=== PATIENT | male | born 1940 | race Caucasian/White ===

== ENCOUNTER → 2018-10-10 | Outpatient (CLI) | payer MEDICARE | END | disposition home or self-care (01) | LOC: RADCTMAIN 16:17 | PROVIDERS: ATTEND Psychiatry & Neurology Neurology | DX: I72.9 Aneurysm of unspecified site (principal) | CPT/HCPCS: 82565; 84520 ==

== ENCOUNTER → 2018-10-24 | Outpatient (CLI) | payer MEDICARE ==
--- NOTE | 2018-10-24 15:33 | XR ---
EXAMINATION TYPE: XR chest 2V DATE OF EXAM: 10/24/2018 COMPARISON: None HISTORY: Cardiac murmur, weakness TECHNIQUE: Frontal and lateral views of the chest are obtained on 3 images. FINDINGS: There is no focal air space opacity, pleural effusion, or pneumothorax seen. The cardiac silhouette size is within normal limits. The osseous structures are intact. IMPRESSION: No acute cardiopulmonary process.
--- NOTE | 2018-10-25 11:13 | ECHOF ---
Referral Reason:R01.1 Cardiac Murmur MEASUREMENTS -------- HEIGHT: 182.9 cm WEIGHT: 81.6 kg BP: 117/74 RVIDd: 3.8 cm (< 3.3) IVSd: 1.2 cm (0.6 - 1.1) LVIDd: 5.5 cm (3.9 - 5.3) LVPWd: 1.3 cm (0.6 - 1.1) IVSs: 1.8 cm LVIDs: 3.7 cm LVPWs: 1.9 cm LA Diam: 3.7 cm (2.7 - 3.8) LAESV Index (A-L): 37.87 ml/m Ao Diam: 3.8 cm (2.0 - 3.7) AV Cusp: 2.5 cm (1.5 - 2.6) MV EXCURSION: 15.965 mm (> 18.000) MV EF SLOPE: 104 mm/s (70 - 150) EPSS: 1.0 cm MV E Tejas: 0.76 m/s MV DecT: 175 ms MV A Tejas: 1.24 m/s MV E/A Ratio: 0.61 AV maxP.20 mmHg AV meanP.84 mmHg AR PHT: 461 ms RAP: 5.00 mmHg RVSP: 36.55 mmHg FINDINGS -------- Sinus rhythm. This was a technically good study. The left ventricular size is normal. There is mild concentric left ventricular hypertrophy. Overa ll left ventricular systolic function is normal with, an EF between 60 - 65 %. The right ventricle is mild to moderately enlarged. LA is moderately dilated 34-39 ml/m2 The right atrium is normal in size. There is mild aortic valve sclerosis. There is mild aortic regurgitation. There is mild aortic st enosis present. Peak/mean gradient across the Aortic Valve is 14.20mmHg / 4.84mmHg. The mitral valve leaflets are mildly thickened. Mild mitral annular calcification present. Modera te mitral regurgitation is present , predominately an anteriorly directed jet. Mild prolapse of the posterior mitral valve leaflet. Mild tricuspid regurgitation present. There is mild pulmonary hypertension. The right ventricular systolic pressure, as measured by Doppler, is 36.55mmHg. Trace/mild (physiologic) pulmonic regurgitation. The aortic root is dilated measuring 3.8cm. Normal inferior vena cava with normal inspiratory collapse consistent with estimated right atrial pre ssure of 5 mmHg. There is no pericardial effusion. CONCLUSIONS -------- 1. Sinus rhythm. 2. This was a technically good study. 3. The left ventricular size is normal. 4. There is mild concentric left ventricular hypertrophy. 5. Overall left ventricular systolic function is normal with, an EF between 60 - 65 %. 6. The right ventricle is mild to moderately enlarged. 7. LA is moderately dilated 34-39 ml/m2 8. The right atrium is normal in size. 9. There is mild aortic valve sclerosis. 10. There is mild aortic regurgitation. 11. There is mild aortic stenosis present. 12. Peak/mean gradient across the Aortic Valve is 14.20mmHg / 4.84mmHg. 13. The mitral valve leaflets are mildly thickened. 14. Mild mitral annular calcification present. 15. Moderate mitral regurgitation is present. 16. , predominately an anteriorly directed jet. 17. Mild prolapse of the posterior mitral valve leaflet. 18. Mild tricuspid regurgitation present. 19. There is mild pulmonary hypertension. 20. The right ventricular systolic pressure, as measured by Doppler, is 36.55mmHg. 21. Trace/mild (physiologic) pulmonic regurgitation. 22. The aortic root is dilated measuring 3.8cm. 23. Normal inferior vena cava with normal inspiratory collapse consistent with estimated right atrial pressure of 5 mmHg. 24. There is no pericardial effusion. [employer] SALES REPRESENTATIVE: Tete Chávez RDCS
== END | disposition home or self-care (01) ==
LOC: RADECHMAIN 14:47
PROVIDERS: ATTEND Family Medicine
DX: I08.3 Combined rheumatic disorders of mitral, aortic and tricuspid valves (principal); I27.20 Pulmonary hypertension, unspecified
CPT/HCPCS: 71046; 93306

== ENCOUNTER 2018-11-07 11:24 | Inpatient (IN) | payer MEDICARE ==
[2018-11-07] MEDS ORDERED: SODIUM CHLORIDE 0.9% 1,000 ML IV STA ×2 (11:32→14:55)
--- NOTE | 2018-11-07 11:38 | ED ---
Syncope HPI - General Stated Complaint: Syncope Time Seen by Provider: 11/07/18 11:24 Source: patient, EMS, RN notes reviewed, old records reviewed Mode of arrival: EMS - History of Present Illness Initial Comments: This is a 78-year-old male was brought in by EMS after he found unresponsive slumped over in a wheelchair. He had Nausea Vomiting Sometime during This Occurrence. Paramedics Stated He Responded after They Talked to Him and Babatunde Him Somewhat. He Denies Any Chest Pain Fevers Chills Palpitations. He Apparently Has had a Similar Episode Recently and Was Seen at [facility] apparently CAT scan shows some evidence of possible intercerebral bleed the patient was to be transferred to a tertiary care facility for refused. He did apparently also had an outpatient MRI of the brain done which showed no bleeding. At this time he feels fine. He does state he had a slight headache this morning. No other symptomatology no other modifying factors at this time. MD Complaint: loss of consciousness - Related Data Home Medications Medication Instructions Recorded Confirmed Acetaminophen Tab [Tylenol Tab] 325 mg PO Q6H PRN 11/07/18 11/07/18 Vitamin B Complex 1 cap PO DAILY 11/07/18 11/07/18 Allergies Allergy/AdvReac Type Severity Reaction Status Date / Time No Known Allergies Allergy Verified 11/07/18 12:59 Review of Systems ROS Statement: Those systems with pertinent positive or pertinent negative responses have been documented in the HPI. ROS Other: All systems not noted in ROS Statement are negative. General Exam - General Exam Comments Initial Comments: This a well-developed asthenic appearing male who is awake alert oriented 3 General appearance: alert, in no apparent distress Head exam: Present: atraumatic, normocephalic, normal inspection Eye exam: Present: normal appearance, PERRL, EOMI. Absent: scleral icterus, conjunctival injection, periorbital swelling ENT exam: Present: mucous membranes dry Neck exam: Present: normal inspection. Absent: tenderness, meningismus, lymphadenopathy Respiratory exam: Present: normal lung sounds bilaterally. Absent: respiratory distress, wheezes, rales, rhonchi, stridor Cardiovascular Exam: Present: regular rate, normal rhythm, normal heart sounds. Absent: systolic murmur, diastolic murmur, rubs, gallop, clicks GI/Abdominal exam: Present: soft, normal bowel sounds. Absent: distended, tenderness, guarding, rebound, rigid Rectal exam: Present: heme (+) stool, bloody stool Extremities exam: Present: normal inspection, full ROM, normal capillary refill. Absent: tenderness, pedal edema, joint swelling, calf tenderness Back exam: Present: normal inspection Neurological exam: Present: alert, oriented X3, CN II-XII intact Psychiatric exam: Present: normal affect, normal mood Skin exam: Present: warm, dry, intact, normal color. Absent: rash Course Vital Signs 11/07/18 11/07/18 11/07/18 11:34 12:21 15:50 Temperature 98.2 F 97.6 F Pulse Rate 89 91 112 H Respiratory 18 16 18 Rate Blood Pressure 136/104 144/99 146/90 O2 Sat by Pulse 98 97 98 Oximetry 11/07/18 15:53 Temperature Pulse Rate Respiratory Rate Blood Pressure O2 Sat by Pulse 99 Oximetry Medical Decision Making - Medical Decision Making Patient was reevaluated on multiple occasions he demonstrated no further symptoms and was noted however on his lab work is hemoglobin was 8.4 information obtained from [facility] at his last admission on September 20 demonstrated he had a 10.4 hemoglobin at that time he does say he has had some bleeding from his gums I did perform a rectal exam there was heme positive dark red streak stool. I did discuss the findings with Dr. Velez patient will be admitted with cardiology consultation as well as GI consultation. The syncopal episodes or likely secondary to symptomatic anemia/orthostatic etiology. - Lab Data Result diagrams: 11/07/18 12:44 11/07/18 14:15 Lab Results 11/07/18 11/07/18 11/07/18 Range/Units 11:41 11:41 12:44 WBC 11.3 H (3.8-10.6) k/uL RBC 2.67 L (4.30-5.90) m/uL Hgb 8.4 L (13.0-17.5) gm/dL Hct 26.0 L (39.0-53.0) % MCV 97.3 (80.0-100.0) fL MCH 31.4 (25.0-35.0) pg MCHC 32.3 (31.0-37.0) g/dL RDW 13.0 (11.5-15.5) % Plt Count 236 (150-450) k/uL Neutrophils % 85 % Lymphocytes % 7 % Monocytes % 6 % Eosinophils % 1 % Basophils % 0 % Neutrophils # 9.6 H (1.3-7.7) k/uL Lymphocytes # 0.8 L (1.0-4.8) k/uL Monocytes # 0.7 (0-1.0) k/uL Eosinophils # 0.1 (0-0.7) k/uL Basophils # 0.0 (0-0.2) k/uL PT 11.0 (9.0-12.0) sec INR 1.0 (<1.2) APTT 20.3 L (22.0-30.0) sec D-Dimer 0.83 H (<0.60) mg/L FEU Sodium (137-145) mmol/L Potassium (3.5-5.1) mmol/L Chloride (98-107) mmol/L Carbon Dioxide (22-30) mmol/L Anion Gap mmol/L BUN (9-20) mg/dL Creatinine (0.66-1.25) mg/dL Est GFR (CKD-EPI)AfAm (>60 ml/min/1.73 sqM) Est GFR (CKD-EPI)NonAf (>60 ml/min/1.73 sqM) Glucose (74-99) mg/dL Calcium (8.4-10.2) mg/dL Magnesium (1.6-2.3) mg/dL Total Bilirubin (0.2-1.3) mg/dL AST (17-59) U/L ALT (21-72) U/L Alkaline Phosphatase (38-126) U/L Creatine Kinase (55-170) U/L Troponin I 0.013 (0.000-0.034) ng/mL Total Protein (6.3-8.2) g/dL Albumin (3.5-5.0) g/dL Urine Color Urine Appearance (Clear) Urine pH (5.0-8.0) Ur Specific [place] (1.001-1.035) Urine Protein (Negative) Urine Glucose (UA) (Negative) Urine Ketones (Negative) Urine Blood (Negative) Urine Nitrite (Negative) Urine Bilirubin (Negative) Urine Urobilinogen (<2.0) mg/dL Ur Leukocyte Esterase (Negative) Stool Occult Blood (Negative) 11/07/18 11/07/18 11/07/18 Range/Units 14:15 16:50 16:50 WBC (3.8-10.6) k/uL RBC (4.30-5.90) m/uL Hgb (13.0-17.5) gm/dL Hct (39.0-53.0) % MCV (80.0-100.0) fL MCH (25.0-35.0) pg MCHC (31.0-37.0) g/dL RDW (11.5-15.5) % Plt Count (150-450) k/uL Neutrophils % % Lymphocytes % % Monocytes % % Eosinophils % % Basophils % % Neutrophils # (1.3-7.7) k/uL Lymphocytes # (1.0-4.8) k/uL Monocytes # (0-1.0) k/uL Eosinophils # (0-0.7) k/uL Basophils # (0-0.2) k/uL PT (9.0-12.0) sec INR (<1.2) APTT (22.0-30.0) sec D-Dimer (<0.60) mg/L FEU Sodium 143 (137-145) mmol/L Potassium 4.0 (3.5-5.1) mmol/L Chloride 108 H (98-107) mmol/L Carbon Dioxide 25 (22-30) mmol/L Anion Gap 10 mmol/L BUN 14 (9-20) mg/dL Creatinine 1.39 H (0.66-1.25) mg/dL Est GFR (CKD-EPI)AfAm 57 (>60 ml/min/1.73 sqM) Est GFR (CKD-EPI)NonAf 49 (>60 ml/min/1.73 sqM) Glucose 142 H (74-99) mg/dL Calcium 10.1 (8.4-10.2) mg/dL Magnesium 2.1 (1.6-2.3) mg/dL Total Bilirubin 0.8 (0.2-1.3) mg/dL AST 26 (17-59) U/L ALT 22 (21-72) U/L Alkaline Phosphatase 87 (38-126) U/L Creatine Kinase <20 L (55-170) U/L Troponin I (0.000-0.034) ng/mL Total Protein 8.6 H (6.3-8.2) g/dL Albumin 3.8 (3.5-5.0) g/dL Urine Color Yellow Urine Appearance Clear (Clear) Urine pH 5.5 (5.0-8.0) Ur Specific [place] 1.012 (1.001-1.035) Urine Protein Trace H (Negative) Urine Glucose (UA) Negative (Negative) Urine Ketones Negative (Negative) Urine Blood Negative (Negative) Urine Nitrite Negative (Negative) Urine Bilirubin Negative (Negative) Urine Urobilinogen <2.0 (<2.0) mg/dL Ur Leukocyte Esterase Negative (Negative) Stool Occult Blood Positive (Negative) - EKG Data -: EKG Interpreted by Me (Sinus rhythm with first-degree AV block occasional PVCs rate was 90 AR inte) - Radiology Data Radiology results: report reviewed (I did review the imaging and reports no definite acute findings or is some evidence a CAT scan of sinusitis.), image reviewed Critical Care Time Critical Care Time: Yes Critical Care Time: 31 minutes of critical care time which includes initial presentation with history physical labs x-rays multiple reevaluation the patient to response to IV fluids and continued monitoring. Multiple discussion with the patient has daughter regarding findings review of old charting from [facility]. Discussed with Dr. Velez admission orders and documentation of the above. Disposition Clinical Impression: Syncope due to orthostatic hypotension, Symptomatic anemia, GI bleed Disposition: ADMITTED IP TO THIS [facility] Condition: Fair Referrals: Jn Alonso DO [Primary Care Provider] - 1-2 days
[2018-11-07 12:38] LABS: Partial Thromboplastin Time 20.3 sec (22.0-30.0)
--- NOTE | 2018-11-07 12:42 | CT ---
EXAMINATION TYPE: CT brain wo con DATE OF EXAM: 11/07/2018 COMPARISON: None HISTORY: Syncopal episode today. CT DLP: 1180.4 mGycm Automated exposure control for dose reduction was used. TECHNIQUE: CT scan of the head is performed without contrast. FINDINGS: There is no acute intracranial hemorrhage or midline shift identified. There is diffuse v entricular and sulcal prominence consistent with diffuse age-related cerebral atrophy. Punctate basa l ganglia calcifications are seen on the right. There is low-attenuation in the periventricular white matter consistent with chronic small vessel ischemic change. The globes are intact. There is severe mucosal thickening with high-density rounded material is multifocal within the right maxillary sinus . These measure up to 9 mm. Scant mucosal thickening is also seen within the left maxillary sinus and e thmoid sinuses. Remaining paranasal sinuses and mastoid air cells are well aerated. IMPRESSION: 1. No acute intracranial hemorrhage or midline shift. There is diffuse age-related cerebral atrophy and chronic small vessel ischemic change noted. 2. Severe right maxillary mucosal thickening with high density rounded intrasinus lesions. These coul d represent small fungal balls or polyps.
--- NOTE | 2018-11-07 12:43 | XR ---
EXAMINATION TYPE: XR chest 2V DATE OF EXAM: 11/07/2018 COMPARISON: 10/24/2018 HISTORY: Syncopal episode TECHNIQUE: Frontal and lateral views of the chest are obtained. FINDINGS: There is no focal air space opacity, pleural effusion, or pneumothorax seen. The cardiac silhouette size is within normal limits. The osseous structures are intact. IMPRESSION: No acute cardiopulmonary process.
[2018-11-07 13:03] LABS: D-Dimer 0.83 mg/L FEU (<0.60)
[2018-11-07 14:33] LABS: Basophils % (A) 0 %; Eosinophils # (A) 0.1 k/uL (0-0.7); Eosinophils % (A) 1 %; HGB 8.4 gm/dL (13.0-17.5); Lymphocytes # (A) 0.8 k/uL (1.0-4.8); Lymphocytes % (A) 7 %; MCH 31.4 pg (25.0-35.0); MCV 97.3 fL (80.0-100.0); Monocytes # (A) 0.7 k/uL (0-1.0); Monocytes % (A) 6 %; Neutrophils # (A) 9.6 k/uL (1.3-7.7); Neutrophils % (A) 85 %; Platelet Count 236 k/uL (150-450); RBC 2.67 m/uL (4.30-5.90); WBC 11.3 k/uL (3.8-10.6)
[2018-11-07 14:47] LABS: MCHC 32.3 g/dL (31.0-37.0)
[2018-11-07 14:47] LABS: ALT 22 U/L (21-72); AST 26 U/L (17-59); Albumin 3.8 g/dL (3.5-5.0); Alkaline Phosphatase 87 U/L (38-126); Anion Gap 10 mmol/L; Blood Urea Nitrogen 14 mg/dL (9-20); Calcium 10.1 mg/dL (8.4-10.2); Carbon Dioxide 25 mmol/L (22-30); Chloride 108 mmol/L (98-107); Creatine Kinase <20 U/L (55-170); Glucose 142 mg/dL (74-99); Magnesium 2.1 mg/dL (1.6-2.3); Sodium 143 mmol/L (137-145); Total Bilirubin 0.8 mg/dL (0.2-1.3); Total Protein 8.6 g/dL (6.3-8.2)
--- NOTE | 2018-11-07 16:14 | CT ---
EXAMINATION TYPE: CT angio chest DATE OF EXAM: 11/07/2018 COMPARISON: NONE HISTORY: Syncopal episode today. Elevated d-dimer. CT DLP: 282.8 mGycm. Automated Exposure Control for Dose Reduction was Utilized. CONTRAST: CTA scan of the thorax is performed with IV Contrast, patient injected with 80 mL of Isovue 370, pulm onary embolism protocol. MIP Images are created on CT scanner and reviewed. FINDINGS: LUNGS: Multifocal subsegmental atelectasis predominates inferiorly. The lungs are grossly clear, ther e is no concerning parenchymal mass or nodule identified. There is no pleural effusion or pneumotho rax seen. The tracheobronchial tree is patent. MEDIASTINUM: The main pulmonary artery is enlarged measuring 4.0 cm. There is satisfactory enhancemen t of the pulmonary artery and its branches, there is no CT evidence for pulmonary embolism. There ar e no greater than 1 cm hilar or mediastinal lymph nodes. Heart is enlarged. Prevascular lymph node me asures 8 mm in short axis. Prominent supraclavicular lymph node on the right measures 5 mm in short a xis. Right paratracheal lymph node in the superior mediastinum measures 9 mm in short axis. OTHER: Low-density likely adrenal gland adenoma is seen on the left measuring 1.8 cm. 3.4 cm exophyti c renal cyst is also seen on the left in addition to a smaller probable cyst. Spleen is elongated parminder suring 13.7 cm in longitudinal dimension approaching criteria for splenomegaly. IMPRESSION: 1. No evidence of pulmonary embolus. 2. Main pulmonary artery enlargement that may clinically correlate with pulmonary arterial hypertensi on. 3. Scattered subsegmental abdominal 80 dependent atelectasis. 4. Cardiomegaly.
[2018-11-07 17:06] LABS: Appearance,Urine Clear (Clear); Bilirubin,Urine Negative (Negative); Blood,Urine Negative (Negative); Color,Urine Yellow; Glucose,Urine (UA) Negative (Negative); Ketones,Urine Negative (Negative); Leukocyte Esterase,Urine Negative (Negative); Nitrite,Urine Negative (Negative); PH, Urine 5.5 (5.0-8.0); Protein,Urine Trace (Negative); Specific Gravity,Urine 1.012 (1.001-1.035); Urobilinogen,Urine <2.0 mg/dL (<2.0)
[2018-11-07] MEDS ORDERED: NALOXONE 0.4 MG/ML 1 ML VIAL IV PRN (17:17)
[2018-11-07] MEDS: SODIUM CHLORIDE 0.9% 1,000 ML IV SCH (20:15)
[2018-11-07] MEDS: PANTOPRAZOLE 40 MG/10 ML VIAL IV SCH (20:20)
[2018-11-07 21:44] LABS: HCT 24.3 % (39.0-53.0); HGB 7.3 gm/dL (13.0-17.5); Hypochromasia Slight; MCH 29.5 pg (25.0-35.0); MCHC 29.9 g/dL (31.0-37.0); MCV 98.4 fL (80.0-100.0); Mean Platelet Volume 7.1; Platelet Count 155 k/uL (150-450); RBC 2.47 m/uL (4.30-5.90); RDW 12.9 % (11.5-15.5); WBC 5.7 k/uL (3.8-10.6)
[2018-11-07 21:58] LABS: Band Neutrophils % 1 %; Lymphocytes # (M) 1.31 k/uL (1.0-4.8); Monocytes # (M) 0.23 k/uL (0-1.0); Neutrophils % (M) 72 %; Nucleated Red Blood Cells 0 /100 WBC (0-0); Total Cells Counted 100
--- NOTE | 2018-11-07 23:39 | HP ---
HISTORY AND PHYSICAL DATE OF ADMISSION: 11/07/2018 PRESENTING COMPLAINT: Passed out. HISTORY OF PRESENTING COMPLAINT: This is 78-year-old patient of Dr. Alonso who really does not take any medications. The patient was going down to see his friend, was sitting on a wheeled chair, and the next thing he knew he had passed out. The next thing he remembers was that the ambulance was taking him. He does state that for some time he has been getting dizzy, especially when he stands up and moves about. In the ER patient was found to have blood in his stools. Patient has been bleeding intermittently from his gums. Hemoglobin was found to be 8.4; repeat was 7.3. Admitted with a GI consultation. Patient denied any palpitations or seizure-like activity or tongue biting, incontinence. There is no chest pain or palpitations. REVIEW OF SYSTEMS: CONSTITUTIONAL: Tired. HEENT: Bleeding gums. RESPIRATORY: Occasional wheezing. CARDIOVASCULAR: None. GASTROINTESTINAL: No abdominal pain. GENITOURINARY: None. MUSCULOSKELETAL: Some arthritic pain in joints. DERMATOLOGICAL: None. HEMATOLOGICAL: As above. LYMPHATICS: None. PSYCHIATRY: None. NEUROLOGICAL: As above. No focal symptoms. PAST MEDICAL HISTORY: 1. Tinnitus. 2. Fractured right ankle in September. 3. 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 Has not seen a doctor for 40 years. SURGICAL HISTORY: None. SOCIAL HISTORY: Drinks about 6 beers a week. Stopped smoking 20 years ago. Lives alone. FAMILY HISTORY: AICD, pacemaker. HOME MEDICATIONS: 1. Vitamin B complex. 2. Tylenol. ALLERGIES: NONE. PHYSICAL EXAMINATION: Temperature 97.6, pulse 112, respiration 18, blood pressure 146/90, pulse ox 98% on room air. GENERAL APPEARANCE: Average build. Lying in bed, tired-appearing. EYES: Pupils equal. Conjunctivae pale. HEENT: External appearance of nose and ears normal. Oral cavity with bleeding gums. NECK: JVD not raised. Mass not palpable. RESPIRATORY: Effort normal. LUNGS: Decreased breath sounds. CARDIOVASCULAR: First and second sounds normal. No edema. ABDOMEN: Soft, non-tender. Liver and spleen not palpable. LYMPHATIC: No lymph node palpable in neck or axillae. PSYCHIATRY: Alert and oriented x3. Mood and affect normal. NEUROLOGICAL: Pupils equal. Cranial nerves grossly intact. Power and sensation grossly intact. MUSCULOSKELETAL: Evidence of osteoarthritis, especially in the hands and knees. INVESTIGATIONS: White count 11.3, hemoglobin 8.4, repeat 7.3, potassium 4.0, BUN 14, creatinine 1.39. Patient's EKG, personally reviewed by me, shows some prolonged QT and PVC. Chest CTA shows some cardiomegaly. CT scan of the brain nil acute; shows some intrasinus lesions. Chest x-ray shows some cardiomegaly; lung harding may show some chronic changes. ASSESSMENT: 1. Syncope, probably from blood loss anemia. 2. Acute blood loss anemia from gastrointestinal tract, and patient has also been bleeding from his gums. 3. Elevated creatinine at 1.39; unknown whether this is acute of chronic. PLAN: Repeat CBC will be done in the morning. If patient becomes more symptomatic or drops hemoglobin, he will be transfused blood. GI is consulted with a view to endoscopy. Will do some pressure on the gums. MMODL / IJN: [id number] /
[2018-11-08] MEDS: SODIUM CHLORIDE 0.9% 1,000 ML IV SCH ×2 (06:52→21:11)
[2018-11-08] MEDS: PANTOPRAZOLE 40 MG/10 ML VIAL IV SCH ×2 (08:27→21:11)
[2018-11-08 08:46] LABS: Basophils % (A) 0 %; Eosinophils # (A) 0.1 k/uL (0-0.7); Eosinophils % (A) 2 %; Hypochromasia Slight; Lymphocytes # (A) 0.9 k/uL (1.0-4.8); Lymphocytes % (A) 19 %; MCH 29.5 pg (25.0-35.0); MCHC 29.7 g/dL (31.0-37.0); Mean Platelet Volume 6.9; Monocytes # (A) 0.3 k/uL (0-1.0); Monocytes % (A) 6 %; Neutrophils # (A) 3.4 k/uL (1.3-7.7); Neutrophils % (A) 71 %; Platelet Count 141 k/uL (150-450); RBC 2.21 m/uL (4.30-5.90); RDW 12.8 % (11.5-15.5); WBC 4.9 k/uL (3.8-10.6)
[2018-11-08 08:50] LABS: HGB 6.5 gm/dL (13.0-17.5)
[2018-11-08 09:12] LABS: MCV 99.4 fL (80.0-100.0)
--- NOTE | 2018-11-08 09:21 | CONS ---
MALI Samano is a 78-year-old gentleman with history of mitral regurgitation who presented to hospital having had an episode of syncope. This is a second episode of syncope that he had his initial episode happened few months ago at which time he suddenly passed out sitting and waiting in one place. Did not have bladder or bowel incontinence. Did not have focal neurological deficits. At that time suffered ankle injury and had surgery subsequently. Yesterday he was sitting and waiting for his friend and apparently suddenly passed out and vomited. Did not have bladder or bowel incontinence. Did not have focal neurological deficits. He recently had an echocardiogram that showed moderate mitral regurgitation with preserved LV function and mild aortic stenosis. Since being admitted here, he is doing well. Has not had any syncopal events. Did not have documented tachy or bradyarrhythmias. Troponin is negative. He had mild elevation in D-dimer, went on to have a CT scan of the chest that was negative for pulmonary embolism. An EKG showed sinus rhythm with left ventricular hypertrophy and frequent PVC. His lab showed that he had a hemoglobin of 7.3. There is a drop from the 8.4 he came in with. He has elevated creatinine also. The current episode of syncope could be related to GI bleed. Once the GI bleed issues have been addressed, we have to investigate his mitral regurgitation further with a transesophageal echo and if necessary cardiac catheterization. I do not believe his syncope is related to the mitral regurgitation. PAST MEDICAL HISTORY: Negative for hypertension, diabetes, dyslipidemia. MEDICATIONS: None. ALLERGIES: None. FAMILY HISTORY: Negative for premature coronary artery disease. SOCIAL HISTORY: Negative for current smoking, EtOH abuse, or drug abuse. REVIEW OF SYSTEMS: HEENT is unremarkable. CARDIAC: As described above. RESPIRATORY: Negative. GI: Significant for GI bleed. GENITOURINARY: Negative. ALLERGY: Negative. MUSCULOSKELETAL: Significant for arthritis. PSYCHOSOCIAL: Negative. ENDOCRINE: Negative. HEMATOLOGICAL: Negative. DERM: Negative. CONSTITUTIONAL: Negative. ONCOLOGICAL: Negative. The rest of the system review is not relevant. PHYSICAL EXAM: Patient is comfortable at rest. Afebrile. Heart rate is 60 beats per minute. Blood pressure is 140/70, respiratory rate is 18. Chest exam reveals good air entry bilaterally. Heart exam reveals first and second heart sounds. No gallop. No murmur. No rub. Abdomen is soft, nontender. Exam of extremities did not reveal any edema. Peripheral pulses are palpable. LABS: Show that the hemoglobin is 7.3, platelet count is 155. Potassium is 4, creatinine is 1.3. ASSESSMENT: 1. Syncope, probably secondary to gastrointestinal bleed. 2. Moderate mitral regurgitation. PLAN: Will await a GI workup for the anemia//this workup is complete. The patient will need evaluation for the mitral regurgitation either while he is in the hospital or upon discharge. Patient's memory is not the best. I need to talk to his daughter who apparently is the decision maker. SUKH / ALECIAN: [id number] /
--- NOTE | 2018-11-08 12:06 | P.CONS ---
History of Present Illness - Reason for Consult Consult date: 11/08/18 anemia Requesting physician: Madhu Velez - Chief Complaint Unresponsiveness - History of Present Illness 78-year-old male brought in by ambulance second unresponsiveness syncope. Consult requested for anemia. Patient states he hasn't seen a doctor in "40 years". Admission hemoglobin 8.4. MCV 97. Hemoglobin this morning 6.5. Receiving blood transfusion. Platelet 141-to 36. White count 4.9-11.3. INR 1.0. FOBT positive. BUN 14. Creatinine 1.3. No history GI bleed or peptic ulcer disease. No history of EGD colonoscopy. Denies abdominal pain or weight loss. Patient has developed a nosebleed this morning. He also has bleeding from right upper gum line. He has dentures upper palate is unable to be removed at this time he was able to remove the lower denture without difficulty. Afebrile. Denies odynophagia dysphagia. CT brain no acute intracranial hemorrhage. Severe right maxillary mucosal thickening with high density rounded intrasinus lesions. Could represent small fungal balls or polyps. CT chest no PE. Review of Systems Constitutional: Denies fever, chills, sweats, weight gain, or loss. HEENT: Negative for migraines, blurred vision or loss, earaches, drainage, tinnitus, bleeding from right upper gumline, dysphagia, or odynophagia. Cardiac: Negative for chest pain, arrhythmias, or palpitation. Respiratory: Negative for shortness of breath, hemoptysis, cough, or sputum production. Gastrointestinal: See HPI for pertinent findings. Genitourinary: Negative for hematuria, urgency, frequency, polyuria, dysuria, or penile discharge. Musculoskeletal: Negative for muscle aches, swelling, arthritis, and arthralgias. Neurologic: Negative for stroke or TIA. Endocrine: Negative for thyroid problems. Skin: Negative for rash or itching. Psychiatric: Negative history for depression and anxiety Past Medical History Past Medical History: Syncope Additional Past Medical History / Comment(s): tinnitus, pt. 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 states he has not been to a doctor in 40 years History of Any Multi-Drug Resistant Organisms: None Reported Past Surgical History: No Surgical Hx Reported Past Anesthesia/Blood Transfusion Reactions: No Reported Reaction Additional Past Anesthesia/Blood Transfusion Reaction / Comm: pt. has never had surgery Past Psychological History: No Psychological Hx Reported Smoking Status: Former smoker Past Alcohol Use History: Occasional Additional Past Alcohol Use History / Comment(s): pt. quit smoking 23 years ago, pt. reports drinking 6-8 beers weekly Past Drug Use History: None Reported - Past Family History Brother(s) Family Medical History: AICD/Pacemaker Medications and Allergies Home Medications Medication Instructions Recorded Confirmed Type Acetaminophen Tab [Tylenol Tab] 325 mg PO Q6H PRN 11/07/18 11/07/18 History Vitamin B Complex 1 cap PO DAILY 11/07/18 11/07/18 History Allergies Allergy/AdvReac Type Severity Reaction Status Date / Time No Known Allergies Allergy Verified 11/07/18 12:59 Physical Exam Vitals: Vital Signs Temp Pulse Pulse Resp BP BP Pulse Ox 11/08/18 11:57 98.4 F 69 20 140/69 97 11/08/18 11:47 97.6 F 64 18 145/78 97 11/08/18 07:46 97.6 F 60 18 141/72 95 11/08/18 04:20 97.9 F 65 18 140/77 97 11/08/18 00:10 98.3 F 62 18 145/77 96 11/07/18 20:10 70 18 11/07/18 19:56 98.1 F 70 18 144/77 98 11/07/18 19:05 98.3 F 78 18 160/95 98 11/07/18 18:24 78 18 158/92 97 11/07/18 15:53 99 11/07/18 15:50 112 H 18 146/90 98 11/07/18 12:21 97.6 F 91 16 144/99 97 Intake and Output 11/07/18 11/08/18 11/08/18 22:59 06:59 14:59 Intake Total 0 Output Total 250 450 100 Balance -250 -450 -100 Intake: Blood Product 0 Rc Pheresis As-3 Unit 0 [id number] Output: Urine 250 450 100 Other: Voiding Method Urinal Urinal # Voids 2 1 Weight 74.3 kg General appearance: The patient is alert, oriented, in no acute distress. Visible nosebleed. HET: Head is normocephalic and atraumatic. Pupils are equal and reactive. Oropharynx is with poor oral dentition follow odor and mouth. Upper gumline dusky in nature denture in place unable to be removed. Lower denture removed no obvious lesions. Neck: Supple without lymphadenopathy. Trachea midline. Heart: S1 S2. Regular rate and rhythm. Lungs: No crackles or wheezes are heard. Abdomen: Soft, nontender, nondistended with bowel sounds. No peritoneal signs. No palpable organomegaly or masses. Extremities: Normal skin color and turgor. No cyanosis, rash, ulceration, clubbing, or edema. Radial and pedal pulses are 2/4 bilaterally. Neurological: No focal deficits. Strength and sensation are grossly intact. Results CBC & Chem 7: 11/09/18 06:45 11/09/18 06:45 Labs: Abnormal Lab Results - Last 24 Hours (Table) 11/07/18 11/07/18 11/07/18 Range/Units 11:41 12:44 14:15 WBC 11.3 H (3.8-10.6) k/uL RBC 2.67 L (4.30-5.90) m/uL Hgb 8.4 L (13.0-17.5) gm/dL Hct 26.0 L (39.0-53.0) % MCHC (31.0-37.0) g/dL Plt Count (150-450) k/uL Neutrophils # 9.6 H (1.3-7.7) k/uL Lymphocytes # 0.8 L (1.0-4.8) k/uL APTT 20.3 L (22.0-30.0) sec D-Dimer 0.83 H (<0.60) mg/L FEU Chloride 108 H (98-107) mmol/L Creatinine 1.39 H (0.66-1.25) mg/dL Glucose 142 H (74-99) mg/dL Creatine Kinase <20 L (55-170) U/L Total Protein 8.6 H (6.3-8.2) g/dL Urine Protein (Negative) Crossmatch 11/07/18 11/07/18 11/07/18 Range/Units 16:50 17:35 21:14 WBC (3.8-10.6) k/uL RBC 2.47 L (4.30-5.90) m/uL Hgb 7.3 L (13.0-17.5) gm/dL Hct 24.3 L (39.0-53.0) % MCHC 29.9 L (31.0-37.0) g/dL Plt Count (150-450) k/uL Neutrophils # (1.3-7.7) k/uL Lymphocytes # (1.0-4.8) k/uL APTT (22.0-30.0) sec D-Dimer (<0.60) mg/L FEU Chloride (98-107) mmol/L Creatinine (0.66-1.25) mg/dL Glucose (74-99) mg/dL Creatine Kinase (55-170) U/L Total Protein (6.3-8.2) g/dL Urine Protein Trace H (Negative) Crossmatch See Detail 11/08/18 Range/Units 06:13 WBC (3.8-10.6) k/uL RBC 2.21 L (4.30-5.90) m/uL Hgb 6.5 L* (13.0-17.5) gm/dL Hct 22.0 L (39.0-53.0) % MCHC 29.7 L (31.0-37.0) g/dL Plt Count 141 L (150-450) k/uL Neutrophils # (1.3-7.7) k/uL Lymphocytes # 0.9 L (1.0-4.8) k/uL APTT (22.0-30.0) sec D-Dimer (<0.60) mg/L FEU Chloride (98-107) mmol/L Creatinine (0.66-1.25) mg/dL Glucose (74-99) mg/dL Creatine Kinase (55-170) U/L Total Protein (6.3-8.2) g/dL Urine Protein (Negative) Crossmatch CT scan - chest: report reviewed (Dr. Bellamy) Assessment and Plan (1) Symptomatic anemia Narrative/Plan: 78-year-old gentleman admitted with loss of consciousness syncope with evidence of normocytic hypochromic anemia most likely component of acute blood loss underlying GI source cannot be entirely excluded. Presently with epistaxis as well as bleeding from his right upper gumline unable to remove denture. Current Visit: Yes Status: Acute Code(s): D64.9 - ANEMIA, UNSPECIFIED SNOMED Code(s): 621486969 Plan: 1. EGD colonoscopy was advised however patient declined. Continue blood transfusion H&H monitoring. Diet as tolerated. We'll be available for additional questions or concerns. Outpatient endoscopy was offered to patient at this time but he has not committed and would like to discuss with his daughter. Upper denture will need to be removed prior to endoscopic exam. Thank you for this kind referral and the opportunity to participate in the care of your patient. This consultation was discussed with Dr. Bellamy. The impression and plan of care have been directed as dictated.
[2018-11-08 17:51] LABS: HCT 24.6 % (39.0-53.0); Hypochromasia Slight; MCH 33.3 pg (25.0-35.0); MCHC 33.4 g/dL (31.0-37.0); MCV 99.6 fL (80.0-100.0); Mean Platelet Volume 7.5; Platelet Count 157 k/uL (150-450); RBC 2.47 m/uL (4.30-5.90); RDW 12.7 % (11.5-15.5); WBC 5.8 k/uL (3.8-10.6)
[2018-11-08 17:54] LABS: HGB 8.2 gm/dL (13.0-17.5)
--- NOTE | 2018-11-08 22:55 | PN ---
PROGRESS NOTE DATE OF SERVICE: November 08, 2018. PRESENTING COMPLAINT: Bleed. INTERVAL HISTORY: This patient does not really follow up with doctors, presented with passing out and there was blood per rectum. The patient further dropped his hemoglobin to 6.4 this morning. I did order a unit of blood. The patient also had further bleeding of the gums and also was having epistaxis when I came to see the patient. Earlier I was called from [facility] by GI service that the patient declined any kind of endoscopy. REVIEW OF SYSTEMS: Done for constitutional, cardiovascular, GI, pulmonary; relevant findings as above. CURRENT MEDICATIONS: Reviewed that include IV Protonix and IV fluids. PHYSICAL EXAMINATION: VITAL SIGNS: Temperature 97.6 pulse 65, respiratory 18, blood pressure 130/71, pulse ox 96 percent. GENERAL APPEARANCE: Sitting up, awake. EYES: Pupils equal. Conjunctivae pale. HEENT: External appearance of nose and ears normal. Oral cavity showing bleeding gums and also active epistaxis. NECK: JVD not raised. Mass not palpable. RESPIRATORY: Effort normal. LUNGS: Decreased breath sounds. CARDIOVASCULAR: 1st and 2nd heart sounds normal. ABDOMEN: Soft, nontender. Liver and spleen not palpable. PSYCHIATRY: Alert and oriented x3. Mood and affect normal. INVESTIGATIONS: White count 4.9, hemoglobin 6.5, repeat after transfusion 8.2, platelets 141. ASSESSMENT: 1. Syncope from blood loss anemia. 2. Acute gastrointestinal bleed, cause unclear. 3. Acute severe blood loss anemia, symptomatic. Patient did get a unit of blood. 4. Constantly bleeding gums. 5. Acute epistaxis. 6. Creatinine 1.39. PLAN: We will check patient's BMP in the morning. I had a lengthy talk with the patient. He is going to talk to the daughter and see if he is going to get endoscopy done. I was concerned if he keeps bleeding it may be rather severely and detrimental to him. Also, nasal packing will be carried out. Repeat a CBC, BMP in the morning and hopefully patient will consent for endoscopy by tomorrow. RADHAL / ALECIAN: [id number] /
[2018-11-09 07:04] LABS: Basophils % (A) 0 %; Eosinophils # (A) 0.1 k/uL (0-0.7); Eosinophils % (A) 2 %; HCT 25.1 % (39.0-53.0); HGB 7.8 gm/dL (13.0-17.5); Hypochromasia Slight; Lymphocytes # (A) 1.1 k/uL (1.0-4.8); Lymphocytes % (A) 24 %; MCH 30.2 pg (25.0-35.0); MCHC 30.9 g/dL (31.0-37.0); MCV 97.7 fL (80.0-100.0); Mean Platelet Volume 7.2; Monocytes # (A) 0.3 k/uL (0-1.0); Monocytes % (A) 6 %; Neutrophils % (A) 65 %; Platelet Count 148 k/uL (150-450); RBC 2.57 m/uL (4.30-5.90); RDW 12.7 % (11.5-15.5); WBC 4.6 k/uL (3.8-10.6)
[2018-11-09 07:31] LABS: Potassium 3.8 mmol/L (3.5-5.1)
[2018-11-09] MEDS: PANTOPRAZOLE 40 MG/10 ML VIAL IV SCH ×2 (07:56→20:38)
[2018-11-09] MEDS: SODIUM CHLORIDE 0.9% 1,000 ML IV SCH ×2 (07:56→20:26)
--- NOTE | 2018-11-09 13:20 | P.PN ---
Subjective Progress Note Date: 11/09/18 Principal diagnosis: Anemia No nosebleeds today. Feels well. Unable to remove upper denture. Patient is reconsidered EGD colonoscopy for evaluation of anemia. Hemoglobin 7.8. Objective - Vital Signs Vital signs: Vital Signs Temp 96.4 F L 11/09/18 11:04 Pulse 58 L 11/09/18 11:04 Resp 16 11/09/18 11:04 BP 150/84 11/09/18 11:04 Pulse Ox 94 L 11/09/18 11:04 Intake & Output 11/08/18 11/09/18 11/09/18 18:59 06:59 18:59 Intake Total 430 640 Output Total 275 1325 Balance 155 -685 Weight 74.3 kg Intake: Intake, IV Titration 640 Amount Sodium Chloride 0.9% 1, 640 000 ml @ 80 mls/hr IV . [id number] [facility] Rx#:[id number] Oral 120 Blood Product 310 Rc Pheresis As-3 Unit 310 [id number] Output: Urine 275 1325 Other: Voiding Method Urinal Urinal Urinal # Voids 1 - Exam General appearance: The patient is alert, oriented, in no acute distress. Neck: Supple without lymphadenopathy. Trachea midline. Heart: S1 S2. Regular rate and rhythm. Lungs: No crackles or wheezes are heard. Abdomen: Soft, nontender, nondistended with bowel sounds. No peritoneal signs. No palpable organomegaly or masses. Extremities: Normal skin color and turgor. No cyanosis, rash, ulceration, clubbing, or edema. Radial and pedal pulses are 2/4 bilaterally. Neurological: No focal deficits. Strength and sensation are grossly intact. - Labs CBC & Chem 7: 11/09/18 06:45 11/09/18 06:45 Labs: Abnormal Lab Results - Last 24 Hours (Table) 11/07/18 11/08/18 11/09/18 Range/Units 17:35 17:32 06:45 RBC 2.47 L 2.57 L (4.30-5.90) m/uL Hgb 8.2 L D 7.8 L (13.0-17.5) gm/dL Hct 24.6 L 25.1 L (39.0-53.0) % MCHC 30.9 L (31.0-37.0) g/dL Plt Count 148 L (150-450) k/uL Chloride (98-107) mmol/L Carbon Dioxide (22-30) mmol/L Creatinine (0.66-1.25) mg/dL Glucose (74-99) mg/dL Calcium (8.4-10.2) mg/dL Crossmatch See Detail 11/09/18 Range/Units 06:45 RBC (4.30-5.90) m/uL Hgb (13.0-17.5) gm/dL Hct (39.0-53.0) % MCHC (31.0-37.0) g/dL Plt Count (150-450) k/uL Chloride 113 H (98-107) mmol/L Carbon Dioxide 36 H (22-30) mmol/L Creatinine 1.78 H (0.66-1.25) mg/dL Glucose 109 H (74-99) mg/dL Calcium 12.0 H (8.4-10.2) mg/dL Crossmatch Assessment and Plan (1) Symptomatic anemia Narrative/Plan: 78-year-old gentleman admitted with loss of consciousness syncope with evidence of normocytic hypochromic anemia most likely component of acute blood loss underlying GI source cannot be entirely excluded. Current Visit: Yes Status: Acute Code(s): D64.9 - ANEMIA, UNSPECIFIED SNOMED Code(s): 045124694 Plan: 1. Patient has reconsidered EGD colonoscopy evaluation for anemia however anesthesia has not cleared patient for upper endoscopy exam secondary to retained upper denture. 2. Case was discussed with attending Dr. Velez he advised ENT/oral surgery consult. CBC monitoring. GI prophylaxis. We'll continue to follow. Assessment and plan a care discussed with Dr. Bellamy
--- NOTE | 2018-11-09 13:58 | P.GSCN ---
History of Present Illness Consult date: 11/09/18 Reason for Consult: Please remove patient's upper denture for scope Requesting physician: Madhu Velez History of present illness: 78-year-old male presents with continuous denture wear for the past 30 years. The patient needs a scope done and the concern is that the dentures nonremovable. The patient was unable to remove denture yesterday. I was consulted an effort to get the denture out. Past Medical History Past Medical History: Syncope Additional Past Medical History / Comment(s): tinnitus, pt. 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 states he has not been to a doctor in 40 years History of Any Multi-Drug Resistant Organisms: None Reported Past Surgical History: No Surgical Hx Reported Past Anesthesia/Blood Transfusion Reactions: No Reported Reaction Additional Past Anesthesia/Blood Transfusion Reaction / Comm: pt. has never had surgery Past Psychological History: No Psychological Hx Reported Smoking Status: Former smoker Past Alcohol Use History: Occasional Additional Past Alcohol Use History / Comment(s): pt. quit smoking 23 years ago, pt. reports drinking 6-8 beers weekly Past Drug Use History: None Reported - Past Family History Brother(s) Family Medical History: AICD/Pacemaker Medications and Allergies Home Medications Medication Instructions Recorded Confirmed Type Acetaminophen Tab [Tylenol Tab] 325 mg PO Q6H PRN 11/07/18 11/07/18 History Vitamin B Complex 1 cap PO DAILY 11/07/18 11/07/18 History Allergies Allergy/AdvReac Type Severity Reaction Status Date / Time No Known Allergies Allergy Verified 11/07/18 12:59 Surgical - Exam Vital Signs Temp Pulse Resp BP Pulse Ox 98.2 F 89 18 136/104 98 11/07/18 11:34 11/07/18 11:34 11/07/18 11:34 11/07/18 11:34 11/07/18 11:34 - ENT Patient is sitting up in his chair comfortable no apparent distress conveyed history to me states that he was able to loosen the denture. Been unable to remove it. Intraorally there is normal opening maxillary denture with significant hyperplastic tissue over the denture phalange around the upper right side. Significant artery plaque on the posterior portion of the denture. The denture did come out rather easily and the tissue under the denture was hyperemic as expected. There did not appear to be a loss of mucosal integrity although the S Becker out of was deep into the denture phalange that the #6 area. Hyperplastic tissue had redness but no bleeding. Results - Labs 11/09/18 06:45 11/09/18 06:45 Abnormal Lab Results - Last 24 Hours (Table) 11/07/18 11/08/18 11/09/18 Range/Units 17:35 17:32 06:45 RBC 2.47 L 2.57 L (4.30-5.90) m/uL Hgb 8.2 L D 7.8 L (13.0-17.5) gm/dL Hct 24.6 L 25.1 L (39.0-53.0) % MCHC 30.9 L (31.0-37.0) g/dL Plt Count 148 L (150-450) k/uL Chloride (98-107) mmol/L Carbon Dioxide (22-30) mmol/L Creatinine (0.66-1.25) mg/dL Glucose (74-99) mg/dL Calcium (8.4-10.2) mg/dL Crossmatch See Detail 11/09/18 Range/Units 06:45 RBC (4.30-5.90) m/uL Hgb (13.0-17.5) gm/dL Hct (39.0-53.0) % MCHC (31.0-37.0) g/dL Plt Count (150-450) k/uL Chloride 113 H (98-107) mmol/L Carbon Dioxide 36 H (22-30) mmol/L Creatinine 1.78 H (0.66-1.25) mg/dL Glucose 109 H (74-99) mg/dL Calcium 12.0 H (8.4-10.2) mg/dL Crossmatch Diabetes panel 11/09/18 Range/Units 06:45 Sodium 140 (137-145) mmol/L Potassium 3.8 (3.5-5.1) mmol/L Chloride 113 H (98-107) mmol/L Carbon Dioxide 36 H (22-30) mmol/L BUN 16 (9-20) mg/dL Creatinine 1.78 H (0.66-1.25) mg/dL Glucose 109 H (74-99) mg/dL Calcium 12.0 H (8.4-10.2) mg/dL Calcium panel 11/09/18 Range/Units 06:45 Calcium 12.0 H (8.4-10.2) mg/dL Pituitary panel 11/09/18 Range/Units 06:45 Sodium 140 (137-145) mmol/L Potassium 3.8 (3.5-5.1) mmol/L Chloride 113 H (98-107) mmol/L Carbon Dioxide 36 H (22-30) mmol/L BUN 16 (9-20) mg/dL Creatinine 1.78 H (0.66-1.25) mg/dL Glucose 109 H (74-99) mg/dL Calcium 12.0 H (8.4-10.2) mg/dL Adrenal panel 11/09/18 Range/Units 06:45 Sodium 140 (137-145) mmol/L Potassium 3.8 (3.5-5.1) mmol/L Chloride 113 H (98-107) mmol/L Carbon Dioxide 36 H (22-30) mmol/L BUN 16 (9-20) mg/dL Creatinine 1.78 H (0.66-1.25) mg/dL Glucose 109 H (74-99) mg/dL Calcium 12.0 H (8.4-10.2) mg/dL Assessment and Plan Assessment: Hyperplastic tissue versus malignancy. Plan: Due to the size and location as well as the supportive history this appears to be hyperplastic tissue consistent with chronic denture where. Do recommend the patient keep his denture out for the next 2 weeks and clean it. He is allowed to wear it in social settings but taken out whenever possible. This lesion does not resolve in the next 2 weeks recommend a biopsy. Please have the patient call my office for an appointment Time with Patient: Less than 30
[2018-11-09 14:52] VITALS: BMI 22.1
--- NOTE | 2018-11-09 15:05 | P.PN ---
Subjective Progress Note Date: 11/09/18 This is a 78-year-old gentleman with history of mitral regurgitation and presented to the hospital following an episode of syncope. He was seen in consultation yesterday by Dr. Ruff. Patient did recently have an echocardiogram with Doppler study performed which revealed moderate mitral regurgitation with preserved left ventricular systolic function and mild aortic stenosis. He has had no further syncopal episodes. We have no documented tachycardia or bradycardia arrhythmias. Patient was found however to be anemic and initially refused to have any GI workup. His daughter did come in to speak with them and he is now considering having a GI evaluation performed. Oral surgery also came in to see the patient today because he has an upper denture in place that has been there for approximately 10 years duration. This was removed, but within seconds the patient upper denture back in his mouth. Blood pressure today 150/80 with a heart rate in the 50s, 94% on room air. White blood cell count 4.6, hemoglobin 7.8, platelet count 148. Sodium 140, potassium 3.8, BUN 16 and creatinine 1.7. Objective - Vital Signs Vital signs: Vital Signs Temp 96.4 F L 11/09/18 11:04 Pulse 58 L 11/09/18 11:04 Resp 16 11/09/18 11:04 BP 150/84 11/09/18 11:04 Pulse Ox 94 L 11/09/18 11:04 Intake & Output 11/08/18 11/09/18 11/09/18 18:59 06:59 18:59 Intake Total 430 640 Output Total 275 1325 Balance 155 -685 Weight 74.3 kg 74.3 kg Intake: Intake, IV Titration 640 Amount Sodium Chloride 0.9% 1, 640 000 ml @ 80 mls/hr IV . [id number] [facility] Rx#:[id number] Oral 120 Blood Product 310 Rc Pheresis As-3 Unit 310 [id number] Output: Urine 275 1325 Other: Voiding Method Urinal Urinal Urinal # Voids 1 - Exam PHYSICAL EXAMINATION: GENERAL: 78 year old gentleman in no acute distress at the time of my examination HEENT: Head is atraumatic, normocephalic. Pupils equal, round. Sclera anicteric. Conjunctiva are clear. Mucous membranes of the mouth are moist. Neck is supple. There is no elevated jugular venous pressure. No carotid bruit is heard. HEART EXAMINATION: Heart S1, S2 normal. No murmur or gallop heard. CHEST EXAMINATION: Lungs are clear to auscultation and precussion. No chest wall tenderness is noted on palpation or with deep breathing. ABDOMEN: Soft, nontender. Bowel sounds are heard. No organomegaly noted. EXTREMITIES: 2+ peripheral pulses with no evidence of peripheral edema and no calf tenderness noted. NEUROLOGIC patient is awake, alert and oriented 3 . . - Labs CBC & Chem 7: 11/09/18 06:45 11/09/18 06:45 Labs: Abnormal Lab Results - Last 24 Hours (Table) 11/08/18 11/09/18 11/09/18 Range/Units 17:32 06:45 06:45 RBC 2.47 L 2.57 L (4.30-5.90) m/uL Hgb 8.2 L D 7.8 L (13.0-17.5) gm/dL Hct 24.6 L 25.1 L (39.0-53.0) % MCHC 30.9 L (31.0-37.0) g/dL Plt Count 148 L (150-450) k/uL Chloride 113 H (98-107) mmol/L Carbon Dioxide 36 H (22-30) mmol/L Creatinine 1.78 H (0.66-1.25) mg/dL Glucose 109 H (74-99) mg/dL Calcium 12.0 H (8.4-10.2) mg/dL Assessment and Plan Plan: Assessment and plan #1 syncope, likely secondary to GI bleed #2 moderate mitral regurgitation Plan Cardiology's perspective, we will await GI workup for anemia. Patient will require at some point an evaluation for his mitral regurgitation. DNP note has been reviewed, I agree with a documented findings and plan of care. Patient was seen and examined.
[2018-11-09 15:45] LABS: HCT 27.8 % (39.0-53.0); HGB 8.5 gm/dL (13.0-17.5); Hypochromasia Slight; MCH 30.7 pg (25.0-35.0); MCHC 30.8 g/dL (31.0-37.0); MCV 99.8 fL (80.0-100.0); Mean Platelet Volume 11.6; RBC 2.78 m/uL (4.30-5.90); RDW 12.7 % (11.5-15.5); WBC 5.6 k/uL (3.8-10.6)
[2018-11-09] MEDS ORDERED: BISACODYL 5 MG TABLET.DR PO STA (16:57)
[2018-11-09] MEDS ORDERED: PEG 3350-NA SULF,BICARB,CL/KCL 4,000 ML BOTTLE PO ONE (16:57)
--- NOTE | 2018-11-09 22:26 | PN ---
PROGRESS NOTE DATE OF SERVICE: 11/09/2018 PRESENTING COMPLAINT: GI bleed. INTERVAL HISTORY: This patient presented with severely bleeding gums, epistaxis, GI bleed. Hemoglobin did drop down to 6.4 and he got a unit of blood. Overall feeling better. Epistaxis stopped after local packing. Celine called me this morning that [facility] wanted an ENT/oromaxillary consultation. Dr. Schneider did come and see the patient earlier today. REVIEW OF SYSTEMS: Done for constitutional, cardiovascular, GI, pulmonary; relevant findings as above. CURRENT MEDICATIONS: Reviewed. They include IV fluids and Protonix. PHYSICAL EXAMINATION: Temperature 98.4, pulse 57, respiration 20, blood pressure 150/89, pulse ox 94% on room air. GENERAL APPEARANCE: Lying in bed, awake. EYES: Pupils equal. Conjunctivae pale. HEENT: External appearance of nose and ears normal. Oral cavity a bit dry. NECK: JVD not raised. Mass not palpable. RESPIRATORY: Effort normal. LUNGS: Decreased breath sounds. CARDIOVASCULAR: First and second sounds normal. No edema. ABDOMEN: Soft, non-tender. Liver and spleen not palpable. PSYCHIATRY: Alert and oriented x3. Mood and affect normal. INVESTIGATION: White count 4.6, hemoglobin 7.8. Repeat this afternoon was 8.5. Potassium 3.8, BUN 16, creatinine 1.78. ASSESSMENT: 1. Syncope from blood loss anemia. 2. Acute gastrointestinal bleed, cause unclear, causing acute severe blood loss anemia, symptomatic. Patient did get a unit of blood. 3. Bleeding gums, probably from dentures. 4. Acute epistaxis, relieved. 5. Creatinine 1.78. PLAN: I had a lengthy talk with the patient and the patient's daughter at the bedside. The patient is putting his dentures back because I think his daughter is visiting. Otherwise he has been told by Dr. Schneider to keep his dentures out for at least 2 weeks. Then I spoke at length with Dr. Andrea Bellamy. He is okay to proceed with endoscopy if Anesthesia gives clearance. I did have the nurse contact Anesthesia to see if they will reconsider shortly before my dictation that Anesthesia has cleared him to proceed with endoscopy. Total time spent today was about 45 minutes, with over 30 minutes of discussion. MMODL / IJN: [id number] /
[2018-11-10 07:58] LABS: Calcium 11.1 mg/dL (8.4-10.2); Potassium 3.3 mmol/L (3.5-5.1)
[2018-11-10] MEDS: SODIUM CHLORIDE 0.9% 1,000 ML IV SCH ×2 (10:03→10:12)
[2018-11-10] MEDS: PANTOPRAZOLE 40 MG/10 ML VIAL IV SCH (10:09)
--- NOTE | 2018-11-10 12:19 | P.PN ---
Subjective Progress Note Date: 11/10/18 This is a 78-year-old gentleman with history of mitral regurgitation and presented to the hospital following an episode of syncope. He was seen in consultation yesterday by Dr. Ruff. Patient did recently have an echocardiogram with Doppler study performed which revealed moderate mitral regurgitation with preserved left ventricular systolic function and mild aortic stenosis. He has had no further syncopal episodes. We have no documented tachycardia or bradycardia arrhythmias. Patient was found however to be anemic and initially refused to have any GI workup. His daughter did come in to speak with them and he is now considering having a GI evaluation performed. Oral surgery also came in to see the patient today because he has an upper denture in place that has been there for approximately 10 years duration. This was removed, but within seconds the patient upper denture back in his mouth. Blood pressure today 150/80 with a heart rate in the 50s, 94% on room air. White blood cell count 4.6, hemoglobin 7.8, platelet count 148. Sodium 140, potassium 3.8, BUN 16 and creatinine 1.7. 11/10/2018 Patient seen and examined this morning, blood pressure 156/80 with a heart rate in the 60s, 95% on room air. Sodium 140, potassium 3.3, BUN 13 and creatinine 1.6. Objective - Vital Signs Vital signs: Vital Signs Temp 97.8 F 11/09/18 23:44 Pulse 61 11/10/18 04:00 Resp 18 11/10/18 04:00 BP 170/85 11/10/18 04:00 Pulse Ox 100 11/10/18 04:00 Intake & Output 11/09/18 11/10/18 11/10/18 18:59 06:59 18:59 Intake Total 600 640 Output Total 275 200 475 Balance 325 440 -475 Weight 74.3 kg 76.9 kg Intake: Intake, IV Titration 640 Amount Sodium Chloride 0.9% 1, 640 000 ml @ 80 mls/hr IV . [id number] [facility] Rx#:[id number] Oral 600 Output: Urine 275 200 475 Other: Voiding Method Urinal # Voids 2 2 # Bowel Movements 3 - Exam PHYSICAL EXAMINATION: GENERAL: 78 year old gentleman in no acute distress at the time of my examination HEENT: Head is atraumatic, normocephalic. Pupils equal, round. Sclera anicteric. Conjunctiva are clear. Mucous membranes of the mouth are moist. Neck is supple. There is no elevated jugular venous pressure. No carotid bruit is heard. HEART EXAMINATION: Heart S1, S2 normal. No murmur or gallop heard. CHEST EXAMINATION: Lungs are clear to auscultation and precussion. No chest wall tenderness is noted on palpation or with deep breathing. ABDOMEN: Soft, nontender. Bowel sounds are heard. No organomegaly noted. EXTREMITIES: 2+ peripheral pulses with no evidence of peripheral edema and no calf tenderness noted. NEUROLOGIC patient is awake, alert and oriented 3 . . - Labs CBC & Chem 7: 11/09/18 13:50 11/10/18 07:23 Labs: Abnormal Lab Results - Last 24 Hours (Table) 11/09/18 11/10/18 Range/Units 13:50 07:23 RBC 2.78 L (4.30-5.90) m/uL Hgb 8.5 L (13.0-17.5) gm/dL Hct 27.8 L (39.0-53.0) % MCHC 30.8 L (31.0-37.0) g/dL Potassium 3.3 L (3.5-5.1) mmol/L Chloride 112 H (98-107) mmol/L Creatinine 1.64 H (0.66-1.25) mg/dL Glucose 114 H (74-99) mg/dL Calcium 11.1 H (8.4-10.2) mg/dL Assessment and Plan Plan: Assessment and plan #1 syncope, likely secondary to GI bleed #2 moderate mitral regurgitation Plan Cardiology's perspective, we will await GI workup for anemia. Patient will require at some point an evaluation for his mitral regurgitation. DNP note has been reviewed, I agree with a documented findings and plan of care. Patient was seen and examined.
[2018-11-10] MEDS ORDERED: fentaNYL (PF) 50 MCG/ML 2 ML AMP ONE (13:45)
[2018-11-10] MEDS ORDERED: LIDOCAINE 1% INJ 10MG/ML (20 ML MDV) ONE (13:45)
[2018-11-10] MEDS ORDERED: PROPOFOL 10 MG/ML 20 ML VIAL IV ONE (13:45)
[2018-11-10] MEDS ORDERED: IV FLUID CONTINUATION 1,000 ML IV ONE ×2 (13:51)
--- NOTE | 2018-11-10 14:54 | P.PCN ---
Date of Procedure: 11/10/18 Description of Procedure: Brief history: 78-year-old male brought in by ambulance second unresponsiveness syncope. Consult requested for anemia. Admission hemoglobin 8.4. MCV 97. Hemoglobin this morning 6.5. Receiving blood transfusion. Platelet 141-to 36. White count 4.9-11.3. INR 1.0. FOBT positive. No history GI bleed or peptic ulcer disease. No history of EGD colonoscopy. Denies abdominal pain or weight loss. Patient has developed a nosebleed this morning. He also has bleeding from right upper gum line. He has dentures upper palate is unable to be removed at this time he was able to remove the lower denture without difficulty. Afebrile. Denies odynophagia dysphagia. CT brain no acute intracranial hemorrhage. Severe right maxillary mucosal thickening with high density rounded intrasinus lesions. Could represent small fungal balls or polyps. CT chest no PE. Procedure performed: Esophagogastroduodenoscopy with biopsy Colonoscopy with polypectomy Estimated blood loss: Minimal. Preoperative diagnosis: Iron deficiency anemia, no prior colonoscopy, stool positive for occult blood Anesthesia: MAC Procedure: After informed consent was obtained from the patient was brought into the endoscopy unit and IV sedation was administered by anesthesia under continuous monitoring. Initially upper endoscopy was done. The Olympus GF 190 video endoscope was inserted inserted into the mouth and esophagus intubated without any difficulty and was gradually advanced into the stomach and duodenum and carefully examined. The bulb and second part of the duodenum appeared normal, with biopsies taken in the setting of anemia. The scope was then withdrawn into the stomach adequately insufflated with air and upon careful examination the antrum and body, cardia and fundus appeared grossly normal with some mild scattered erythema in the antrum and body suggestive of mild gastritis biopsies taken. The scope was then withdrawn into the esophagus. The GE junction was located at 42 cm to the incisors. It appeared regular with no erythema erosions or ulcerations. Rest of the esophagus appeared normal. Patient tolerated the procedure well. At this time the patient continued to remain sedation. Initial digital rectal examination was normal. Olympus CF 190 video colonoscope was then inserted into the rectum and gradually advanced to the cecum without any difficulty. Careful examination was performed as the scope was gradually being withdrawn. The prep was excellent. The cecum, ascending colon, transverse colon, descending colon, sigmoid colon and rectum appeared normal. Cold forcep polypectomy of 2 sessile colonic polyps in the ascending colon measuring 2 and 3 mm. Cold forcep polypectomy of 2 sessile colonic polyps in the transverse colon measuring 3 and 4 mm. Hot snare polypectomy of a 1.2 cm pedunculated polyp in the sigmoid colon and cold forcep polypectomy of a sessile 2 mm polyp in the sigmoid colon. Mild colonic diverticulosis. Moderate internal hemorrhoids. Retroflexion was performed in the rectum and no lesions were noted. Patient tolerated the procedure well. Impression: 1. Mild gastritis antrum and body, biopsied. Duodenal biopsies. 2. Cold forcep polypectomy of 2 sessile polyps in the ascending colon, 2 sessile polyps in the transverse colon and one sessile polyp in the sigmoid. Hot snare polypectomy of one pedunculated large polyp in sigmoid colon. Diverticulosis. Moderate internal hemorrhoids. Recommendations: Findings of this examination were discussed with the patient as well as the nursing staff. Okay to resume diet as tolerated. Protonix 40 mg daily. Monitor for signs and symptoms of GI bleeding. If further fall in hemoglobin or concern for GI bleed would recommend video capsule endoscopy. Await pathology from polypectomies and biopsies.
[2018-11-10 15:26] VITALS: RESP 18
[2018-11-10 15:32] VITALS: BP 158/81; PULSE 64; TEMP 97.7
[2018-11-10 16:09] LABS: HCT 28.9 % (39.0-53.0); HGB 8.6 gm/dL (13.0-17.5); Hypochromasia Moderate; MCHC 29.9 g/dL (31.0-37.0); MCV 100.7 fL (80.0-100.0); Mean Platelet Volume 10.6; Platelet Count 115 k/uL (150-450); RBC 2.87 m/uL (4.30-5.90); RDW 12.9 % (11.5-15.5); WBC 3.7 k/uL (3.8-10.6)
[2018-11-10] MEDS ORDERED: amLODIPine 10 MG TAB PO STA (17:35)
--- NOTE | 2018-11-10 20:53 | DS ---
DISCHARGE SUMMARY DATE OF ADMISSION: 11/07/2018 DATE OF DISCHARGE: 11/10/2018 FINAL DIAGNOSES: 1. Syncope from blood loss anemia. 2. Acute gastrointestinal bleed, exact site unclear. 3. Gastritis. 4. Moderate internal hemorrhoids. 5. Colonic diverticulosis. 6. Bleeding gums, probably traumatic from dentures. 7. Acute epistaxis. 8. Moderate mitral regurgitation, non-rheumatic. 9. Possibly chronic kidney disease, stage III, cause unclear. 10.Essential hypertension. HOSPITAL COURSE: This patient presented with syncope. He was having bleeding per rectum. Hemoglobin was down to 6.5. The patient did get a unit of blood. Hemoglobin came up to 8.6. The patient had no further bleeding. The patient's creatinine is running around 1.64. Will need an outpatient therapeutic specialist for further workup. The patient recently had a 2- D echocardiogram that showed moderate mitral regurgitation and needs further workup with Dr. Downey as an outpatient. The patient also had bleeding from the roof of his mouth and gums, felt to be more traumatic from the dentures. He was seen by Dr. Schneider from Oral/Maxillofacial. He said not to use the dentures for 2 weeks except for any social event. This was explained in detail to the patient and his daughter. CONSULTATIONS: 1. Dr. Bellamy from GI, who did upper and lower GI endoscopy. Also polyps were removed from the colon. 2. Dr. Schneider from Oral/Maxillofacial. 3. Dr. Seven Downey from Cardiology. PHYSICAL EXAMINATION: Temperature 97.7, pulse 64, respiration 16, blood pressure 158/81, pulse ox 95% on room air. LABS: BUN 13, creatinine 1.64, hemoglobin 8.6. DISCHARGE MEDICATIONS: 1. Tylenol 325 q.6 p.r.n. 2. Vitamin B complex 1 capsule p.o. daily. 3. Protonix 40 mg before breakfast. 4. Amlodipine 10 mg a day. Follow up with Dr. Seven Downey in two weeks. Follow up with Dr. Andrea Bellamy in two weeks. Follow up with Dr. Jn Alonso in one week. Follow up with Dr. Gael Schneider in one week. Follow up with Dr. Oconnor in two weeks. Patient to have a CBC, BMP in a week after discharge. Discussion and discharge planning more than 35 minutes. MMODL / IJN: [id number] /
[2018-11-11] MEDS ORDERED: PANTOPRAZOLE 40 MG TABLET PO SCH (07:30)
== END 2018-11-10 18:26 | disposition home or self-care (01) | DRG 378 ==
LOC: EC 11:24 → 3SCARD 17:18
PROVIDERS: ADMIT Hospitalist; ATTEND Hospitalist
PROC: 0DBN8ZZ Excision of Sigmoid Colon, Via Natural or Artificial Opening Endoscopic (ICD-10-PCS; principal; 2018-11-10 08:10)
PROC: 0DBL8ZZ Excision of Transverse Colon, Via Natural or Artificial Opening Endoscopic (ICD-10-PCS; principal; 2018-11-10 08:10)
PROC: 0DBK8ZZ Excision of Ascending Colon, Via Natural or Artificial Opening Endoscopic (ICD-10-PCS; principal; 2018-11-10 08:10)
PROC: 0DB98ZX Excision of Duodenum, Via Natural or Artificial Opening Endoscopic, Diagnostic (ICD-10-PCS; principal; 2018-11-10 08:10)
PROC: 0DB78ZX Excision of Stomach, Pylorus, Via Natural or Artificial Opening Endoscopic, Diagnostic (ICD-10-PCS; principal; 2018-11-10 08:10)
DX: K92.2 Gastrointestinal hemorrhage, unspecified (principal); D62 Acute posthemorrhagic anemia; D12.2 Benign neoplasm of ascending colon; D12.3 Benign neoplasm of transverse colon; D12.5 Benign neoplasm of sigmoid colon; I34.0 Nonrheumatic mitral (valve) insufficiency; I49.3 Ventricular premature depolarization; I95.1 Orthostatic hypotension; K57.30 Diverticulosis of large intestine without perforation or abscess without bleeding; K64.8 Other hemorrhoids; R04.0 Epistaxis; I12.9 Hypertensive chronic kidney disease with stage 1 through stage 4 chronic kidney disease, or unspecified chronic kidney disease; N18.3 Chronic kidney disease, stage 3 (moderate); K29.70 Gastritis, unspecified, without bleeding; K13.79 Other lesions of oral mucosa; Z82.49 Family history of ischemic heart disease and other diseases of the circulatory system; Z87.891 Personal history of nicotine dependence; Z79.899 Other long term (current) drug therapy
CPT/HCPCS: 36415; 43239; 45380; 45385; 70450; 71046; 71275; 80048; 80053; 81003; 82272; 82550; 83735; 84484; 85025; 85027; 85379; 85610; 85730; 86850; 86900; 86901; 86920; 88305; 93005; 96360; 96361; 99291

== ENCOUNTER → 2018-11-30 | Outpatient (CLI) | payer MEDICARE, OTHER ==
--- NOTE | 2018-11-30 17:25 | FL ---
Small Bowel Follow Through. DATE OF EXAM: 11/30/2018 CLINICAL HISTORY: 78-year-old male iron deficiency anemia, blood in stool 2 weeks ago. TECHNIQUE: A single contrast small bowel follow through is performed utilizing barium. Total fluoroscopy time: 62 seconds. Total images: 11. COMPARISON: None FINDINGS: Drafting Instructor image of the abdomen shows a mildly patulous loop of small bowel in the left upper quadrant parminder suring 3.8 cm. There is an overall nonobstructive bowel gas pattern. The small bowel study shows delayed transit to the colon requiring approximately 5 hours. There is a small diverticulum of the third portion of the duodenum projecting superiorly. A couple additional patulous loops of small bowel are encountered in the left side of the abdomen parminder suring up to 4.4 cm. There is a normal mucosal fold pattern throughout the small bowel. There is no evidence of any stric ture or filling defect noted. The terminal ileum is spotted and adequate visualization is difficult due to overlapping opacified sm all bowel loops. IMPRESSION: 1. Delayed small bowel transit time requiring approximately 5 hours. There are also a few patulous sm all bowel loops in the left side of the abdomen measuring up to 4.4 cm. Findings may represent a loretta onal ileus. 2. Limited assessment of the terminal ileum due to superimposed opacified small bowel loops. 3. Overall small bowel fold pattern appears normal. No suspicious filling defect is encountered. Furt her workup for GI bleeding as clinically indicated.
== END | disposition home or self-care (01) ==
LOC: RADFLMAIN 07:40
PROVIDERS: ATTEND Family Medicine
DX: K63.89 Other specified diseases of intestine (principal); D50.9 Iron deficiency anemia, unspecified
CPT/HCPCS: 74250

== ENCOUNTER 2018-12-14 17:09 | Inpatient (IN) | payer MEDICARE ==
--- NOTE | 2018-12-14 17:39 | ED ---
General Adult HPI - General Chief complaint: Syncope Stated complaint: Syncope Time Seen by Provider: 12/14/18 17:12 Source: patient, EMS, RN notes reviewed Mode of arrival: EMS Limitations: no limitations - History of Present Illness Initial comments: 78-year-old male with a past medical history of syncope presents to the emergency department for a chief complaint of syncope. Patient states that he was getting ready to come to the emergency department anyway because his doctor told him he wants to do a heart cath and he needs to have some testing done tomorrow morning. States he has an abnormal valve and that is why he needs the heart cath done. However on his way to getting ready to come he was getting dressed and he had a syncopal event. This was witnessed by his daughter. States patient did not hit his head. Patient denies any chest pain or shortness of breath at that time. States he is feeling his normal self. Patient states that he has had a GI bleed in the past who states he had a colonoscopy 3 weeks ago and had polyps removed and has not had any bleeding since that time. Patient has no other complaints at this time including shortness of breath, chest pain, abdominal pain, nausea or vomiting, headache, or visual changes. - Related Data Home Medications Medication Instructions Recorded Confirmed Acetaminophen Tab [Tylenol] 325 mg PO Q6H PRN 11/07/18 11/24/18 Vitamin B Complex 1 cap PO DAILY 11/07/18 11/24/18 Previous Rx's Medication Instructions Recorded Pantoprazole [Protonix] 40 mg PO AC-[id number] #30 tablet. 11/10/18 amLODIPine [Norvasc] 10 mg PO DAILY #30 tablet 11/10/18 Allergies Allergy/AdvReac Type Severity Reaction Status Date / Time No Known Allergies Allergy Verified 12/14/18 17:14 Review of Systems ROS Statement: Those systems with pertinent positive or pertinent negative responses have been documented in the HPI. ROS Other: All systems not noted in ROS Statement are negative. Past Medical History Past Medical History: Syncope Additional Past Medical History / Comment(s): tinnitus, pt. 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 states he has not been to a doctor in 40 years History of Any Multi-Drug Resistant Organisms: None Reported Past Surgical History: No Surgical Hx Reported Past Anesthesia/Blood Transfusion Reactions: No Reported Reaction Additional Past Anesthesia/Blood Transfusion Reaction / Comment(s): pt. has never had surgery Past Psychological History: No Psychological Hx Reported Smoking Status: Never smoker Past Alcohol Use History: Rare Past Drug Use History: None Reported - Past Family History Brother(s) Family Medical History: AICD/Pacemaker General Exam Limitations: no limitations General appearance: alert, in no apparent distress Head exam: Present: atraumatic, normocephalic, normal inspection Eye exam: Present: normal appearance, PERRL, EOMI. Absent: scleral icterus, conjunctival injection, periorbital swelling ENT exam: Present: normal exam, mucous membranes moist Neck exam: Present: normal inspection, full ROM. Absent: tenderness, meningismus, lymphadenopathy Respiratory exam: Present: normal lung sounds bilaterally. Absent: respiratory distress, wheezes, rales, rhonchi, stridor Cardiovascular Exam: Present: regular rate, normal rhythm, normal heart sounds. Absent: systolic murmur, diastolic murmur, rubs, gallop, clicks Neurological exam: Present: alert, oriented X3, CN II-XII intact, other (GCS 15) Psychiatric exam: Present: normal affect, normal mood Course Vital Signs 12/14/18 12/14/18 17:11 19:08 Temperature 97.7 F Pulse Rate 83 76 Respiratory 16 16 Rate Blood Pressure 128/86 130/80 O2 Sat by Pulse 97 98 Oximetry EKG Findings - EKG Comments: EKG Findings:: Normal sinus rhythm, ventricular rate 77, VA interval 206 QTc 441, Medical Decision Making - Medical Decision Making 78-year-old male with a past medical history syncope, GI bleed presents to the emergency department for a chief complaint of syncope. Stated he started to feel weak and had a syncopal event. Once daughter was in room she did state he had a near syncopal event and does not believe he actually was consciousness completely. However he has had a history of a GI bleed with a colonoscopy 3 weeks ago. Had polyps removed. They were hoping that would stop the bleeding and patient is denying any black tarry stools. He is supposed to have a heart cath done by Dr. Downey for a mitral valve prolapse and when he followed up with him today his blood pressure was abnormal so they did recommend he come here to the emergency department. Vitals have been stable here in the emergency department. Exam is unremarkable. She has a hemoglobin of 7.9 which is actually patient's baseline over the past month however I am not sure what patient was at previously. This is likely the cause of patient's weakness and syncopal episode. CMP does show a creatinine of 1.33, patient given fluids. Troponin negative. EKG unremarkable. At this time patient will be admitted for anemia with history of a GI bleed with GI on consult. Feel he recommends cardiology be placed on consult to as they are very concerned about the mitral valve prolapse and need for heart cath. - Lab Data Result diagrams: 12/14/18 17:55 12/14/18 17:55 Lab Results 12/14/18 12/14/18 12/14/18 Range/Units 17:55 17:55 17:55 WBC 5.6 (3.8-10.6) k/uL RBC 2.54 L (4.30-5.90) m/uL Hgb 7.9 L (13.0-17.5) gm/dL Hct 24.0 L (39.0-53.0) % MCV 94.3 (80.0-100.0) fL MCH 31.2 (25.0-35.0) pg MCHC 33.1 (31.0-37.0) g/dL RDW 13.8 (11.5-15.5) % Plt Count 209 (150-450) k/uL Neutrophils % 74 % Lymphocytes % 16 % Monocytes % 7 % Eosinophils % 2 % Basophils % 1 % Neutrophils # 4.1 (1.3-7.7) k/uL Lymphocytes # 0.9 L (1.0-4.8) k/uL Monocytes # 0.4 (0-1.0) k/uL Eosinophils # 0.1 (0-0.7) k/uL Basophils # 0.0 (0-0.2) k/uL PT 10.7 (9.0-12.0) sec INR 1.0 (<1.2) APTT 24.3 (22.0-30.0) sec Sodium 142 (137-145) mmol/L Potassium 4.0 (3.5-5.1) mmol/L Chloride 108 H (98-107) mmol/L Carbon Dioxide 24 (22-30) mmol/L Anion Gap 10 mmol/L BUN 13 (9-20) mg/dL Creatinine 1.33 H (0.66-1.25) mg/dL Est GFR (CKD-EPI)AfAm 60 (>60 ml/min/1.73 sqM) Est GFR (CKD-EPI)NonAf 52 (>60 ml/min/1.73 sqM) Glucose 122 H (74-99) mg/dL Calcium 9.4 (8.4-10.2) mg/dL Magnesium 1.7 (1.6-2.3) mg/dL Total Bilirubin 0.5 (0.2-1.3) mg/dL AST 20 (17-59) U/L ALT 12 L (21-72) U/L Alkaline Phosphatase 91 (38-126) U/L Troponin I (0.000-0.034) ng/mL Total Protein 7.0 (6.3-8.2) g/dL Albumin 3.4 L (3.5-5.0) g/dL 12/14/18 Range/Units 17:55 WBC (3.8-10.6) k/uL RBC (4.30-5.90) m/uL Hgb (13.0-17.5) gm/dL Hct (39.0-53.0) % MCV (80.0-100.0) fL MCH (25.0-35.0) pg MCHC (31.0-37.0) g/dL RDW (11.5-15.5) % Plt Count (150-450) k/uL Neutrophils % % Lymphocytes % % Monocytes % % Eosinophils % % Basophils % % Neutrophils # (1.3-7.7) k/uL Lymphocytes # (1.0-4.8) k/uL Monocytes # (0-1.0) k/uL Eosinophils # (0-0.7) k/uL Basophils # (0-0.2) k/uL PT (9.0-12.0) sec INR (<1.2) APTT (22.0-30.0) sec Sodium (137-145) mmol/L Potassium (3.5-5.1) mmol/L Chloride (98-107) mmol/L Carbon Dioxide (22-30) mmol/L Anion Gap mmol/L BUN (9-20) mg/dL Creatinine (0.66-1.25) mg/dL Est GFR (CKD-EPI)AfAm (>60 ml/min/1.73 sqM) Est GFR (CKD-EPI)NonAf (>60 ml/min/1.73 sqM) Glucose (74-99) mg/dL Calcium (8.4-10.2) mg/dL Magnesium (1.6-2.3) mg/dL Total Bilirubin (0.2-1.3) mg/dL AST (17-59) U/L ALT (21-72) U/L Alkaline Phosphatase (38-126) U/L Troponin I <0.012 (0.000-0.034) ng/mL Total Protein (6.3-8.2) g/dL Albumin (3.5-5.0) g/dL Disposition Clinical Impression: Anemia, History of GI bleed, Syncope, Symptomatic anemia Disposition: ADMITTED IP TO THIS [facility] Condition: Fair Is patient prescribed a controlled substance at d/c from ED?: No Referrals: Jn Alonso DO [Primary Care Provider] - 1-2 days Time of Disposition: 19:42
[2018-12-14] MEDS ORDERED: SODIUM CHLORIDE 0.9% 500 ML 500 ML IV STA (18:01)
[2018-12-14 18:30] LABS: Partial Thromboplastin Time 24.3 sec (22.0-30.0); Prothrombin Time 10.7 sec (9.0-12.0)
[2018-12-14 18:31] LABS: Albumin 3.4 g/dL (3.5-5.0); Calcium 9.4 mg/dL (8.4-10.2); Magnesium 1.7 mg/dL (1.6-2.3); Total Bilirubin 0.5 mg/dL (0.2-1.3)
[2018-12-14 18:35] LABS: Basophils % (A) 1 %; Eosinophils # (A) 0.1 k/uL (0-0.7); Eosinophils % (A) 2 %; HGB 7.9 gm/dL (13.0-17.5); Lymphocytes # (A) 0.9 k/uL (1.0-4.8); Lymphocytes % (A) 16 %; MCH 31.2 pg (25.0-35.0); MCHC 33.1 g/dL (31.0-37.0); MCV 94.3 fL (80.0-100.0); Monocytes # (A) 0.4 k/uL (0-1.0); Monocytes % (A) 7 %; Neutrophils # (A) 4.1 k/uL (1.3-7.7); Neutrophils % (A) 74 %; Platelet Count 209 k/uL (150-450); RBC 2.54 m/uL (4.30-5.90); RDW 13.8 % (11.5-15.5); WBC 5.6 k/uL (3.8-10.6)
--- NOTE | 2018-12-14 19:04 | XR ---
EXAMINATION: XR chest 2V DATE AND TIME: 12/14/2018 6:24 PM CLINICAL INDICATION: PHH; syncope TECHNIQUE: Departmental protocol COMPARISON: 11/07/2018 FINDINGS: The lungs are clear. The pleural spaces are negative. The cardiac silhouette is not enlarged. The remainder of the mediastinal silhouette is unremarkable. The skeletal structures and soft tissues are negative for acute findings. IMPRESSION: NO ACUTE PROCESS.
[2018-12-14] MEDS ORDERED: NALOXONE 0.4 MG/ML 1 ML VIAL IV PRN (19:42)
[2018-12-14 21:08] VITALS: BMI 22.5
[2018-12-14] MEDS: SODIUM CHLORIDE 0.9% 1,000 ML IV SCH (22:01)
[2018-12-14] MEDS: ENOXAPARIN 40 MG/0.4 ML SYRINGE SQ SCH (22:49)
[2018-12-15] MEDS: SODIUM CHLORIDE 0.9% 1,000 ML IV SCH ×2 (06:10→12:05)
[2018-12-15] MEDS: ENOXAPARIN 40 MG/0.4 ML SYRINGE SQ SCH (08:45)
[2018-12-15] MEDS: PANTOPRAZOLE 40 MG TABLET PO SCH (08:45)
[2018-12-15] MEDS: amLODIPine 10 MG TAB PO SCH (08:45)
--- NOTE | 2018-12-15 10:42 | CONS ---
CONSULTATION CHIEF COMPLAINT: Syncope. Selwyn is a 78-year-old gentleman with history of valvular heart disease, who presented to the hospital having had an episode of syncope at home. Apparently he was short of breath and his blood pressures were low. He is somewhat of a poor historian, but apparently based on the ER documentation, his daughter was there with this thing happened and was brought to the ER. The patient apparently had a colonoscopy 3 weeks ago and had a polyp removed and he is anemic at the moment. PAST MEDICAL HISTORY: Significant for moderate mitral regurgitation with normal LV function, history of GI bleed and hypertension. CURRENT MEDICATIONS: Include Norvasc 5 q. daily and Protonix. No known drug allergies. FAMILY HISTORY: Unremarkable. SOCIAL HISTORY: Denies smoking. REVIEW OF SYSTEMS: HEENT: Unremarkable. CARDIAC: As described above. RESPIRATORY: As described above. GI: Negative. GENITOURINARY: Negative. ALLERGY/IMMUNOLOGY: Negative. SKIN: Negative. MUSCULOSKELETAL: Significant for arthritis. PSYCHOSOCIAL: Negative. ENDOCRINE: Negative. DERMATOLOGY: Negative. CONSTITUTIONAL: Negative. ONCOLOGICAL: Negative. Rest of the system review is not relevant. PHYSICAL EXAMINATION: On exam, patient is afebrile. Heart rate is 77 beats per minute. Blood pressure is 147/76, respiratory rate is 18. Chest exam reveals good air entry bilaterally. Heart exam reveals first and second heart sounds. No gallop. Has a pansystolic murmur at the apex. Abdomen is soft. Exam of extremities did not reveal any edema. Peripheral pulses are felt. LABS: Show a hemoglobin of 7.9, potassium is 4, creatinine is 1.3. Troponin is normal. ASSESSMENT: 1. Moderate mitral regurgitation. 2. Anemia. PLAN: No obvious etiology for his questionable syncope from home. Patient needs evaluation for the valvular heart disease when he is medically more stable. We can set this up in the outpatient setting. MMODL / IJN: [id number] /
--- NOTE | 2018-12-15 12:30 | P.CONS ---
History of Present Illness - Reason for Consult Consult date: 12/15/18 Anemia Requesting physician: Madhu Velez - Chief Complaint Syncope - History of Present Illness 78-year-old male recently hospitalized last month and evaluated for normocytic mild hyperchromic anemia without overt GI bleeding hemoglobin range 6.5-8.4. History of mitral regurgitation. He underwent EGD colonoscopy 11/10/2018 with findings of mild gastritis. Polypectomy descending colon, transverse colon and sigmoid. Moderate internal hemorrhoids and diverticulosis. Polyp biopsies consistent with tubular adenoma and tubular villous adenoma. Admitted with syncope hemoglobin 7.9. Denies overt bleeding such as hematemesis hematochezia or melena. Denies abdominal pain. BUN 13. Creatinine 1.3. MCV 94. White count 5.6. Patient states he scheduled for some outpatient cardiology testing including heart catheterization. Review of Systems Constitutional: Denies fever, chills, sweats, weight gain, or loss. HEENT: Negative for migraines, blurred vision or loss, earaches, drainage, tinnitus, oral mucosal lesions, dysphagia, or odynophagia. Cardiac: Negative for chest pain, arrhythmias, or palpitation. Respiratory: Negative for shortness of breath, hemoptysis, cough, or sputum production. Gastrointestinal: See HPI for pertinent findings. Genitourinary: Negative for hematuria, urgency, frequency, polyuria, dysuria, or penile discharge. Musculoskeletal: Negative for muscle aches, swelling, arthritis, and arthralgias. Neurologic: Negative for stroke or TIA. Endocrine: Negative for thyroid problems. Skin: Negative for rash or itching. Psychiatric: Negative history for depression and anxiety Past Medical History Past Medical History: Syncope Additional Past Medical History / Comment(s): tinnitus, pt. 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 states he has not been to a doctor in 40 years History of Any Multi-Drug Resistant Organisms: None Reported Past Surgical History: No Surgical Hx Reported Past Anesthesia/Blood Transfusion Reactions: No Reported Reaction Additional Past Anesthesia/Blood Transfusion Reaction / Comm: pt. has never had surgery Past Psychological History: No Psychological Hx Reported Smoking Status: Former smoker Past Alcohol Use History: Rare Additional Past Alcohol Use History / Comment(s): pt. quit smoking 23 years ago, pt. reports drinking 6-8 beers weekly Past Drug Use History: None Reported - Past Family History Brother(s) Family Medical History: AICD/Pacemaker Medications and Allergies Home Medications Medication Instructions Recorded Confirmed Type Pantoprazole [Protonix] 40 mg PO AC-BRKFST #30 tablet. 11/10/18 12/14/18 Rx amLODIPine [Norvasc] 5 mg PO DAILY 12/14/18 12/14/18 History Allergies Allergy/AdvReac Type Severity Reaction Status Date / Time No Known Allergies Allergy Verified 12/14/18 17:14 Physical Exam Vitals: Vital Signs Temp Pulse Pulse Resp BP BP BP 12/15/18 07:00 97.9 F 77 16 147/76 12/15/18 04:20 16 12/15/18 00:06 97.4 F L 79 14 133/79 12/14/18 23:00 18 12/14/18 20:55 98.4 F 72 18 139/81 12/14/18 19:08 76 16 130/80 12/14/18 17:11 97.7 F 83 16 128/86 Pulse Ox 12/15/18 07:00 94 L 12/15/18 04:20 12/15/18 00:06 98 12/14/18 23:00 12/14/18 20:55 98 12/14/18 19:08 98 12/14/18 17:11 97 Intake and Output 12/14/18 12/15/18 12/15/18 22:59 06:59 14:59 Intake Total 240 960 Output Total 600 Balance 240 360 Intake: Intake, IV Titration 240 960 Amount Sodium Chloride 0.9% 1, 240 960 000 ml @ 120 mls/hr IV . Q8H20M [facility] Rx#:[id number] Output: Urine 600 Other: Voiding Method Urinal Urinal # Voids 4 Weight 77.428 kg General appearance: The patient is alert, oriented, in no acute distress. HET: Head is normocephalic and atraumatic. Pupils are equal and reactive. Oropharynx is clear without lesions. Neck: Supple without lymphadenopathy. Trachea midline. Heart: S1 S2. Regular rate and rhythm. Lungs: No crackles or wheezes are heard. Abdomen: Soft, nontender, nondistended with bowel sounds. No peritoneal signs. No palpable organomegaly or masses. Extremities: Normal skin color and turgor. No cyanosis, rash, ulceration, clubbing, or edema. Radial and pedal pulses are 2/4 bilaterally. Neurological: No focal deficits. Strength and sensation are grossly intact. Results CBC & Chem 7: 12/14/18 17:55 12/14/18 17:55 Labs: Abnormal Lab Results - Last 24 Hours (Table) 12/14/18 12/14/18 Range/Units 17:55 17:55 RBC 2.54 L (4.30-5.90) m/uL Hgb 7.9 L (13.0-17.5) gm/dL Hct 24.0 L (39.0-53.0) % Lymphocytes # 0.9 L (1.0-4.8) k/uL Chloride 108 H (98-107) mmol/L Creatinine 1.33 H (0.66-1.25) mg/dL Glucose 122 H (74-99) mg/dL ALT 12 L (21-72) U/L Albumin 3.4 L (3.5-5.0) g/dL Assessment and Plan (1) Anemia Narrative/Plan: 78-year-old male admitted with a syncopal episode with a history of mitral regur gitation and underlying normocytic hypochromic anemia recently evaluated status post EGD colonoscopy 1 month ago with no evidence of peptic ulcer disease or active bleeding sources. Presently without overt GI bleeding or abdominal pain. Current Visit: Yes Status: Acute Code(s): D64.9 - ANEMIA, UNSPECIFIED SNOMED Code(s): 724046025 (2) Syncope Current Visit: Yes Status: Acute Code(s): R55 - SYNCOPE AND COLLAPSE SNOMED Code(s): 867141753 Plan: 1. Continue supportive measures cardiology has been consulted. CBC monitoring. Will obtain iron indices. Re-surveillance inpatient endoscopic exams are not planned at this time. Consideration for small bowel capsule endoscopy if patient display clinical symptoms of overt GI bleeding. Thank you for this kind referral and the opportunity to participate in the care of your patient. This consultation was discussed with Dr. Bellamy. The impression and plan of care have been directed as dictated.
[2018-12-15 16:55] LABS: Potassium 3.9 mmol/L (3.5-5.1)
[2018-12-15 16:57] LABS: Calcium 9.4 mg/dL (8.4-10.2)
--- NOTE | 2018-12-15 20:24 | HP ---
HISTORY AND PHYSICAL DATE OF ADMISSION: 12/14/2018 DATE OF SERVICE: 12/15/2018 PRESENTING COMPLAINT: Near-syncope. HISTORY OF PRESENTING COMPLAINT: This is a pleasant 78-year-old patient whose chronic stable medical conditions include gastritis, internal hemorrhoids, colonic diverticulosis, moderate mitral regurgitation, chronic kidney disease, essential hypertension. The patient was here over 2 weeks ago and then had presented with syncope. The patient was bleeding then from rectum; hemoglobin was down to 6.5. Patient had received blood. When discharged, his hemoglobin was up to 8.6. The patient did have both upper and lower GI endoscopy that was unremarkable. The patient also was seen by Dr. Downey. The patient was sent in by the daughter, whom I did speak to this evening. The patient has had 2 or 3 episodes where when he gets up he is dizzy and he has to be sat down. There is no chest pain, no palpitation. Hence patient was brought in for the same. They had called Dr. Downey's office, the vp organizational development, and he had asked them to come down to the ER. There is no other focal weakness. There is no chest pain or palpitations. REVIEW OF SYSTEMS: CONSTITUTIONAL: A bit tired. HEENT: None. RESPIRATORY: Occasional wheezing. CARDIOVASCULAR: None. GASTROINTESTINAL: None. GENITOURINARY: None. MUSCULOSKELETAL: Pain in the joints. DERMATOLOGICAL: None. HEMATOLOGICAL: None. LYMPHATICS: None. PSYCHIATRY: None. NEUROLOGICAL: None. PAST MEDICAL HISTORY: 1. Tinnitus. 2. Fracture of the right ankle in September of this year. 3. 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 4. GI bleed, cause of which was unclear. 5. Gastritis. 6. Internal hemorrhoids. 7. Colonic diverticulosis. 8. Moderate mitral regurgitation. 9. Essential hypertension. 10.Chronic kidney disease, stage III. PAST SURGICAL HISTORY: None. SOCIAL HISTORY: The patient was drinking about 6 beers a week. Stopped smoking 20 years ago. Living by himself. FAMILY HISTORY: AICD, pacemaker. HOME MEDICATIONS: 1. Norvasc 5 mg a day. 2. Protonix 40 mg with breakfast. ALLERGIES: NONE. PHYSICAL EXAMINATION: VITAL SIGNS: Temperature 97.7, pulse 83, respiration 16, blood pressure 128/86, pulse ox 97% on room air. GENERAL APPEARANCE: Average build. BMI 28.5. Lying in bed, comfortable. EYES: Pupils equal. Conjunctivae normal. HEENT: External appearance of nose and ears normal. Oral cavity normal. NECK: JVD not raised. Mass not palpable. RESPIRATORY: Effort normal. LUNGS: Fair air entry. CARDIOVASCULAR: First and second sounds normal. No edema. ABDOMEN: Soft, non-tender. Liver and spleen not palpable. LYMPHATIC: No lymph node palpable in neck or axillae. PSYCHIATRY: Alert and oriented x3. Mood and affect normal. NEUROLOGICAL: Pupils equal. Cranial nerves grossly intact. Power and sensation grossly intact. INVESTIGATIONS: White count 5.6, hemoglobin 7.9, potassium 4, BUN 13, creatinine 1.33, repeat 1.22. EKG tracing, personally reviewed by me, shows normal sinus rhythm. Chest x-ray film, personally reviewed by me: Nil acute. ASSESSMENT: 1. Recurrent presyncope. Will check patient's orthostatic. 2. Normocytic anemia from recent gastrointestinal bleed. Patient's EGD and colonoscopy were unremarkable. The patient may need an outpatient capsule endoscopy study. 3. Chronic gastritis. 4. Moderate internal hemorrhoids. 5. Colonic diverticulosis. 6. Moderate mitral regurgitation, non-rheumatic. 7. Essential hypertension. 8. 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 PLAN: Will check patient's orthostatic blood pressure manually after 1 and 3 minutes of standing. Cardiology was consulted. The patient is not having any acute bleed. Hemoglobin is rather stable compared to the last admission. Will give the patient Kwaku stockings. Care was discussed with the patient's daughter at length. The patient was seen by Dr. Downey earlier. She does wish to speak to the vp organizational development. I told her to check tomorrow. Orthostatics will be checked on each shift. MMODL / IJN: [id number] /
[2018-12-16] MEDS ORDERED: LORazepam 2 MG/ML INJ IV PRN ×3 (08:06)
[2018-12-16] MEDS: PANTOPRAZOLE 40 MG TABLET PO SCH (10:13)
[2018-12-16] MEDS: ENOXAPARIN 40 MG/0.4 ML SYRINGE SQ SCH (10:13)
[2018-12-16] MEDS: amLODIPine 10 MG TAB PO SCH (10:13)
[2018-12-16 12:19] LABS: Iron Saturation 9.73 (15.00-50.00)
--- NOTE | 2018-12-16 12:53 | P.PN ---
Subjective 78-year-old male was admitted the for near syncopal episodes patient is quite weak declined to go to subacute rehabilitation patient became tachycardic upon ablation as of which are pending EKG EKG was often at rest showed sinus rhythm with heart rate of 82 and not in A. fib doesn't have any other regular rhythm abnormality there is some C in significant ST-T wave changes were also present within the previous EKGs. Patient doesn't have any chest pain. Patient has positive orthostatic vitals will be started on IV fluids and obtain TSH and d-d kristen. D-dimer is positive we'll obtain a CT to rule out pulmonary embolism. Patient the will be started on beta al if all these lab tests are within normal limits. Constitutional: Denied any fatigue denied any fever. Cardio vascular: denied any chest pain, palpitations Gastrointestinal denied any nausea vomiting Pulmonary: Denied any shortness of breath cough Neurologic denied any new focal deficits All inpatient medications were reviewed and appropriate changes in these medications as dictated in the interval history and assessment and plan. Objective - Vital Signs Vital signs: Vital Signs Temp 97.5 F L 12/16/18 07:00 Pulse 119 H 12/16/18 08:21 Resp 16 12/16/18 07:00 BP 136/69 12/16/18 08:21 Pulse Ox 96 12/16/18 07:00 Intake & Output 12/15/18 12/16/18 12/16/18 18:59 06:59 18:59 Output Total 100 250 400 Balance -100 -250 -400 Output: Urine 100 250 400 Other: Voiding Method Urinal Urinal # Voids 5 200 - Exam PHYSICAL EXAMINATION: GENERAL: The patient is alert and oriented x3, not in any acute distress. Well developed, well nourished. HEENT: Pupils are round and equally reacting to light. EOMI. No scleral icterus. No conjunctival pallor. Normocephalic, atraumatic. No pharyngeal erythema. No thyromegaly. CARDIOVASCULAR: S1 and S2 present. No murmurs, rubs, or gallops. PULMONARY: Chest is clear to auscultation, no wheezing or crackles. ABDOMEN: Soft, nontender, nondistended, normoactive bowel sounds. No palpable organomegaly. MUSCULOSKELETAL: No joint swelling or deformity. EXTREMITIES: No cyanosis, clubbing, or pedal edema. NEUROLOGICAL: Gross neurological examination did not reveal any focal deficits. does have mild atrophy both legs generalized deconditioning no focal weakness SKIN: No rashes. - Labs CBC & Chem 7: 12/14/18 17:55 12/15/18 16:11 Labs: Abnormal Lab Results - Last 24 Hours (Table) 12/15/18 12/15/18 Range/Units 16:11 16:11 Chloride 112 H (98-107) mmol/L Glucose 100 H (74-99) mg/dL Iron 25 L (65-175) ug/dL Iron Saturation 9.73 L (15.00-50.00) Assessment and Plan Plan: -near syncopal episode: Positive orthostatic vitals patient will be started on IV fluids further workup with tachycardia as mentioned above patient is tach ycardic as he is hypovolemic amlodipine will be discontinued. -Normocytic anemia anemia probably secondary to chronic alcoholism patient quit drinking alcohol 3 months ago will not require withdrawal protocol at this time. -Gastroesophageal reflux as disease -Essential hypertension because of positive orthostatic vitals amlodipine is being discontinued -Sinus tachycardia upon ambulation due to intravascular volume depletion IV fluids will be given and further workup with TSH and d-dimer as mentioned above -Possible chronic kidney disease stage III from hypertensive nephrosclerosis Patient is only DVT prophylaxis with Lovenox
--- NOTE | 2018-12-16 13:51 | P.PN ---
Subjective Progress Note Date: 12/16/18 Principal diagnosis: Iron deficiency anemia Patient seen lying in bed reporting that he is tolerating his diet. No abdominal pain. No nausea or vomiting. No bowel movements, blood per rectum or melena. Objective - Vital Signs Vital signs: Vital Signs Temp 97.5 F L 12/16/18 07:00 Pulse 119 H 12/16/18 08:21 Resp 16 12/16/18 07:00 BP 136/69 12/16/18 08:21 Pulse Ox 96 12/16/18 07:00 Intake & Output 12/15/18 12/16/18 12/16/18 18:59 06:59 18:59 Output Total 100 250 400 Balance -100 -250 -400 Output: Urine 100 250 400 Other: Voiding Method Urinal Urinal # Voids 5 200 - Exam On physical examination, patient appears comfortable in no apparent distress. HEAD: Normocephalic, atraumatic. EYES: No scleral icterus. No conjunctival injection. MOUTH: No lesions, tongue midline. NECK: Trachea midline, no gross abnormalities. CHEST: Clear to auscultation with no wheezing or rhonchi appreciated. HEART: Regular rate and rhythm. ABDOMEN: Soft, obese. Bowel sounds are positive. No organomegaly. No guarding or rigidity. EXTREMITIES: No pedal edema. SKIN: No rashes, no jaundice. NEUROLOGIC: Alert and oriented x3. No focal deficits. - Labs CBC & Chem 7: 12/14/18 17:55 12/15/18 16:11 Labs: Abnormal Lab Results - Last 24 Hours (Table) 12/15/18 12/15/18 Range/Units 16:11 16:11 Chloride 112 H (98-107) mmol/L Glucose 100 H (74-99) mg/dL Iron 25 L (65-175) ug/dL Iron Saturation 9.73 L (15.00-50.00) Assessment and Plan (1) Iron deficiency anemia Narrative/Plan: Patient who previously presented with symptomatic anemia and underwent EGD and colonoscopy approximately 1 month ago with no evidence of peptic ulcer disease or active bleeding. Patient denies any signs or symptoms of overt GI bleeding. He does have a known iron deficiency and is currently on supplementation. Current Visit: Yes Status: Acute Code(s): D50.9 - IRON DEFICIENCY ANEMIA, UNSPECIFIED SNOMED Code(s): 41763866 Plan: Supportive care Okay for diet Continue to monitor CBC and transfuse as needed Iron supplementation No plans for endoscopic evaluation at this time, with consideration for small bowel capsule endoscopy if the patient has any signs or symptoms of GI bleeding or further fall in hemoglobin Thank you for allowing us to participate in the care of the patient we will continue to follow
[2018-12-16 16:03] LABS: T4, Free (Free Thyroxine) 1.23 ng/dL (0.78-2.19)
[2018-12-16] MEDS: METOPROLOL TARTRATE 25 MG TAB PO SCH ×2 (16:12→22:20)
[2018-12-16] MEDS ORDERED: THIAMINE 100 MG TAB PO SCH (17:00)
[2018-12-16] MEDS: SODIUM CHLORIDE 0.9% 1,000 ML IV SCH ×2 (19:22→22:20)
[2018-12-17] MEDS: SODIUM CHLORIDE 0.9% 1,000 ML IV SCH ×2 (08:00→22:33)
[2018-12-17 09:21] LABS: Basophils % (A) 1 %; Eosinophils # (A) 0.1 k/uL (0-0.7); Eosinophils % (A) 3 %; HCT 21.7 % (39.0-53.0); HGB 7.2 gm/dL (13.0-17.5); Lymphocytes # (A) 0.9 k/uL (1.0-4.8); Lymphocytes % (A) 24 %; MCH 30.8 pg (25.0-35.0); MCV 93.2 fL (80.0-100.0); Mean Platelet Volume 7.4; Monocytes # (A) 0.2 k/uL (0-1.0); Monocytes % (A) 6 %; Neutrophils # (A) 2.4 k/uL (1.3-7.7); Neutrophils % (A) 63 %; Platelet Count 196 k/uL (150-450); RBC 2.32 m/uL (4.30-5.90); RDW 14.1 % (11.5-15.5); WBC 3.9 k/uL (3.8-10.6)
[2018-12-17] MEDS: ENOXAPARIN 40 MG/0.4 ML SYRINGE SQ SCH (09:23)
[2018-12-17] MEDS: METOPROLOL TARTRATE 25 MG TAB PO SCH ×2 (09:23→22:33)
[2018-12-17] MEDS: PANTOPRAZOLE 40 MG TABLET PO SCH (09:24)
[2018-12-17] MEDS ORDERED: BISACODYL 5 MG TABLET.DR PO STA (11:12)
--- NOTE | 2018-12-17 11:15 | P.PN ---
Subjective Progress Note Date: 12/17/18 Principal diagnosis: Iron deficiency anemia Patient seen lying in bed reporting that he is tolerating his diet. No abdominal pain. No nausea or vomiting. Patient is reporting no bowel movements for the past few days and feeling somewhat constipated. He denies any blood per rectum. Objective - Vital Signs Vital signs: Vital Signs Temp 98.6 F 12/17/18 07:00 Pulse 68 12/17/18 07:00 Resp 16 12/17/18 07:00 BP 143/76 12/17/18 07:00 Pulse Ox 98 12/17/18 07:00 Intake & Output 12/16/18 12/17/18 12/17/18 18:59 06:59 18:59 Output Total 1000 700 200 Balance -1000 -700 -200 Output: Urine 1000 700 200 Other: Voiding Method Urinal - Exam On physical examination, patient appears comfortable in no apparent distress. HEAD: Normocephalic, atraumatic. EYES: No scleral icterus. No conjunctival injection. MOUTH: No lesions, tongue midline. NECK: Trachea midline, no gross abnormalities. CHEST: Decreased air entry bilaterally. HEART: S1-S2 appreciated. ABDOMEN: Soft, obese. Bowel sounds are positive. No organomegaly. No guarding or rigidity. EXTREMITIES: No pedal edema. SKIN: No rashes, no jaundice. NEUROLOGIC: Alert and oriented x3. No focal deficits. - Labs CBC & Chem 7: 12/17/18 08:49 12/15/18 16:11 Labs: Abnormal Lab Results - Last 24 Hours (Table) 12/15/18 12/16/18 12/17/18 Range/Units 16:11 12:51 08:49 RBC 2.32 L (4.30-5.90) m/uL Hgb 7.2 L (13.0-17.5) gm/dL Hct 21.7 L (39.0-53.0) % Lymphocytes # 0.9 L (1.0-4.8) k/uL Iron 25 L (65-175) ug/dL Iron Saturation 9.73 L (15.00-50.00) TSH 11.900 H (0.465-4.680) mIU/L Assessment and Plan (1) Iron deficiency anemia Narrative/Plan: Patient who previously presented with symptomatic anemia and underwent EGD and colonoscopy approximately 1 month ago with no evidence of peptic ulcer disease or active bleeding. Patient denies any signs or symptoms of overt GI bleeding. He does have a known iron deficiency and is currently on supplementation. Current Visit: Yes Status: Acute Code(s): D50.9 - IRON DEFICIENCY ANEMIA, UNSPECIFIED SNOMED Code(s): 50627324 Plan: Supportive care Okay for diet Continue to monitor CBC and transfuse as needed Iron supplementation No plans for endoscopic evaluation at this time, with consideration for small bowel capsule endoscopy if the patient has any signs or symptoms of GI bleeding or further fall in hemoglobin Thank you for allowing us to participate in the care of the patient we will continue to follow
--- NOTE | 2018-12-17 16:49 | P.PN ---
Subjective 78-year-old male was admitted the for near syncopal episodes patient is quite weak declined to go to subacute rehabilitation patient became tachycardic upon ablation as of which are pending EKG EKG was often at rest showed sinus rhythm with heart rate of 82 and not in A. fib doesn't have any other regular rhythm abnormality there is some C in significant ST-T wave changes were also present within the previous EKGs. Patient doesn't have any chest pain. Patient has positive orthostatic vitals will be started on IV fluids and obtain TSH and d-d kristen. D-dimer is positive we'll obtain a CT to rule out pulmonary embolism. Patient the will be started on beta al if all these lab tests are within normal limits. 12/17/2018 Patient's TSH is elevated but T4 is within normal limits d-dimer is within normal limits patient was started on beta al with improvement in 9 heart rate and patient received IV fluids as well serum creatinine yesterday was 1.22 will repeat one tomorrow morning patient is finally agreeable to go to subacute rehabilitation. The patient's serum iron levels around the AP not significantly low and his eye anemia is most probably due to bone marrow suppression from alcoholism. Constitutional: Denied any fatigue denied any fever. Cardio vascular: denied any chest pain, palpitations Gastrointestinal denied any nausea vomiting Pulmonary: Denied any shortness of breath cough Neurologic denied any new focal deficits All inpatient medications were reviewed and appropriate changes in these medications as dictated in the interval history and assessment and plan. Objective - Vital Signs Vital signs: Vital Signs Temp 98.5 F 12/17/18 14:23 Pulse 70 12/17/18 14:23 Resp 16 12/17/18 14:23 BP 142/76 12/17/18 14:23 Pulse Ox 98 12/17/18 14:23 Intake & Output 12/16/18 12/17/18 12/17/18 18:59 06:59 18:59 Intake Total 800 Output Total 1000 700 200 Balance -1000 -700 600 Intake: IV 800 Sodium Chloride 0.9% 1, 800 000 ml @ 100 mls/hr IV . Q10H [facility] Rx#:[id number] Output: Urine 1000 700 200 Other: Voiding Method Urinal - Exam PHYSICAL EXAMINATION: GENERAL: The patient is alert and oriented x3, not in any acute distress. Well developed, well nourished. HEENT: Pupils are round and equally reacting to light. EOMI. No scleral icterus. No conjunctival pallor. Normocephalic, atraumatic. No pharyngeal erythema. No thyromegaly. CARDIOVASCULAR: S1 and S2 present. No murmurs, rubs, or gallops. PULMONARY: Chest is clear to auscultation, no wheezing or crackles. ABDOMEN: Soft, nontender, nondistended, normoactive bowel sounds. No palpable organomegaly. MUSCULOSKELETAL: No joint swelling or deformity. EXTREMITIES: No cyanosis, clubbing, or pedal edema. NEUROLOGICAL: Gross neurological examination did not reveal any focal deficits. does have mild atrophy both legs generalized deconditioning no focal weakness SKIN: No rashes. - Labs CBC & Chem 7: 12/17/18 08:49 12/15/18 16:11 Labs: Abnormal Lab Results - Last 24 Hours (Table) 12/17/18 Range/Units 08:49 RBC 2.32 L (4.30-5.90) m/uL Hgb 7.2 L (13.0-17.5) gm/dL Hct 21.7 L (39.0-53.0) % Lymphocytes # 0.9 L (1.0-4.8) k/uL Assessment and Plan Plan: -near syncopal episode: Related to intravascular depletion improved with IV fluids and tachycardia improved with IV fluids and beta al. -Normocytic anemia anemia probably secondary to chronic alcoholism patient quit drinking alcohol 3 months ago will not require withdrawal protocol at this time. My line deficiency most of his anemia secondary to chronic alcoholism -Gastroesophageal reflux as disease -Essential hypertension because of positive orthostatic vitals amlodipine was discontinued -Sinus tachycardia upon ambulation due to intravascular volume depletion IV fluids will be given and further workup with TSH related but T4 is within normal limits probably secure the right syndrome d-dimer is essentially within normal limits -Possible chronic kidney disease stage III from hypertensive nephrosclerosis Patient is only DVT prophylaxis with Lovenox
[2018-12-17] MEDS: FERROUS SULFATE 325 MG TAB PO SCH (17:14)
[2018-12-17] MEDS: POLYETHYLENE GLYCOL 3350 17 GM POWD.PACK PO SCH (22:34)
[2018-12-18] MEDS: SODIUM CHLORIDE 0.9% 1,000 ML IV SCH ×3 (04:28→20:09)
[2018-12-18] MEDS: ENOXAPARIN 40 MG/0.4 ML SYRINGE SQ SCH (09:05)
[2018-12-18] MEDS: METOPROLOL TARTRATE 25 MG TAB PO SCH (09:05)
[2018-12-18] MEDS: FERROUS SULFATE 325 MG TAB PO SCH ×2 (09:05→17:28)
[2018-12-18] MEDS: PANTOPRAZOLE 40 MG TABLET PO SCH (09:05)
--- NOTE | 2018-12-18 13:34 | P.PN ---
Subjective 78-year-old male was admitted the for near syncopal episodes patient is quite weak declined to go to subacute rehabilitation patient became tachycardic upon ablation as of which are pending EKG EKG was often at rest showed sinus rhythm with heart rate of 82 and not in A. fib doesn't have any other regular rhythm abnormality there is some C in significant ST-T wave changes were also present within the previous EKGs. Patient doesn't have any chest pain. Patient has positive orthostatic vitals will be started on IV fluids and obtain TSH and d-d kristen. D-dimer is positive we'll obtain a CT to rule out pulmonary embolism. Patient the will be started on beta al if all these lab tests are within normal limits. 12/17/2018 Patient's TSH is elevated but T4 is within normal limits d-dimer is within normal limits patient was started on beta al with improvement in 9 heart rate and patient received IV fluids as well serum creatinine yesterday was 1.22 will repeat one tomorrow morning patient is finally agreeable to go to subacute rehabilitation. The patient's serum iron levels around the AP not significantly low and his eye anemia is most probably due to bone marrow suppression from alcoholism. 12/18/2018 Patient is complaining of cough all the lungs are clear to auscultation. Constitutional: Denied any fatigue denied any fever. Cardio vascular: denied any chest pain, palpitations Gastrointestinal denied any nausea vomiting Pulmonary: Denied any shortness of breath cough Neurologic denied any new focal deficits All inpatient medications were reviewed and appropriate changes in these medications as dictated in the interval history and assessment and plan. Objective - Vital Signs Vital signs: Vital Signs Temp 98.5 F 12/18/18 07:14 Pulse 83 12/18/18 07:16 Resp 16 12/18/18 07:14 BP 121/69 12/18/18 07:16 Pulse Ox 95 12/18/18 07:14 Intake & Output 12/17/18 12/18/18 12/18/18 18:59 06:59 18:59 Intake Total 800 180 Output Total 200 1100 Balance 600 -1100 180 Intake: IV 800 Sodium Chloride 0.9% 1, 800 000 ml @ 100 mls/hr IV . Q10H ROSALES Rx#:[id number] Oral 180 Output: Urine 200 1100 Other: Voiding Method Urinal - Exam PHYSICAL EXAMINATION: GENERAL: The patient is alert and oriented x3, not in any acute distress. Well developed, well nourished. HEENT: Pupils are round and equally reacting to light. EOMI. No scleral icterus. No conjunctival pallor. Normocephalic, atraumatic. No pharyngeal erythema. No thyromegaly. CARDIOVASCULAR: S1 and S2 present. as a diastolic murmur in the mitral area PULMONARY: Chest is clear to auscultation, no wheezing or crackles. ABDOMEN: Soft, nontender, nondistended, normoactive bowel sounds. No palpable organomegaly. MUSCULOSKELETAL: No joint swelling or deformity. EXTREMITIES: No cyanosis, clubbing, or pedal edema. NEUROLOGICAL: Gross neurological examination did not reveal any focal deficits. does have mild atrophy both legs generalized deconditioning no focal weakness SKIN: No rashes. - Labs CBC & Chem 7: 12/17/18 08:49 12/15/18 16:11 Assessment and Plan Plan: -near syncopal episode: Related to intravascular volumedepletion improved with IV fluids and tachycardia improved with IV fluids and beta al. -Normocytic anemia anemia probably secondary to chronic alcoholism patient quit drinking alcohol 3 months ago will not require withdrawal protocol at this time. My line deficiency most of his anemia secondary to chronic alcoholism -Gastroesophageal reflux as disease -severe mitral valvular disease will need valve replacement down the line -Essential hypertension because of positive orthostatic vitals amlodipine was discontinued -Sinus tachycardia upon ambulation due to intravascular volume depletion IV fluids will be given and further workup with TSH related but T4 is within normal limits probably secure the right syndrome d-dimer is essentially within normal limits -Possible chronic kidney disease stage III from hypertensive nephrosclerosis Patient is only DVT prophylaxis with Lovenox
[2018-12-18] MEDS ORDERED: ALBUTEROL NEBULIZED 1.25 MG/3 ML INHALATION SCH (16:00)
[2018-12-18] MEDS: ALBUTEROL NEBULIZED 2.5 MG/3 ML INHALATION SCH ×2 (16:17→19:41)
[2018-12-18] MEDS ORDERED: guaiFENesin SYRUP 100MG/5ML 200 MG/10 ML CUP PO PRN (16:51)
[2018-12-18] MEDS: METOPROLOL TARTRATE 12.5 MG TAB PO SCH (20:08)
[2018-12-18] MEDS: POLYETHYLENE GLYCOL 3350 17 GM POWD.PACK PO SCH (20:08)
[2018-12-19] MEDS: ALBUTEROL NEBULIZED 2.5 MG/3 ML INHALATION SCH ×4 (08:52→19:36)
[2018-12-19] MEDS: METOPROLOL TARTRATE 12.5 MG TAB PO SCH (09:05)
[2018-12-19] MEDS: PANTOPRAZOLE 40 MG TABLET PO SCH (09:05)
[2018-12-19] MEDS: FERROUS SULFATE 325 MG TAB PO SCH ×2 (09:06→17:20)
[2018-12-19] MEDS: ENOXAPARIN 40 MG/0.4 ML SYRINGE SQ SCH (09:06)
--- NOTE | 2018-12-19 15:52 | P.PN ---
Subjective 78-year-old male was admitted the for near syncopal episodes patient is quite weak declined to go to subacute rehabilitation patient became tachycardic upon ablation as of which are pending EKG EKG was often at rest showed sinus rhythm with heart rate of 82 and not in A. fib doesn't have any other regular rhythm abnormality there is some C in significant ST-T wave changes were also present within the previous EKGs. Patient doesn't have any chest pain. Patient has positive orthostatic vitals will be started on IV fluids and obtain TSH and d-d kristen. D-dimer is positive we'll obtain a CT to rule out pulmonary embolism. Patient the will be started on beta al if all these lab tests are within normal limits. 12/17/2018 Patient's TSH is elevated but T4 is within normal limits d-dimer is within normal limits patient was started on beta al with improvement in 9 heart rate and patient received IV fluids as well serum creatinine yesterday was 1.22 will repeat one tomorrow morning patient is finally agreeable to go to subacute rehabilitation. The patient's serum iron levels around the AP not significantly low and his eye anemia is most probably due to bone marrow suppression from alcoholism. 12/18/2018 Patient is complaining of cough all the lungs are clear to auscultation. 12/11/2018 Patient is having resting tremor probably related to inhalational treatments with albuterol along with withdrawal from metoprolol patient's metoprolol dose was decreased yesterday because of her first-degree AV block. Patient is tachycardic again today patient was switched to 25 twice a day of metoprolol. Unfortunately patient related to 3 night hospitalization to be discharged to subacute rehab Constitutional: Denied any fatigue denied any fever. Cardio vascular: denied any chest pain, palpitations Gastrointestinal denied any nausea vomiting Pulmonary: Denied any shortness of breath cough Neurologic denied any new focal deficits All inpatient medications were reviewed and appropriate changes in these medications as dictated in the interval history and assessment and plan. Objective - Vital Signs Vital signs: Vital Signs Temp 98.7 F 12/19/18 14:32 Pulse 74 12/19/18 14:32 Resp 16 12/19/18 14:32 BP 137/66 12/19/18 14:32 Pulse Ox 98 12/19/18 14:32 Intake & Output 12/18/18 12/19/18 12/19/18 18:59 06:59 18:59 Intake Total 1255 1220 400 Output Total 880 650 Balance 1255 340 -250 Intake: IV 800 Sodium Chloride 0.9% 1, 800 000 ml @ 100 mls/hr IV . Q10H [facility] Rx#:[id number] Intake, IV Titration 200 Amount Sodium Chloride 0.9% 1, 200 000 ml @ 100 mls/hr IV . Q10H ROSALES Rx#:[id number] Oral 455 1020 400 Output: Urine 880 650 Other: Voiding Method Urinal Urinal # Voids 1 1 - Exam PHYSICAL EXAMINATION: GENERAL: The patient is alert and oriented x3, not in any acute distress. Well developed, well nourished. HEENT: Pupils are round and equally reacting to light. EOMI. No scleral icterus. No conjunctival pallor. Normocephalic, atraumatic. No pharyngeal erythema. No thyromegaly. CARDIOVASCULAR: S1 and S2 present. as a diastolic murmur in the mitral area PULMONARY: Chest is clear to auscultation, no wheezing or crackles. ABDOMEN: Soft, nontender, nondistended, normoactive bowel sounds. No palpable organomegaly. MUSCULOSKELETAL: No joint swelling or deformity. EXTREMITIES: No cyanosis, clubbing, or pedal edema. NEUROLOGICAL: Gross neurological examination did not reveal any focal deficits. does have mild atrophy both legs generalized deconditioning no focal weakness SKIN: No rashes. - Labs CBC & Chem 7: 12/17/18 08:49 12/15/18 16:11 Assessment and Plan Plan: -near syncopal episode: Related to intravascular volumedepletion improved with IV fluids, patient's tachycardia is secondary to withdrawal from metoprolol -Nonessential tremor: Secondary to above-mentioned reasons -Normocytic anemia anemia probably secondary to chronic alcoholism patient quit drinking alcohol 3 months ago will not require withdrawal protocol at this time. My line deficiency most of his anemia secondary to chronic alcoholism -Gastroesophageal reflux as disease -severe mitral valvular disease will need valve replacement down the line -Essential hypertension because of positive orthostatic vitals amlodipine was discontinued -Sinus tachycardia upon ambulation due to intravascular volume depletion IV fluids will be given and further workup with TSH related but T4 is within normal limits PE was ruled out with d-dimer is essentially within normal limits -Possible chronic kidney disease stage III from hypertensive nephrosclerosis Patient is only DVT prophylaxis with Lovenox
[2018-12-19] MEDS: SODIUM CHLORIDE 0.9% 1,000 ML IV SCH ×2 (16:58→17:21)
[2018-12-19] MEDS: POLYETHYLENE GLYCOL 3350 17 GM POWD.PACK PO SCH (20:39)
[2018-12-19] MEDS: METOPROLOL TARTRATE 25 MG TAB PO SCH (20:39)
[2018-12-20] MEDS: SODIUM CHLORIDE 0.9% 1,000 ML IV SCH ×2 (04:41→17:17)
[2018-12-20] MEDS: ENOXAPARIN 40 MG/0.4 ML SYRINGE SQ SCH (08:20)
[2018-12-20] MEDS: FERROUS SULFATE 325 MG TAB PO SCH ×2 (08:20→17:14)
[2018-12-20] MEDS: METOPROLOL TARTRATE 25 MG TAB PO SCH ×2 (08:20→19:57)
[2018-12-20] MEDS: PANTOPRAZOLE 40 MG TABLET PO SCH (08:20)
[2018-12-20] MEDS: ALBUTEROL NEBULIZED 2.5 MG/3 ML INHALATION SCH ×4 (08:38→19:09)
[2018-12-20] MEDS: ACETAMINOPHEN TAB 325 MG TAB PO PRN ×2 (12:56→19:57)
--- NOTE | 2018-12-20 12:58 | P.PN ---
Subjective 78-year-old male was admitted the for near syncopal episodes patient is quite weak declined to go to subacute rehabilitation patient became tachycardic upon ablation as of which are pending EKG EKG was often at rest showed sinus rhythm with heart rate of 82 and not in A. fib doesn't have any other regular rhythm abnormality there is some C in significant ST-T wave changes were also present within the previous EKGs. Patient doesn't have any chest pain. Patient has positive orthostatic vitals will be started on IV fluids and obtain TSH and d-d kristen. D-dimer is positive we'll obtain a CT to rule out pulmonary embolism. Patient the will be started on beta al if all these lab tests are within normal limits. 12/17/2018 Patient's TSH is elevated but T4 is within normal limits d-dimer is within normal limits patient was started on beta al with improvement in 9 heart rate and patient received IV fluids as well serum creatinine yesterday was 1.22 will repeat one tomorrow morning patient is finally agreeable to go to subacute rehabilitation. The patient's serum iron levels around the AP not significantly low and his eye anemia is most probably due to bone marrow suppression from alcoholism. 12/18/2018 Patient is complaining of cough all the lungs are clear to auscultation. 12/19/2018 Patient is having resting tremor probably related to inhalational treatments with albuterol along with withdrawal from metoprolol patient's metoprolol dose was decreased yesterday because of her first-degree AV block. Patient is tachycardic again today patient was switched to 25 twice a day of metoprolol. Unfortunately patient related to 3 night hospitalization to be discharged to subacute rehab 12/20/2018 No overnight events patient's tremor resolved IV fluids will be discontinued tachycardia improved patient will be discharged to subacute rehab after he completes his days of hospitalization as necessitated by Medicare Constitutional: Denied any fatigue denied any fever. Cardio vascular: denied any chest pain, palpitations Gastrointestinal denied any nausea vomiting Pulmonary: Denied any shortness of breath cough Neurologic denied any new focal deficits All inpatient medications were reviewed and appropriate changes in these medications as dictated in the interval history and assessment and plan. Objective - Vital Signs Vital signs: Vital Signs Temp 97.7 F 12/20/18 07:00 Pulse 62 12/20/18 07:00 Resp 16 12/20/18 07:00 BP 151/78 12/20/18 07:00 Pulse Ox 94 L 12/20/18 07:00 Intake & Output 12/19/18 12/20/18 12/20/18 18:59 06:59 18:59 Intake Total 640 1250 Output Total 650 675 Balance -10 575 Intake: IV 1250 Sodium Chloride 0.9% 1, 1250 000 ml @ 100 mls/hr IV . Q10H [facility]AL[facility] Rx#:[id number] Oral 640 Output: Urine 650 675 Other: Voiding Method Urinal Urinal # Voids 1 3 - Exam PHYSICAL EXAMINATION: GENERAL: The patient is alert and oriented x3, not in any acute distress. Well developed, well nourished. HEENT: Pupils are round and equally reacting to light. EOMI. No scleral icterus. No conjunctival pallor. Normocephalic, atraumatic. No pharyngeal erythema. No thyromegaly. CARDIOVASCULAR: S1 and S2 present. as a diastolic murmur in the mitral area PULMONARY: Chest is clear to auscultation, no wheezing or crackles. ABDOMEN: Soft, nontender, nondistended, normoactive bowel sounds. No palpable organomegaly. MUSCULOSKELETAL: No joint swelling or deformity. EXTREMITIES: No cyanosis, clubbing, or pedal edema. NEUROLOGICAL: Gross neurological examination did not reveal any focal deficits. does have mild atrophy both legs generalized deconditioning no focal weakness SKIN: No rashes. - Labs CBC & Chem 7: 12/17/18 08:49 12/15/18 16:11 Assessment and Plan Plan: -near syncopal episode: Related to intravascular volumedepletion improved with IV fluids, patient's tachycardia is secondary to withdrawal from metoprolol, improved now -Nonessential tremor: Secondary to above-mentioned reasons, resolved now -Normocytic anemia anemia probably secondary to chronic alcoholism patient quit drinking alcohol 3 months ago will not require withdrawal protocol at this time. My line deficiency most of his anemia secondary to chronic alcoholism -Gastroesophageal reflux as disease -severe mitral valvular disease will need valve replacement down the line -Essential hypertension because of positive orthostatic vitals amlodipine was discontinued -Sinus tachycardia upon ambulation due to intravascular volume depletion IV fluids will be given and further workup with TSH related but T4 is within normal limits PE was ruled out with d-dimer is essentially within normal limits -Possible chronic kidney disease stage III from hypertensive nephrosclerosis Patient is only DVT prophylaxis with Lovenox
[2018-12-20] MEDS: POLYETHYLENE GLYCOL 3350 17 GM POWD.PACK PO SCH (19:58)
[2018-12-21] MEDS: SODIUM CHLORIDE 0.9% 1,000 ML IV SCH ×2 (04:12→15:08)
[2018-12-21] MEDS: ALBUTEROL NEBULIZED 2.5 MG/3 ML INHALATION SCH ×4 (08:13→19:37)
[2018-12-21] MEDS: FERROUS SULFATE 325 MG TAB PO SCH ×2 (09:19→16:33)
[2018-12-21] MEDS: METOPROLOL TARTRATE 25 MG TAB PO SCH (09:19)
[2018-12-21] MEDS: PANTOPRAZOLE 40 MG TABLET PO SCH (09:19)
[2018-12-21] MEDS: ACETAMINOPHEN TAB 325 MG TAB PO PRN ×2 (09:20→16:33)
[2018-12-21] MEDS: ENOXAPARIN 40 MG/0.4 ML SYRINGE SQ SCH (09:20)
[2018-12-21] MEDS: POLYETHYLENE GLYCOL 3350 17 GM POWD.PACK PO SCH (21:46)
[2018-12-21] MEDS: METOPROLOL TARTRATE 12.5 MG TAB PO SCH (21:46)
[2018-12-22] MEDS: SODIUM CHLORIDE 0.9% 1,000 ML IV SCH (00:22)
--- NOTE | 2018-12-22 06:02 | PN ---
PROGRESS NOTE DATE OF SERVICE: 12/21/2018 PRESENTING COMPLAINT: Tired. INTERVAL HISTORY: This patient presented with near syncope. The patient also had a recent GI bleed, was seen by Dr. Bellamy, not for any further intervention. Currently patient is going to go to inpatient rehab. Otherwise, patient is stable. Been worked up by Physical therapy. No evidence of bleeding. REVIEW OF SYSTEMS: Done for constitutional, cardiovascular, GI, pulmonary; relevant findings as above. CURRENT MEDICATIONS: Current medications are reviewed. PHYSICAL EXAMINATION: On examination, temperature 98.7, pulse 84, respirations 16, blood pressure 143/69, pulse ox 94% on room air. GENERAL APPEARANCE: Lying in bed, awake. EYES: Pupils equal. Conjunctivae pale. NECK: JVD not raised. Mass not palpable. RESPIRATORY: Effort normal. LUNGS: Fair entry. CARDIOVASCULAR: First and second sounds normal. No edema. ABDOMEN: Soft, nontender. Liver and spleen not palpable. PSYCHIATRY: Awake, answering questions. INVESTIGATIONS: White count 3.9, hemoglobin 7.2. The creatinine was 1.22 recently. Free T4 is normal. ASSESSMENT: 1. Recurrent presyncope with some element of orthostatic. 2. Normocytic anemia from recent gastrointestinal bleed. EGD and colonoscopy were unremarkable. 3. Chronic gastritis. 4. Moderate internal hemorrhoids. 5. Colonic diverticulosis. 6. Moderate mitral regurgitation, nonrheumatic. 7. Essential hypertension. 8. 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 PLAN: Looking at patient to go to rehab. The patient was seen by Dr. Bellamy and Cardiology. Repeat labs in the morning. Will follow. MMODL / IJN: [id number] /
[2018-12-22] MEDS: FERROUS SULFATE 325 MG TAB PO SCH ×2 (07:42→17:27)
[2018-12-22] MEDS: ENOXAPARIN 40 MG/0.4 ML SYRINGE SQ SCH (07:42)
[2018-12-22] MEDS: METOPROLOL TARTRATE 12.5 MG TAB PO SCH ×2 (07:42→21:03)
[2018-12-22] MEDS: PANTOPRAZOLE 40 MG TABLET PO SCH (07:42)
[2018-12-22 08:06] LABS: Basophils # (A) 0.1 k/uL (0-0.2); Basophils % (A) 1 %; Eosinophils # (A) 0.1 k/uL (0-0.7); Eosinophils % (A) 1 %; HCT 20.9 % (39.0-53.0); Hypochromasia Moderate; Lymphocytes # (A) 2.1 k/uL (1.0-4.8); Lymphocytes % (A) 34 %; MCH 29.7 pg (25.0-35.0); MCV 93.6 fL (80.0-100.0); Mean Platelet Volume 7.7; Monocytes # (A) 0.5 k/uL (0-1.0); Monocytes % (A) 7 %; Neutrophils # (A) 3.4 k/uL (1.3-7.7); Neutrophils % (A) 54 %; Platelet Count 214 k/uL (150-450); RBC 2.23 m/uL (4.30-5.90); RDW 14.6 % (11.5-15.5); WBC 6.3 k/uL (3.8-10.6)
[2018-12-22 08:19] LABS: HGB 6.6 gm/dL (13.0-17.5)
[2018-12-22 08:31] LABS: Calcium 8.9 mg/dL (8.4-10.2); Potassium 3.4 mmol/L (3.5-5.1)
[2018-12-22 08:38] LABS: Poikilocytosis (M) Present; Polychromasia Present
[2018-12-22 08:39] LABS: MCHC 31.7 g/dL (31.0-37.0)
[2018-12-22] MEDS: ALBUTEROL NEBULIZED 2.5 MG/3 ML INHALATION SCH ×4 (08:53→19:25)
[2018-12-22 11:38] LABS: Reticulocyte % 4.2 % (0.5-2.0)
[2018-12-22] MEDS ORDERED: POTASSIUM CHLORIDE ER 10 MEQ TAB.ER.PRT PO STA (11:55)
[2018-12-22] MEDS: POLYETHYLENE GLYCOL 3350 17 GM POWD.PACK PO SCH (21:03)
--- NOTE | 2018-12-22 22:39 | PN ---
PROGRESS NOTE DATE OF SERVICE: 12/22/2018 PRESENTING COMPLAINT: Tired. INTERVAL HISTORY: Patient presented with near-syncope and also had recent GI bleed. Early this morning patient dropped his hemoglobin again. There seems to be RBC agglutination and blood was reported Hematology was consulted. The patient does feel more tired and rundown. REVIEW OF SYSTEMS: Done for constitutional, cardiovascular, GI, pulmonary; relevant findings as above. CURRENT MEDICATIONS: Reviewed. PHYSICAL EXAMINATION: VITAL SIGNS: Temperature 97.5, pulse 53, respiration 16, blood pressure 144/79, pulse ox 95% on room air. GENERAL APPEARANCE: Lying in bed, tired-appearing. EYES: Pupils equal. Conjunctivae pale. NECK: JVD not raised. Mass not palpable. RESPIRATORY: Effort normal. Lungs are clear. CARDIOVASCULAR: First and second sounds normal. No edema. ABDOMEN: Soft, non-tender. Liver and spleen not palpable. PSYCHIATRY: Awake. Answering questions. INVESTIGATIONS: White count 6.3, hemoglobin 6.6, platelets 214. Severe RBC agglutination observed on the peripheral smear. Potassium 3.4, BUN 9, creatinine 1.31. ASSESSMENT: 1. Acute severe anemia from RBC agglutination. Hematology has been consulted. 2. Recurrent presyncope with element of orthostatic. 3. Normocytic anemia from recent gastrointestinal bleed with EGD and colonoscopy being unremarkable. 4. Chronic gastritis. 5. Moderate internal hemorrhoids. 6. Colonic diverticulosis. 7. Moderate mitral regurgitation, non-rheumatic. 8. Essential hypertension. 9. Chronic kidney disease, stage II, from nephrosclerosis. PLAN: Hematology was consulted. Await further input from them. Discharge to rehab has been canceled. MMODL / IJN: [id number] /
[2018-12-23] MEDS: ALBUTEROL NEBULIZED 2.5 MG/3 ML INHALATION SCH ×4 (07:46→19:42)
[2018-12-23] MEDS: FERROUS SULFATE 325 MG TAB PO SCH ×2 (08:24→17:40)
[2018-12-23] MEDS: METOPROLOL TARTRATE 12.5 MG TAB PO SCH ×2 (08:24→20:34)
[2018-12-23] MEDS: ENOXAPARIN 40 MG/0.4 ML SYRINGE SQ SCH (08:24)
[2018-12-23] MEDS: PANTOPRAZOLE 40 MG TABLET PO SCH (08:24)
[2018-12-23 08:37] LABS: Calcium 9.2 mg/dL (8.4-10.2); Potassium 3.6 mmol/L (3.5-5.1)
[2018-12-23 09:49] LABS: HCT 20.8 % (39.0-53.0); Hypochromasia Marked; MCH 29.5 pg (25.0-35.0); MCHC 30.7 g/dL (31.0-37.0); Platelet Count 219 k/uL (150-450); RBC 2.16 m/uL (4.30-5.90); RDW 14.5 % (11.5-15.5); WBC 5.6 k/uL (3.8-10.6)
[2018-12-23 10:06] LABS: HGB 6.4 gm/dL (13.0-17.5)
[2018-12-23 14:43] LABS: Band Neutrophils % 1 %; Eosinophils # (M) 0.06 k/uL (0-0.7); Monocytes # (M) 0.45 k/uL (0-1.0); Neutrophils % (M) 65 %; Nucleated Red Blood Cells 0 /100 WBC (0-0); Total Cells Counted 100
[2018-12-23] MEDS: SODIUM FERRIC GLUCONAT-SUCROSE 125 MG in SODIUM CHLORIDE 0.9% 100 ML IVPB SCH (20:20)
[2018-12-23] MEDS: POLYETHYLENE GLYCOL 3350 17 GM POWD.PACK PO SCH (20:30)
--- NOTE | 2018-12-23 23:16 | PN ---
PROGRESS NOTE DATE OF SERVICE: 12/23/2018. PRESENTING COMPLAINT: Tired. INTERVAL HISTORY: Patient presented with near syncope. Had a recent GI bleed. Workup was negative. The patient again dropped his hemoglobin this admission. Found to have RBC . Hematology has ordered IV iron. REVIEW OF SYSTEMS: Done for constitutional, cardiovascular, GI, pulmonary; relevant findings as above. CURRENT MEDICATIONS: Include ferrous gluconate. PHYSICAL EXAMINATION: Temperature 98.2, pulse 54, respirations 12, blood pressure 142/81, pulse ox 96% on room air. GENERAL APPEARANCE: Lying in bed, tired-appearing. EYES: Pupils equal. Conjunctivae pale. NECK: JVD not raised. Mass not palpable. Respiratory effort normal. Lungs are clear. CARDIOVASCULAR: First and second sounds normal. No edema. ABDOMEN: Soft, nontender. Liver and spleen not palpable. PSYCHIATRY: Awake, answering questions. INVESTIGATIONS: Hemoglobin 6.4. ASSESSMENT: 1. Acute severe anemia from RBC . Hematology has ordered IV iron. 2. Recurrent presyncope with element of orthostatic normocytic anemia from recent GI bleed. EGD and colonoscopy also being unremarkable. 3. Chronic gastritis. 4. Moderate internal hemorrhoids. 5. Chronic diverticulosis. 6. Moderate mitral regurgitation, nonrheumatic. 7. Essential hypertension. 8. 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 PLAN: Continue medication and treatment plan. Follow with Hematology. MMODL / IJN: [id number] /
--- NOTE | 2018-12-24 01:51 | P.CONS ---
History of Present Illness - Reason for Consult Consult date: 12/23/18 Anemia - History of Present Illness The pt is a 78 yr old WM, in overll good health, till about 3-4 mths prior. he states he started to feel progressively weak and fatigued. He also noted some upper abdominal bloating, decreased appetite, and wt loss. He was admitted in 11/10 with Hgb in the 6.5 - 8.4 range. He required blood transfusion, and had EGD and colonoscopy, which revealed mild gastritis, and 2-3 benign polyps. He thinks he was placed on PO iron on discharge. He was readmitted with syncopal episode. It could not be determined if this was orthostatic. His Hgb was 7.9, and then fell again into the 6 range. Blood transfusion was again ordered. Consult was placed for further evaluation and recommendations. He denied any obvious bleeding. Questionable black stools several weeks ago. There was no prior h/o blood related problems. Review of Systems Constitutional: Reports fatigue, Reports poor appetite, Reports weakness, Reports weight loss Eyes: denies blurred vision, denies pain Ears: deny: decreased hearing, ear discharge, earache, tinnitus Ears, nose, mouth and throat: Denies headache, Denies sore throat Cardiovascular: Reports dyspnea on exertion, Reports palpitations Respiratory: Reports dyspnea Gastrointestinal: Reports bloating Genitourinary: Reports as per HPI, Reports urinary frequency (mild) Musculoskeletal: Reports muscle weakness Integumentary: Denies pruritus, Denies rash Neurological: Reports syncope, Reports weakness Psychiatric: Denies anxiety, Denies depression Endocrine: Reports cold intolerance, Reports nocturia, Reports palpitations, Reports weight change Hematologic/Lymphatic: Reports as per HPI Past Medical History Past Medical History: Syncope Additional Past Medical History / Comment(s): tinnitus, pt. 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 states he has not been to a doctor in 40 years History of Any Multi-Drug Resistant Organisms: None Reported Past Surgical History: No Surgical Hx Reported Past Anesthesia/Blood Transfusion Reactions: No Reported Reaction Additional Past Anesthesia/Blood Transfusion Reaction / Comm: pt. has never had surgery Past Psychological History: No Psychological Hx Reported Smoking Status: Former smoker Past Alcohol Use History: Rare Additional Past Alcohol Use History / Comment(s): pt. quit smoking 23 years ago, pt. reports drinking 6-8 beers weekly Past Drug Use History: None Reported - Past Family History Brother(s) Family Medical History: AICD/Pacemaker Medications and Allergies Home Medications Medication Instructions Recorded Confirmed Type Pantoprazole [Protonix] 40 mg PO AC-BRKFST #30 tablet. 11/10/18 12/14/18 Rx amLODIPine [Norvasc] 5 mg PO DAILY 12/14/18 12/14/18 History Allergies Allergy/AdvReac Type Severity Reaction Status Date / Time No Known Allergies Allergy Verified 12/14/18 17:14 Physical Exam Vitals: Vital Signs Temp Pulse Resp BP BP BP Pulse Ox 12/23/18 08:00 12 12/23/18 07:00 98.1 F 63 12 139/75 96 12/23/18 01:20 98.8 F 65 18 136/86 97 12/22/18 19:15 97.8 F 64 18 152/85 95 Intake and Output 12/22/18 12/23/18 12/23/18 22:59 06:59 14:59 Intake Total 200 Output Total 450 Balance 200 -450 Intake: Oral 200 Output: Urine 450 Other: Voiding Method Urinal Urinal # Voids 3 2 - Constitutional General appearance: no acute distress - EENT Eyes: EOMI, PERRLA ENT: hearing grossly normal, normal oropharynx - Neck Neck: no lymphadenopathy Thyroid: bilateral: normal size - Respiratory Respiratory: bilateral: CTA - Cardiovascular Rhythm: regular Heart sounds: normal: S1, S2 - Gastrointestinal General gastrointestinal: normal bowel sounds, soft - Integumentary Integumentary: normal - Neurologic Neurologic: CNII-XII intact, focal deficits - Musculoskeletal Musculoskeletal: generalized weakness, strength equal bilaterally - Psychiatric Diminished recall Psychiatric: A&O x's 3 Results CBC & Chem 7: 12/23/18 07:30 12/23/18 07:30 Labs: Abnormal Lab Results - Last 24 Hours (Table) 12/22/18 12/23/18 12/23/18 Range/Units 07:44 07:30 07:30 RBC 2.16 L (4.30-5.90) m/uL Hgb 6.4 L* (13.0-17.5) gm/dL Hct 20.8 L (39.0-53.0) % MCHC 30.7 L (31.0-37.0) g/dL Haptoglobin 224.0 H (31.2-198.0) mg/dL Chloride 114 H (98-107) mmol/L Creatinine 1.48 H (0.66-1.25) mg/dL Glucose 115 H (74-99) mg/dL Comments: SB series report reviewed EGD/colonoscopy op note, path report reviewed Chest x-ray: report reviewed CT scan - chest: report reviewed CT Scan - head: report reviewed Assessment and Plan (1) Anemia Narrative/Plan: This is most likely due to iron deficiency from chronic blood loss, likely from GI source. The patient's iron studies show normal ferritin, but this is less than 100 in a patient with been recently transfused. In addition iron satu ration is low. Therefore this is felt to be compatible with iron deficiency. As the patient has no obvious bleeding, occult GI loss is most likely. EGD and colonoscopy done recently were negative. 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 Agree with transfusion in the acute setting to maintain hemoglobin greater than 7 The patient is on oral iron currently. It is not clear if he was placed on oral iron at the time of his last discharge. He will receive IV iron inpatient. Recommend continuation of oral iron on discharge, as well as follow-up in the office in about 4-5 weeks to assess response. He will likely need continued monitoring and iron supplementation. Labs will be ordered to rule out other etiologies Current Visit: Yes Status: Acute Code(s): D64.9 - ANEMIA, UNSPECIFIED SNOMED Code(s): 972947601 (2) Syncope due to orthostatic hypotension Narrative/Plan: The patient was not totally clear regarding his history of syncope. Therefore it could not be determined definitively if this was orthostatic, caused, or exacerbated by his anemia, though this is certainly possible. Current Visit: No Status: Acute Code(s): I95.1 - ORTHOSTATIC HYPOTENSION SNOMED Code(s): 762237746 Plan: check CT scan of the Abdomen and pelvis to complete workup. As noted, EGD and colonoscopy as well as small bowel series have been negative so far been Defer to the admitting service and other consultants for management of his other medical problems
[2018-12-24 06:39] LABS: Reticulocyte % 4.6 % (0.5-2.0)
[2018-12-24 08:08] LABS: Calcium 8.8 mg/dL (8.4-10.2); Potassium 3.5 mmol/L (3.5-5.1)
[2018-12-24] MEDS ORDERED: SODIUM CHLORIDE 0.9% 500 ML 500 ML IV ONE ×2 (08:12→08:13)
[2018-12-24] MEDS: ALBUTEROL NEBULIZED 2.5 MG/3 ML INHALATION SCH (08:19)
[2018-12-24] MEDS: IOPAMIDOL-300 CONTRAST 30 ML VIAL (ORAL USE) PO PRN ×2 (08:24→09:24)
[2018-12-24] MEDS: SODIUM FERRIC GLUCONAT-SUCROSE 125 MG in SODIUM CHLORIDE 0.9% 100 ML IVPB SCH (09:25)
[2018-12-24] MEDS: ENOXAPARIN 40 MG/0.4 ML SYRINGE SQ SCH (09:25)
[2018-12-24] MEDS: METOPROLOL TARTRATE 12.5 MG TAB PO SCH ×2 (10:25→21:41)
[2018-12-24] MEDS: PANTOPRAZOLE 40 MG TABLET PO SCH (10:26)
[2018-12-24] MEDS: FERROUS SULFATE 325 MG TAB PO SCH ×2 (10:26→17:59)
--- NOTE | 2018-12-24 10:30 | CT ---
EXAMINATION TYPE: CT abdomen pelvis w con DATE OF EXAM: 12/24/2018 REFERENCE: NONE HISTORY: Blood loss, abd pain, bloating HISTORY: Blood loss CT DLP: 829.2 mGy Automated exposure control for dose reduction was used. TECHNIQUE: Helical acquisition through the abdomen and pelvis was obtained following the oral ingesti on of with Oral Contrast and following intravenous administration of 80 mL of Isovue 300. The data wa s reformatted in axial, coronal and sagittal projections. FINDINGS: There are small, bilateral effusions with associated relaxation atelectasis. There is no p ericardial fluid. The heart is enlarged. Within the abdomen, the liver is prominent measuring 19 cm. The spleen is enlarged measuring 16 cm. T he gallbladder is partially contracted. The right adrenal gland appears normal. There are 2 lesions arising from the left adrenal gland. One measures 2.2 cm and the other measures 3.2 cm. Both kidneys demonstrate function and appear morphologically normal. Pancreas is unremarkable. There is mild to moderate atheromatous calcification of the visualized arterial tree. There is no significant retroperitoneal, iliac or inguinal adenopathy. The bladder wall appears thickened. This may be secondary to lack of distention. Chronic bladder outl et obstruction could give a similar appearance. There are scattered diverticula within the sigmoid region. There is no radiographic evidence of diver ticulitis. The appendix is unremarkable. There is a small amount of pericecal fluid. Small bowel loops are normal caliber. No free air is identified. There is degenerative disc disease, hypertrophic spondylosis and facet arthropathy within the lumbar spine. IMPRESSION: 1. NO EVIDENCE OF BOWEL OBSTRUCTION AT THIS TIME. 2. HEPATOSPLENOMEGALY. 3. BILATERAL EFFUSIONS. 4. 2 LOW ATTENUATING LESION SEEN ARISING FROM THE LEFT ADRENAL GLAND MAY REPRESENT ADRENAL ADENOMAS. 5. THICKENING OF THE BLADDER WALL MAY REPRESENT LACK OF DISTENTION. I COULD NOT EXCLUDE SOME DEGREE O F CHRONIC BLADDER OUTLET OBSTRUCTION. 6. DEGENERATIVE CHANGES WITHIN THE SPINE. 7. SMALL AMOUNT OF PERICECAL FLUID IS A QUESTIONABLE ETIOLOGY IN LIGHT OF A NORMAL-APPEARING APPENDIX .
[2018-12-24] MEDS ORDERED: FUROSEMIDE 10 MG/ML 2 ML VIAL IV ONE (17:43)
[2018-12-24] MEDS: ACETAMINOPHEN TAB 325 MG TAB PO PRN (18:02)
[2018-12-24] MEDS: POLYETHYLENE GLYCOL 3350 17 GM POWD.PACK PO SCH (21:41)
--- NOTE | 2018-12-24 23:48 | PN ---
PROGRESS NOTE DATE OF SERVICE: December 24, 2018. PRESENTING COMPLAINT: Tired. INTERVAL HISTORY: The patient presented with near syncope and also anemia. Seen by Dr. Locke. Shafer to be iron deficiency. Patient also found to have a RBC agglutination. The patient did receive IV iron. Still feels weak and tired. REVIEW OF SYSTEMS: Done for constitutional, cardiovascular, GI, pulmonary and relevant findings as above. CURRENT MEDICATIONS: Reviewed. PHYSICAL EXAMINATION: VITAL SIGNS: Temperature 97.8, pulse 59, respiratory rate 18, blood pressure 142/74, pulse ox 92 percent on room air. GENERAL APPEARANCE: Lying in bed, tired-appearing. EYES: Pupils equal. Conjunctivae pale. NECK: JVD not raised. Mass not palpable. RESPIRATORY: Effort normal. LUNGS are clear. CARDIOVASCULAR: First and second sounds normal. No edema. ABDOMEN: Soft, nontender. Liver and spleen not palpable. PSYCHIATRY: Awake, answering questions. INVESTIGATIONS: No blood work from today. CT scan of the abdomen and pelvis shows hepatosplenomegaly, bilateral effusions and scattered diverticula. ASSESSMENT: 1. Acute severe anemia probably from iron deficiency. It may be noted the patient also has RBC agglutination. 2. Recurrent presyncope from orthostatic anemia. 3. Chronic gastritis. 4. Moderate internal hemorrhoids. 5. Sigmoid diverticulosis. 6. Moderate mitral regurgitation, nonrheumatic. 7. Essential hypertension. 8. 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 PLAN: Patient did receive IV iron. Still rather symptomatic. We will give a unit of blood. Repeat hemoglobin in the morning. MMODL / IJN: [id number] /
[2018-12-25 01:04] VITALS: RESP 16
[2018-12-25] MEDS: METOPROLOL TARTRATE 12.5 MG TAB PO SCH (07:34)
[2018-12-25] MEDS: FERROUS SULFATE 325 MG TAB PO SCH (07:34)
[2018-12-25] MEDS: ENOXAPARIN 40 MG/0.4 ML SYRINGE SQ SCH (07:34)
[2018-12-25] MEDS: PANTOPRAZOLE 40 MG TABLET PO SCH (07:34)
[2018-12-25 07:38] VITALS: BP 159/87; PULSE 55; TEMP 97.8
[2018-12-25 07:44] LABS: Calcium 8.8 mg/dL (8.4-10.2); Potassium 3.2 mmol/L (3.5-5.1)
[2018-12-25 08:59] LABS: Anisocytosis Slight; HCT 25.8 % (39.0-53.0); Hypochromasia Moderate; MCH 31.5 pg (25.0-35.0); MCV 92.4 fL (80.0-100.0); Mean Platelet Volume 9.4; Platelet Count 153 k/uL (150-450); RBC 2.79 m/uL (4.30-5.90); RDW 16.3 % (11.5-15.5); WBC 7.1 k/uL (3.8-10.6)
[2018-12-25 09:01] LABS: HGB 8.8 gm/dL (13.0-17.5)
[2018-12-25 10:03] LABS: Folate, Serum 12.5 ng/mL
[2018-12-25] MEDS: ACETAMINOPHEN TAB 325 MG TAB PO PRN (11:20)
[2018-12-25] MEDS: SODIUM FERRIC GLUCONAT-SUCROSE 125 MG in SODIUM CHLORIDE 0.9% 100 ML IVPB SCH (11:20)
[2018-12-25] MEDS ORDERED: amLODIPine 5 MG TAB PO STA (11:38)
[2018-12-25 11:50] LABS: Band Neutrophils % 1 %; Metamyelocytes # (M) 0.07 k/uL (0); Metamyelocytes % 1 %; Monocytes # (M) 0.36 k/uL (0-1.0); Nucleated Red Blood Cells 0 /100 WBC (0-0)
[2018-12-25 12:00] LABS: Eosinophils # (M) 0.07 k/uL (0-0.7); Lymphocytes # (M) 3.05 k/uL (1.0-4.8); Neutrophils % (M) 52 %; Total Cells Counted 200
[2018-12-25 12:02] LABS: Poikilocytosis (M) Present
[2018-12-25 12:04] LABS: MCHC 34.1 g/dL (31.0-37.0)
--- NOTE | 2018-12-25 12:22 | DS ---
DISCHARGE SUMMARY DATE OF ADMISSION: 12/19/2018 DATE OF DISCHARGE: 12/25/2018 FINAL DIAGNOSES: 1. Acute severe anemia probably from iron deficiency. 2. Near-syncope from orthostatic from anemia. 3. Chronic gastritis. 4. Moderate internal hemorrhoids. 5. Sigmoid diverticulosis. 6. Moderate mitral regurgitation, nonrheumatic. 7. Essential hypertension. 8. 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 CONSULTATION: Dr. Seven Downey from Cardiology; Dr. Bellamy from GI; and Dr. Locke from Hematology. HOSPITAL COURSE: This patient presented with near syncope. Hemoglobin been running low. Patient did have a recent EGD and colonoscopy that was unremarkable except for some gastritis. Did undergo a CT scan of the abdomen and pelvis. I did discuss with Dr. Locke this morning. It is felt hemolysis is unlikely. The patient was given a unit of blood. Feeling better. On examination, temperature 97.8, pulse 55, respiration 16, blood pressure 159/87, pulse ox 93% on room air. LUNGS: Decreased breath sounds. CARDIOVASCULAR: First and second sounds normal. INVESTIGATIONS: Hemoglobin is 8.8. BUN 10, creatinine 1.38. DISCHARGE MEDICATIONS: 1. Protonix 40 mg before breakfast. 2. Tylenol 650 mg q.6 p.r.n. 3. 325 p.o. b.i.d. 4. Lopressor 12.5 p.o. b.i.d. 5. Metamucil 6 grams p.o. daily. 6. Norvasc 5 mg p.o. daily. 7. Ferrous sulfate 325 p.o. b.i.d. Follow up with Dr. Locke in 2 weeks. Follow up with Dr. Jn Alonso after discharged from [facility]. Follow up with Dr. Seven Downey in one week. Follow up with Dr. Andrea Bellamy in one week. Follow up with Dr. Osorio at the [facility]. DISPOSITION: [facility], [place]. Discussion and discharge planning more than 35 minutes. MMODL / IJN: [id number] /
[2018-12-25 14:27] LABS: Protein, Total 5.7 g/dL (6.2-8.2)
[2018-12-26 16:32] LABS: Albumin 2.78 g/dL (3.80-4.90)
== END 2018-12-25 15:10 | DRG 812 ==
LOC: EC 17:09 → 4SSUR 19:26 → INTOOBSV 19:26 → OBSVTOIN 12-19 11:30
PROVIDERS: ADMIT Hospitalist; ATTEND Hospitalist
PROC: 30233N1 Transfusion of Nonautologous Red Blood Cells into Peripheral Vein, Percutaneous Approach (ICD-10-PCS; principal; 2018-12-24)
DX: D50.9 Iron deficiency anemia, unspecified (principal); F10.20 Alcohol dependence, uncomplicated; I12.9 Hypertensive chronic kidney disease with stage 1 through stage 4 chronic kidney disease, or unspecified chronic kidney disease; I34.0 Nonrheumatic mitral (valve) insufficiency; I34.1 Nonrheumatic mitral (valve) prolapse; I44.0 Atrioventricular block, first degree; I95.1 Orthostatic hypotension; K29.50 Unspecified chronic gastritis without bleeding; K57.30 Diverticulosis of large intestine without perforation or abscess without bleeding; K64.8 Other hemorrhoids; N18.3 Chronic kidney disease, stage 3 (moderate); Z79.899 Other long term (current) drug therapy; Z87.891 Personal history of nicotine dependence; K31.819 Angiodysplasia of stomach and duodenum without bleeding
CPT/HCPCS: 36415; 71046; 74177; 80048; 80053; 82247; 82728; 82746; 83010; 83540; 83550; 83735; 83883; 84165; 84439; 84443; 84484; 85025; 85045; 85379; 85610; 85730; 86334; 86850; 86880; 86900; 86901; 86920; 93005; 94640; 96360; 99285

== ENCOUNTER 2019-01-05 17:24 | Emergency (ER) | payer MEDICARE, OTHER ==
[2019-01-05 18:19] LABS: Prothrombin Time 10.6 sec (9.0-12.0)
--- NOTE | 2019-01-05 18:19 | ED ---
General Adult HPI - General Chief complaint: Recheck/Abnormal Lab/Rx Stated complaint: SENT FROM [facility] FOR TRANSFUSION Time Seen by Provider: 01/05/19 17:48 Source: patient, family Mode of arrival: ambulatory Limitations: physical limitation - History of Present Illness Initial comments: Dictation was produced using [employer] dictation software. please excuse any grammatical, word or spelling errors. Chief Complaint: 78-year-old male sent in from [facility] for low hemoglobin. History of Present Illness: Patient is 78-year-old male who has past medical history of chronic anemia, GI bleed. He presents today with abnormal outpatient lab. Patient currently at rehab facility. He did have labs drawn today. His fundi have a hemoglobin of 6.8 and hematocrit of 20.5. Patient has a history of low hemoglobin which is presumed to be secondary to GI bleed. Patient has been evaluated by GI in the past with no definitive source of active bleeding. Patient scheduled to have outpatient capsule Endoscopy. Outpatient hemoglobin was 6.8. Patient had hemoglobin performed approximately 9 days ago with a measurement of 9.8. Patient states feeling dizzy. Reports that he's been having dark stools however is on iron supplementation The ROS documented in this emergency department record has been reviewed and co nfirmed by me. Those systems with pertinent positive or negative responses have been documented in the HPI. All other systems are other negative and/or noncontributory. PHYSICAL EXAM: General Impression: Alert and oriented x3, not in acute distress, pale HEENT: Normocephalic atraumatic, extra-ocular movements intact, pupils equal and reactive to light bilaterally, mucous membranes moist. Cardiovascular: Heart regular rate and rhythm, S1&S2 audible, no murmurs, rubs or gallops Chest: Lungs clear to auscultation bilaterally, no rhonchi, no wheeze, no rales Abdomen: Bowel sounds present, abdomen soft, non-tender, non-distended, no organomegaly Musculoskeletal: Pulses present and equal in all extremities, no peripheral edema Motor: no focal deficits noted Neurological: CN II-XII grossly intact, no focal motor or sensory deficits noted Skin: Intact with no visualized rashes Psych: Normal affect and mood Rectal exam: Dark stool about the rectum ED course: 78-year-old male presents with abnormal outpatient lab.. This is presumed to be secondary to GI bleed. As upon arrival are within acceptable limits. Labs were obtained here in emergency department. Patient has a hemoglobin of 8.6. Believe that the lab those performed that [facility] was in error. Patient seemed amply stable. Coag panel unremarkable. Metabolic panel is negative. Patient has stool occult blood positive however he is on iron supplementation. Is unclear whether this is true flexion of GI bleed. Patient hemodynamically stable. Patient is stable for discharge. He does have an appointment with outpatient gastroenterology. - Related Data Home Medications Medication Instructions Recorded Confirmed Bisacodyl [Dulcolax] 10 mg RECTAL DAILY PRN 01/05/19 01/05/19 Ferrous Sulfate [Iron (65 MG 325 mg PO BID@0800,1700 01/05/19 01/05/19 Elemental)] Lactose-Reduced Food [Ensure Plus] 237 ml PO BID@0800,1700 01/05/19 01/05/19 Magic Cup 1 dose PO DAILY@1200 01/05/19 01/05/19 Magnesium Hydroxide [Milk of 7,200 mg PO DAILY PRN 01/05/19 01/05/19 Magnesia Concentrate] Metoprolol Tartrate [Lopressor] 12.5 mg PO BID@0800,1700 01/05/19 01/05/19 Midodrine HCl [ProAmantine] 2.5 mg PO TID@0600,1400,2100 01/05/19 01/05/19 Na Phos,M-B/Na Phos,Di-Ba [Fleet 133 ml RECTAL DAILY PRN 01/05/19 01/05/19 Adult] Previous Rx's Medication Instructions Recorded Acetaminophen Tab [Tylenol] 650 mg PO Q6HR PRN tab 12/25/18 Psyllium Husk (with Sugar) 6 gm PO DAILY #1 gm 12/25/18 [Metamucil Powder] amLODIPine [Norvasc] 5 mg PO DAILY #1 tab 12/25/18 Allergies Allergy/AdvReac Type Severity Reaction Status Date / Time No Known Allergies Allergy Verified 01/05/19 17:53 Review of Systems ROS Statement: Those systems with pertinent positive or pertinent negative responses have been documented in the HPI. ROS Other: All systems not noted in ROS Statement are negative. Past Medical History Past Medical History: Syncope Additional Past Medical History / Comment(s): tinnitus, pt. 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 states he has not been to a doctor in 40 years History of Any Multi-Drug Resistant Organisms: None Reported Past Surgical History: No Surgical Hx Reported Past Anesthesia/Blood Transfusion Reactions: No Reported Reaction Additional Past Anesthesia/Blood Transfusion Reaction / Comment(s): pt. has never had surgery Past Psychological History: No Psychological Hx Reported Smoking Status: Former smoker Past Alcohol Use History: Rare Past Drug Use History: None Reported - Past Family History Brother(s) Family Medical History: AICD/Pacemaker General Exam Limitations: physical limitation Course Vital Signs 01/05/19 01/05/19 17:41 18:30 Temperature 98.5 F Pulse Rate 92 71 Respiratory 18 16 Rate Blood Pressure 103/70 128/83 O2 Sat by Pulse 98 99 Oximetry Medical Decision Making - Lab Data Result diagrams: 01/05/19 17:53 01/05/19 17:53 Lab Results 01/05/19 01/05/19 01/05/19 Range/Units 17:53 17:53 17:53 WBC 6.7 (3.8-10.6) k/uL RBC 2.72 L (4.30-5.90) m/uL Hgb 8.6 L D (13.0-17.5) gm/dL Hct 24.9 L (39.0-53.0) % MCV 91.5 (80.0-100.0) fL MCH 31.8 (25.0-35.0) pg MCHC 34.7 (31.0-37.0) g/dL RDW 15.7 H (11.5-15.5) % Plt Count 270 (150-450) k/uL Neutrophils % (Manual) 38 % Band Neutrophils % 4 % Lymphocytes % (Manual) 41 % Monocytes % (Manual) 15 % Basophils % (Manual) 2 % Neutrophils # (Manual) 2.80 (1.3-7.7) k/uL Lymphocytes # (Manual) 2.75 (1.0-4.8) k/uL Monocytes # (Manual) 1.01 H (0-1.0) k/uL Basophils # (Manual) 0.13 (0-0.2) k/uL Nucleated RBCs 0 (0-0) /100 WBC Manual Slide Review Performed Poikilocytosis (manual Present PT 10.6 (9.0-12.0) sec INR 1.0 (<1.2) Sodium 140 (137-145) mmol/L Potassium 4.6 (3.5-5.1) mmol/L Chloride 106 (98-107) mmol/L Carbon Dioxide 25 (22-30) mmol/L Anion Gap 9 mmol/L BUN 22 H (9-20) mg/dL Creatinine 1.27 H (0.66-1.25) mg/dL Est GFR (CKD-EPI)AfAm 63 (>60 ml/min/1.73 sqM) Est GFR (CKD-EPI)NonAf 55 (>60 ml/min/1.73 sqM) Glucose 136 H (74-99) mg/dL Calcium 9.5 (8.4-10.2) mg/dL Stool Occult Blood (Negative) 01/05/19 Range/Units 18:00 WBC (3.8-10.6) k/uL RBC (4.30-5.90) m/uL Hgb (13.0-17.5) gm/dL Hct (39.0-53.0) % MCV (80.0-100.0) fL MCH (25.0-35.0) pg MCHC (31.0-37.0) g/dL RDW (11.5-15.5) % Plt Count (150-450) k/uL Neutrophils % (Manual) % Band Neutrophils % % Lymphocytes % (Manual) % Monocytes % (Manual) % Basophils % (Manual) % Neutrophils # (Manual) (1.3-7.7) k/uL Lymphocytes # (Manual) (1.0-4.8) k/uL Monocytes # (Manual) (0-1.0) k/uL Basophils # (Manual) (0-0.2) k/uL Nucleated RBCs (0-0) /100 WBC Manual Slide Review Poikilocytosis (manual PT (9.0-12.0) sec INR (<1.2) Sodium (137-145) mmol/L Potassium (3.5-5.1) mmol/L Chloride (98-107) mmol/L Carbon Dioxide (22-30) mmol/L Anion Gap mmol/L BUN (9-20) mg/dL Creatinine (0.66-1.25) mg/dL Est GFR (CKD-EPI)AfAm (>60 ml/min/1.73 sqM) Est GFR (CKD-EPI)NonAf (>60 ml/min/1.73 sqM) Glucose (74-99) mg/dL Calcium (8.4-10.2) mg/dL Stool Occult Blood Positive (Negative) Disposition Clinical Impression: Abnormal laboratory test Disposition: HOME SELF-CARE Condition: Good Is patient prescribed a controlled substance at d/c from ED?: No Referrals: Jn Alonso DO [Primary Care Provider] - 1-2 days Time of Disposition: 18:57
[2019-01-05 18:20] LABS: HCT 24.9 % (39.0-53.0); MCH 31.8 pg (25.0-35.0); MCHC 34.7 g/dL (31.0-37.0); MCV 91.5 fL (80.0-100.0); Mean Platelet Volume 6.7; Platelet Count 270 k/uL (150-450); RBC 2.72 m/uL (4.30-5.90); RDW 15.7 % (11.5-15.5); WBC 6.7 k/uL (3.8-10.6)
[2019-01-05 18:21] LABS: Calcium 9.5 mg/dL (8.4-10.2); Potassium 4.6 mmol/L (3.5-5.1)
[2019-01-05] MEDS ORDERED: PANTOPRAZOLE 40 MG/10 ML VIAL IVP ONE (18:22)
[2019-01-05 18:25] LABS: HGB 8.6 gm/dL (13.0-17.5)
[2019-01-05 18:33] VITALS: RESP 16
[2019-01-05 18:45] LABS: Band Neutrophils % 4 %; Basophils # (M) 0.13 k/uL (0-0.2); Lymphocytes # (M) 2.75 k/uL (1.0-4.8); Monocytes # (M) 1.01 k/uL (0-1.0); Neutrophils % (M) 38 %; Nucleated Red Blood Cells 0 /100 WBC (0-0); Poikilocytosis (M) Present; Total Cells Counted 100
[2019-01-05 19:13] VITALS: BP 123/82; PULSE 80; TEMP 98
== END 2019-01-05 19:13 | disposition home or self-care (01) ==
LOC: EC 17:24
DX: R79.9 Abnormal finding of blood chemistry, unspecified (principal); D64.9 Anemia, unspecified; R19.5 Other fecal abnormalities; R42 Dizziness and giddiness; Z87.891 Personal history of nicotine dependence; Z79.899 Other long term (current) drug therapy; Z85.828 Personal history of other malignant neoplasm of skin; Z98.890 Other specified postprocedural states
CPT/HCPCS: 36415; 86900; 86901; 80048; 85025; 85610; 86850; 82272; 99284; 96374; C9113

== ENCOUNTER 2019-01-13 15:49 | Emergency (ER) | payer MEDICARE, OTHER ==
[2019-01-13] MEDS ORDERED: PANTOPRAZOLE 40 MG/10 ML VIAL IVP STA (16:51)
[2019-01-13] MEDS ORDERED: SODIUM CHLORIDE 0.9% 500 ML 500 ML IV STA (16:51)
[2019-01-13] MEDS ORDERED: SODIUM CHLORIDE 0.9% 1,000 ML IV STA (16:51)
[2019-01-13 17:12] LABS: Anisocytosis Slight; Basophils % (A) 1 %; Eosinophils % (A) 1 %; Hypochromasia Slight; Lymphocytes # (A) 1.3 k/uL (1.0-4.8); Lymphocytes % (A) 34 %; MCH 27.4 pg (25.0-35.0); MCHC 31.3 g/dL (31.0-37.0); MCV 87.6 fL (80.0-100.0); Mean Platelet Volume 7.7; Monocytes # (A) 0.3 k/uL (0-1.0); Monocytes % (A) 8 %; Neutrophils # (A) 2.1 k/uL (1.3-7.7); Neutrophils % (A) 53 %; Platelet Count 247 k/uL (150-450); Poikilocytosis Slight; RBC 2.15 m/uL (4.30-5.90); RDW 16.6 % (11.5-15.5)
[2019-01-13 17:15] LABS: Partial Thromboplastin Time 25.2 sec (22.0-30.0); Prothrombin Time 10.5 sec (9.0-12.0)
[2019-01-13 17:17] LABS: HCT 18.9 % (39.0-53.0); HGB 5.9 gm/dL (13.0-17.5)
[2019-01-13 17:22] LABS: Albumin 3.4 g/dL (3.5-5.0); Calcium 9.1 mg/dL (8.4-10.2); Magnesium 1.8 mg/dL (1.6-2.3); Potassium 4.4 mmol/L (3.5-5.1); Total Bilirubin 0.7 mg/dL (0.2-1.3); Total Protein 7.1 g/dL (6.3-8.2)
--- NOTE | 2019-01-13 18:12 | ED ---
Recheck HPI - General Chief Complaint: Recheck/Abnormal Lab/Rx Stated Complaint: Needs Transfusion Time Seen by Provider: 01/13/19 16:31 Source: patient, RN notes reviewed, old records reviewed Mode of arrival: wheelchair Limitations: no limitations - History of Present Illness Initial Comments: This is a 78-year-old male the ER for evaluation of abnormal lab tests. Patient's low hemoglobin. Patient has no history of GI bleed with unknown source. Recurrent low hemoglobin requiring transfusion. Patient denies any other complaints no nausea vomiting blood no travel history or sick contacts MD Complaint: abnormal lab ((Hemoglobin) -: unknown Returns Today for: Called Because of Abnormal Lab/Test Symptoms Since Prior Visit: no new symptoms (Increasing weakness) Context: called for abnormal lab result Associated Symptoms: none - Related Data Previous Rx's Medication Instructions Recorded Ferrous Sulfate [Iron (65 MG 325 mg PO BID@0800,1700 #30 tab 01/13/19 Elemental)] Metoprolol Tartrate [Lopressor] 12.5 mg PO BID@0800,1700 #60 tab 01/13/19 Midodrine HCl [ProAmantine] 2.5 mg PO TID@0600,1400,2100 #90 01/13/19 tablet amLODIPine [Norvasc] 5 mg PO DAILY@0800 #30 tab 01/13/19 Allergies Allergy/AdvReac Type Severity Reaction Status Date / Time No Known Allergies Allergy Verified 01/15/19 09:04 Review of Systems ROS Statement: Those systems with pertinent positive or pertinent negative responses have been documented in the HPI. ROS Other: All systems not noted in ROS Statement are negative. Past Medical History Past Medical History: Syncope Additional Past Medical History / Comment(s): tinnitus, pt. 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 states he has not been to a doctor in 40 years History of Any Multi-Drug Resistant Organisms: None Reported Past Surgical History: No Surgical Hx Reported Past Anesthesia/Blood Transfusion Reactions: No Reported Reaction Additional Past Anesthesia/Blood Transfusion Reaction / Comment(s): pt. has never had surgery Past Psychological History: No Psychological Hx Reported Smoking Status: Former smoker Past Alcohol Use History: Rare Past Drug Use History: None Reported - Past Family History Brother(s) Family Medical History: AICD/Pacemaker General Exam Limitations: no limitations General appearance: alert, in no apparent distress Head exam: Present: atraumatic, normocephalic, normal inspection Eye exam: Present: normal appearance, PERRL, EOMI. Absent: scleral icterus, conjunctival injection, periorbital swelling ENT exam: Present: normal exam, mucous membranes moist Neck exam: Present: normal inspection. Absent: tenderness, meningismus, lymphadenopathy Respiratory exam: Present: normal lung sounds bilaterally. Absent: respiratory distress, wheezes, rales, rhonchi, stridor Cardiovascular Exam: Present: regular rate, normal rhythm, normal heart sounds. Absent: systolic murmur, diastolic murmur, rubs, gallop, clicks GI/Abdominal exam: Present: soft, normal bowel sounds. Absent: distended, ten derness, guarding, rebound, rigid Extremities exam: Present: normal inspection, full ROM, normal capillary refill. Absent: tenderness, pedal edema, joint swelling, calf tenderness Back exam: Present: normal inspection Neurological exam: Present: alert, oriented X3, CN II-XII intact Psychiatric exam: Present: normal affect, normal mood Skin exam: Present: warm, dry, intact, normal color. Absent: rash Course Vital Signs 01/13/19 01/13/19 01/13/19 15:59 16:44 17:00 Temperature 98.3 F Pulse Rate 107 H Respiratory 18 Rate Blood Pressure 98/59 109/61 109/61 O2 Sat by Pulse 98 99 97 Oximetry 01/13/19 01/13/19 01/13/19 17:30 18:00 18:30 Temperature Pulse Rate Respiratory Rate Blood Pressure 104/66 117/68 112/67 O2 Sat by Pulse 99 98 98 Oximetry 01/13/19 01/13/19 01/13/19 19:19 19:29 19:59 Temperature 98.3 F 98.0 F 97.8 F Pulse Rate 83 81 83 Respiratory 16 16 16 Rate Blood Pressure 124/77 137/80 134/80 O2 Sat by Pulse 98 98 98 Oximetry 01/13/19 01/13/19 01/13/19 20:44 21:28 21:40 Temperature 97.3 F L 97.9 F Pulse Rate 71 71 68 Respiratory 16 16 16 Rate Blood Pressure 114/72 117/70 111/65 O2 Sat by Pulse 98 98 98 Oximetry 01/13/19 01/13/19 01/13/19 21:42 21:52 22:22 Temperature 98.5 F 97.2 F L 98.0 F Pulse Rate 68 71 75 Respiratory 16 16 18 Rate Blood Pressure 110/63 118/68 122/72 O2 Sat by Pulse 98 98 98 Oximetry 01/13/19 01/13/19 22:44 23:39 Temperature 97.8 F 98.0 F Pulse Rate 80 70 Respiratory 16 16 Rate Blood Pressure 125/68 122/80 O2 Sat by Pulse 99 97 Oximetry Medical Decision Making - Medical Decision Making 78 male the ER for evaluation presented today for evaluation regarding hemoglobin. Patient's given transfusion here in the ER and can be discharged - Lab Data Result diagrams: 01/13/19 16:45 01/13/19 16:45 Lab Results 01/13/19 01/13/19 01/13/19 Range/Units 16:45 16:45 16:45 WBC 4.0 (3.8-10.6) k/uL RBC 2.15 L (4.30-5.90) m/uL Hgb 5.9 L* (13.0-17.5) gm/dL Hct 18.9 L* (39.0-53.0) % MCV 87.6 (80.0-100.0) fL MCH 27.4 (25.0-35.0) pg MCHC 31.3 (31.0-37.0) g/dL RDW 16.6 H (11.5-15.5) % Plt Count 247 (150-450) k/uL Neutrophils % 53 % Lymphocytes % 34 % Monocytes % 8 % Eosinophils % 1 % Basophils % 1 % Neutrophils # 2.1 (1.3-7.7) k/uL Lymphocytes # 1.3 (1.0-4.8) k/uL Monocytes # 0.3 (0-1.0) k/uL Eosinophils # 0.0 (0-0.7) k/uL Basophils # 0.0 (0-0.2) k/uL Hypochromasia Slight Poikilocytosis Slight Anisocytosis Slight PT 10.5 (9.0-12.0) sec INR 1.0 (<1.2) APTT 25.2 (22.0-30.0) sec Sodium 140 (137-145) mmol/L Potassium 4.4 (3.5-5.1) mmol/L Chloride 106 (98-107) mmol/L Carbon Dioxide 26 (22-30) mmol/L Anion Gap 8 mmol/L BUN 23 H (9-20) mg/dL Creatinine 1.14 (0.66-1.25) mg/dL Est GFR (CKD-EPI)AfAm 72 (>60 ml/min/1.73 sqM) Est GFR (CKD-EPI)NonAf 63 (>60 ml/min/1.73 sqM) Glucose 141 H (74-99) mg/dL Calcium 9.1 (8.4-10.2) mg/dL Magnesium 1.8 (1.6-2.3) mg/dL Total Bilirubin 0.7 (0.2-1.3) mg/dL AST 24 (17-59) U/L ALT 16 L (21-72) U/L Alkaline Phosphatase 106 (38-126) U/L Troponin I (0.000-0.034) ng/mL Total Protein 7.1 (6.3-8.2) g/dL Albumin 3.4 L (3.5-5.0) g/dL Lipase 171 (23-300) U/L Blood Type Blood Type Recheck Antibody Screen Crossmatch Spec Expiration Date 01/13/19 01/13/19 Range/Units 16:45 16:45 WBC (3.8-10.6) k/uL RBC (4.30-5.90) m/uL Hgb (13.0-17.5) gm/dL Hct (39.0-53.0) % MCV (80.0-100.0) fL MCH (25.0-35.0) pg MCHC (31.0-37.0) g/dL RDW (11.5-15.5) % Plt Count (150-450) k/uL Neutrophils % % Lymphocytes % % Monocytes % % Eosinophils % % Basophils % % Neutrophils # (1.3-7.7) k/uL Lymphocytes # (1.0-4.8) k/uL Monocytes # (0-1.0) k/uL Eosinophils # (0-0.7) k/uL Basophils # (0-0.2) k/uL Hypochromasia Poikilocytosis Anisocytosis PT (9.0-12.0) sec INR (<1.2) APTT (22.0-30.0) sec Sodium (137-145) mmol/L Potassium (3.5-5.1) mmol/L Chloride (98-107) mmol/L Carbon Dioxide (22-30) mmol/L Anion Gap mmol/L BUN (9-20) mg/dL Creatinine (0.66-1.25) mg/dL Est GFR (CKD-EPI)AfAm (>60 ml/min/1.73 sqM) Est GFR (CKD-EPI)NonAf (>60 ml/min/1.73 sqM) Glucose (74-99) mg/dL Calcium (8.4-10.2) mg/dL Magnesium (1.6-2.3) mg/dL Total Bilirubin (0.2-1.3) mg/dL AST (17-59) U/L ALT (21-72) U/L Alkaline Phosphatase (38-126) U/L Troponin I <0.012 (0.000-0.034) ng/mL Total Protein (6.3-8.2) g/dL Albumin (3.5-5.0) g/dL Lipase (23-300) U/L Blood Type O Positive Blood Type Recheck No Antibody Screen NEGATIVE Crossmatch See Detail Spec Expiration Date 01/16/2019 2951 Disposition Clinical Impression: History of GI bleed, GI bleed, Symptomatic anemia, Anemia, Abnormal laboratory test Disposition: HOME SELF-CARE Condition: Fair Prescriptions: Ferrous Sulfate [Iron (65 MG Elemental)] 325 mg PO BID@0800,1700 #30 tab Metoprolol Tartrate [Lopressor] 12.5 mg PO BID@0800,1700 #60 tab amLODIPine [Norvasc] 5 mg PO DAILY@0800 #30 tab Midodrine HCl [ProAmantine] 2.5 mg PO TID@0600,1400,2100 #90 tablet Is patient prescribed a controlled substance at d/c from ED?: No Referrals: Jn Alonso DO [Primary Care Provider] - 1-2 days
[2019-01-13 19:21] VITALS: RESP 16
[2019-01-13 23:40] VITALS: BP 122/80; PULSE 70; TEMP 98
--- NOTE | 2019-01-15 06:05 | CDI ---
Documentation Clarification OP Dear Rosales STREETER, DO Please do addendum to ED report for missing HPI and Physical examination. Thank you, Ivan Freeman Medical Detail Representative If you have any questions, please contact Import Export Manager at [phone] [facility]
== END 2019-01-13 23:59 | disposition home or self-care (01) ==
LOC: EC 15:49 → 4SSUR 18:12 → UNDOADMIN 18:12 → EC 23:59
DX: D64.9 Anemia, unspecified (principal); Z87.19 Personal history of other diseases of the digestive system; Z87.891 Personal history of nicotine dependence
CPT/HCPCS: 36415; 86900; 86901; 80053; 83690; 83735; 84484; 85025; 85610; 85730; 86850; 86920; 99284; 96374; 96361 ×4; P9016; C9113

== ENCOUNTER → 2019-01-17 | Day surgery (SDC) | payer MEDICARE, OTHER ==
[2019-01-15 09:29] VITALS: BMI 21.3
[~2019-01-17] MED LIST: SIMETHICONE 40 MG/0.6 ML DROPS 2,000 MG/30 ML BOTTLE PO ONE
== END ==
LOC: ORWHC2ENDO 06:55
PROVIDERS: ATTEND Internal Medicine Gastroenterology
DX: D50.9 Iron deficiency anemia, unspecified (principal); K92.2 Gastrointestinal hemorrhage, unspecified
CPT/HCPCS: 91110

== ENCOUNTER → 2019-04-27 | Outpatient (CLI) | payer MEDICARE, OTHER ==
--- NOTE | 2019-04-27 11:20 | XR ---
EXAMINATION TYPE: XR bone survey complete DATE OF EXAM: 04/27/2019 COMPARISON: NONE HISTORY: Bone survey Bony calvarium : 2 views of the bony calvarium demonstrate. No definite intraosseous lesion identifi ed Spine: Two views of the cervical, thoracic and lumbar spines are submitted. Multilevel hypertrophic and degenerative changes. PELVIS: Single view of the pelvis demonstrates. Arthropathy of the hips. No definite osseous lesion. UPPER EXTREMITIES: Two views of the upper extremities. No definite osseous lesion identified. Small a keven of sclerosis involving the right humeral head is most typical of bone island. LOWER EXTREMITIES: 2 views of the lower extremities. Arthropathy of the hips. Soft tissue calcificat ions noted. No intraosseous lesion. IMPRESSION: No diagnostic osseous lesions.
== END | disposition home or self-care (01) ==
LOC: RADXRMAIN 08:58
PROVIDERS: ATTEND Internal Medicine Hematology & Oncology
DX: D50.0 Iron deficiency anemia secondary to blood loss (chronic) (principal); D72.819 Decreased white blood cell count, unspecified; D47.2 Monoclonal gammopathy
CPT/HCPCS: 77075; 83883; 84166

== ENCOUNTER 2022-08-16 07:56 | Inpatient (IN) | payer MEDICARE ==
[2022-08-16] MEDS ORDERED: SODIUM CHLORIDE 0.9% 1,000 ML IV STA ×2 (08:12→09:30)
[2022-08-16 08:45] LABS: Basophils % (A) 0 %; Eosinophils % (A) 0 %; HCT 21.7 % (39.0-53.0); Hypochromasia Slight; Lymphocytes # (A) 0.7 k/uL (1.0-4.8); Lymphocytes % (A) 4 %; MCH 30.5 pg (25.0-35.0); MCHC 31.4 g/dL (31.0-37.0); MCV 96.9 fL (80.0-100.0); Mean Platelet Volume 8.5; Monocytes # (A) 0.6 k/uL (0-1.0); Monocytes % (A) 3 %; Neutrophils # (A) 15.7 k/uL (1.3-7.7); Neutrophils % (A) 91 %; Platelet Count 318 k/uL (150-450); RBC 2.24 m/uL (4.30-5.90); WBC 17.2 k/uL (3.8-10.6)
[2022-08-16 08:57] LABS: HGB 6.8 gm/dL (13.0-17.5)
--- NOTE | 2022-08-16 09:01 | CT ---
EXAMINATION TYPE: CT brain wo con CT DLP: 1217.8 mGycm, Automated exposure control for dose reduction was used. DATE OF EXAM: 08/16/2022 8:55 AM COMPARISON: Prior CT Brain from 11/07/2018. CLINICAL INDICATION:Male, 82 years old with history of syncope, TECHNIQUE: Brain: Multiple axial CT images of the brain were obtained without IV contrast. Coronal and sagittal reformats reviewed. FINDINGS: Brain: Extra-axial spaces: No abnormal extra-axial fluid collections. Ventricular system: Within normal limits Cerebral parenchyma: Cerebral atrophy. No acute intraparenchymal hemorrhage or mass effect. The borden -white junction is well differentiated. Scattered hypoattenuating areas are seen within the white mat ter. Punctate base again are calcifications are seen on the right again. Cerebellum: Unremarkable. Mass effect: No evidence of midline shift. Intracranial vasculature: unremarkable Soft tissues: Normal. Calvarium/osseous structures: No depressed skull fracture. Paranasal sinuses and mastoid air cells: Moderate to severe bilateral maxillary sinus mucosal thicken ing with air-fluid levels. Mild mucosal sinus thickening of the right sphenoid sinus with air-fluid l evel. Mild scattered ethmoid sinus mucosal thickening. Visualized orbits: Orbital contents are intact. IMPRESSION: 1. No acute intracranial process. 2. Nonspecific white matter changes, likely secondary to chronic small vessel ischemic disease. 3. Paranasal sinus disease. Correlate for acute sinusitis.
[2022-08-16 09:02] LABS: Prothrombin Time >130.0 sec (9.0-12.0)
[2022-08-16 09:04] LABS: INR >10.0 (<1.2); Partial Thromboplastin Time 82.1 sec (22.0-30.0)
[2022-08-16] MEDS ORDERED: VANCOMYCIN IV PER PHARMACY 1 EACH MISC MISCELLANE PRN (09:27)
[2022-08-16] MEDS ORDERED: PHYTONADIONE 5 MG in SODIUM CHLORIDE 0.9% 50 ML IVPB STA (09:30)
[2022-08-16] MEDS ORDERED: CEFEPIME 2 GM in SODIUM CHLORIDE 0.9% 100 ML IVPB STA (09:30)
[2022-08-16] MEDS ORDERED: VANCOMYCIN 1,500 MG in SODIUM CHLORIDE 0.9% 500 ML 500 ML IVPB STA (09:32)
[2022-08-16 10:00] LABS: Appearance,Urine Turbid (Clear); Bacteria,Urine Many /hpf; Bilirubin,Urine Negative (Negative); Blood,Urine Large (Negative); Color,Urine Light Red; Glucose,Urine (UA) Negative (Negative); Ketones,Urine Negative (Negative); Leukocyte Esterase,Urine Large (Negative); Nitrite,Urine Negative (Negative); PH, Urine 6.5 (5.0-8.0); Protein,Urine 2+ (Negative); RBC,Urine >182 /hpf (0-5); Urobilinogen,Urine <2.0 mg/dL (<2.0); WBC,Urine >182 /hpf (0-5)
[2022-08-16 10:02] LABS: Albumin 3.6 g/dL (3.5-5.0); Calcium 8.9 mg/dL (8.4-10.2); Magnesium 2.5 mg/dL (1.6-2.3); Potassium 5.3 mmol/L (3.5-5.1); Total Bilirubin 1.1 mg/dL (0.2-1.3)
[2022-08-16 10:03] LABS: Specific Gravity,Urine 1.015 (1.001-1.035)
--- NOTE | 2022-08-16 10:04 | XR ---
EXAMINATION TYPE: XR chest 2V DATE OF EXAM: 08/16/2022 9:58 AM COMPARISON: Chest radiographs from 12/14/2018. TECHNIQUE: XR chest 2V Frontal and lateral views of the chest. CLINICAL INDICATION:Male, 82 years old with history of syncope; FINDINGS: Lungs/Pleura: There is no evidence of pleural effusion, focal consolidation, or pneumothorax. Chroni c senescent parenchymal changes. Pulmonary vascularity: Unremarkable. Heart/mediastinum: Cardiomediastinal silhouette is unremarkable. Musculoskeletal: No acute osseous pathology. IMPRESSION: No acute cardiopulmonary disease/process.
--- NOTE | 2022-08-16 10:05 | XR ---
EXAMINATION TYPE: XR knee complete LT DATE OF EXAM: 08/16/2022 9:58 AM INDICATION: Patient age:Male; 82 years old; Reason for study: fall; [facility]. COMPARISON: None. TECHNIQUE: The Left knee(s) was examined in frontal, lateral, and oblique projections. FINDINGS: No acute fracture or dislocation. Mild medial tibial femoral joint space narrowing. No ag gressive osseous lesion. No soft tissue edema or joint effusion. Vascular sclerosis. IMPRESSION: 1. No acute osseous pathology. 2. Minimal osteoarthritic changes.
--- NOTE | 2022-08-16 10:09 | XR ---
EXAMINATION TYPE: XR pelvis AP view DATE OF EXAM: 08/16/2022 CLINICAL HISTORY: Fall TECHNIQUE: A single AP view of the pelvis is obtained. COMPARISON: 04/27/2019 FINDINGS: There is generalized osteopenia. There are degenerative changes of the lumbosacral spine. There is no acute fracture/dislocation evident in the pelvis. Calcifications at the right lesser troc hanter are unchanged. Pelvic arterial vascular calcifications. The overlying soft tissue appears unre markable. Nonobstructive bowel gas pattern. IMPRESSION: There is no acute fracture or dislocation in the pelvis.
[2022-08-16] MEDS ORDERED: METOPROLOL TARTRATE 12.5 MG TAB PO STA (10:55)
[2022-08-16] MEDS ORDERED: NALOXONE 0.4 MG/ML 1 ML VIAL IV PRN (11:30)
--- NOTE | 2022-08-16 11:45 | ED ---
General Adult HPI - General Chief complaint: Syncope Stated complaint: syncope, AFib Time Seen by Provider: 08/16/22 08:00 Source: patient, RN notes reviewed, old records reviewed Mode of arrival: EMS Limitations: no limitations - History of Present Illness Initial comments: Patient is an 82-year-old male who presents emergency Department complaining of a 2 week history of weakness, dehydration, SEBASTIAN, and syncopal episodes of multiple falls at home. Has had less of an appetite over the last 2 weeks and self admits to not drinking a lot of water. He states that he does have a history of atrial fibrillation despite no evidence o fit in our system. He is also on a blood thinner despite no evidence of it in our system. He states he did fall last yesterday. Endorses dries weakness. Short of breath. Denies chest pain. Denies fevers or cough. Denies abdominal pain, nausea, vomiting. Denies any hematemesis, melena, hematochezia. Normal bowel movements. Presents for further evaluation of this time. Was placed in room 3. Has a fast heart rate at this time. - Related Data Home Medications Medication Instructions Recorded Confirmed Fenofibrate [Lofibra] 160 mg PO DAILY 08/16/22 08/16/22 Finasteride [Proscar] 5 mg PO DAILY 08/16/22 08/16/22 Metoprolol Tartrate [Lopressor] 12.5 mg PO BID 08/16/22 08/16/22 Midodrine HCl [ProAmantine] 2.5 mg PO BID 08/16/22 08/16/22 Tamsulosin HCl [Flomax] 0.4 mg PO HS 08/16/22 08/16/22 Allergies Allergy/AdvReac Type Severity Reaction Status Date / Time No Known Allergies Allergy Verified 08/16/22 09:08 Review of Systems ROS Statement: Those systems with pertinent positive or pertinent negative responses have been documented in the HPI. Review of Systems: CONST: Denies fever EYES: Denies blurry vision ENT: Denies nasal congestion C/V: Denies Chest pain RESP: Endorses shortness of breath GI: Denies abdominal pain : Denies dysuria SKIN: Denies rash. MSK: Denies joint pain. NEURO: Endorses weakness ROS Other: All systems not noted in ROS Statement are negative. Past Medical History Past Medical History: Hypertension, Syncope Additional Past Medical History / Comment(s): tinnitus, HX fx right ankle (09/2018), skin cancer, hx of syncope episodes., mitral valve regergitation (waiting for heart cath and STAR with Dr. Seven Downey), Low Hgb- last blood transfusion 01/13/19- received 2 units. History of Any Multi-Drug Resistant Organisms: None Reported Past Surgical History: No Surgical Hx Reported Additional Past Surgical History / Comment(s): EGD, COLONOSCOPY Past Anesthesia/Blood Transfusion Reactions: No Reported Reaction Additional Past Anesthesia/Blood Transfusion Reaction / Comment(s): pt. has never had surgery Past Psychological History: No Psychological Hx Reported Smoking Status: Never smoker Past Alcohol Use History: None Reported, Rare Past Drug Use History: None Reported - Past Family History Brother(s) Family Medical History: AICD/Pacemaker General Exam - General Exam Comments Initial Comments: General: Appears very dehydrated, in A. fib with RVR. HEAD: Normal with no signs of head trauma. EYES: PERRLA, EOMI, conjunctiva normal, no discharge. ENT: Hearing grossly intact, normal oropharynx. Dry mucous membranes. RESPIRATORY: Clear breath sounds bilaterally. No wheezes, rales, or rhonchi. C/V: Irregular rate and rhythm. Tachycardic. ABD: Abd is soft, nontender, nondistended.Rectal exam negative for gross blood. Brown stool. Good tone. EXT: Normal range of motion, no obvious deformity SKIN: No rashes or lesions observed on exposed skin. NEURO: Alert and oriented 4. No focal deficits. Limitations: no limitations Course Vital Signs 08/16/22 08/16/22 08/16/22 07:59 08:10 08:34 Temperature 97.0 F L Pulse Rate 149 H 108 H Pulse Rate [ 149 H Train Braker ] Respiratory 26 H 20 Rate Blood Pressure 81/58 106/53 O2 Sat by Pulse 96 100 Oximetry 08/16/22 08/16/22 08/16/22 09:33 10:32 12:00 Temperature 97.5 F L Pulse Rate 123 H 120 H 122 H Pulse Rate [ Train Braker ] Respiratory 18 18 18 Rate Blood Pressure 127/76 102/79 109/59 O2 Sat by Pulse 97 97 98 Oximetry 08/16/22 08/16/22 08/16/22 12:33 12:43 13:03 Temperature 97.6 F 97.9 F 97.6 F Pulse Rate 112 H 94 88 Pulse Rate [ Train Braker ] Respiratory 18 18 18 Rate Blood Pressure 106/64 121/81 112/68 O2 Sat by Pulse Oximetry 08/16/22 08/16/22 13:51 14:02 Temperature Pulse Rate 80 89 Pulse Rate [ Train Braker ] Respiratory 18 18 Rate Blood Pressure 101/70 O2 Sat by Pulse 98 97 Oximetry Procedures - Sepsis Sepsis Focused Exam #1 Time Sepsis Criteria Met: 09:25 Sepsis Focused Exam Date: 08/16/22 Sepsis Focused Exam Time: 11:00 Sepsis Focused Exam Complete: Yes Vital Signs & RN Notes Reviewed: Yes Capillary Refill: < 2 Seconds: Fingers, Toes Peripheral Pulses: Normal: Radial (R), Radial (L) Skin Color: Normal for Patient Respiratory Exam: normal lung sounds Cardiovascular Exam: regular rate, irregular rhythm Medical Decision Making - Medical Decision Making Based on the patient's presentation and physical exam, I'm concerned for severe dehydration and possible infectious process for the patient this time. He does appear to be in A. fib with RVR based on EKG. We will obtain broad infectious labs, as well as cardiopulmonary labs. Due to the fall on blood thinners we'll also obtain a CT brain. We were able to contact his physician's office and confirm that he is on blood thinners as well as history of A. fib with RVR. Patient is mildly hypotensive likely secondary to dehydration at this time and he will be given IV fluids. Patient was in agreement this plan. EKG showed atrial fibrillation with RVR no evidence of acute ischemia. Chest x- ray revealed no acute cardio pulmonary process. Pelvis x-ray revealed no evidence of traumatic injury, knee x-ray revealed no evidence of traumatic injury. CT brain revealed no evidence of acute intracranial hemorrhage, injury. Patient's laboratory studies are remarkable for a leukocytosis of 17, a normocytic anemia with a hemoglobin of 6.8. Patient is chronically somewhat anemic but this does appear to be slightly below baseline with no evidence of acute bleeding. Patient has a supratherapeutic INR greater than 10 and was administered 5 mg of IV vitamin K. Patient's laboratory studies are remarkable for lactic acidosis of 13.8 which was repeated and confirmed at 12.1. Patient is in acute renal failure with a BUN of 61 and creatinine of 5.29. Patient has mild hypokalemia 5.3 likely secondary to the renal function which is being treated with IV fluids. Troponin is undetectable. Urinalysis is concerning for acute infection with large leuk esterase, many wbc's and rbc's. I clearly related to the kidney injury. Stool Occult blood is negative. Viral swabs are negative. Patient received a 1 unit transfusion of packed red blood cells for his anemia and we will continue to trend. Coumadin will be held. On reevaluation, patient's blood pressure following multiple fluid boluses has improved with systolics in the low 100s. Patient's A. fib with RVR is also improving with heart rates averaging between 90 and 110. He is hemodynamically stable. We did discuss his workup. I believe it is best to admit him to the hospital at this time. He met sepsis criteria at 1925 which is when he started on broad-spectrum antibiotics, blood cultures were obtained, and patient received 30 mL per KG fluid bolus in terms of bolus as well as maintenance fluids. We will trend the lactic acid. Due to the patient's severe lactic acidosis and sepsis secondary to suspected UTI as well as acute renal failure, I do believe that he meets criteria for ICU admission. I spoke with the ICU attending, Dr. Hager who accepted the patient. Nephrology was consulted. I spoke with the admitting physician, Dr. ba of the accepted the patient. Patient was admitted in serious condition. Was pt. sent in by a medical professional or institution (, BRAD, DATA REPORTING ANALYST, urgent care, hospital, or [place] [facility] facility...) When possible be specific @ -No Did you speak to anyone other than the patient for history (EMS, parent, family, police, friend...)? What history was obtained from this source @ -No Did you review nursing and triage notes (agree or disagree)? Why? @ -I reviewed and agree with nursing and triage notes Were old charts reviewed (outside hosp., previous admission, EMS record, old EKG, old radiological studies, urgent care reports/EKG's, [place] [facility] facility records)? Report findings @ -Yes, old charts from November 2018 were reviewed. Old EKG from November 2018 was reviewed. Differential Diagnosis (chest pain, altered mental status, abdominal pain women, abdominal pain men, vaginal bleeding, weakness, fever, dyspnea, syncope, headache, dizziness, GI bleed, back pain, seizure, CVA, palpatations, mental health)? @ -not applicable EKG interpreted by me (3pts min.). @ -As above X-rays interpreted by me (1pt min.). @ -Chest x-ray revealed no evidence of acute cardiopulmonary process. Pelvis x-ray showed no acute traumatic injury. Patient's left knee x-ray revealed no acute traumatic injury. CT interpreted by me (1pt min.). @ -CT brain revealed no evidence of acute intracranial injury. U/S interpreted by me (1pt. min.). @ -None done What testing was considered but not performed or refused? (CT, X-rays, U/S, labs)? Why? @ -None What meds were considered but not given or refused? Why? @ -None Did you discuss the management of the patient with other professionals (professionals i.e. , PA, DATA REPORTING ANALYST, lab, RT, psych nurse, social work assistant, email engineer, teacher, aviation safety officer, social work case manager)? Give summary @ -Yes, I spoke with the ICU attending Dr. Hager who accepted the patient was in agreement with the plan. I spoke with the admitting physician Dr. ba who accepted the patient and was in agreement with plan. Was smoking cessation discussed for >3mins.? @ -No Was critical care preformed (if so, how long)? @ -Yes, 35 minutes. Were there social determinants of health that impacted care today? How? (Homelessness, low income, unemployed, alcoholism, drug addiction, transportation, low edu. Level, literacy, decrease access to med. care, longterm, rehab)? @ -No Was there de-escalation of care discussed even if they declined (Discuss DNR or withdrawal of care, Hospice)? DNR status @ -No What co-morbidities impacted this encounter? (DM, HTN, Smoking, COPD, CAD, Cancer, CVA, ARF, Chemo, Hep., AIDS, mental health diagnosis, sleep apnea, morbid obesity)? @ -Atrial Fibrillation on warfarin Was patient admitted / discharged? Hospital course, mention meds given and route, prescriptions, significant lab abnormalities, going to OR and other pertinent info. @ -Admitted to the ICU. See above for ED course. Undiagnosed new problem with uncertain prognosis? @ -No Drug Therapy requiring intensive monitoring for toxicity (Heparin, Nitro, Insulin, Cardizem)? @ -No Were any procedures done? @ -No Diagnosis/symptom? @ -Sepsis Acute, or Chronic, or Acute on Chronic? @ -Acute Uncomplicated (without systemic symptoms) or Complicated (systemic symptoms)? @ -Complicated Side effects of treatment? @ -No Exacerbation, Progression, or Severe Exacerbation? @ -No Poses a threat to life or bodily function? How? (Chest pain, [place], [place], pneumonia, PE, COPD, DKA, ARF, appy, cholecystitis, CVA, Diverticulitis, Homicidal, Suicidal, threat to staff... and all critical care pts) @ -Yes, if untreated can result in significant morbidity mortality. Diagnosis/symptom? @ -UTI Acute, or Chronic, or Acute on Chronic? @ -Acute Uncomplicated (without systemic symptoms) or Complicated (systemic symptoms)? @ -Complicated Side effects of treatment? @ -none Exacerbation, Progression, or Severe Exacerbation] @ -no Poses a threat to life or bodily function? @ -Yes, if untreated can result in significant morbidity mortality. Diagnosis/symptom? @ -Acute renal failure Acute, or Chronic, or Acute on Chronic? @ -Acute Uncomplicated (without systemic symptoms) or Complicated (systemic symptoms)? @ -Complicated Side effects of treatment? @ -none Exacerbation, Progression, or Severe Exacerbation] @ -no Poses a threat to life or bodily function? @ -Yes, if untreated can result in significant morbidity mortality. Diagnosis/symptom? @ -Atrial fibrillation with RVR Acute, or Chronic, or Acute on Chronic? @ -Acute Uncomplicated (without systemic symptoms) or Complicated (systemic symptoms)? @ -Complicated Side effects of treatment? @ -none Exacerbation, Progression, or Severe Exacerbation] @ -no Poses a threat to life or bodily function? @ -Yes, if untreated can result in significant morbidity mortality. Diagnosis/symptom? @ -Lactic acidosis Acute, or Chronic, or Acute on Chronic? @ -Acute Uncomplicated (without systemic symptoms) or Complicated (systemic symptoms)? @ -Complicated Side effects of treatment? @ -none Exacerbation, Progression, or Severe Exacerbation] @ -no Poses a threat to life or bodily function? @ -Yes, if untreated can result in significant morbidity mortality. Diagnosis/symptom? @ -Syncope Acute, or Chronic, or Acute on Chronic? @ -Acute Uncomplicated (without systemic symptoms) or Complicated (systemic symptoms)? @ -Uncomplicated Side effects of treatment? @ -none Exacerbation, Progression, or Severe Exacerbation] @ -no Poses a threat to life or bodily function? @ -no Diagnosis/symptom? @ -Supratherapeutic INR Acute, or Chronic, or Acute on Chronic? @ -Acute Uncomplicated (without systemic symptoms) or Complicated (systemic symptoms)? @ -Uncomplicated Side effects of treatment? @ -none Exacerbation, Progression, or Severe Exacerbation] @ -no Poses a threat to life or bodily function? @ -Yes, if untreated can result in significant morbidity mortality. Diagnosis/symptom? @ -Acute on chronic anemia Acute, or Chronic, or Acute on Chronic? @ -Acute on chronic Uncomplicated (without systemic symptoms) or Complicated (systemic symptoms)? @ -Complicated Side effects of treatment? @ -none Exacerbation, Progression, or Severe Exacerbation] @ -no Poses a threat to life or bodily function? @ -Yes, if untreated can result in significant morbidity mortality. - Lab Data Result diagrams: 08/16/22 08:24 08/16/22 08:24 Lab Results 08/16/22 08/16/22 08/16/22 Range/Units 08:24 08:24 08:24 WBC 17.2 H (3.8-10.6) k/uL RBC 2.24 L (4.30-5.90) m/uL Hgb 6.8 L* (13.0-17.5) gm/dL Hct 21.7 L (39.0-53.0) % MCV 96.9 (80.0-100.0) fL MCH 30.5 (25.0-35.0) pg MCHC 31.4 (31.0-37.0) g/dL RDW 15.0 (11.5-15.5) % Plt Count 318 (150-450) k/uL MPV 8.5 Neutrophils % 91 % Lymphocytes % 4 % Monocytes % 3 % Eosinophils % 0 % Basophils % 0 % Neutrophils # 15.7 H (1.3-7.7) k/uL Lymphocytes # 0.7 L (1.0-4.8) k/uL Monocytes # 0.6 (0-1.0) k/uL Eosinophils # 0.0 (0-0.7) k/uL Basophils # 0.0 (0-0.2) k/uL Hypochromasia Slight PT >130.0 H (9.0-12.0) sec INR >10.0 H* (<1.2) APTT 82.1 H (22.0-30.0) sec Sodium (137-145) mmol/L Potassium (3.5-5.1) mmol/L Chloride (98-107) mmol/L Carbon Dioxide (22-30) mmol/L Anion Gap mmol/L BUN (9-20) mg/dL Creatinine (0.66-1.25) mg/dL Est GFR (CKD-EPI)AfAm (>60 ml/min/1.73 sqM) Est GFR (CKD-EPI)NonAf (>60 ml/min/1.73 sqM) Glucose (74-99) mg/dL Lactic Ac Sepsis Rflx Plasma Lactic Acid Praveen (0.7-2.0) mmol/L Calcium (8.4-10.2) mg/dL Magnesium (1.6-2.3) mg/dL Total Bilirubin (0.2-1.3) mg/dL AST (17-59) U/L ALT (4-49) U/L Alkaline Phosphatase (38-126) U/L Troponin I (0.000-0.034) ng/mL Total Protein (6.3-8.2) g/dL Albumin (3.5-5.0) g/dL Urine Color Light Red Urine Appearance Turbid (Clear) Urine pH 6.5 (5.0-8.0) Ur Specific Kinsey 1.015 (1.001-1.035) Urine Protein 2+ H (Negative) Urine Glucose (UA) Negative (Negative) Urine Ketones Negative (Negative) Urine Blood Large H (Negative) Urine Nitrite Negative (Negative) Urine Bilirubin Negative (Negative) Urine Urobilinogen <2.0 (<2.0) mg/dL Ur Leukocyte Esterase Large H (Negative) Urine RBC >182 H (0-5) /hpf Urine WBC >182 H (0-5) /hpf Urine WBC Clumps Many H (None) /hpf Urine Bacteria Many H (None) /hpf Stool Occult Blood (Negative) Influenza Type A (PCR) (Not Detectd) Influenza Type B (PCR) (Not Detectd) RSV (PCR) (Not Detectd) SARS-CoV-2 (PCR) (Not Detectd) Blood Type Blood Type Recheck Bld Type Recheck Status Antibody Screen Crossmatch Spec Expiration Date 08/16/22 08/16/22 08/16/22 Range/Units 08:24 08:24 08:24 WBC (3.8-10.6) k/uL RBC (4.30-5.90) m/uL Hgb (13.0-17.5) gm/dL Hct (39.0-53.0) % MCV (80.0-100.0) fL MCH (25.0-35.0) pg MCHC (31.0-37.0) g/dL RDW (11.5-15.5) % Plt Count (150-450) k/uL MPV Neutrophils % % Lymphocytes % % Monocytes % % Eosinophils % % Basophils % % Neutrophils # (1.3-7.7) k/uL Lymphocytes # (1.0-4.8) k/uL Monocytes # (0-1.0) k/uL Eosinophils # (0-0.7) k/uL Basophils # (0-0.2) k/uL Hypochromasia PT (9.0-12.0) sec INR (<1.2) APTT (22.0-30.0) sec Sodium 134 L (137-145) mmol/L Potassium 5.3 H (3.5-5.1) mmol/L Chloride 103 (98-107) mmol/L Carbon Dioxide 7 L* (22-30) mmol/L Anion Gap 24 mmol/L BUN 61 H (9-20) mg/dL Creatinine 5.29 H (0.66-1.25) mg/dL Est GFR (CKD-EPI)AfAm 11 (>60 ml/min/1.73 sqM) Est GFR (CKD-EPI)NonAf 9 (>60 ml/min/1.73 sqM) Glucose 257 H (74-99) mg/dL Lactic Ac Sepsis Rflx Plasma Lactic Acid Praveen (0.7-2.0) mmol/L Calcium 8.9 (8.4-10.2) mg/dL Magnesium 2.5 H (1.6-2.3) mg/dL Total Bilirubin 1.1 (0.2-1.3) mg/dL AST 37 (17-59) U/L ALT 51 H (4-49) U/L Alkaline Phosphatase 82 (38-126) U/L Troponin I <0.012 (0.000-0.034) ng/mL Total Protein 7.0 (6.3-8.2) g/dL Albumin 3.6 (3.5-5.0) g/dL Urine Color Urine Appearance (Clear) Urine pH (5.0-8.0) Ur Specific Kinsey (1.001-1.035) Urine Protein (Negative) Urine Glucose (UA) (Negative) Urine Ketones (Negative) Urine Blood (Negative) Urine Nitrite (Negative) Urine Bilirubin (Negative) Urine Urobilinogen (<2.0) mg/dL Ur Leukocyte Esterase (Negative) Urine RBC (0-5) /hpf Urine WBC (0-5) /hpf Urine WBC Clumps (None) /hpf Urine Bacteria (None) /hpf Stool Occult Blood (Negative) Influenza Type A (PCR) Not Detected (Not Detectd) Influenza Type B (PCR) Not Detected (Not Detectd) RSV (PCR) Not Detected (Not Detectd) SARS-CoV-2 (PCR) Not Detected (Not Detectd) Blood Type Blood Type Recheck Bld Type Recheck Status Antibody Screen Crossmatch Spec Expiration Date 08/16/22 08/16/22 08/16/22 Range/Units 08:24 09:21 09:30 WBC (3.8-10.6) k/uL RBC (4.30-5.90) m/uL Hgb (13.0-17.5) gm/dL Hct (39.0-53.0) % MCV (80.0-100.0) fL MCH (25.0-35.0) pg MCHC (31.0-37.0) g/dL RDW (11.5-15.5) % Plt Count (150-450) k/uL MPV Neutrophils % % Lymphocytes % % Monocytes % % Eosinophils % % Basophils % % Neutrophils # (1.3-7.7) k/uL Lymphocytes # (1.0-4.8) k/uL Monocytes # (0-1.0) k/uL Eosinophils # (0-0.7) k/uL Basophils # (0-0.2) k/uL Hypochromasia PT (9.0-12.0) sec INR (<1.2) APTT (22.0-30.0) sec Sodium (137-145) mmol/L Potassium (3.5-5.1) mmol/L Chloride (98-107) mmol/L Carbon Dioxide (22-30) mmol/L Anion Gap mmol/L BUN (9-20) mg/dL Creatinine (0.66-1.25) mg/dL Est GFR (CKD-EPI)AfAm (>60 ml/min/1.73 sqM) Est GFR (CKD-EPI)NonAf (>60 ml/min/1.73 sqM) Glucose (74-99) mg/dL Lactic Ac Sepsis Rflx Y Plasma Lactic Acid Praveen 13.8 H* 12.1 H* (0.7-2.0) mmol/L Calcium (8.4-10.2) mg/dL Magnesium (1.6-2.3) mg/dL Total Bilirubin (0.2-1.3) mg/dL AST (17-59) U/L ALT (4-49) U/L Alkaline Phosphatase (38-126) U/L Troponin I (0.000-0.034) ng/mL Total Protein (6.3-8.2) g/dL Albumin (3.5-5.0) g/dL Urine Color Urine Appearance (Clear) Urine pH (5.0-8.0) Ur Specific Kinsey (1.001-1.035) Urine Protein (Negative) Urine Glucose (UA) (Negative) Urine Ketones (Negative) Urine Blood (Negative) Urine Nitrite (Negative) Urine Bilirubin (Negative) Urine Urobilinogen (<2.0) mg/dL Ur Leukocyte Esterase (Negative) Urine RBC (0-5) /hpf Urine WBC (0-5) /hpf Urine WBC Clumps (None) /hpf Urine Bacteria (None) /hpf Stool Occult Blood (Negative) Influenza Type A (PCR) (Not Detectd) Influenza Type B (PCR) (Not Detectd) RSV (PCR) (Not Detectd) SARS-CoV-2 (PCR) (Not Detectd) Blood Type Blood Type Recheck Bld Type Recheck Status Antibody Screen Crossmatch Spec Expiration Date 08/16/22 08/16/22 08/16/22 Range/Units 09:30 09:30 10:15 WBC (3.8-10.6) k/uL RBC (4.30-5.90) m/uL Hgb (13.0-17.5) gm/dL Hct (39.0-53.0) % MCV (80.0-100.0) fL MCH (25.0-35.0) pg MCHC (31.0-37.0) g/dL RDW (11.5-15.5) % Plt Count (150-450) k/uL MPV Neutrophils % % Lymphocytes % % Monocytes % % Eosinophils % % Basophils % % Neutrophils # (1.3-7.7) k/uL Lymphocytes # (1.0-4.8) k/uL Monocytes # (0-1.0) k/uL Eosinophils # (0-0.7) k/uL Basophils # (0-0.2) k/uL Hypochromasia PT (9.0-12.0) sec INR (<1.2) APTT (22.0-30.0) sec Sodium (137-145) mmol/L Potassium (3.5-5.1) mmol/L Chloride (98-107) mmol/L Carbon Dioxide (22-30) mmol/L Anion Gap mmol/L BUN (9-20) mg/dL Creatinine (0.66-1.25) mg/dL Est GFR (CKD-EPI)AfAm (>60 ml/min/1.73 sqM) Est GFR (CKD-EPI)NonAf (>60 ml/min/1.73 sqM) Glucose (74-99) mg/dL Lactic Ac Sepsis Rflx Y Plasma Lactic Acid Praveen (0.7-2.0) mmol/L Calcium (8.4-10.2) mg/dL Magnesium (1.6-2.3) mg/dL Total Bilirubin (0.2-1.3) mg/dL AST (17-59) U/L ALT (4-49) U/L Alkaline Phosphatase (38-126) U/L Troponin I (0.000-0.034) ng/mL Total Protein (6.3-8.2) g/dL Albumin (3.5-5.0) g/dL Urine Color Urine Appearance (Clear) Urine pH (5.0-8.0) Ur Specific Kinsey (1.001-1.035) Urine Protein (Negative) Urine Glucose (UA) (Negative) Urine Ketones (Negative) Urine Blood (Negative) Urine Nitrite (Negative) Urine Bilirubin (Negative) Urine Urobilinogen (<2.0) mg/dL Ur Leukocyte Esterase (Negative) Urine RBC (0-5) /hpf Urine WBC (0-5) /hpf Urine WBC Clumps (None) /hpf Urine Bacteria (None) /hpf Stool Occult Blood Negative (Negative) Influenza Type A (PCR) (Not Detectd) Influenza Type B (PCR) (Not Detectd) RSV (PCR) (Not Detectd) SARS-CoV-2 (PCR) (Not Detectd) Blood Type O Positive Blood Type Recheck O Pos Bld Type Recheck Status No Antibody Screen NEGATIVE Crossmatch See Detail Spec Expiration Date 08/19/20222329 - EKG Data -: EKG Interpreted by Me EKG Comments: 12-lead Electrocardiogram Interpretation Note EKG was reviewed and interpreted by myself. 12-lead ECG performed at 0831 is interpreted by me as revealing atrial fibrillation with RVR at a rate of 117 beats per minute. Kila is normal. QRS duration is 97 ms, QTc is 379 milliseconds. There were no ST or T wave abnormalities to suggest myocardial ischemia or injury. R wave progression across the precordium was satisfactory. By my interpretation this EKG is non-diagnostic for acute ischemia. When compared with EKG from November 2018, no significant change other than patient is currently in atrial fibrillation. No ischemic change. Critical Care Time Critical Care Time: Yes Total Critical Care Time: 35 Critical Care Time: Upon my evaluation, this patient had a high probability of imminent or life- threatening deterioration due to sepsis, atrial fibrillation with RVR, supratherapeutic INR, dehydration, anemia, which required my direct attention, intervention, and personal management. I have personally provided 35 minutes of critical care time exclusive of time spent on separately billable procedures. Time includes review of laboratory data, radiology results, discussion with consultants, and monitoring for potential decompensation. Interventions were performed as documented in my note. Disposition Clinical Impression: Atrial fibrillation with rapid ventricular response, History of atrial fibrillation, Supratherapeutic INR, Dehydration, Sepsis, Acute renal failure, Ac rainer on chronic anemia, UTI (urinary tract infection) Disposition: ADMITTED IP TO THIS HOSP Condition: Serious Time of Disposition: 11:25
--- NOTE | 2022-08-16 13:08 | P.CNPUL ---
History of Present Illness Consult date: 08/16/22 Chief complaint: weakness History of present illness: This is a very pleasant 82-year-old male patient, presenting to the emergency department with generalized weakness and episodes of syncope. He states that he passed out at home for a brief period of time. No seizure activity. No focal neurological deficit. The patient noted a drop in urine output. In same thing was having dysuria. He was having diffuse body aches. No chest pain. He presented emergency department and he was found to be nature fibrillation with rapid ventricular response. Heart rate was in the 150 range. He was also tachypneic and hypotensive with a BP of 81/58. His WBC count was at 17.2 with a hemoglobin of 6.8 and a platelet count of 318. Sodium is at 134 with a bicarb level of 7 and a potassium level of 5.3. BUN is at 60 with a creatinine of 5.2 and the glucose is 257. He was toxic on his INR with a PT of 1730 and INR of more than 10 and a PEEP of 82. UA was abnormal consistent with UTI, multiple clumps of white cells. His initial lactic acid level was significantly elevated. Initially his lactic acid level came at 13.8 and subsequently dropped onto 7. He was resuscitated with IV fluids. He was given immediately 2 L of IV fluid and currently he is receiving a unit of packed RBC for hemoglobin of 6.8. Lopez catheter has not been inserted. Influenza is negative. Covid 19 is negative. RSV is negative. There was some nonspecific white matter changes and chronic ischemic changes. Pelvic x-ray is negative. Noted the patient was g iven a combination of cefepime and vancomycin. He was given 10 mg of vitamin K. He was given a total of 2.5 L of normal saline and now Aromasin is currently running at 130 mL an hour. Urine output is not. The patient doesn't have a Lopez catheter. He has history of prostate enlargement. He is currently on room air oxygen. His cardiac rhythm has improved. He is less tachycardic although he remained nature fibrillation. He has a harsh cardiac murmur suggestive of aortic stenosis. Review of Systems Constitutional: Reports weakness Eyes: denies as per HPI, denies blurred vision, denies bulging eye, denies decreased vision, denies diplopia, denies discharge, denies dry eye, denies irritation, denies itching, denies pain, denies photophobia, denies loss of peripheral vision, denies loss of vision, denies tunnel vision/blind spots Ears: deny: decreased hearing, ear discharge, earache, tinnitus Ears, nose, mouth and throat: Reports as per HPI Breasts: absent: as per HPI, gynecomastia Cardiovascular: Reports decreased exercise tolerance, Reports irregular heart beat Respiratory: Reports as per HPI Gastrointestinal: Reports as per HPI Genitourinary: Reports dysuria, Reports urinary retention Musculoskeletal: Reports as per HPI Musculoskeletal: absent: ankle pain, ankle stiffness, ankle swelling Integumentary: Reports as per HPI Neurological: Reports as per HPI Hematologic/Lymphatic: Reports as per HPI Allergic/Immunologic: Reports as per HPI Past Medical History Past Medical History: Atrial Fibrillation, Hypertension, Prostate Disorder, Syncope Additional Past Medical History / Comment(s): tinnitus, HX fx right ankle ( 09/2018), skin cancer, hx of syncope episodes., mitral valve regergitation (waiting for heart cath and STAR with Dr. Seven Downey), Low Hgb- last blood transfusion 01/13/19- received 2 units. History of Any Multi-Drug Resistant Organisms: None Reported Past Surgical History: No Surgical Hx Reported Additional Past Surgical History / Comment(s): EGD, COLONOSCOPY Past Anesthesia/Blood Transfusion Reactions: No Reported Reaction Additional Past Anesthesia/Blood Transfusion Reaction / Comment(s): pt. has never had surgery Past Psychological History: No Psychological Hx Reported Smoking Status: Never smoker Past Alcohol Use History: None Reported, Rare Past Drug Use History: None Reported - Past Family History Brother(s) Family Medical History: AICD/Pacemaker Medications and Allergies Home Medications Medication Instructions Recorded Confirmed Type Fenofibrate [Lofibra] 160 mg PO DAILY 08/16/22 08/16/22 History Finasteride [Proscar] 5 mg PO DAILY 08/16/22 08/16/22 History Metoprolol Tartrate [Lopressor] 12.5 mg PO BID 08/16/22 08/16/22 History Midodrine HCl [ProAmantine] 2.5 mg PO BID 08/16/22 08/16/22 History Tamsulosin HCl [Flomax] 0.4 mg PO HS 08/16/22 08/16/22 History Allergies Allergy/AdvReac Type Severity Reaction Status Date / Time No Known Allergies Allergy Verified 08/16/22 09:08 Physical Exam Vitals: Vital Signs Temp Pulse Pulse Resp BP Pulse Ox 08/16/22 12:33 97.6 F 112 H 18 106/64 08/16/22 12:00 97.5 F L 122 H 18 109/59 98 08/16/22 10:32 120 H 18 102/79 97 08/16/22 09:33 123 H 18 127/76 97 08/16/22 08:34 108 H 20 106/53 100 08/16/22 08:10 149 H 08/16/22 07:59 97.0 F L 149 H 26 H 81/58 96 Intake and Output 08/15/22 08/16/22 08/16/22 22:59 06:59 14:59 Intake Total 0 Balance 0 Intake: Blood Product 0 Rc As-1 Unit 0 [id number] Other: Weight 86.183 kg Gen. appearance the patient is calm and comfortable, pale is awake. He is following commands and answering question appropriately Head exam was generally normal. There was no scleral icterus or corneal arcus. Mucous membranes were dry Neck was supple and without jugular venous distension, thyromegaly, or carotid bruits. Carotids were easily palpable bilaterally. There was no adenopathy. Lungs were clear to auscultation and percussion, and with normal diaphragmatic excursion. No wheezes or rales were noted. Heart sounds are regular, less tachycardic and the patient has a systolic ejection murmur grade 4/6 heard over the left apex and left lateral border Abdominal exam revealed normal bowel sounds. The abdomen was soft, non-tender, and without masses, organomegaly, or appreciable enlargement of the abdominal aorta. Examination of the extremities revealed easily palpable radial, femoral and pedal pulses. There was no cyanosis, clubbing or edema. Examination of the skin revealed no evidence of significant rashes, suspicious appearing nevi or other concerning lesions. Neurologically, the patient is awake and alert and the patient does not have any focal neurological deficit. Cranial nerves are essentially intact. He is awake and oriented. He is moving all 4 extremities. There is generalized global weakness in all 4 extremities. Results - Laboratory Findings CBC and BMP: 08/16/22 08:24 08/16/22 08:24 ABG WBC 17.2 k/uL (3.8-10.6) H 08/16/22 08:24 RBC 2.24 m/uL (4.30-5.90) L 08/16/22 08:24 Hgb 6.8 gm/dL (13.0-17.5) L* 08/16/22 08:24 Hct 21.7 % (39.0-53.0) L 08/16/22 08:24 MCV 96.9 fL (80.0-100.0) 08/16/22 08:24 MCH 30.5 pg (25.0-35.0) 08/16/22 08:24 MCHC 31.4 g/dL (31.0-37.0) 08/16/22 08:24 RDW 15.0 % (11.5-15.5) 08/16/22 08:24 Plt Count 318 k/uL (150-450) 08/16/22 08:24 MPV 8.5 08/16/22 08:24 Neutrophils % 91 % 08/16/22 08:24 Lymphocytes % 4 % 08/16/22 08:24 Monocytes % 3 % 08/16/22 08:24 Eosinophils % 0 % 08/16/22 08:24 Basophils % 0 % 08/16/22 08:24 Neutrophils # 15.7 k/uL (1.3-7.7) H 08/16/22 08:24 Lymphocytes # 0.7 k/uL (1.0-4.8) L 08/16/22 08:24 Monocytes # 0.6 k/uL (0-1.0) 08/16/22 08:24 Eosinophils # 0.0 k/uL (0-0.7) 08/16/22 08:24 Basophils # 0.0 k/uL (0-0.2) 08/16/22 08:24 Hypochromasia Slight 08/16/22 08:24 PT >130.0 sec (9.0-12.0) H 08/16/22 08:24 INR >10.0 (<1.2) H* 08/16/22 08:24 APTT 82.1 sec (22.0-30.0) H 08/16/22 08:24 Sodium 134 mmol/L (137-145) L 08/16/22 08:24 Potassium 5.3 mmol/L (3.5-5.1) H 08/16/22 08:24 Chloride 103 mmol/L (98-107) 08/16/22 08:24 Carbon Dioxide 7 mmol/L (22-30) L* 08/16/22 08:24 Anion Gap 24 mmol/L 08/16/22 08:24 BUN 61 mg/dL (9-20) H 08/16/22 08:24 Creatinine 5.29 mg/dL (0.66-1.25) H 08/16/22 08:24 Est GFR (CKD-EPI)AfAm 11 (>60 ml/min/1.73 sqM) 08/16/22 08:24 Est GFR (CKD-EPI)NonAf 9 (>60 ml/min/1.73 sqM) 08/16/22 08:24 Glucose 257 mg/dL (74-99) H 08/16/22 08:24 Lactic Ac Sepsis Rflx Y 08/16/22 10:15 Plasma Lactic Acid Praveen 7.9 mmol/L (0.7-2.0) H* 08/16/22 11:49 Calcium 8.9 mg/dL (8.4-10.2) 08/16/22 08:24 Magnesium 2.5 mg/dL (1.6-2.3) H 08/16/22 08:24 Total Bilirubin 1.1 mg/dL (0.2-1.3) 08/16/22 08:24 AST 37 U/L (17-59) 08/16/22 08:24 ALT 51 U/L (4-49) H 08/16/22 08:24 Alkaline Phosphatase 82 U/L (38-126) 08/16/22 08:24 Troponin I <0.012 ng/mL (0.000-0.034) 08/16/22 08:24 Total Protein 7.0 g/dL (6.3-8.2) 08/16/22 08:24 Albumin 3.6 g/dL (3.5-5.0) 08/16/22 08:24 Urine Color Light Red 08/16/22 08:24 Urine Appearance Turbid (Clear) 08/16/22 08:24 Urine pH 6.5 (5.0-8.0) 08/16/22 08:24 Ur Specific [place] 1.015 (1.001-1.035) 08/16/22 08:24 Urine Protein 2+ (Negative) H 08/16/22 08:24 Urine Glucose (UA) Negative (Negative) 08/16/22 08:24 Urine Ketones Negative (Negative) 08/16/22 08:24 Urine Blood Large (Negative) H 08/16/22 08:24 Urine Nitrite Negative (Negative) 08/16/22 08:24 Urine Bilirubin Negative (Negative) 08/16/22 08:24 Urine Urobilinogen <2.0 mg/dL (<2.0) 08/16/22 08:24 Ur Leukocyte Esterase Large (Negative) H 08/16/22 08:24 Urine RBC >182 /hpf (0-5) H 08/16/22 08:24 Urine WBC >182 /hpf (0-5) H 08/16/22 08:24 Urine WBC Clumps Many /hpf (None) H 08/16/22 08:24 Urine Bacteria Many /hpf (None) H 08/16/22 08:24 Stool Occult Blood Negative (Negative) 08/16/22 09:30 Influenza Type A (PCR) Not Detected (Not Detectd) 08/16/22 08:24 Influenza Type B (PCR) Not Detected (Not Detectd) 08/16/22 08:24 RSV (PCR) Not Detected (Not Detectd) 08/16/22 08:24 SARS-CoV-2 (PCR) Not Detected (Not Detectd) 08/16/22 08:24 PT/INR, D-dimer PT >130.0 sec (9.0-12.0) H 08/16/22 08:24 INR >10.0 (<1.2) H* 08/16/22 08:24 Abnormal lab findings: Abnormal Labs 08/16/22 08/16/22 08/16/22 08:24 08:24 08:24 WBC 17.2 H RBC 2.24 L Hgb 6.8 L* Hct 21.7 L Neutrophils # 15.7 H Lymphocytes # 0.7 L PT >130.0 H INR >10.0 H* APTT 82.1 H Sodium Potassium Carbon Dioxide BUN Creatinine Glucose Plasma Lactic Acid Praveen Magnesium ALT Urine Protein 2+ H Urine Blood Large H Ur Leukocyte Esterase Large H Urine RBC >182 H Urine WBC >182 H Urine WBC Clumps Many H Urine Bacteria Many H Crossmatch 08/16/22 08/16/22 08/16/22 08:24 08:24 09:30 WBC RBC Hgb Hct Neutrophils # Lymphocytes # PT INR APTT Sodium 134 L Potassium 5.3 H Carbon Dioxide 7 L* BUN 61 H Creatinine 5.29 H Glucose 257 H Plasma Lactic Acid Praveen 13.8 H* 12.1 H* Magnesium 2.5 H ALT 51 H Urine Protein Urine Blood Ur Leukocyte Esterase Urine RBC Urine WBC Urine WBC Clumps Urine Bacteria Crossmatch 08/16/22 08/16/22 09:30 11:49 WBC RBC Hgb Hct Neutrophils # Lymphocytes # PT INR APTT Sodium Potassium Carbon Dioxide BUN Creatinine Glucose Plasma Lactic Acid Praveen 7.9 H* Magnesium ALT Urine Protein Urine Blood Ur Leukocyte Esterase Urine RBC Urine WBC Urine WBC Clumps Urine Bacteria Crossmatch See Detail - Diagnostic Findings Chest x-ray: image reviewed Assessment and Plan Plan: acute UTI with secondary sepsis, rule out obstructive uropathy. Acute hypotension, and for the fluid resuscitation, likely secondary underlying dehydration/sepsis Acute leukocytosis secondary to above Acute kidney injury and the creatinine was 5.29 at time of admission, rule out ATN secondary to dehydration/sepsis. Rule out obstructive uropathy Acute anion gap metabolic acidosis with severe lactic acidosis Acute lactic acidosis secondary to above Acute Coumadin toxicity with an INR above 10. Acute on chronic anemia with a hemoglobin of 6.8, no evidence of any GI bleeding at this point in time Chronic into fibrillation with RVR at the time of admission, improving Valvular heart disease with a probably a combination of mitral regurgitation and aortic stenosis. The patient has a harsh cardiac murmur at this point BPH Hyperlipidemia Hypertension Generalized weakness and syncope secondary to above-mentioned comorbidities. CAT scan of the brain is not showing any acute abnormalities. The patient has diffuse white matter disease changes. No focal neurological deficits Plan Transfer this patient to the intensive care unit. Switch this patient to a bicarb infusion with D5 and a total of 150 mEq of sodium bicarbonate at rate of 125 mL an hour Monitor lactic acid level Incidentally catheter and monitor urine output Ultrasound the kidneys to rule out hydronephrosis Urine cultures and blood cultures IV cefepime and vancomycin I would agree on packed RBC transfusion Monitor hemoglobin Monitor PT/INR Obtain echocardiogram to evaluate LV function Hold anticoagulants for now Compression devices to lower extremities IV Protonix Admit this patient to the intensive care unit.
[2022-08-16 14:31] LABS: Glucose,Whole Blood 135 mg/dL (70-110)
[2022-08-16] MEDS: DEXTROSE 5% IN WATER 1,000 ML with SODIUM BICARB (1 MEQ/ML) 150 ML IV SCH (15:36)
--- NOTE | 2022-08-16 15:47 | P.HPIM ---
History of Present Illness This is a pleasant 10 years old male with past medical history of Atrial Fibrillation on Coumadin Hypertension, benign prostatic hypertrophy, Syncope, mitral valve regergitation (waiting for heart cath and STAR with Dr. Seven Downey), Low Hgb- last blood transfusion 01/13/19- received 2 units. Patient follows up with Dr. Alonso, Patient presents because of dizziness and falling down. Currently he is awake alert and oriented, calm. States that he passed out momentarily once earlier today but he feels generally weak and he cannot stand up. Is complaining from dyspnea, he is coughing with little phlegm. He denies chest pain. Patient also was not eating well for the last 3 days. Patient with some urinary symptoms complaining from suprapubic abdominal pain with PE and has been going on for the last 2-3 days. He was not being well also during the same time. No vomiting . He did not have bowel movement for the last 3 days. His complaining of from left leg pain. No headache. Patient is nonsmoker, no alcohol, no illicit drug Patient is tachycardic, febrile, blood pressure is borderline but acceptable. Patient is saturating 98% on room air. Hemoglobin 6.8, WBCs elevated at 17.2. INR more than 10. Lactic acid elevated 13.8, 12.1, 7.9. Troponin negative Creatinine elevated 5.2, glucose 257. Liver enzymes not significantly elevated. Troponin is negative. CT of the brain: No acute process. Chest x-ray: No acute process. Left knee x-ray showing minor degenerative changes with no acute fracture Pelvic x-ray: No acute fracture Patient started on cefepime and IV vancomycin on admission as well as normal fluid and vitamin K Review of Systems Review of systems CONSTITUTIONAL: No fever, no malaise, no fatigue. HEENT: No recent visual problems or hearing problems. Denied any sore throat. CARDIOVASCULAR: No orthopnea, PND, no palpitations, no syncope. PULMONARY: no cough, no hemoptysis. GASTROINTESTINAL: No diarrhea, no nausea, no vomiting,. Normoactive bowel hilario nds. NEUROLOGICAL: No headaches, no weakness, no numbness. HEMATOLOGICAL: Denies any bleeding or petechiae. GENITOURINARY: Denies any burning micturition, frequency, or urgency. MUSCULOSKELETAL/RHEUMATOLOGICAL: Denies any joint pain, swelling, or any muscle pain. ENDOCRINE: Denies any polyuria or polydipsia. Past Medical History Past Medical History: Atrial Fibrillation, Hypertension, Prostate Disorder, Syncope Additional Past Medical History / Comment(s): tinnitus, HX fx right ankle (09/2018), skin cancer, hx of syncope episodes., mitral valve regergitation (waiting for heart cath and STAR with Dr. Seven Downey), Low Hgb- last blood transfusion 01/13/19- received 2 units. History of Any Multi-Drug Resistant Organisms: None Reported Past Surgical History: No Surgical Hx Reported Additional Past Surgical History / Comment(s): EGD, COLONOSCOPY Past Anesthesia/Blood Transfusion Reactions: No Reported Reaction Additional Past Anesthesia/Blood Transfusion Reaction / Comment(s): pt. has neve r had surgery Past Psychological History: No Psychological Hx Reported Smoking Status: Never smoker Past Alcohol Use History: None Reported, Rare Past Drug Use History: None Reported - Past Family History Brother(s) Family Medical History: AICD/Pacemaker Medications and Allergies Home Medications Medication Instructions Recorded Confirmed Type Fenofibrate [Lofibra] 160 mg PO DAILY 08/16/22 08/16/22 History Finasteride [Proscar] 5 mg PO DAILY 08/16/22 08/16/22 History Metoprolol Tartrate [Lopressor] 12.5 mg PO BID 08/16/22 08/16/22 History Midodrine HCl [ProAmantine] 2.5 mg PO BID 08/16/22 08/16/22 History Tamsulosin HCl [Flomax] 0.4 mg PO HS 08/16/22 08/16/22 History Allergies Allergy/AdvReac Type Severity Reaction Status Date / Time No Known Allergies Allergy Verified 08/16/22 09:08 Physical Exam Vitals: Vital Signs Temp Pulse Pulse Resp BP Pulse Ox 08/16/22 12:33 97.6 F 112 H 18 106/64 08/16/22 12:00 97.5 F L 122 H 18 109/59 98 08/16/22 10:32 120 H 18 102/79 97 08/16/22 09:33 123 H 18 127/76 97 08/16/22 08:34 108 H 20 106/53 100 08/16/22 08:10 149 H 08/16/22 07:59 97.0 F L 149 H 26 H 81/58 96 Intake and Output 08/15/22 08/16/22 08/16/22 22:59 06:59 14:59 Intake Total 0 Balance 0 Intake: Blood Product 0 Rc As-1 Unit 0 [id number] Other: Weight 86.183 kg -GENERAL: The patient is alert and oriented x3, looks tired but not in distress. not in any acute distress. Generally weak HEENT: Pupils are round and equally reacting to light. EOMI. No scleral icterus. No conjunctival pallor. Normocephalic, atraumatic. No pharyngeal erythema. No thyromegaly. CARDIOVASCULAR: S1 and S2 present. No murmurs, rubs, or gallops. -PULMONARY: Chest is clear to auscultation, no wheezing or crackles. Thickened neck ABDOMEN: Soft, nontender, nondistended, normoactive bowel sounds. No palpable organomegaly. MUSCULOSKELETAL: No joint swelling or deformity. EXTREMITIES: No cyanosis, clubbing, or pedal edema. NEUROLOGICAL: Gross neurological examination did not reveal any focal deficits. SKIN: No rashes. no petechiae. Results CBC & Chem 7: 08/16/22 08:24 08/16/22 08:24 Labs: Abnormal Lab Results - Last 24 Hours (Table) 08/16/22 08/16/22 08/16/22 Range/Units 08:24 08:24 08:24 WBC 17.2 H (3.8-10.6) k/uL RBC 2.24 L (4.30-5.90) m/uL Hgb 6.8 L* (13.0-17.5) gm/dL Hct 21.7 L (39.0-53.0) % Neutrophils # 15.7 H (1.3-7.7) k/uL Lymphocytes # 0.7 L (1.0-4.8) k/uL PT >130.0 H (9.0-12.0) sec INR >10.0 H* (<1.2) APTT 82.1 H (22.0-30.0) sec Sodium (137-145) mmol/L Potassium (3.5-5.1) mmol/L Carbon Dioxide (22-30) mmol/L BUN (9-20) mg/dL Creatinine (0.66-1.25) mg/dL Glucose (74-99) mg/dL Plasma Lactic Acid Praveen (0.7-2.0) mmol/L Magnesium (1.6-2.3) mg/dL ALT (4-49) U/L Urine Protein 2+ H (Negative) Urine Blood Large H (Negative) Ur Leukocyte Esterase Large H (Negative) Urine RBC >182 H (0-5) /hpf Urine WBC >182 H (0-5) /hpf Urine WBC Clumps Many H (None) /hpf Urine Bacteria Many H (None) /hpf Crossmatch 08/16/22 08/16/22 08/16/22 Range/Units 08:24 08:24 09:30 WBC (3.8-10.6) k/uL RBC (4.30-5.90) m/uL Hgb (13.0-17.5) gm/dL Hct (39.0-53.0) % Neutrophils # (1.3-7.7) k/uL Lymphocytes # (1.0-4.8) k/uL PT (9.0-12.0) sec INR (<1.2) APTT (22.0-30.0) sec Sodium 134 L (137-145) mmol/L Potassium 5.3 H (3.5-5.1) mmol/L Carbon Dioxide 7 L* (22-30) mmol/L BUN 61 H (9-20) mg/dL Creatinine 5.29 H (0.66-1.25) mg/dL Glucose 257 H (74-99) mg/dL Plasma Lactic Acid Praveen 13.8 H* 12.1 H* (0.7-2.0) mmol/L Magnesium 2.5 H (1.6-2.3) mg/dL ALT 51 H (4-49) U/L Urine Protein (Negative) Urine Blood (Negative) Ur Leukocyte Esterase (Negative) Urine RBC (0-5) /hpf Urine WBC (0-5) /hpf Urine WBC Clumps (None) /hpf Urine Bacteria (None) /hpf Crossmatch 08/16/22 08/16/22 Range/Units 09:30 11:49 WBC (3.8-10.6) k/uL RBC (4.30-5.90) m/uL Hgb (13.0-17.5) gm/dL Hct (39.0-53.0) % Neutrophils # (1.3-7.7) k/uL Lymphocytes # (1.0-4.8) k/uL PT (9.0-12.0) sec INR (<1.2) APTT (22.0-30.0) sec Sodium (137-145) mmol/L Potassium (3.5-5.1) mmol/L Carbon Dioxide (22-30) mmol/L BUN (9-20) mg/dL Creatinine (0.66-1.25) mg/dL Glucose (74-99) mg/dL Plasma Lactic Acid Praveen 7.9 H* (0.7-2.0) mmol/L Magnesium (1.6-2.3) mg/dL ALT (4-49) U/L Urine Protein (Negative) Urine Blood (Negative) Ur Leukocyte Esterase (Negative) Urine RBC (0-5) /hpf Urine WBC (0-5) /hpf Urine WBC Clumps (None) /hpf Urine Bacteria (None) /hpf Crossmatch See Detail Assessment and Plan Assessment: Acute on chronic anemia, status post previous blood transfusion Acute kidney injury Acute urinary tract infection A. fib with RVR on Coumadin at home Dehydration Coagulopathy secondary to Coumadin Recurrent syncope, mostly secondary to above elevated lactic acid Hypertension History of benign prostatic hypertrophy History of mitral regurgitation Plan: Patient admitted to the ICU with pulmonary/critical care team consult Continue with antibiotic, follow-up culture results Nephrology consult, monitor input and output and creatinine Hold Coumadin and monitor INR check bladder scan Continue with IV fluids and monitored lactic acid Labs and medication were reviewed.. Continue same treatment. Continue with symptomatic treatment. Resume home medication. Monitor labs and vitals. DVT and GI prophylaxis. Further recommendations as per clinical course of the chano ent DVT prophylaxis: Coagulopathic GI Prophylaxis: Pepcid PT/OT: Pending Prognosis is guarded
[2022-08-16] MEDS ORDERED: CEFEPIME 2 GM in SODIUM CHLORIDE 0.9% 100 ML IVPB SCH (16:00)
--- NOTE | 2022-08-16 16:01 | US ---
EXAMINATION TYPE: US kidneys/renal and bladder DATE OF EXAM: 08/16/2022 COMPARISON: CT 2019 CLINICAL HISTORY: rule out hydronephrosis. UTI EXAM MEASUREMENTS: Right Kidney: 9.6 x 5.1 x 4.3 cm Left Kidney: 9.5 x 4.9 x 4.6 cm ICU pt, immobile, difficult scan Right Kidney: Cortical thinning, no evidence of hydro, lower pole gassed out Left Kidney: No evidence of hydro, difficult to visualize, possible solid lesion near upper pole- ? r enal mass vs. adrenal mass visualized on prior CT= 2.5 x 2.2 x 3.0 cm Bladder: Pt in ICU with sanders cath in place Suboptimal study. Some cortical thinning right kidney. No gross hydronephrosis. No left-sided hydrone phrosis. Rounded 3.0 cm hypoechoic to anechoic lesion upper pole medial left kidney likely correspond s to lesion adjacent to kidney axial image 23 of uncertain etiology not significant change in size arauz ggesting benign etiology. The urinary bladder is decompressed by Sanders catheter. IMPRESSION: Suboptimal study. No hydronephrosis seen bilaterally.
[2022-08-16] MEDS ORDERED: SODIUM CHLORIDE 0.9% 1,000 ML IV ONE (18:29)
[2022-08-16 18:32] LABS: HGB 8.1 gm/dL (13.0-17.5); MCH 30.3 pg (25.0-35.0); MCHC 33.9 g/dL (31.0-37.0); Mean Platelet Volume 8.2; Platelet Count 167 k/uL (150-450); RBC 2.69 m/uL (4.30-5.90); RDW 15.5 % (11.5-15.5); WBC 12.3 k/uL (3.8-10.6)
[2022-08-16 18:37] LABS: MCV 89.2 fL (80.0-100.0)
[2022-08-16] MEDS: TAMSULOSIN 0.4 MG CAP.ER.24H PO SCH (21:01)
[2022-08-16] MEDS: METOPROLOL TARTRATE 12.5 MG TAB PO SCH (21:02)
[2022-08-16] MEDS: CEFEPIME 1 GM in SODIUM CHLORIDE 0.9% 50 ML IVPB SCH (21:55)
[2022-08-17] MEDS: DEXTROSE 5% IN WATER 1,000 ML with SODIUM BICARB (1 MEQ/ML) 150 ML IV SCH (00:50)
[2022-08-17] MEDS ORDERED: SODIUM CHLORIDE 0.9% 1,000 ML IV ONE (03:35)
[2022-08-17] MEDS: NOREPINEPHRINE 4 MG in SODIUM CHLORIDE 0.9% 250 ML IV SCH (05:45)
[2022-08-17] MEDS: MIDODRINE 5 MG TAB PO SCH ×2 (06:00→16:40)
[2022-08-17 06:10] LABS: Calcium 7.3 mg/dL (8.4-10.2); Potassium 3.8 mmol/L (3.5-5.1)
[2022-08-17 06:25] LABS: Anisocytosis Slight; Basophils % (A) 0 %; Eosinophils % (A) 1 %; Lymphocytes # (A) 0.5 k/uL (1.0-4.8); Lymphocytes % (A) 9 %; MCH 30.4 pg (25.0-35.0); MCV 89.3 fL (80.0-100.0); Mean Platelet Volume 8.2; Monocytes # (A) 0.4 k/uL (0-1.0); Monocytes % (A) 6 %; Neutrophils # (A) 4.7 k/uL (1.3-7.7); Neutrophils % (A) 82 %; Platelet Count 123 k/uL (150-450); RBC 2.19 m/uL (4.30-5.90); RDW 16.4 % (11.5-15.5); WBC 5.7 k/uL (3.8-10.6)
[2022-08-17 06:31] LABS: HGB 6.7 gm/dL (13.0-17.5)
[2022-08-17 06:32] LABS: HCT 19.6 % (39.0-53.0)
[2022-08-17 06:42] LABS: INR 1.6 (<1.2); Partial Thromboplastin Time 34.3 sec (22.0-30.0); Prothrombin Time 15.9 sec (9.0-12.0)
--- NOTE | 2022-08-17 07:58 | P.PN ---
Subjective Progress Note Date: 08/17/22 This is a very pleasant 82-year-old male patient, presenting to the emergency department with generalized weakness and episodes of syncope. He states that he passed out at home for a brief period of time. No seizure activity. No focal neurological deficit. The patient noted a drop in urine output. In same thing was having dysuria. He was having diffuse body aches. No chest pain. He presented emergency department and he was found to be nature fibrillation with rapid ventricular response. Heart rate was in the 150 range. He was also tachypneic and hypotensive with a BP of 81/58. His WBC count was at 17.2 with a hemoglobin of 6.8 and a platelet count of 318. Sodium is at 134 with a bicarb level of 7 and a potassium level of 5.3. BUN is at 60 with a creatinine of 5.2 and the glucose is 257. He was toxic on his INR with a PT of 1730 and INR of more than 10 and a PEEP of 82. UA was abnormal consistent with UTI, multiple clumps of white cells. His initial lactic acid level was significantly elevated. Initially his lactic acid level came at 13.8 and subsequently dropped onto 7. He was resuscitated with IV fluids. He was given immediately 2 L of IV fluid and currently he is receiving a unit of packed RBC for hemoglobin of 6.8. Lopez catheter has not been inserted. Influenza is negative. Covid 19 is negative. RSV is negative. There was some nonspecific white matter changes and chronic ischemic changes. Pelvic x-ray is negative. Noted the patient was given a combination of cefepime and vancomycin. He was given 10 mg of vitamin K. He was given a total of 2.5 L of normal saline and now NS is currently running at 130 mL an hour. Urine output is not. The patient doesn't have a Lopez catheter. He has history of prostate enlargement. He is currently on room air oxygen. His cardiac rhythm has improved. He is less tachycardic although he remained nature fibrillation. He has a harsh cardiac murmur suggestive of aortic stenosis. On 08/17/2022, the patient is doing much better. He is awake and alert and communicating and answering questions appropriately. Overnight, the patient was resuscitated aggressively with IV fluids. The patient was given a total of 3.5 L and the patient was maintained on a bicarb infusion running at the rate of 1 25 mL an hour. Urine operas adequate in the order of 70 mL an hour. Urine output is extremely cloudy a Lopez catheter was inserted. Cultures are still pending for now. He remains on a combination of cefepime and vancomycin. Ultrasound the kidneys showed no evidence of hydronephrosis. Renal function continues to improve and the BUN is at 15 hours a creatinine of 3.7. His WBC count is down to 5.7. There was a drop in hemoglobin down to 6.7 suspecting a mild GI bleed as the patient was Coumadin toxic at the time of admission. He'll be given a unit of packed RBC. He was given vitamin K yesterday and INR is down to 1.6 with a PT of 15.9. His cardiac rhythm remained nature fibrillation. Echocardiogram is pending for now. He is less tachycardic compared to yesterday. Overnight, he became hypotensive and he was started on low-dose norepinephrine running at 0.04 mcg/kg/m. No chest pain. No shortness of breath. Objective - Vital Signs Vital signs: Vital Signs Temp 98 F 08/16/22 20:00 Pulse 92 08/17/22 07:00 Resp 22 08/17/22 07:00 BP 119/88 08/17/22 07:00 Pulse Ox 97 08/17/22 07:00 FiO2 Intake & Output 08/16/22 08/17/22 08/17/22 18:59 06:59 18:59 Intake Total 935 2550 125 Output Total 420 815 150 Balance 515 1735 -25 Weight 86.183 kg 82 kg Intake: Intake, IV Titration 625 2550 125 Amount Cefepime 1 gm In Sodium 50 Chloride 0.9% 50 ml @ 12. 5 mls/hr IVPB Q12HR [facility] Rx#:[id number] Dextrose 5% in Water 1, 625 1500 125 000 ml @ 125 mls/hr IV . Q9H12M [facility] with Sodium Bicarb (1 Meq/ml) 150 ml Rx#:[id number] Sodium Chloride 0.9% 1, 1000 000 ml @ 999 mls/hr IV . Q1H1M [facility] Rx#:[id number] Blood Product 310 Rc As-1 Unit 310 [id number] Output: Urine 420 815 150 Other: Voiding Method Indwelling Catheter Indwelling Catheter - Exam Gen. appearance the patient is calm and comfortable, pale is awake. He is following commands and answering question appropriately Head exam was generally normal. There was no scleral icterus or corneal arcus. Mucous membranes were dry Neck was supple and without jugular venous distension, thyromegaly, or carotid bruits. Carotids were easily palpable bilaterally. There was no adenopathy. Lungs were clear to auscultation and percussion, and with normal diaphragmatic excursion. No wheezes or rales were noted. Heart sounds are regular, less tachycardic and the patient has a systolic ejection murmur grade 4/6 heard over the left apex and left lateral border Abdominal exam revealed normal bowel sounds. The abdomen was soft, non-tender, and without masses, organomegaly, or appreciable enlargement of the abdominal aorta. Examination of the extremities revealed easily palpable radial, femoral and pedal pulses. There was no cyanosis, clubbing or edema. Examination of the skin revealed no evidence of significant rashes, suspicious appearing nevi or other concerning lesions. Neurologically, the patient is awake and alert and the patient does not have any focal neurological deficit. Cranial nerves are essentially intact. He is awake and oriented. He is moving all 4 extremities. There is generalized global weakness in all 4 extremities. - Labs CBC & Chem 7: 08/17/22 05:21 08/17/22 05:21 Labs: Abnormal Lab Results - Last 24 Hours (Table) 08/16/22 08/16/22 08/16/22 Range/Units 08:24 08:24 08:24 WBC 17.2 H (3.8-10.6) k/uL RBC 2.24 L (4.30-5.90) m/uL Hgb 6.8 L* (13.0-17.5) gm/dL Hct 21.7 L (39.0-53.0) % RDW (11.5-15.5) % Plt Count (150-450) k/uL Neutrophils # 15.7 H (1.3-7.7) k/uL Lymphocytes # 0.7 L (1.0-4.8) k/uL PT >130.0 H (9.0-12.0) sec INR >10.0 H* (<1.2) APTT 82.1 H (22.0-30.0) sec Sodium (137-145) mmol/L Potassium (3.5-5.1) mmol/L Carbon Dioxide (22-30) mmol/L BUN (9-20) mg/dL Creatinine (0.66-1.25) mg/dL Glucose (74-99) mg/dL POC Glucose (mg/dL) (70-110) mg/dL Plasma Lactic Acid Praveen (0.7-2.0) mmol/L Calcium (8.4-10.2) mg/dL Magnesium (1.6-2.3) mg/dL ALT (4-49) U/L Urine Protein 2+ H (Negative) Urine Blood Large H (Negative) Ur Leukocyte Esterase Large H (Negative) Urine RBC >182 H (0-5) /hpf Urine WBC >182 H (0-5) /hpf Urine WBC Clumps Many H (None) /hpf Urine Bacteria Many H (None) /hpf Crossmatch 08/16/22 08/16/22 08/16/22 Range/Units 08:24 08:24 09:30 WBC (3.8-10.6) k/uL RBC (4.30-5.90) m/uL Hgb (13.0-17.5) gm/dL Hct (39.0-53.0) % RDW (11.5-15.5) % Plt Count (150-450) k/uL Neutrophils # (1.3-7.7) k/uL Lymphocytes # (1.0-4.8) k/uL PT (9.0-12.0) sec INR (<1.2) APTT (22.0-30.0) sec Sodium 134 L (137-145) mmol/L Potassium 5.3 H (3.5-5.1) mmol/L Carbon Dioxide 7 L* (22-30) mmol/L BUN 61 H (9-20) mg/dL Creatinine 5.29 H (0.66-1.25) mg/dL Glucose 257 H (74-99) mg/dL POC Glucose (mg/dL) (70-110) mg/dL Plasma Lactic Acid Praveen 13.8 H* 12.1 H* (0.7-2.0) mmol/L Calcium (8.4-10.2) mg/dL Magnesium 2.5 H (1.6-2.3) mg/dL ALT 51 H (4-49) U/L Urine Protein (Negative) Urine Blood (Negative) Ur Leukocyte Esterase (Negative) Urine RBC (0-5) /hpf Urine WBC (0-5) /hpf Urine WBC Clumps (None) /hpf Urine Bacteria (None) /hpf Crossmatch 08/16/22 08/16/22 08/16/22 Range/Units 09:30 11:49 14:30 WBC (3.8-10.6) k/uL RBC (4.30-5.90) m/uL Hgb (13.0-17.5) gm/dL Hct (39.0-53.0) % RDW (11.5-15.5) % Plt Count (150-450) k/uL Neutrophils # (1.3-7.7) k/uL Lymphocytes # (1.0-4.8) k/uL PT (9.0-12.0) sec INR (<1.2) APTT (22.0-30.0) sec Sodium (137-145) mmol/L Potassium (3.5-5.1) mmol/L Carbon Dioxide (22-30) mmol/L BUN (9-20) mg/dL Creatinine (0.66-1.25) mg/dL Glucose (74-99) mg/dL POC Glucose (mg/dL) 135 H (70-110) mg/dL Plasma Lactic Acid Praveen 7.9 H* (0.7-2.0) mmol/L Calcium (8.4-10.2) mg/dL Magnesium (1.6-2.3) mg/dL ALT (4-49) U/L Urine Protein (Negative) Urine Blood (Negative) Ur Leukocyte Esterase (Negative) Urine RBC (0-5) /hpf Urine WBC (0-5) /hpf Urine WBC Clumps (None) /hpf Urine Bacteria (None) /hpf Crossmatch See Detail 08/16/22 08/16/22 08/16/22 Range/Units 15:34 18:19 18:19 WBC 12.3 H (3.8-10.6) k/uL RBC 2.69 L (4.30-5.90) m/uL Hgb 8.1 L (13.0-17.5) gm/dL Hct 24.0 L (39.0-53.0) % RDW (11.5-15.5) % Plt Count (150-450) k/uL Neutrophils # (1.3-7.7) k/uL Lymphocytes # (1.0-4.8) k/uL PT (9.0-12.0) sec INR (<1.2) APTT (22.0-30.0) sec Sodium (137-145) mmol/L Potassium (3.5-5.1) mmol/L Carbon Dioxide (22-30) mmol/L BUN (9-20) mg/dL Creatinine (0.66-1.25) mg/dL Glucose (74-99) mg/dL POC Glucose (mg/dL) (70-110) mg/dL Plasma Lactic Acid Praveen 4.4 H* 2.1 H* (0.7-2.0) mmol/L Calcium (8.4-10.2) mg/dL Magnesium (1.6-2.3) mg/dL ALT (4-49) U/L Urine Protein (Negative) Urine Blood (Negative) Ur Leukocyte Esterase (Negative) Urine RBC (0-5) /hpf Urine WBC (0-5) /hpf Urine WBC Clumps (None) /hpf Urine Bacteria (None) /hpf Crossmatch 08/17/22 08/17/22 08/17/22 Range/Units 05:21 05:21 05:21 WBC (3.8-10.6) k/uL RBC 2.19 L (4.30-5.90) m/uL Hgb 6.7 L* (13.0-17.5) gm/dL Hct 19.6 L* (39.0-53.0) % RDW 16.4 H (11.5-15.5) % Plt Count 123 L (150-450) k/uL Neutrophils # (1.3-7.7) k/uL Lymphocytes # 0.5 L (1.0-4.8) k/uL PT 15.9 H (9.0-12.0) sec INR 1.6 H (<1.2) APTT 34.3 H (22.0-30.0) sec Sodium 134 L (137-145) mmol/L Potassium (3.5-5.1) mmol/L Carbon Dioxide (22-30) mmol/L BUN 59 H (9-20) mg/dL Creatinine 3.73 H (0.66-1.25) mg/dL Glucose 114 H (74-99) mg/dL POC Glucose (mg/dL) (70-110) mg/dL Plasma Lactic Acid Praveen (0.7-2.0) mmol/L Calcium 7.3 L (8.4-10.2) mg/dL Magnesium (1.6-2.3) mg/dL ALT (4-49) U/L Urine Protein (Negative) Urine Blood (Negative) Ur Leukocyte Esterase (Negative) Urine RBC (0-5) /hpf Urine WBC (0-5) /hpf Urine WBC Clumps (None) /hpf Urine Bacteria (None) /hpf Crossmatch Microbiology - Last 24 Hours (Table) 08/16/22 08:24 Urine Culture - Preliminary Urine,Catheterized Assessment and Plan Plan: acute UTI with secondary sepsis, rule out obstructive uropathy. No evidence of any hydronephrosis on the ultrasound of the kidneys. Acute hypotension, and for the fluid resuscitation, likely secondary underlying dehydration/sepsis, currently on low-dose norepinephrine running at 0.04 microvascular kilogram per minute Acute leukocytosis secondary to above, improving Acute kidney injury and the creatinine was 5.29, improving and the patient has adequate urine output Acute anion gap metabolic acidosis with severe lactic aci dosis Acute lactic acidosis secondary to above, recovered Acute Coumadin toxicity with an INR above 10, recovered and the Coumadin toxicity is reversed Acute on chronic anemia with a hemoglobin of 6.8, no evidence of any GI bleeding at this point in time, nevertheless there has been interval drop in hemoglobin down to 6.7 and his Hemoccult is negative Chronic into fibrillation with RVR at the time of admission, improving Valvular heart disease with a probably a combination of mitral regurgitation and aortic stenosis. The patient has a harsh cardiac murmur at this point BPH Hyperlipidemia Hypertension Generalized weakness and syncope secondary to above-mentioned comorbidities. CAT scan of the brain is not showing any acute abnormalities. The patient has diffuse white matter disease changes. No focal neurological deficits Plan Discontinue bicarb infusion With the patient normal saline at the rate of 75 Vale hour Wean off pressors and this continued norepinephrine Urine cultures and blood cultures are still pending IV cefepime and vancomycin to be continued for now I would agree on packed RBC transfusion, the patient will be given a unit of packed RBC. He was already given a unit yesterday Monitor hemoglobin Monitor PT/INR, coagulopathy is reversed Obtain echocardiogram to evaluate LV function, results are still pending Hold anticoagulants for now Compression devices to lower extremities IV Protonix Keep in ICU for now
[2022-08-17] MEDS: FINASTERIDE 5 MG TAB PO SCH (08:20)
[2022-08-17] MEDS: PANTOPRAZOLE 40 MG/10 ML VIAL IV SCH (08:20)
[2022-08-17] MEDS: METOPROLOL TARTRATE 12.5 MG TAB PO SCH ×2 (08:20→20:20)
[2022-08-17] MEDS: SODIUM CHLORIDE 0.9% 1,000 ML IV SCH ×2 (08:20→21:29)
[2022-08-17] MEDS: CEFEPIME 1 GM in SODIUM CHLORIDE 0.9% 50 ML IVPB SCH ×2 (08:20→20:20)
[2022-08-17] MEDS ORDERED: VANCOMYCIN 1,500 MG in SODIUM CHLORIDE 0.9% 500 ML 500 ML IVPB ONE (09:00)
--- NOTE | 2022-08-17 09:35 | P.PN ---
Subjective This is a pleasant 10 years old male with past medical history of Atrial Fibrillation on Coumadin Hypertension, benign prostatic hypertrophy, Syncope, mitral valve regergitation (waiting for heart cath and STAR with Dr. Seven Downey), Low Hgb- last blood transfusion 01/13/19- received 2 units. Patient follows up with Dr. Alonso, Patient presents because of dizziness and falling down. Currently he is awake alert and oriented, calm. States that he passed out momentarily once earlier today but he feels generally weak and he cannot stand up. Is complaining from dyspnea, he is coughing with little phlegm. He denies chest pain. Patient also was not eating well for the last 3 days. Patient with some urinary symptoms complaining from suprapubic abdominal pain with PE and has been going on for the last 2-3 days. He was not being well also during the same time. No vomiting . He did not have bowel movement for the last 3 days. His complaining of from left leg pain. No headache. Patient is nonsmoker, no alcohol, no illicit drug Patient is tachycardic, febrile, blood pressure is borderline but acceptable. Patient is saturating 98% on room air. Hemoglobin 6.8, WBCs elevated at 17.2. INR more than 10. Lactic acid elevated 13.8, 12.1, 7.9. Troponin negative Creatinine elevated 5.2, glucose 257. Liver enzymes not significantly elevated. Troponin is negative. CT of the brain: No acute process. Chest x-ray: No acute process. Left knee x-ray showing minor degenerative changes with no acute fracture Pelvic x-ray: No acute fracture Patient started on cefepime and IV vancomycin on admission as well as normal fluid and vitamin K 08/17/2022 Patient remains in the ICU, sitting up in bed, he feels generally better, no other new complaint. He is fully awake and oriented with minimal kidney and no chest pain. No abdominal pain. Lopez catheter in a Place. Blood pressure on the low side and he required a small dose of pressors with Josephine lin, currently blood pressure 91/58. WBCs back to normal 5.7, however her hemoglobin went down to 6.7 and he received 1 unit of blood yesterday and looks like he is getting another unit today. He is not on blood thinner. Coumadin was placed on held, his INR down to 1.6. He remains on IV vancomycin pharmacy to dose, cefepime, normal sinus 75 mL/h, culture results are still pending. Urine culture pending and ejection fraction is pending Objective - Vital Signs Vital signs: Vital Signs Temp 96.4 F L 08/17/22 08:00 Pulse 82 08/17/22 09:00 Resp 10 L 08/17/22 09:00 BP 91/58 08/17/22 09:00 Pulse Ox 96 08/17/22 09:00 FiO2 Intake & Output 08/16/22 08/17/22 08/17/22 18:59 06:59 18:59 Intake Total 935 2550 1097.808 Output Total 420 815 230 Balance 515 1735 867.808 Weight 86.183 kg 82 kg Intake: IV 700 0.9 150 Cefepime 1 gm In Sodium 50 Chloride 0.9% 50 ml @ 12. 5 mls/hr IVPB Q12HR [facility] Rx#:[id number] Vancomycin 1,500 mg In 500 Sodium Chloride 0.9% 500 ml 500 ml @ 166.667 mls/ hr IVPB ONCE ONE Rx#: [id number] Intake, IV Titration 625 2550 147.808 Amount Cefepime 1 gm In Sodium 50 Chloride 0.9% 50 ml @ 12. 5 mls/hr IVPB Q12HR [facility] Rx#:[id number] Dextrose 5% in Water 1, 625 1500 125 000 ml @ 125 mls/hr IV . Q9H12M [facility] with Sodium Bicarb (1 Meq/ml) 150 ml Rx#:[id number] Norepinephrine 4 mg In 22.808 Sodium Chloride 0.9% 250 ml @ 0.03 MCG/KG/MIN 9. 373 mls/hr IV .Q24H [facility] Rx#:[id number] Sodium Chloride 0.9% 1, 1000 000 ml @ 999 mls/hr IV . Q1H1M [facility] Rx#:[id number] Oral 250 Blood Product 310 0 Unit 0 Rc As-1 Unit 310 [id number] Output: Urine 420 815 230 Other: Voiding Method Indwelling Catheter Indwelling Catheter - Exam -GENERAL: The patient is alert and oriented x3, looks tired but not in distress. not in any acute distress. Generally weak HEENT: Pupils are round and equally reacting to light. EOMI. No scleral icterus. No conjunctival pallor. Normocephalic, atraumatic. No pharyngeal erythema. No thyromegaly. CARDIOVASCULAR: S1 and S2 present. No murmurs, rubs, or gallops. -PULMONARY: Chest is clear to auscultation, no wheezing or crackles. Thickened neck ABDOMEN: Soft, nontender, nondistended, normoactive bowel sounds. No palpable organomegaly. MUSCULOSKELETAL: No joint swelling or deformity. EXTREMITIES: No cyanosis, clubbing, or pedal edema. NEUROLOGICAL: Gross neurological examination did not reveal any focal deficits. SKIN: No rashes. no petechiae. - Labs CBC & Chem 7: 08/17/22 05:21 08/17/22 05:21 Labs: Abnormal Lab Results - Last 24 Hours (Table) 08/16/22 08/16/22 08/16/22 Range/Units 08:24 08:24 09:30 WBC (3.8-10.6) k/uL RBC (4.30-5.90) m/uL Hgb (13.0-17.5) gm/dL Hct (39.0-53.0) % RDW (11.5-15.5) % Plt Count (150-450) k/uL Lymphocytes # (1.0-4.8) k/uL PT (9.0-12.0) sec INR (<1.2) APTT (22.0-30.0) sec Sodium 134 L (137-145) mmol/L Potassium 5.3 H (3.5-5.1) mmol/L Carbon Dioxide 7 L* (22-30) mmol/L BUN 61 H (9-20) mg/dL Creatinine 5.29 H (0.66-1.25) mg/dL Glucose 257 H (74-99) mg/dL POC Glucose (mg/dL) (70-110) mg/dL Plasma Lactic Acid Praveen 12.1 H* (0.7-2.0) mmol/L Calcium (8.4-10.2) mg/dL Magnesium 2.5 H (1.6-2.3) mg/dL ALT 51 H (4-49) U/L Urine Protein 2+ H (Negative) Urine Blood Large H (Negative) Ur Leukocyte Esterase Large H (Negative) Urine RBC >182 H (0-5) /hpf Urine WBC >182 H (0-5) /hpf Urine WBC Clumps Many H (None) /hpf Urine Bacteria Many H (None) /hpf Crossmatch 08/16/22 08/16/22 08/16/22 Range/Units 09:30 11:49 14:30 WBC (3.8-10.6) k/uL RBC (4.30-5.90) m/uL Hgb (13.0-17.5) gm/dL Hct (39.0-53.0) % RDW (11.5-15.5) % Plt Count (150-450) k/uL Lymphocytes # (1.0-4.8) k/uL PT (9.0-12.0) sec INR (<1.2) APTT (22.0-30.0) sec Sodium (137-145) mmol/L Potassium (3.5-5.1) mmol/L Carbon Dioxide (22-30) mmol/L BUN (9-20) mg/dL Creatinine (0.66-1.25) mg/dL Glucose (74-99) mg/dL POC Glucose (mg/dL) 135 H (70-110) mg/dL Plasma Lactic Acid Praveen 7.9 H* (0.7-2.0) mmol/L Calcium (8.4-10.2) mg/dL Magnesium (1.6-2.3) mg/dL ALT (4-49) U/L Urine Protein (Negative) Urine Blood (Negative) Ur Leukocyte Esterase (Negative) Urine RBC (0-5) /hpf Urine WBC (0-5) /hpf Urine WBC Clumps (None) /hpf Urine Bacteria (None) /hpf Crossmatch See Detail 08/16/22 08/16/22 08/16/22 Range/Units 15:34 18:19 18:19 WBC 12.3 H (3.8-10.6) k/uL RBC 2.69 L (4.30-5.90) m/uL Hgb 8.1 L (13.0-17.5) gm/dL Hct 24.0 L (39.0-53.0) % RDW (11.5-15.5) % Plt Count (150-450) k/uL Lymphocytes # (1.0-4.8) k/uL PT (9.0-12.0) sec INR (<1.2) APTT (22.0-30.0) sec Sodium (137-145) mmol/L Potassium (3.5-5.1) mmol/L Carbon Dioxide (22-30) mmol/L BUN (9-20) mg/dL Creatinine (0.66-1.25) mg/dL Glucose (74-99) mg/dL POC Glucose (mg/dL) (70-110) mg/dL Plasma Lactic Acid Praveen 4.4 H* 2.1 H* (0.7-2.0) mmol/L Calcium (8.4-10.2) mg/dL Magnesium (1.6-2.3) mg/dL ALT (4-49) U/L Urine Protein (Negative) Urine Blood (Negative) Ur Leukocyte Esterase (Negative) Urine RBC (0-5) /hpf Urine WBC (0-5) /hpf Urine WBC Clumps (None) /hpf Urine Bacteria (None) /hpf Crossmatch 08/17/22 08/17/22 08/17/22 Range/Units 05:21 05:21 05:21 WBC (3.8-10.6) k/uL RBC 2.19 L (4.30-5.90) m/uL Hgb 6.7 L* (13.0-17.5) gm/dL Hct 19.6 L* (39.0-53.0) % RDW 16.4 H (11.5-15.5) % Plt Count 123 L (150-450) k/uL Lymphocytes # 0.5 L (1.0-4.8) k/uL PT 15.9 H (9.0-12.0) sec INR 1.6 H (<1.2) APTT 34.3 H (22.0-30.0) sec Sodium 134 L (137-145) mmol/L Potassium (3.5-5.1) mmol/L Carbon Dioxide (22-30) mmol/L BUN 59 H (9-20) mg/dL Creatinine 3.73 H (0.66-1.25) mg/dL Glucose 114 H (74-99) mg/dL POC Glucose (mg/dL) (70-110) mg/dL Plasma Lactic Acid Praveen (0.7-2.0) mmol/L Calcium 7.3 L (8.4-10.2) mg/dL Magnesium (1.6-2.3) mg/dL ALT (4-49) U/L Urine Protein (Negative) Urine Blood (Negative) Ur Leukocyte Esterase (Negative) Urine RBC (0-5) /hpf Urine WBC (0-5) /hpf Urine WBC Clumps (None) /hpf Urine Bacteria (None) /hpf Crossmatch Microbiology - Last 24 Hours (Table) 08/16/22 08:24 Urine Culture - Preliminary Urine,Catheterized Assessment and Plan Assessment: Acute on chronic anemia, status post previous blood transfusion Acute kidney injury Acute urinary tract infection A. fib with RVR on Coumadin at home Dehydration Coagulopathy secondary to Coumadin Recurrent syncope, mostly secondary to above elevated lactic acid Hypertension History of benign prostatic hypertrophy History of mitral regurgitation Plan: Patient admitted to the ICU with pulmonary/critical care team consult Continue with antibiotic, follow-up culture results Nephrology consult, monitor input and output and creatinine Hold Coumadin and monitor INR check bladder scan Continue with IV fluids and monitored lactic acid Labs and medication were reviewed.. Continue same treatment. Continue with symptomatic treatment. Resume home medication. Monitor labs and vitals. DVT and GI prophylaxis. Further recommendations as per clinical course of the patient DVT prophylaxis: Coagulopathic GI Prophylaxis: Pepcid PT/OT: Pending Prognosis is guarded
--- NOTE | 2022-08-17 10:11 | P.NPCON ---
History of Present Illness - Reason for Consult acute renal failure - History of Present Illness Reason for consultation: Acute kidney injury History of present illness: Patient is a 82-year-old male seen in renal consultation for acute kidney injury. Patient baseline creatinine is near 1-1.1 from 2019. Creatinine this admission was 5.29 and is down to 3.73 today. Patient presented to the hospital due to syncopal episode which she had on Tuesday. Patient states that since then he's been feeling weak and dizzy. Patient states he was unable to even stand and get anything done. Oral intake has been poor the last few days. Hemoglobin was 6.8 on admission and he did receive a unit of blood. It improved to 8.1 and is back down to 6.7 today and he's currently receiving another unit of blood. Patient denies any active bleeding. No melena or hematochezia. No gross hematuria. INR was greater than 10 and he did receive vitamin K. It is 1.6 today. He did receive 2 L of normal saline in the ER and received bicarbonate drip overnight. He was switched over to normal saline this morning. Acidosis is significantly improved. Lactic acid was 13.8 on admission and is 1.2 as of last night. Denies history of diabetes. Denies history of coronary artery disease. Denies family history of renal disease. Denies regular use of nonsteroidals. Currently on low-dose Levophed. Vital signs are stable. On vasopressor support. General: Awake. No acute distress. HEENT: Head exam is unremarkable. LUNGS: Breath sounds decreased. HEART: Rate and Rhythm are regular. ABDOMEN: Soft, no distention. EXTREMITITES: No edema. Past Medical History Past Medical History: Hypertension, Syncope Additional Past Medical History / Comment(s): tinnitus, HX fx right ankle (09/2018), skin cancer, hx of syncope episodes., mitral valve regergitation (waiting for heart cath and STAR with Dr. Seven Downey), Low Hgb- last blood transfusion 01/13/19- received 2 units. History of Any Multi-Drug Resistant Organisms: None Reported Past Surgical History: No Surgical Hx Reported Additional Past Surgical History / Comment(s): EGD, COLONOSCOPY Past Anesthesia/Blood Transfusion Reactions: No Reported Reaction Additional Past Anesthesia/Blood Transfusion Reaction / Comment(s): pt. has never had surgery Past Psychological History: No Psychological Hx Reported Smoking Status: Never smoker Past Alcohol Use History: None Reported, Rare Past Drug Use History: None Reported - Past Family History Brother(s) Family Medical History: AICD/Pacemaker Medications and Allergies Home Medications Medication Instructions Recorded Confirmed Type Fenofibrate [Lofibra] 160 mg PO DAILY 08/16/22 08/16/22 History Finasteride [Proscar] 5 mg PO DAILY 08/16/22 08/16/22 History Metoprolol Tartrate [Lopressor] 12.5 mg PO BID 08/16/22 08/16/22 History Midodrine HCl [ProAmantine] 2.5 mg PO BID 08/16/22 08/16/22 History Tamsulosin HCl [Flomax] 0.4 mg PO HS 08/16/22 08/16/22 History Allergies Allergy/AdvReac Type Severity Reaction Status Date / Time No Known Allergies Allergy Verified 08/16/22 09:08 Physical Exam Vitals: Vital Signs Temp Pulse Resp BP Pulse Ox 08/17/22 09:41 96.4 F L 81 12 101/54 96 08/17/22 09:00 82 10 L 91/58 96 08/17/22 08:00 96.4 F L 120 H 14 100/61 96 08/17/22 07:00 92 22 119/88 97 08/17/22 06:00 76 16 76/50 100 08/17/22 05:00 73 20 76/47 96 08/17/22 04:00 84 15 78/52 97 08/17/22 03:00 80 12 84/58 98 08/17/22 02:00 74 12 84/58 97 08/17/22 01:00 91 29 H 90/54 95 08/17/22 00:00 74 58 H 86/58 97 08/16/22 23:00 89 22 84/50 97 08/16/22 22:00 77 12 92/59 98 08/16/22 21:00 101 H 10 L 85/65 97 08/16/22 20:00 98 F 93 18 96/59 97 08/16/22 19:14 82 8 L 112/52 97 08/16/22 19:00 89 20 107/54 89 L 08/16/22 18:30 93 16 95/58 97 08/16/22 18:00 80 18 111/68 97 08/16/22 17:30 90 21 102/67 97 08/16/22 17:00 92 20 116/75 97 08/16/22 16:30 88 26 H 114/40 97 08/16/22 16:15 85 16 114/40 98 08/16/22 16:00 97.8 F 101 H 16 97 08/16/22 15:45 90 16 106/49 98 08/16/22 15:30 97.8 F 91 16 106/49 98 08/16/22 15:15 81 20 102/55 98 08/16/22 15:00 93 19 98 08/16/22 14:45 84 16 112/76 99 08/16/22 14:30 97.5 F L 98 22 112/76 91 L 08/16/22 14:02 89 18 97 08/16/22 13:51 80 18 101/70 98 08/16/22 13:03 97.6 F 88 18 112/68 08/16/22 12:43 97.9 F 94 18 121/81 08/16/22 12:33 97.6 F 112 H 18 106/64 08/16/22 12:00 97.5 F L 122 H 18 109/59 98 08/16/22 10:32 120 H 18 102/79 97 Intake and Output 08/16/22 08/17/22 08/17/22 22:59 06:59 14:59 Intake Total 1360 2000 1097.808 Output Total 590 545 230 Balance 770 1455 867.808 Intake: IV 700 0.9 150 Cefepime 1 gm In Sodium 50 Chloride 0.9% 50 ml @ 12. 5 mls/hr IVPB Q12HR [facility] Rx#:[id number] Vancomycin 1,500 mg In 500 Sodium Chloride 0.9% 500 ml 500 ml @ 166.667 mls/ hr IVPB ONCE ONE Rx#: [id number] Intake, IV Titration 1050 2000 147.808 Amount Cefepime 1 gm In Sodium 50 Chloride 0.9% 50 ml @ 12. 5 mls/hr IVPB Q12HR [facility] Rx#:[id number] Dextrose 5% in Water 1, 1000 1000 125 000 ml @ 125 mls/hr IV . Q9H12M [facility] with Sodium Bicarb (1 Meq/ml) 150 ml Rx#:[id number] Norepinephrine 4 mg In 22.808 Sodium Chloride 0.9% 250 ml @ 0.03 MCG/KG/MIN 9. 373 mls/hr IV .Q24H [facility] Rx#:[id number] Sodium Chloride 0.9% 1, 1000 000 ml @ 999 mls/hr IV . Q1H1M [facility] Rx#:[id number] Oral 250 Blood Product 310 0 Unit 0 Rc As-1 Unit 310 [id number] Output: Urine 590 545 230 Other: Voiding Method Indwelling Catheter Indwelling Catheter Weight 82 kg Results - Lab Results Most recent lab results Calcium 7.3 mg/dL (8.4-10.2) L 08/17/22 05:21 Magnesium 2.5 mg/dL (1.6-2.3) H 08/16/22 08:24 08/17/22 05:21 08/17/22 05:21 Assessment and Plan Plan: Assessment: 1. Acute kidney injury secondary to ATN secondary to anemia and hypotension. Creatinine 5.29 on admission and is 3.73 today. Creatinine in 2019 was 1-1.1. No hydronephrosis noted on kidney ultrasound. 2. Metabolic acidosis secondary to acute kidney injury and lactic acidosis. Improved. Status post bicarb drip. 3. Acute blood loss anemia and coagulopathy. Receiving blood. Also received vitamin K. 4. Septic shock secondary to UTI on antibiotics. Plan: Maintain normal saline. DDAVP IV 1 today. Blood transfusion as needed. Avoid nephrotoxins. Wean Levophed. Continue to monitor renal function and urine output. Thank you for the consultation. I will continue to follow the patient with you during his hospital stay.
[2022-08-17] MEDS ORDERED: DESMOPRESSIN ACETATE 24 MCG in SODIUM CHLORIDE 0.9% 50 ML IVPB ONE (10:30)
--- NOTE | 2022-08-17 11:58 | CA ---
Transthoracic Echo Report Name: Selwyn Smith Age: 82 Gender: M : 1940 Exam Date: 08/17/2022 07:53 Exam Location: [facility] Ht (in): 72 Wt (lb): 180 Ordering Physician: Vipul Sweet Attending/Referring Phys: Hired Hand Debbi Winslow RDCS Procedure CPT: Indications: evaluate LV function Cardiac Hx: Technical Quality: Fair Contrast 1: Total Dose (mL): Contrast 2: Total Dose (mL): MEASUREMENTS (Male / Female) Normal Values 2D ECHO LV Diastolic Diameter PLAX 5.3 cm 4.2 - 5.9 / 3.9 - 5.3 cm IVS Diastolic Thickness 1.3 cm 0.6 - 1.0 / 0.6 - 0.9 cm LVPW Diastolic Thickness 1.3 cm 0.6 - 1.0 / 0.6 - 0.9 cm LV Relative Wall Thickness 0.5 RV Internal Dim ED PLAX 2.8 cm LVOT Diameter 2.3 cm LA Systolic Diameter LX 5.5 cm 3.0 - 4.0 / 2.7 - 3.8 cm M-MODE Aortic Root Diameter MM 3.6 cm LA Systolic Diameter MM 5.2 cm LA Ao Ratio MM 1.5 AV Cusp Separation MM 1.7 cm DOPPLER AV Peak Velocity 432.8 cm/s AV Peak Gradient 74.9 mmHg AV Mean Velocity 301.8 cm/s AV Mean Gradient 41.2 mmHg AV Velocity Time Integral 87.7 cm AI Peak Velocity 383.5 cm/s AI Peak Gradient 58.8 mmHg AI Pressure Half Time 479.5 ms LVOT Peak Velocity 99.1 cm/s LVOT Peak Gradient 3.9 mmHg LVOT Velocity Time Integral 15.9 cm LVOT Stroke Volume 68.2 cm??? LVOT Stroke Volume Index 33.5 ml/m??? AV Area Cont Eq vti 0.8 cm??? AV Area Cont Eq pk 1.0 cm??? MR Peak Velocity 470.4 cm/s MR Peak Gradient 88.5 mmHg TR Peak Velocity 282.8 cm/s TR Peak Gradient 32.0 mmHg PV Peak Velocity 83.4 cm/s PV Peak Gradient 2.8 mmHg FINDINGS Left Ventricle Mildly increased septal wall thickness. Right Ventricle Mild right ventricular dilatation. Right ventricular systolic pressure estimated at 36 mmhg. Right Atrium Severe right atrial dilatation. Left Atrium Severely increased left atrial diameter. Mitral Valve Mitral annular calcification. Moderate mitral regurgitation. Aortic Valve Aortic valve sclerosis. Moderate aortic regurgitation. Tricuspid Valve Moderate tricuspid regurgitation. Pulmonic Valve Mild pulmonic regurgitation. Pericardium No pericardial or pleural effusion. Aorta Normal size aortic root and proximal ascending aorta. CONCLUSIONS Normal LV systolic function Moderate mitral regurgitation Moderate aortic regurgitation Previewed by: Dr. Serge Downey MD (Electronically Signed) Final Date: 17 August 2022 11:57
--- NOTE | 2022-08-17 14:32 | CDI ---
Documentation Clarification Form Date: 08/17/2022 2:02:40 PM From: Kaylah Rodrigues RN CCDS Admit Date: 08/16/2022 11:30:00 AM Patient Name: Selwyn Smith Visit Number: [id number] Discharge Date: ATTENTION: The Clinical Documentation Specialists (CDI) and [facility] Coding Staff appreciate your assistance in clarifying documentation. Please respond to the clarification below the line at the bottom and electronically sign. The CDI & [facility] Coding staff will review the response and follow-up if needed. Please note: Queries are made part of the Legal Health Record. If you have any questions, please contact the author of this message via ITS. Dr. Sandoval E Sheet The patient has Acute UTI with secondary sepsis Customer Support Coordinator note 08/16. Based on this information and the findings below, is there an additional diagnosis that is clinically appropriate for this patient? History/Risk Factors: 82-year-old male presents to the ED with dizziness and falling down. Medical History: Atrial Fibrillation; HTN, Prostate disorder and syncope episodes. 08/16, H&P. Clinical Indicators: WBC: 08/16 17.2 Lactic acid: 08/16 7.9 Neutrophils: 08/16 15.7 Blood cultures: 08/17 No growth after 24 hours Urine culture: Gram negative bacilli Vitals signs: 08/16 B/P 81/58; HR 149; Temp 97.0 F Axillary; RR 26; SpO2 96% room air Customer Support Coordinator Consult, 08/16: Acute UTI with secondary sepsis, rule out obstructive uropathy. Acute hypotension, and for the fluid resuscitation, likely secondary underlying dehydration/sepsis. Nephrology Consult: Acute kidney injury secondary to ATN 2/2 anemia and hypotension. Acute blood loss anemia and coagulopathy. Septic shock secondary to UTI on antibiotics. Treatment: 08/17 Norepinephrine Bitartrate 254mls @ 9.373 mls/hr IV Q24H; 0.9NS 75cc/hr Antibiotics: 08/16 Cefepime IVPB x 1; 08/16 Vancomycin IVPB x 1; 08/16 Cefepime IVPB Q12H; 08/17 Vancomycin IVPB X 1; IV Bolus: 08/16 0.9 NS 1L bolus; 0.9 NS 1L bolus x 1 Is there an additional diagnosis that is clinically appropriate for this patient? [ ] Sepsis, present on admission [ ] Severe Sepsis with Septic Shock [ ] Sepsis ruled out [ ] Other, please specify [ ] Unable to determine SIRS Criteria: 2 or more of the following may indicate SIRS Temperature < 96.8F (36C) or > 101.0F (38.3C) Heart Rate > 90 bpm Respiratory Rate > 20 breaths/min or PaCO2 < 32 mmHg White Blood Cell Count > 12,000 or < 4,000 cells/mm3 or > 10% bands (Template Last Reviewed: July 2022) no Sepsis MTDD
[2022-08-17 15:26] LABS: Anisocytosis Slight; HCT 23.5 % (39.0-53.0); HGB 8.1 gm/dL (13.0-17.5); MCH 30.2 pg (25.0-35.0); MCHC 34.6 g/dL (31.0-37.0); MCV 87.4 fL (80.0-100.0); Mean Platelet Volume 7.9; Platelet Count 121 k/uL (150-450); RBC 2.68 m/uL (4.30-5.90); RDW 16.5 % (11.5-15.5); WBC 7.7 k/uL (3.8-10.6)
[2022-08-17] MEDS: TAMSULOSIN 0.4 MG CAP.ER.24H PO SCH (20:20)
[2022-08-18 05:53] LABS: Anisocytosis Slight; HCT 22.1 % (39.0-53.0); HGB 7.4 gm/dL (13.0-17.5); MCH 29.9 pg (25.0-35.0); MCHC 33.3 g/dL (31.0-37.0); MCV 89.8 fL (80.0-100.0); Mean Platelet Volume 7.8; Platelet Count 108 k/uL (150-450); RBC 2.46 m/uL (4.30-5.90); RDW 16.6 % (11.5-15.5)
[2022-08-18 06:08] LABS: Calcium 7.6 mg/dL (8.4-10.2); Potassium 3.5 mmol/L (3.5-5.1)
[2022-08-18] MEDS: NOREPINEPHRINE 4 MG in SODIUM CHLORIDE 0.9% 250 ML IV SCH (06:16)
[2022-08-18] MEDS: POTASSIUM CHLORIDE ER 20 MEQ TAB.ER PO SCH ×2 (06:37→07:38)
[2022-08-18] MEDS: MIDODRINE 5 MG TAB PO SCH ×2 (06:37→16:51)
--- NOTE | 2022-08-18 08:37 | P.PN ---
Subjective Progress Note Date: 08/18/22 This is a very pleasant 82-year-old male patient, presenting to the emergency department with generalized weakness and episodes of syncope. He states that he passed out at home for a brief period of time. No seizure activity. No focal neurological deficit. The patient noted a drop in urine output. In same thing was having dysuria. He was having diffuse body aches. No chest pain. He presented emergency department and he was found to be nature fibrillation with rapid ventricular response. Heart rate was in the 150 range. He was also tachypneic and hypotensive with a BP of 81/58. His WBC count was at 17.2 with a hemoglobin of 6.8 and a platelet count of 318. Sodium is at 134 with a bicarb level of 7 and a potassium level of 5.3. BUN is at 60 with a creatinine of 5.2 and the glucose is 257. He was toxic on his INR with a PT of 1730 and INR of more than 10 and a PEEP of 82. UA was abnormal consistent with UTI, multiple clumps of white cells. His initial lactic acid level was significantly elevated. Initially his lactic acid level came at 13.8 and subsequently dropped onto 7. He was resuscitated with IV fluids. He was given immediately 2 L of IV fluid and currently he is receiving a unit of packed RBC for hemoglobin of 6.8. Lopez catheter has not been inserted. Influenza is negative. Covid 19 is negative. RSV is negative. There was some nonspecific white matter changes and chronic ischemic changes. Pelvic x-ray is negative. Noted the patient was given a combination of cefepime and vancomycin. He was given 10 mg of vitamin K. He was given a total of 2.5 L of normal saline and now NS is currently running at 130 mL an hour. Urine output is not. The patient doesn't have a Lopez catheter. He has history of prostate enlargement. He is currently on room air oxygen. His cardiac rhythm has improved. He is less tachycardic although he remained nature fibrillation. He has a harsh cardiac murmur suggestive of aortic stenosis. On 08/17/2022, the patient is doing much better. He is awake and alert and communicating and answering questions appropriately. Overnight, the patient was resuscitated aggressively with IV fluids. The patient was given a total of 3.5 L and the patient was maintained on a bicarb infusion running at the rate of 1 25 mL an hour. Urine operas adequate in the order of 70 mL an hour. Urine output is extremely cloudy a Lopez catheter was inserted. Cultures are still pending for now. He remains on a combination of cefepime and vancomycin. Ultrasound the kidneys showed no evidence of hydronephrosis. Renal function continues to improve and the BUN is at 15 hours a creatinine of 3.7. His WBC count is down to 5.7. There was a drop in hemoglobin down to 6.7 suspecting a mild GI bleed as the patient was Coumadin toxic at the time of admission. He'll be given a unit of packed RBC. He was given vitamin K yesterday and INR is down to 1.6 with a PT of 15.9. His cardiac rhythm remained nature fibrillation. Echocardiogram is pending for now. He is less tachycardic compared to yesterday. Overnight, he became hypotensive and he was started on low-dose norepinephrine running at 0.04 mcg/kg/m. No chest pain. No shortness of breath. 08/18/2022, the patient is awake and alert. He was taken off pressors earlier this morning at around 1:30 AM. Currently is on IV fluids in the form of normal saline at the rate of 75 mL an hour. BP is 88/60. Adequate urine output. Renal function continues to improve. Creatinine is down to 2.82. Urine cultures positive for gram-negative bacillus. Meanwhile, his echocardiogram showed normal LV function, moderate MR, moderate aortic regurgitation and his cardiac rhythm is stillin atrial fibrillation with a controlled rate. meanwhile, the patient is afebrile. The blood work from today shows a WBC count of 5 which is dropped significantly. Hemoglobin stable at 7.4 and the patient is to the units of packed RBC, platelet count is 108, slightly lower and the BUN is at 49 with a creatinine of 2.8 and sodium is at 136 with a potassium level of 3.5 times is 110. The patient's most recent INR from yesterday was down to 1.6 and the patient remains off anticoagulation. Vancomycin level today is at 17.2. As mentioned, is off pressors. No evidence of any GI bleeding. Lopez catheter in place. Thousand dyspnea is improving. Objective - Vital Signs Vital signs: Vital Signs Temp 97.1 F L 08/18/22 04:00 Pulse 99 08/18/22 07:00 Resp 22 08/18/22 07:00 BP 98/68 08/18/22 07:00 Pulse Ox 97 08/18/22 07:00 FiO2 Intake & Output 08/17/22 08/18/22 08/18/22 18:59 06:59 18:59 Intake Total 2446.440 1031.959 75 Output Total 815 885 100 Balance 1631.440 146.959 -25 Weight 84.7 kg Intake: IV 1375 950 75 0.9 825 900 75 Cefepime 1 gm In Sodium 50 50 Chloride 0.9% 50 ml @ 12. 5 mls/hr IVPB Q12HR [facility] Rx#:[id number] Vancomycin 1,500 mg In 500 Sodium Chloride 0.9% 500 ml 500 ml @ 166.667 mls/ hr IVPB ONCE ONE Rx#: [id number] Intake, IV Titration 201.440 81.959 Amount Dextrose 5% in Water 1, 125 000 ml @ 125 mls/hr IV . Q9H12M [facility] with Sodium Bicarb (1 Meq/ml) 150 ml Rx#:[id number] Norepinephrine 4 mg In 76.440 81.959 Sodium Chloride 0.9% 250 ml @ 0.03 MCG/KG/MIN 9. 373 mls/hr IV .Q24H [facility] Rx#:[id number] Oral 250 Blood Product 620 Rc As-1 Unit 310 [id number] Output: Urine 815 885 100 Other: Voiding Method Indwelling Catheter Indwelling Catheter - Exam Gen. appearance the patient is calm and comfortable, pale is awake. He is following commands and answering question appropriately Head exam was generally normal. There was no scleral icterus or corneal arcus. Mucous membranes were dry Neck was supple and without jugular venous distension, thyromegaly, or carotid bruits. Carotids were easily palpable bilaterally. There was no adenopathy. Lungs were clear to auscultation and percussion, and with normal diaphragmatic excursion. No wheezes or rales were noted. Heart sounds are regular, less tachycardic and the patient has a systolic ejection murmur grade 4/6 heard over the left apex and left lateral border Abdominal exam revealed normal bowel sounds. The abdomen was soft, non-tender, and without masses, organomegaly, or appreciable enlargement of the abdominal aorta. Examination of the extremities revealed easily palpable radial, femoral and pedal pulses. There was no cyanosis, clubbing or edema. Examination of the skin revealed no evidence of significant rashes, suspicious appearing nevi or other concerning lesions. Neurologically, the patient is awake and alert and the patient does not have any focal neurological deficit. Cranial nerves are essentially intact. He is awake and oriented. He is moving all 4 extremities. There is generalized global weakness in all 4 extremities. - Labs CBC & Chem 7: 08/18/22 04:57 08/18/22 04:57 Labs: Abnormal Lab Results - Last 24 Hours (Table) 08/16/22 08/17/22 08/18/22 Range/Units 09:30 15:13 04:57 RBC 2.68 L 2.46 L (4.30-5.90) m/uL Hgb 8.1 L 7.4 L (13.0-17.5) gm/dL Hct 23.5 L 22.1 L (39.0-53.0) % RDW 16.5 H 16.6 H (11.5-15.5) % Plt Count 121 L 108 L (150-450) k/uL Sodium (137-145) mmol/L Chloride (98-107) mmol/L BUN (9-20) mg/dL Creatinine (0.66-1.25) mg/dL Calcium (8.4-10.2) mg/dL Crossmatch See Detail 08/18/22 Range/Units 04:57 RBC (4.30-5.90) m/uL Hgb (13.0-17.5) gm/dL Hct (39.0-53.0) % RDW (11.5-15.5) % Plt Count (150-450) k/uL Sodium 136 L (137-145) mmol/L Chloride 110 H (98-107) mmol/L BUN 49 H (9-20) mg/dL Creatinine 2.82 H (0.66-1.25) mg/dL Calcium 7.6 L (8.4-10.2) mg/dL Crossmatch Microbiology - Last 24 Hours (Table) 08/16/22 08:24 Urine Culture - Preliminary Urine,Catheterized Gram Neg Bacilli 08/16/22 10:30 Blood Culture - Preliminary Blood No Growth after 24 hours 08/16/22 10:15 Blood Culture - Preliminary Blood No Growth after 24 hours Assessment and Plan Plan: acute UTI with secondary sepsis, rule out obstructive uropathy. No evidence of any hydronephrosis on the ultrasound of the kidneys. The cultures indicating gram-negative bacillus and the final cultures and sensitivities are still pending for now Acute hypotension, and for the fluid resuscitation, likely secondary underlying dehydration/sepsis, currently off norepinephrine Acute leukocytosis secondary to above, improving Acute kidney injury and the creatinine continues to improve Acute lactic acidosis secondary to above, recovered Acute Coumadin toxicity with an INR above 10, recovered and the Coumadin toxicity is reversed Acute on chronic anemia with a hemoglobin of 7.4 posttransfusion with units of packed RBC Chronic into fibrillation with RVR at the time of admission, improving Valvular heart disease with a probably a combination of mitral regurgitation and aortic stenosis/regurgitation. The patient has a harsh cardiac murmur at this point BPH Hyperlipidemia Hypertension Generalized weakness and syncope secondary to above-mentioned comorbidities. CAT scan of the brain is not showing any acute abnormalities. The patient has diffuse white matter disease changes. No focal neurological deficits Plan normal saline at the rate of 75cc/ hour off pressors Urine cultures and blood cultures are still pending IV cefepime DC Vanco Monitor hemoglobin Monitor PT/INR, coagulopathy is reversed echocardiogram noted Hold anticoagulants for now Compression devices to lower extremities IV Protonix consult urology Keep in ICU for now
[2022-08-18] MEDS: CEFEPIME 1 GM in SODIUM CHLORIDE 0.9% 50 ML IVPB SCH ×2 (08:56→20:31)
[2022-08-18] MEDS: METOPROLOL TARTRATE 12.5 MG TAB PO SCH ×2 (08:57→20:31)
[2022-08-18] MEDS: SODIUM CHLORIDE 0.9% 1,000 ML IV SCH (08:57)
[2022-08-18] MEDS: FINASTERIDE 5 MG TAB PO SCH (08:57)
[2022-08-18] MEDS: PANTOPRAZOLE 40 MG/10 ML VIAL IV SCH (08:57)
--- NOTE | 2022-08-18 10:40 | P.PN ---
Subjective This is a pleasant 10 years old male with past medical history of Atrial Fibrillation on Coumadin Hypertension, benign prostatic hypertrophy, Syncope, mitral valve regergitation (waiting for heart cath and STAR with Dr. Seven Downey), Low Hgb- last blood transfusion 01/13/19- received 2 units. Patient follows up with Dr. Alonso, Patient presents because of dizziness and falling down. Currently he is awake alert and oriented, calm. States that he passed out momentarily once earlier today but he feels generally weak and he cannot stand up. Is complaining from dyspnea, he is coughing with little phlegm. He denies chest pain. Patient also was not eating well for the last 3 days. Patient with some urinary symptoms complaining from suprapubic abdominal pain with PE and has been going on for the last 2-3 days. He was not being well also during the same time. No vomiting . He did not have bowel movement for the last 3 days. His complaining of from left leg pain. No headache. Patient is nonsmoker, no alcohol, no illicit drug Patient is tachycardic, febrile, blood pressure is borderline but acceptable. Patient is saturating 98% on room air. Hemoglobin 6.8, WBCs elevated at 17.2. INR more than 10. Lactic acid elevated 13.8, 12.1, 7.9. Troponin negative Creatinine elevated 5.2, glucose 257. Liver enzymes not significantly elevated. Troponin is negative. CT of the brain: No acute process. Chest x-ray: No acute process. Left knee x-ray showing minor degenerative changes with no acute fracture Pelvic x-ray: No acute fracture Patient started on cefepime and IV vancomycin on admission as well as normal fluid and vitamin K 08/17/2022 Patient remains in the ICU, sitting up in bed, he feels generally better, no other new complaint. He is fully awake and oriented with minimal kidney and no chest pain. No abdominal pain. Lopez catheter in a Place. Blood pressure on the low side and he required a small dose of pressors with Josephine lin, currently blood pressure 91/58. WBCs back to normal 5.7, however her hemoglobin went down to 6.7 and he received 1 unit of blood yesterday and looks like he is getting another unit today. He is not on blood thinner. Coumadin was placed on held, his INR down to 1.6. He remains on IV vancomycin pharmacy to dose, cefepime, normal sinus 75 mL/h, culture results are still pending. Urine culture pending and ejection fraction is pending 08/18/2022 Patient is awake and alert, he does not have much symptoms while his aiden embedded, he thinks his breathing is better. No pain. Patient blood pressure still on the low side and still getting normal saline at 75 mL/h however he does not need any more pressors. His creatinine is improving and he has good urine output. Urine culture is growing gram-negative bacilli and he is getting IV vancomycin and cefepime Coumadin remains on hold. Ejection fraction is normal LV function with moderate MR and a R Objective - Vital Signs Vital signs: Vital Signs Temp 96.6 F L 08/18/22 08:00 Pulse 92 08/18/22 09:00 Resp 14 08/18/22 09:00 BP 88/60 08/18/22 09:00 Pulse Ox 97 08/18/22 09:00 FiO2 Intake & Output 08/17/22 08/18/22 08/18/22 18:59 06:59 18:59 Intake Total 2446.440 1031.959 225 Output Total 815 885 300 Balance 1631.440 146.959 -75 Weight 84.7 kg Intake: IV 1375 950 225 0.9 825 900 225 Cefepime 1 gm In Sodium 50 50 Chloride 0.9% 50 ml @ 12. 5 mls/hr IVPB Q12HR ROSALES Rx#:[id number] Vancomycin 1,500 mg In 500 Sodium Chloride 0.9% 500 ml 500 ml @ 166.667 mls/ hr IVPB ONCE ONE Rx#: [id number] Intake, IV Titration 201.440 81.959 Amount Dextrose 5% in Water 1, 125 000 ml @ 125 mls/hr IV . Q9H12M ROSALES with Sodium Bicarb (1 Meq/ml) 150 ml Rx#:[id number] Norepinephrine 4 mg In 76.440 81.959 Sodium Chloride 0.9% 250 ml @ 0.03 MCG/KG/MIN 9. 373 mls/hr IV .Q24H ROSALES Rx#:[id number] Oral 250 Blood Product 620 Rc As-1 Unit 310 [id number] Output: Urine 815 885 300 Other: Voiding Method Indwelling Catheter Indwelling Catheter Indwelling Catheter - Exam -GENERAL: The patient is alert and oriented x3, looks tired but not in distress. not in any acute distress. Generally weak HEENT: Pupils are round and equally reacting to light. EOMI. No scleral icterus. No conjunctival pallor. Normocephalic, atraumatic. No pharyngeal erythema. No thyromegaly. CARDIOVASCULAR: S1 and S2 present. No murmurs, rubs, or gallops. -PULMONARY: Chest is clear to auscultation, no wheezing or crackles. Thickened neck ABDOMEN: Soft, nontender, nondistended, normoactive bowel sounds. No palpable organomegaly. MUSCULOSKELETAL: No joint swelling or deformity. EXTREMITIES: No cyanosis, clubbing, or pedal edema. NEUROLOGICAL: Gross neurological examination did not reveal any focal deficits. SKIN: No rashes. no petechiae. - Labs CBC & Chem 7: 08/18/22 04:57 08/18/22 04:57 Labs: Abnormal Lab Results - Last 24 Hours (Table) 08/16/22 08/17/22 08/18/22 Range/Units 09:30 15:13 04:57 RBC 2.68 L 2.46 L (4.30-5.90) m/uL Hgb 8.1 L 7.4 L (13.0-17.5) gm/dL Hct 23.5 L 22.1 L (39.0-53.0) % RDW 16.5 H 16.6 H (11.5-15.5) % Plt Count 121 L 108 L (150-450) k/uL Sodium (137-145) mmol/L Chloride (98-107) mmol/L BUN (9-20) mg/dL Creatinine (0.66-1.25) mg/dL Calcium (8.4-10.2) mg/dL Crossmatch See Detail 08/18/22 Range/Units 04:57 RBC (4.30-5.90) m/uL Hgb (13.0-17.5) gm/dL Hct (39.0-53.0) % RDW (11.5-15.5) % Plt Count (150-450) k/uL Sodium 136 L (137-145) mmol/L Chloride 110 H (98-107) mmol/L BUN 49 H (9-20) mg/dL Creatinine 2.82 H (0.66-1.25) mg/dL Calcium 7.6 L (8.4-10.2) mg/dL Crossmatch Microbiology - Last 24 Hours (Table) 08/16/22 08:24 Urine Culture - Preliminary Urine,Catheterized Gram Neg Bacilli 08/16/22 10:30 Blood Culture - Preliminary Blood No Growth after 24 hours 08/16/22 10:15 Blood Culture - Preliminary Blood No Growth after 24 hours Assessment and Plan Assessment: Acute on chronic anemia, status post previous blood transfusion Acute kidney injury Acute urinary tract infection A. fib with RVR on Coumadin at home Dehydration Coagulopathy secondary to Coumadin Recurrent syncope, mostly secondary to above elevated lactic acid Hypertension History of benign prostatic hypertrophy History of mitral regurgitation Plan: Patient admitted to the ICU with pulmonary/critical care team consult Continue with antibiotic, follow-up culture results Nephrology consult, monitor input and output and creatinine Hold Coumadin and monitor INR Continue with IV fluids and monitored lactic acid Labs and medication were reviewed.. Continue same treatment. Continue with symptomatic treatment. Resume home medication. Monitor labs and vitals. DVT and GI prophylaxis. Further recommendations as per clinical course of the patient DVT prophylaxis: Coagulopathic GI Prophylaxis: Pepcid PT/OT: Pending Prognosis is guarded
--- NOTE | 2022-08-18 11:52 | P.PN ---
Subjective Patient is seen in follow-up for acute kidney injury. Renal function improving. Currently on normal saline. Nonoliguric. Off vasopressors. Hemoglobin 7.4 this morning. No active bleeding. Vital signs are stable. Blood pressure on the lower side. General: No acute distress. HEENT: Head exam is unremarkable. LUNGS: Breath sounds decreased. HEART: Rate and Rhythm are regular. ABDOMEN: Soft, no distention. EXTREMITITES: No edema. Objective - Vital Signs Vital signs: Vital Signs Temp 96.6 F L 08/18/22 08:00 Pulse 92 08/18/22 09:00 Resp 14 08/18/22 09:00 BP 88/60 08/18/22 09:00 Pulse Ox 97 08/18/22 09:00 FiO2 Intake & Output 08/17/22 08/18/22 08/18/22 18:59 06:59 18:59 Intake Total 2446.440 1031.959 225 Output Total 815 885 300 Balance 1631.440 146.959 -75 Weight 84.7 kg Intake: IV 1375 950 225 0.9 825 900 225 Cefepime 1 gm In Sodium 50 50 Chloride 0.9% 50 ml @ 12. 5 mls/hr IVPB Q12HR ROSALES Rx#:[id number] Vancomycin 1,500 mg In 500 Sodium Chloride 0.9% 500 ml 500 ml @ 166.667 mls/ hr IVPB ONCE ONE Rx#: [id number] Intake, IV Titration 201.440 81.959 Amount Dextrose 5% in Water 1, 125 000 ml @ 125 mls/hr IV . Q9H12M ROSALES with Sodium Bicarb (1 Meq/ml) 150 ml Rx#:[id number] Norepinephrine 4 mg In 76.440 81.959 Sodium Chloride 0.9% 250 ml @ 0.03 MCG/KG/MIN 9. 373 mls/hr IV .Q24H ROSALES Rx#:[id number] Oral 250 Blood Product 620 Rc As-1 Unit 310 [id number] Output: Urine 815 885 300 Other: Voiding Method Indwelling Catheter Indwelling Catheter Indwelling Catheter - Labs CBC & Chem 7: 08/18/22 04:57 08/18/22 04:57 Labs: Abnormal Lab Results - Last 24 Hours (Table) 08/16/22 08/17/22 08/18/22 Range/Units 09:30 15:13 04:57 RBC 2.68 L 2.46 L (4.30-5.90) m/uL Hgb 8.1 L 7.4 L (13.0-17.5) gm/dL Hct 23.5 L 22.1 L (39.0-53.0) % RDW 16.5 H 16.6 H (11.5-15.5) % Plt Count 121 L 108 L (150-450) k/uL Sodium (137-145) mmol/L Chloride (98-107) mmol/L BUN (9-20) mg/dL Creatinine (0.66-1.25) mg/dL Calcium (8.4-10.2) mg/dL Crossmatch See Detail 08/18/22 Range/Units 04:57 RBC (4.30-5.90) m/uL Hgb (13.0-17.5) gm/dL Hct (39.0-53.0) % RDW (11.5-15.5) % Plt Count (150-450) k/uL Sodium 136 L (137-145) mmol/L Chloride 110 H (98-107) mmol/L BUN 49 H (9-20) mg/dL Creatinine 2.82 H (0.66-1.25) mg/dL Calcium 7.6 L (8.4-10.2) mg/dL Crossmatch Microbiology - Last 24 Hours (Table) 08/16/22 08:24 Urine Culture - Final Urine,Catheterized Klebsiella oxytoca 08/16/22 10:30 Blood Culture - Preliminary Blood No Growth after 24 hours 08/16/22 10:15 Blood Culture - Preliminary Blood No Growth after 24 hours Assessment and Plan Plan: Assessment: 1. Acute kidney injury secondary to ATN secondary to anemia and hypotension. Creatinine 5.29 on admission and is 2.82 today. Creatinine in 2019 was 1-1.1. No hydronephrosis noted on kidney ultrasound. 2. Metabolic acidosis secondary to acute kidney injury and lactic acidosis. Improved. Status post bicarb drip. 3. Acute blood loss anemia and coagulopathy. Received blood transfusions this admission. Also received vitamin K and DDAVP. 4. Septic shock secondary to UTI on antibiotics. off vasopressors. 5. Hypokalemia from poor intake and saline diuresis. Replaced. Plan: Maintain normal saline. Avoid nephrotoxins. Continue to monitor renal function and urine output. Increase midodrine to 5 mg 3 times daily. Hold for systolic blood pressure greater than 110. Check cortisol level.
[2022-08-18] MEDS ORDERED: VANCOMYCIN 1,500 MG in SODIUM CHLORIDE 0.9% 500 ML 500 ML IVPB ONE (12:00)
--- NOTE | 2022-08-18 16:14 | P.GSCN ---
History of Present Illness Consult date: 08/18/22 Reason for Consult: Urinary retention Requesting physician: Vipul Sweet History of present illness: The patient is an 82-year-old male with a past medical history significant for hypertension, syncope, skin cancer, mitral valve regurgitation, and anemia. He presented to the emergency department on 08/16/22 with complaints of weakness, dehydration, syncopal episodes and multiple falls at home. He has had a decrea sed appetite and low oral intake. He denied any shortness of breath, chest pain, fevers, or cough. Denies any abdominal pain, nausea, or vomiting. EKG showed atrial fibrillation with RVR. No evidence of acute ischemia. Chest x- ray revealed no acute process. WBC 17, lactic acid 13.8, hemoglobin was 6.8, and INR was greater than 10. The patient was given vitamin K and multiple fluid boluses. Urinalysis was suggestive of UTI. Urine culture grew Klebsiella oxytoca. Blood cultures are negative. Patient also has acute kidney injury serum creatinine was 5.29 on admission and is 2.82 today. A kidney/renal and bladder ultrasound was completed. It was a suboptimal study, but showed a roun ded 3.0 cm hypoechoic to an echoic lesion upper pole medial left kidney. No gross hydronephrosis. Review of Systems - Constitutional Reports fatigue, Reports poor appetite, Denies chills, Denies fever - EENT Ears, nose, mouth and throat: Denies headache - Cardiovascular Reports palpitations, Denies chest pain, Denies shortness of breath - Respiratory Reports cough - Gastrointestinal Denies abdominal pain, Denies nausea, Denies vomiting - Genitourinary Reports dysuria, Reports nocturia, Reports urinary frequency, Reports urinary hesitancy, Reports urinary retention, Denies flank pain, Denies hematuria Past Medical History Past Medical History: Hypertension, Syncope Additional Past Medical History / Comment(s): tinnitus, HX fx right ankle (09/2018), skin cancer, hx of syncope episodes., mitral valve regergitation (waiting for heart cath and STAR with Dr. Seven Downey), Low Hgb- last blood transfusion 01/13/19- received 2 units. History of Any Multi-Drug Resistant Organisms: None Reported Past Surgical History: No Surgical Hx Reported Additional Past Surgical History / Comment(s): EGD, COLONOSCOPY Past Anesthesia/Blood Transfusion Reactions: No Reported Reaction Additional Past Anesthesia/Blood Transfusion Reaction / Comm: pt. has never had surgery Past Psychological History: No Psychological Hx Reported Smoking Status: Never smoker Past Alcohol Use History: None Reported, Rare Past Drug Use History: None Reported - Past Family History Brother(s) Family Medical History: AICD/Pacemaker Medications and Allergies Home Medications Medication Instructions Recorded Confirmed Type Fenofibrate [Lofibra] 160 mg PO DAILY 08/16/22 08/16/22 History Finasteride [Proscar] 5 mg PO DAILY 08/16/22 08/16/22 History Metoprolol Tartrate [Lopressor] 12.5 mg PO BID 08/16/22 08/16/22 History Midodrine HCl [ProAmantine] 2.5 mg PO BID 08/16/22 08/16/22 History Tamsulosin HCl [Flomax] 0.4 mg PO HS 08/16/22 08/16/22 History Allergies Allergy/AdvReac Type Severity Reaction Status Date / Time No Known Allergies Allergy Verified 08/16/22 09:08 Surgical - Exam Vital Signs Temp Pulse Resp BP Pulse Ox 97.0 F L 149 H 26 H 81/58 96 08/16/22 07:59 08/16/22 07:59 08/16/22 07:59 08/16/22 07:59 08/16/22 07:59 General: Well developed, well nourished. No acute distress. Appears stated age HEENT: Head is atraumatic, normocephalic. Lungs: Respirations even and nonlabored. Abdomen/GI: Soft. Nontender No guarding or rigidity : Lopez catheter present draining cloudy yellow urine Skin: Warm and dry Neurologic: Awake, alert and oriented times 3. CN II-XII grossly intact. No focal deficits. Psychiatric: Appropriate mood and affect. Results - Labs 08/19/22 04:48 08/19/22 04:48 Abnormal Lab Results - Last 24 Hours (Table) 08/18/22 08/18/22 Range/Units 04:57 04:57 RBC 2.46 L (4.30-5.90) m/uL Hgb 7.4 L (13.0-17.5) gm/dL Hct 22.1 L (39.0-53.0) % RDW 16.6 H (11.5-15.5) % Plt Count 108 L (150-450) k/uL Sodium 136 L (137-145) mmol/L Chloride 110 H (98-107) mmol/L BUN 49 H (9-20) mg/dL Creatinine 2.82 H (0.66-1.25) mg/dL Calcium 7.6 L (8.4-10.2) mg/dL Microbiology - Last 24 Hours (Table) 08/16/22 10:15 Blood Culture - Preliminary Blood No Growth after 48 hours 08/16/22 10:30 Blood Culture - Preliminary Blood No Growth after 48 hours 08/16/22 08:24 Urine Culture - Final Urine,Catheterized Klebsiella oxytoca Diabetes panel 08/18/22 Range/Units 04:57 Sodium 136 L (137-145) mmol/L Potassium 3.5 (3.5-5.1) mmol/L Chloride 110 H (98-107) mmol/L Carbon Dioxide 22 (22-30) mmol/L BUN 49 H (9-20) mg/dL Creatinine 2.82 H (0.66-1.25) mg/dL Glucose 96 (74-99) mg/dL Calcium 7.6 L (8.4-10.2) mg/dL Calcium panel 08/18/22 Range/Units 04:57 Calcium 7.6 L (8.4-10.2) mg/dL Pituitary panel 08/18/22 Range/Units 04:57 Sodium 136 L (137-145) mmol/L Potassium 3.5 (3.5-5.1) mmol/L Chloride 110 H (98-107) mmol/L Carbon Dioxide 22 (22-30) mmol/L BUN 49 H (9-20) mg/dL Creatinine 2.82 H (0.66-1.25) mg/dL Glucose 96 (74-99) mg/dL Calcium 7.6 L (8.4-10.2) mg/dL Adrenal panel 08/18/22 Range/Units 04:57 Sodium 136 L (137-145) mmol/L Potassium 3.5 (3.5-5.1) mmol/L Chloride 110 H (98-107) mmol/L Carbon Dioxide 22 (22-30) mmol/L BUN 49 H (9-20) mg/dL Creatinine 2.82 H (0.66-1.25) mg/dL Glucose 96 (74-99) mg/dL Calcium 7.6 L (8.4-10.2) mg/dL - Imaging US - kidney/bladder: report reviewed Assessment and Plan Assessment: The patient is afebrile and vital signs stable. Patient states that he was told by his PCP approximately one year ago that he had an enlarged prostate. He states he was sent to a urologist but does not remember their name or location. The patient was on Flomax and Proscar at home. The patient's states that he has had dysuria, urgency, and frequent urination. He denies any hematuria. He states that he has felt like he has been unable to empty his bladder completely he has had a hesitancy and a weak stream. He currently has a Lopez catheter in place that is draining cloudy yellow urine. (1) Urinary retention Current Visit: Yes Status: Acute Code(s): R33.9 - RETENTION OF URINE, UNSPECIFIED SNOMED Code(s): 343297235 Plan: - Continue Proscar - Continue Flomax - Keep Lopez catheter in place until renal function improves, if kidney function improves at time of discharge recommend removing the Lopez prior to discharge and checking a postvoid residual - Monitor serum creatinine - Continue vancomycin and cefepime Thank you for this consultation Impression and plan of care have been directed as dictated by the signing physician. Jazmine Collins nurse practitioner acting as scribe for signing physician. Jazmine Collins [facility] Palliative Care/Urology Spectralink [phone] Email: [email or web address] I personally performed and participated in the history, physical, the decision making, I agree with the assessment and plan of [employer]
[2022-08-18] MEDS ORDERED: MIDODRINE 5 MG TAB PO SCH (17:30)
[2022-08-18] MEDS: TAMSULOSIN 0.4 MG CAP.ER.24H PO SCH (20:31)
[2022-08-19] MEDS: SODIUM CHLORIDE 0.9% 1,000 ML IV SCH (00:37)
[2022-08-19] MEDS: NOREPINEPHRINE 4 MG in SODIUM CHLORIDE 0.9% 250 ML IV SCH (03:14)
[2022-08-19 05:19] LABS: Anisocytosis Slight; Basophils % (A) 1 %; Eosinophils # (A) 0.2 k/uL (0-0.7); Eosinophils % (A) 3 %; HCT 24.2 % (39.0-53.0); HGB 7.8 gm/dL (13.0-17.5); Lymphocytes # (A) 0.5 k/uL (1.0-4.8); Lymphocytes % (A) 9 %; MCH 30.1 pg (25.0-35.0); MCHC 32.4 g/dL (31.0-37.0); MCV 92.7 fL (80.0-100.0); Mean Platelet Volume 7.9; Monocytes # (A) 0.3 k/uL (0-1.0); Monocytes % (A) 6 %; Neutrophils # (A) 4.4 k/uL (1.3-7.7); Neutrophils % (A) 80 %; Platelet Count 107 k/uL (150-450); RBC 2.61 m/uL (4.30-5.90); RDW 17.4 % (11.5-15.5); WBC 5.5 k/uL (3.8-10.6)
[2022-08-19 05:23] LABS: INR 1.8 (<1.2); Prothrombin Time 17.6 sec (9.0-12.0)
[2022-08-19 05:42] LABS: Calcium 7.4 mg/dL (8.4-10.2); Magnesium 1.7 mg/dL (1.6-2.3)
[2022-08-19 05:45] LABS: Potassium 4.3 mmol/L (3.5-5.1)
[2022-08-19] MEDS: MIDODRINE 5 MG TAB PO SCH ×3 (06:45→16:23)
[2022-08-19] MEDS: FINASTERIDE 5 MG TAB PO SCH (08:18)
[2022-08-19] MEDS: METOPROLOL TARTRATE 12.5 MG TAB PO SCH ×2 (08:18→20:00)
[2022-08-19] MEDS: DOCUSATE 100 MG CAP PO SCH ×2 (08:18→20:34)
[2022-08-19] MEDS: PANTOPRAZOLE 40 MG/10 ML VIAL IV SCH (08:18)
[2022-08-19] MEDS: CEFEPIME 1 GM in SODIUM CHLORIDE 0.9% 50 ML IVPB SCH (08:18)
--- NOTE | 2022-08-19 08:45 | P.PN ---
Subjective Progress Note Date: 08/19/22 This is a very pleasant 82-year-old male patient, presenting to the emergency department with generalized weakness and episodes of syncope. He states that he passed out at home for a brief period of time. No seizure activity. No focal neurological deficit. The patient noted a drop in urine output. In same thing was having dysuria. He was having diffuse body aches. No chest pain. He presented emergency department and he was found to be nature fibrillation with rapid ventricular response. Heart rate was in the 150 range. He was also tachypneic and hypotensive with a BP of 81/58. His WBC count was at 17.2 with a hemoglobin of 6.8 and a platelet count of 318. Sodium is at 134 with a bicarb level of 7 and a potassium level of 5.3. BUN is at 60 with a creatinine of 5.2 and the glucose is 257. He was toxic on his INR with a PT of 1730 and INR of more than 10 and a PEEP of 82. UA was abnormal consistent with UTI, multiple clumps of white cells. His initial lactic acid level was significantly elevated. Initially his lactic acid level came at 13.8 and subsequently dropped onto 7. He was resuscitated with IV fluids. He was given immediately 2 L of IV fluid and currently he is receiving a unit of packed RBC for hemoglobin of 6.8. Lopez catheter has not been inserted. Influenza is negative. Covid 19 is negative. RSV is negative. There was some nonspecific white matter changes and chronic ischemic changes. Pelvic x-ray is negative. Noted the patient was given a combination of cefepime and vancomycin. He was given 10 mg of vitamin K. He was given a total of 2.5 L of normal saline and now NS is currently running at 130 mL an hour. Urine output is not. The patient doesn't have a Lopez catheter. He has history of prostate enlargement. He is currently on room air oxygen. His cardiac rhythm has improved. He is less tachycardic although he remained nature fibrillation. He has a harsh cardiac murmur suggestive of aortic stenosis. On 08/17/2022, the patient is doing much better. He is awake and alert and communicating and answering questions appropriately. Overnight, the patient was resuscitated aggressively with IV fluids. The patient was given a total of 3.5 L and the patient was maintained on a bicarb infusion running at the rate of 1 25 mL an hour. Urine operas adequate in the order of 70 mL an hour. Urine output is extremely cloudy a Lopez catheter was inserted. Cultures are still pending for now. He remains on a combination of cefepime and vancomycin. Ultrasound the kidneys showed no evidence of hydronephrosis. Renal function continues to improve and the BUN is at 15 hours a creatinine of 3.7. His WBC count is down to 5.7. There was a drop in hemoglobin down to 6.7 suspecting a mild GI bleed as the patient was Coumadin toxic at the time of admission. He'll be given a unit of packed RBC. He was given vitamin K yesterday and INR is down to 1.6 with a PT of 15.9. His cardiac rhythm remained nature fibrillation. Echocardiogram is pending for now. He is less tachycardic compared to yesterday. Overnight, he became hypotensive and he was started on low-dose norepinephrine running at 0.04 mcg/kg/m. No chest pain. No shortness of breath. 08/18/2022, the patient is awake and alert. He was taken off pressors earlier this morning at around 1:30 AM. Currently is on IV fluids in the form of normal saline at the rate of 75 mL an hour. BP is 88/60. Adequate urine output. Renal function continues to improve. Creatinine is down to 2.82. Urine cultures positive for gram-negative bacillus. Meanwhile, his echocardiogram showed normal LV function, moderate MR, moderate aortic regurgitation and his cardiac rhythm is stillin atrial fibrillation with a controlled rate. meanwhile, the patient is afebrile. The blood work from today shows a WBC count of 5 which is dropped significantly. Hemoglobin stable at 7.4 and the patient is to the units of packed RBC, platelet count is 108, slightly lower and the BUN is at 49 with a creatinine of 2.8 and sodium is at 136 with a potassium level of 3.5 times is 110. The patient's most recent INR from yesterday was down to 1.6 and the patient remains off anticoagulation. Vancomycin level today is at 17.2. As mentioned, is off pressors. No evidence of any GI bleeding. Lopez catheter in place. Thousand dyspnea is improving. 08/19/2022, the patient remains off pressors. He is on normal saline at 75 mL an hour. Urine culture came back positive for Klebsiella. The patient remains on IV cefepime and vancomycin was discontinued. He does have valvular regurgita tion including mitral valve and aortic valve regurgitation. Of these preserved. Afebrile. Creatinine continues to improve and currently down to 2.07. Sodium is at 136 with a potassium level of 4.3. Bicarb is at 20. The RBC count is down to 5.5 with a hemoglobin of 7.8. Platelet counts are stable at 108. No other new complaints otherwise for now. He was seen by urology. Lopez catheter still in place. He was started on a combination of Flomax and Proscar. He is tolerating his diet. Objective - Vital Signs Vital signs: Vital Signs Temp 97.3 F L 08/18/22 20:00 Pulse 63 08/19/22 04:00 Resp 14 08/19/22 04:00 BP 100/65 08/19/22 04:00 Pulse Ox 94 L 08/19/22 02:00 FiO2 Intake & Output 08/18/22 08/19/22 08/19/22 18:59 06:59 18:59 Intake Total 900 900 Output Total 800 575 Balance 100 325 Intake: IV 900 900 0.9 900 900 Output: Urine 800 575 Other: Voiding Method Indwelling Catheter Indwelling Catheter Indwelling Catheter - Exam Gen. appearance the patient is calm and comfortable, pale is awake. He is following commands and answering question appropriately Head exam was generally normal. There was no scleral icterus or corneal arcus. Mucous membranes were dry Neck was supple and without jugular venous distension, thyromegaly, or carotid bruits. Carotids were easily palpable bilaterally. There was no adenopathy. Lungs were clear to auscultation and percussion, and with normal diaphragmatic e xcursion. No wheezes or rales were noted. Heart sounds are regular, less tachycardic and the patient has a systolic ejection murmur grade 4/6 heard over the left apex and left lateral border Abdominal exam revealed normal bowel sounds. The abdomen was soft, non-tender, and without masses, organomegaly, or appreciable enlargement of the abdominal aorta. Examination of the extremities revealed easily palpable radial, femoral and pedal pulses. There was no cyanosis, clubbing or edema. Examination of the skin revealed no evidence of significant rashes, suspicious appearing nevi or other concerning lesions. Neurologically, the patient is awake and alert and the patient does not have any focal neurological deficit. Cranial nerves are essentially intact. He is awake and oriented. He is moving all 4 extremities. There is generalized global weakness in all 4 extremities. - Labs CBC & Chem 7: 08/19/22 04:48 08/19/22 04:48 Labs: Abnormal Lab Results - Last 24 Hours (Table) 08/19/22 08/19/22 08/19/22 Range/Units 04:48 04:48 04:48 RBC 2.61 L (4.30-5.90) m/uL Hgb 7.8 L (13.0-17.5) gm/dL Hct 24.2 L (39.0-53.0) % RDW 17.4 H (11.5-15.5) % Plt Count 107 L (150-450) k/uL Lymphocytes # 0.5 L (1.0-4.8) k/uL PT 17.6 H (9.0-12.0) sec INR 1.8 H (<1.2) Sodium 136 L (137-145) mmol/L Chloride 113 H (98-107) mmol/L Carbon Dioxide 20 L (22-30) mmol/L BUN 37 H (9-20) mg/dL Creatinine 2.07 H (0.66-1.25) mg/dL Calcium 7.4 L (8.4-10.2) mg/dL Microbiology - Last 24 Hours (Table) 08/16/22 10:15 Blood Culture - Preliminary Blood No Growth after 48 hours 08/16/22 10:30 Blood Culture - Preliminary Blood No Growth after 48 hours 08/16/22 08:24 Urine Culture - Final Urine,Catheterized Klebsiella oxytoca Assessment and Plan Plan: acute UTI with secondary sepsis, patient gram-negative Klebsiella in the urine. Currently on IV cefepime. Vancomycin has been discontinued. Acute hypotension, and for the fluid resuscitation, likely secondary underlying dehydration/sepsis, currently off norepinephrine Acute leukocytosis secondary to above, improving Acute kidney injury and the creatinine continues to improve, producing adequate amount of urine output and Lopez catheter is in place. Started on Flomax and Proscar. Acute lactic acidosis secondary to above, recovered Acute Coumadin toxicity with an INR above 10, recovered and the Coumadin toxicity is reversed Acute on chronic anemia with a hemoglobin of 7.4 posttransfusion with units of packed RBC Chronic into fibrillation with RVR at the time of admission, improving Valvular heart disease with a probably a combination of mitral regurgitation and aortic stenosis/regurgitation. The patient has a harsh cardiac murmur at this point BPH Hyperlipidemia Hypertension Generalized weakness and syncope secondary to above-mentioned comorbidities. CAT scan of the brain is not showing any acute abnormalities. The patient has diffuse white matter disease changes. No focal neurological deficits, clinically improved Plan IV to KVO off pressors IV cefepime DC Vanco echocardiogram noted Compression devices to lower extremities IV Protonix consult urology urology input is appreciated
[2022-08-19] MEDS ORDERED: BENZOCAINE/MENTHOL LOZENG 1 EACH LOZENGE MUCOUS MEM PRN (08:50)
--- NOTE | 2022-08-19 10:45 | P.PN ---
Subjective Progress Note Date: 08/19/22 Principal diagnosis: Sepsis, UTI The patient is an 82-year-old male with a past medical history significant for hypertension, syncope, skin cancer, mitral valve regurgitation, and anemia. He presented to the emergency department on 08/16/22 with complaints of weakness, dehydration, syncopal episodes and multiple falls at home. He has had a decreased appetite and low oral intake. He denied any shortness of breath, chest pain, fevers, or cough. Denies any abdominal pain, nausea, or vomiting. EKG showed atrial fibrillation with RVR. No evidence of acute ischemia. Chest x-ray revealed no acute process. WBC 17, lactic acid 13.8, hemoglobin was 6.8, and INR was greater than 10. The patient was given vitamin K and multiple fluid boluses. Urinalysis was suggestive of UTI. Urine culture grew Klebsiella oxytoca. Blood cultures are negative. Patient also has acute kidney injury serum creatinine was 5.29 on admission and is 2.82 today. A kidney/renal and bladder ultrasound was completed. It was a suboptimal study, but showed a rounded 3.0 cm hypoechoic to an echoic lesion upper pole medial left kidney. No gross hydronephrosis. Objective - Vital Signs Vital signs: Vital Signs Temp 97.5 F L 08/19/22 08:00 Pulse 85 08/19/22 10:00 Resp 20 08/19/22 08:00 BP 118/72 08/19/22 09:00 Pulse Ox 96 08/19/22 08:00 FiO2 Intake & Output 08/18/22 08/19/22 08/19/22 18:59 06:59 18:59 Intake Total 900 900 Output Total 800 575 Balance 100 325 Intake: IV 900 900 0.9 900 900 Output: Urine 800 575 Other: Voiding Method Indwelling Catheter Indwelling Catheter Indwelling Catheter - Exam General: Well developed, well nourished. No acute distress. Appears stated age HEENT: Head is atraumatic, normocephalic. Lungs: Respirations even and nonlabored. Abdomen/GI: Soft. Nontender No guarding or rigidity : Lopez catheter present draining clear yellow urine Skin: Warm and dry Neurologic: Awake, alert and oriented times 3. CN II-XII grossly intact. No focal deficits. Psychiatric: Appropriate mood and affect. - Labs CBC & Chem 7: 08/19/22 04:48 08/19/22 04:48 Labs: Abnormal Lab Results - Last 24 Hours (Table) 08/19/22 08/19/22 08/19/22 Range/Units 04:48 04:48 04:48 RBC 2.61 L (4.30-5.90) m/uL Hgb 7.8 L (13.0-17.5) gm/dL Hct 24.2 L (39.0-53.0) % RDW 17.4 H (11.5-15.5) % Plt Count 107 L (150-450) k/uL Lymphocytes # 0.5 L (1.0-4.8) k/uL PT 17.6 H (9.0-12.0) sec INR 1.8 H (<1.2) Sodium 136 L (137-145) mmol/L Chloride 113 H (98-107) mmol/L Carbon Dioxide 20 L (22-30) mmol/L BUN 37 H (9-20) mg/dL Creatinine 2.07 H (0.66-1.25) mg/dL Calcium 7.4 L (8.4-10.2) mg/dL Microbiology - Last 24 Hours (Table) 08/16/22 10:15 Blood Culture - Preliminary Blood No Growth after 48 hours 08/16/22 10:30 Blood Culture - Preliminary Blood No Growth after 48 hours 08/16/22 08:24 Urine Culture - Final Urine,Catheterized Klebsiella oxytoca Assessment and Plan Assessment: Lopez catheter in place draining clear yellow urine. Dr. Whaley reviewed abdomen/bladder ultrasound images and discussed the findings in detail with the patient. The patient was agreeable for an MRI to further evaluate his kidneys. His serum creatinine continues to improve and is 2.07 today. His Lopez catheter should remain in place until his kidney function normalizes. The patient continues to be afebrile, his vital signs are stable, and he is on room air. (1) Urinary retention Current Visit: Yes Status: Acute Code(s): R33.9 - RETENTION OF URINE, UNSPECIFIED SNOMED Code(s): 047544807 Plan: - MRI of the abdomen to evaluate renal vs adrenal mass - Continue Proscar - Continue Flomax - Keep Lopez catheter in place until renal function normalizes, if kidney function normalizes prior to discharge remove Lopez prior to discharge and check patient postvoid residual after Lopez removal - Monitor serum creatinine - Continue vancomycin and cefepime Thank you for this consultation Impression and plan of care have been directed as dictated by the signing physician. Jazmine Collins nurse practitioner acting as scribe for signing physician. Jazmine Collins [facility] Palliative Care/Urology Spectralink [id number] Email: [email or web address] I personally performed and participated in the history, physical, the decision making, I agree with the assessment and plan of WEATHER OBSERVER
--- NOTE | 2022-08-19 11:34 | P.PN ---
Subjective Patient is seen in follow-up for acute kidney injury. Renal function improving. IV fluids stopped. Nonoliguric. Off vasopressors. Hemoglobin 7.8 this morning. No active bleeding. Awake and alert. No active complaints Vital signs are stable. Blood pressure on the lower side. General: No acute distress. HEENT: Head exam is unremarkable. LUNGS: Breath sounds decreased. HEART: Rate and Rhythm are regular. ABDOMEN: Soft, no distention. EXTREMITITES: No edema. Objective - Vital Signs Vital signs: Vital Signs Temp 97.5 F L 08/19/22 08:00 Pulse 85 08/19/22 10:00 Resp 20 08/19/22 08:00 BP 118/72 08/19/22 09:00 Pulse Ox 96 08/19/22 08:00 FiO2 Intake & Output 08/18/22 08/19/22 08/19/22 18:59 06:59 18:59 Intake Total 900 900 Output Total 800 575 Balance 100 325 Intake: IV 900 900 0.9 900 900 Output: Urine 800 575 Other: Voiding Method Indwelling Catheter Indwelling Catheter Indwelling Catheter - Labs CBC & Chem 7: 08/19/22 04:48 08/19/22 04:48 Labs: Abnormal Lab Results - Last 24 Hours (Table) 08/19/22 08/19/22 08/19/22 Range/Units 04:48 04:48 04:48 RBC 2.61 L (4.30-5.90) m/uL Hgb 7.8 L (13.0-17.5) gm/dL Hct 24.2 L (39.0-53.0) % RDW 17.4 H (11.5-15.5) % Plt Count 107 L (150-450) k/uL Lymphocytes # 0.5 L (1.0-4.8) k/uL PT 17.6 H (9.0-12.0) sec INR 1.8 H (<1.2) Sodium 136 L (137-145) mmol/L Chloride 113 H (98-107) mmol/L Carbon Dioxide 20 L (22-30) mmol/L BUN 37 H (9-20) mg/dL Creatinine 2.07 H (0.66-1.25) mg/dL Calcium 7.4 L (8.4-10.2) mg/dL Microbiology - Last 24 Hours (Table) 08/16/22 10:15 Blood Culture - Preliminary Blood No Growth after 48 hours 08/16/22 10:30 Blood Culture - Preliminary Blood No Growth after 48 hours 08/16/22 08:24 Urine Culture - Final Urine,Catheterized Klebsiella oxytoca Assessment and Plan Plan: Assessment: 1. Acute kidney injury secondary to ATN secondary to anemia and hypotension. Creatinine 5.29 on admission and is 2.07 today. Creatinine in 2019 was 1-1.1. No hydronephrosis noted on kidney ultrasound. 2. Metabolic acidosis secondary to acute kidney injury and lactic acidosis. Improved. Status post bicarb drip. 3. Acute blood loss anemia and coagulopathy. Received blood transfusions this admission. Also received vitamin K and DDAVP. 4. Septic shock secondary to Klebsiella UTI on antibiotics. off vasopressors. 5. Hypokalemia from poor intake and saline diuresis. Replaced. Improved. Plan: Encourage oral intake. Avoid nephrotoxins. Continue to monitor renal function and urine output. Maintain midodrine. Hold for systolic blood pressure greater than 110. Cortisol level not low.
[2022-08-19] MEDS ORDERED: WARFARIN 1 MG TAB PO ONE (18:00)
[2022-08-19] MEDS ORDERED: WARFARIN 2.5 MG TAB PO ONE (18:00)
[2022-08-19] MEDS: CEFEPIME 2 GM in SODIUM CHLORIDE 0.9% 100 ML IVPB SCH (20:34)
[2022-08-19] MEDS: TAMSULOSIN 0.4 MG CAP.ER.24H PO SCH (20:34)
[2022-08-19] MEDS: guaiFENesin-DM 600/30MG 1 EACH TAB.ER.12H PO PRN (23:08)
[2022-08-20 06:10] LABS: Anisocytosis Slight; Basophils % (A) 0 %; Eosinophils # (A) 0.2 k/uL (0-0.7); Eosinophils % (A) 3 %; HCT 24.4 % (39.0-53.0); HGB 8.1 gm/dL (13.0-17.5); Lymphocytes # (A) 0.5 k/uL (1.0-4.8); Lymphocytes % (A) 9 %; MCH 30.5 pg (25.0-35.0); MCHC 33.3 g/dL (31.0-37.0); MCV 91.6 fL (80.0-100.0); Mean Platelet Volume 8.2; Monocytes # (A) 0.3 k/uL (0-1.0); Monocytes % (A) 4 %; Neutrophils # (A) 4.9 k/uL (1.3-7.7); Neutrophils % (A) 83 %; Platelet Count 117 k/uL (150-450); RBC 2.66 m/uL (4.30-5.90); RDW 18.4 % (11.5-15.5); WBC 5.9 k/uL (3.8-10.6)
[2022-08-20 06:14] LABS: INR 1.9 (<1.2); Prothrombin Time 18.4 sec (9.0-12.0)
[2022-08-20 06:25] LABS: Calcium 7.8 mg/dL (8.4-10.2); Potassium 4.1 mmol/L (3.5-5.1)
--- NOTE | 2022-08-20 06:33 | P.PN ---
Subjective This is a pleasant 10 years old male with past medical history of Atrial Fibrillation on Coumadin Hypertension, benign prostatic hypertrophy, Syncope, mitral valve regergitation (waiting for heart cath and STAR with Dr. Seven Downey), Low Hgb- last blood transfusion 01/13/19- received 2 units. Patient follows up with Dr. Alonso, Patient presents because of dizziness and falling down. Currently he is awake alert and oriented, calm. States that he passed out momentarily once earlier today but he feels generally weak and he cannot stand up. Is complaining from dyspnea, he is coughing with little phlegm. He denies chest pain. Patient also was not eating well for the last 3 days. Patient with some urinary symptoms complaining from suprapubic abdominal pain with PE and has been going on for the last 2-3 days. He was not being well also during the same time. No vomiting . He did not have bowel movement for the last 3 days. His complaining of from left leg pain. No headache. Patient is nonsmoker, no alcohol, no illicit drug Patient is tachycardic, febrile, blood pressure is borderline but acceptable. Patient is saturating 98% on room air. Hemoglobin 6.8, WBCs elevated at 17.2. INR more than 10. Lactic acid elevated 13.8, 12.1, 7.9. Troponin negative Creatinine elevated 5.2, glucose 257. Liver enzymes not significantly elevated. Troponin is negative. CT of the brain: No acute process. Chest x-ray: No acute process. Left knee x-ray showing minor degenerative changes with no acute fracture Pelvic x-ray: No acute fracture Patient started on cefepime and IV vancomycin on admission as well as normal fluid and vitamin K 08/17/2022 Patient remains in the ICU, sitting up in bed, he feels generally better, no other new complaint. He is fully awake and oriented with minimal kidney and no chest pain. No abdominal pain. Lopez catheter in a Place. Blood pressure on the low side and he required a small dose of pressors with Josephine lin, currently blood pressure 91/58. WBCs back to normal 5.7, however her hemoglobin went down to 6.7 and he received 1 unit of blood yesterday and looks like he is getting another unit today. He is not on blood thinner. Coumadin was placed on held, his INR down to 1.6. He remains on IV vancomycin pharmacy to dose, cefepime, normal sinus 75 mL/h, culture results are still pending. Urine culture pending and ejection fraction is pending 08/18/2022 Patient is awake and alert, he does not have much symptoms while his aiden embedded, he thinks his breathing is better. No pain. Patient blood pressure still on the low side and still getting normal saline at 75 mL/h however he does not need any more pressors. His creatinine is improving and he has good urine output. Urine culture is growing gram-negative bacilli and he is getting IV vancomycin and cefepime Coumadin remains on hold. Ejection fraction is normal LV function with moderate MR and a R 08/19/2022 Patient remains in the ICU, clinically as well, his breathing quietly he denies any pain. Lopez catheter in place. His blood pressure is stable with no more pressors. Labs also look stable with hemoglobin 7.8, creatinine 2.0 and platelet count 107. Coumadin was restarted and INR 1.8. Also urine culture gram sensitive klebsiella and antibiotics continued with cefepime while discontinuing the vancomycin. Cholestatic for constipation. IV fluids were discontinued. Objective - Vital Signs Vital signs: Vital Signs Temp 97.3 F L 08/18/22 20:00 Pulse 63 08/19/22 04:00 Resp 14 08/19/22 04:00 BP 100/65 08/19/22 04:00 Pulse Ox 94 L 08/19/22 02:00 FiO2 Intake & Output 08/18/22 08/19/22 08/19/22 18:59 06:59 18:59 Intake Total 900 900 Output Total 800 575 Balance 100 325 Intake: IV 900 900 0.9 900 900 Output: Urine 800 575 Other: Voiding Method Indwelling Catheter Indwelling Catheter Indwelling Catheter - Exam -GENERAL: The patient is alert and oriented x3, looks tired but not in distress. not in any acute distress. Generally weak HEENT: Pupils are round and equally reacting to light. EOMI. No scleral icterus. No conjunctival pallor. Normocephalic, atraumatic. No pharyngeal erythema. No thyromegaly. CARDIOVASCULAR: S1 and S2 present. No murmurs, rubs, or gallops. -PULMONARY: Chest is clear to auscultation, no wheezing or crackles. Thickened neck ABDOMEN: Soft, nontender, nondistended, normoactive bowel sounds. No palpable organomegaly. MUSCULOSKELETAL: No joint swelling or deformity. EXTREMITIES: No cyanosis, clubbing, or pedal edema. NEUROLOGICAL: Gross neurological examination did not reveal any focal deficits. SKIN: No rashes. no petechiae. - Labs CBC & Chem 7: 08/20/22 05:40 08/20/22 05:40 Labs: Abnormal Lab Results - Last 24 Hours (Table) 08/19/22 08/19/22 08/19/22 Range/Units 04:48 04:48 04:48 RBC 2.61 L (4.30-5.90) m/uL Hgb 7.8 L (13.0-17.5) gm/dL Hct 24.2 L (39.0-53.0) % RDW 17.4 H (11.5-15.5) % Plt Count 107 L (150-450) k/uL Lymphocytes # 0.5 L (1.0-4.8) k/uL PT 17.6 H (9.0-12.0) sec INR 1.8 H (<1.2) Sodium 136 L (137-145) mmol/L Chloride 113 H (98-107) mmol/L Carbon Dioxide 20 L (22-30) mmol/L BUN 37 H (9-20) mg/dL Creatinine 2.07 H (0.66-1.25) mg/dL Calcium 7.4 L (8.4-10.2) mg/dL Microbiology - Last 24 Hours (Table) 08/16/22 10:15 Blood Culture - Preliminary Blood No Growth after 48 hours 08/16/22 10:30 Blood Culture - Preliminary Blood No Growth after 48 hours 08/16/22 08:24 Urine Culture - Final Urine,Catheterized Klebsiella oxytoca Assessment and Plan Assessment: Acute on chronic anemia, status post previous blood transfusion Acute kidney injury Acute urinary tract infection A. fib with RVR on Coumadin at home Dehydration Coagulopathy secondary to Coumadin Recurrent syncope, mostly secondary to above elevated lactic acid Hypertension History of benign prostatic hypertrophy History of mitral regurgitation Plan: pulmonary/critical care team consult. Patient can be transferred to general medical floor Continue with antibiotic, Currently on cefepime. Vancomycin discontinued Nephrology consult, monitor input and output and creatinine Resume Coumadin and monitor INR Discontinued IV fluids Labs and medication were reviewed.. Continue same treatment. Continue with symptomatic treatment. Resume home medication. Monitor labs and vitals. DVT and GI prophylaxis. Further recommendations as per clinical course of the patient DVT prophylaxis: On Coumadin GI Prophylaxis: Pepcid PT/OT: Home health care versus subacute treatment Prognosis is guarded
[2022-08-20] MEDS: PANTOPRAZOLE 40 MG/10 ML VIAL IV SCH (10:14)
[2022-08-20] MEDS: CEFEPIME 2 GM in SODIUM CHLORIDE 0.9% 100 ML IVPB SCH (10:14)
[2022-08-20] MEDS: DOCUSATE 100 MG CAP PO SCH ×2 (10:15→20:39)
[2022-08-20] MEDS: METOPROLOL TARTRATE 12.5 MG TAB PO SCH ×2 (10:15→20:39)
[2022-08-20] MEDS: FINASTERIDE 5 MG TAB PO SCH (10:15)
[2022-08-20] MEDS: MIDODRINE 5 MG TAB PO SCH ×3 (10:32→17:43)
--- NOTE | 2022-08-20 12:02 | P.PN ---
Subjective Patient is seen in follow-up for acute kidney injury. Renal function fairly stable. Remains off IV fluids. Lopez catheter reinserted due to urinary retention. Hemoglobin stable at 8.1. No active bleeding. Awake and alert. No active complaints Vital signs are stable. Blood pressure on the lower side. General: No acute distress. HEENT: Head exam is unremarkable. LUNGS: Breath sounds decreased. HEART: Rate and Rhythm are regular. ABDOMEN: Soft, no distention. EXTREMITITES: No edema. Objective - Vital Signs Vital signs: Vital Signs Temp 97.5 F L 08/20/22 08:00 Pulse 63 08/20/22 08:25 Resp 18 08/20/22 08:00 BP 119/69 08/20/22 08:00 Pulse Ox 98 08/20/22 08:00 FiO2 Intake & Output 08/19/22 08/20/22 08/20/22 18:59 06:59 18:59 Intake Total 300 Output Total 550 975 Balance -250 -975 Intake: IV 300 0.9 250 Cefepime 1 gm In Sodium 50 Chloride 0.9% 50 ml @ 12. 5 mls/hr IVPB Q12HR [facility] Rx#:[id number] Output: Urine 550 975 Other: Voiding Method Indwelling Catheter Indwelling Catheter - Labs CBC & Chem 7: 08/20/22 05:40 08/20/22 05:40 Labs: Abnormal Lab Results - Last 24 Hours (Table) 08/20/22 08/20/22 08/20/22 Range/Units 05:40 05:40 05:40 RBC 2.66 L (4.30-5.90) m/uL Hgb 8.1 L (13.0-17.5) gm/dL Hct 24.4 L (39.0-53.0) % RDW 18.4 H (11.5-15.5) % Plt Count 117 L (150-450) k/uL Lymphocytes # 0.5 L (1.0-4.8) k/uL PT 18.4 H (9.0-12.0) sec INR 1.9 H (<1.2) Sodium 135 L (137-145) mmol/L Chloride 111 H (98-107) mmol/L BUN 33 H (9-20) mg/dL Creatinine 2.22 H (0.66-1.25) mg/dL Calcium 7.8 L (8.4-10.2) mg/dL Microbiology - Last 24 Hours (Table) 08/16/22 10:30 Blood Culture - Preliminary Blood No Growth after 72 hours 08/16/22 10:15 Blood Culture - Preliminary Blood No Growth after 72 hours Assessment and Plan Plan: Assessment: 1. Acute kidney injury secondary to ATN secondary to anemia and hypotension. Creatinine 5.29 on admission -fairly stable at 2.2 today. Creatinine in 2019 was 1-1.1. No hydronephrosis noted on kidney ultrasound. 2. Metabolic acidosis secondary to acute kidney injury and lactic acidosis. Improved. Status post bicarb drip. 3. Acute blood loss anemia and coagulopathy. Received blood transfusions this admission. Also received vitamin K and DDAVP. 4. Septic shock secondary to Klebsiella UTI on antibiotics. off vasopressors. 5. Hypokalemia from poor intake and saline diuresis. Replaced. Improved. Plan: Resume gentle IV hydration. Encourage oral intake. Avoid nephrotoxins. Continue to monitor renal function and urine output. Maintain midodrine. Hold for systolic blood pressure greater than 110. Cortisol level not low. Add Aranesp. Avoid MRIs with IV contrast if GFR less than 30.
[2022-08-20] MEDS ORDERED: DARBEPOETIN ALFA 40 MCG/0.4 ML SYRINGE SQ SCH (13:00)
--- NOTE | 2022-08-20 13:55 | P.PN ---
Subjective Progress Note Date: 08/20/22 This is a very pleasant 82-year-old male patient, presenting to the emergency department with generalized weakness and episodes of syncope. He states that he passed out at home for a brief period of time. No seizure activity. No focal neurological deficit. The patient noted a drop in urine output. In same thing was having dysuria. He was having diffuse body aches. No chest pain. He presented emergency department and he was found to be nature fibrillation with rapid ventricular response. Heart rate was in the 150 range. He was also tachypneic and hypotensive with a BP of 81/58. His WBC count was at 17.2 with a hemoglobin of 6.8 and a platelet count of 318. Sodium is at 134 with a bicarb level of 7 and a potassium level of 5.3. BUN is at 60 with a creatinine of 5.2 and the glucose is 257. He was toxic on his INR with a PT of 1730 and INR of more than 10 and a PEEP of 82. UA was abnormal consistent with UTI, multiple clumps of white cells. His initial lactic acid level was significantly elevated. Initially his lactic acid level came at 13.8 and subsequently dropped onto 7. He was resuscitated with IV fluids. He was given immediately 2 L of IV fluid and currently he is receiving a unit of packed RBC for hemoglobin of 6.8. Lopez catheter has not been inserted. Influenza is negative. Covid 19 is negative. RSV is negative. There was some nonspecific white matter changes and chronic ischemic changes. Pelvic x-ray is negative. Noted the patient was given a combination of cefepime and vancomycin. He was given 10 mg of vitamin K. He was given a total of 2.5 L of normal saline and now NS is currently running at 130 mL an hour. Urine output is not. The patient doesn't have a Lopez catheter. He has history of prostate enlargement. He is currently on room air oxygen. His cardiac rhythm has improved. He is less tachycardic although he remained nature fibrillation. He has a harsh cardiac murmur suggestive of aortic stenosis. On 08/17/2022, the patient is doing much better. He is awake and alert and communicating and answering questions appropriately. Overnight, the patient was resuscitated aggressively with IV fluids. The patient was given a total of 3.5 L and the patient was maintained on a bicarb infusion running at the rate of 1 25 mL an hour. Urine operas adequate in the order of 70 mL an hour. Urine output is extremely cloudy a Lopez catheter was inserted. Cultures are still pending for now. He remains on a combination of cefepime and vancomycin. Ultrasound the kidneys showed no evidence of hydronephrosis. Renal function continues to improve and the BUN is at 15 hours a creatinine of 3.7. His WBC count is down to 5.7. There was a drop in hemoglobin down to 6.7 suspecting a mild GI bleed as the patient was Coumadin toxic at the time of admission. He'll be given a unit of packed RBC. He was given vitamin K yesterday and INR is down to 1.6 with a PT of 15.9. His cardiac rhythm remained nature fibrillation. Echocardiogram is pending for now. He is less tachycardic compared to yesterday. Overnight, he became hypotensive and he was started on low-dose norepinephrine running at 0.04 mcg/kg/m. No chest pain. No shortness of breath. 08/18/2022, the patient is awake and alert. He was taken off pressors earlier t his morning at around 1:30 AM. Currently is on IV fluids in the form of normal saline at the rate of 75 mL an hour. BP is 88/60. Adequate urine output. Renal function continues to improve. Creatinine is down to 2.82. Urine cultures positive for gram-negative bacillus. Meanwhile, his echocardiogram showed normal LV function, moderate MR, moderate aortic regurgitation and his cardiac rhythm is stillin atrial fibrillation with a controlled rate. meanwhile, the patient is afebrile. The blood work from today shows a WBC count of 5 which is dropped significantly. Hemoglobin stable at 7.4 and the patient is to the units of packed RBC, platelet count is 108, slightly lower and the BUN is at 49 with a creatinine of 2.8 and sodium is at 136 with a potassium level of 3.5 times is 110. The patient's most recent INR from yesterday was down to 1.6 and the patient remains off anticoagulation. Vancomycin level today is at 17.2. As mentioned, is off pressors. No evidence of any GI bleeding. Lopez catheter in place. Thousand dyspnea is improving. 08/19/2022, the patient remains off pressors. He is on normal saline at 75 mL an hour. Urine culture came back positive for Klebsiella. The patient remains on IV cefepime and vancomycin was discontinued. He does have valvular regurgitation including mitral valve and aortic valve regurgitation. Of these preserved. Afebrile. Creatinine continues to improve and currently down to 2.07. Sodium is at 136 with a potassium level of 4.3. Bicarb is at 20. The RBC count is down to 5.5 with a hemoglobin of 7.8. Platelet counts are stable at 108. No other new complaints otherwise for now. He was seen by urology. Lopez catheter still in place. He was started on a combination of Flomax and Proscar. He is tolerating his diet. The patient is seen today 08/20/2022 in follow-up on the regular medical floor. He is currently resting comfortably in bed. Awake and alert in no acute distress. He is maintaining good O2 saturations in the 90s on room air. He's been afebrile. Hemodynamically stable. Urine culture positive for Klebsiella oxytoca. Blood cultures reveal no growth. He is status post 2 units of packed blood cells this admission. Current hemoglobin 8.1. White count 5.9. Platelets 117. INR 1.9. Sodium 135. Potassium 4.1. Bicarb 25. BUN 33. Creatinine 2.22. He remains on anticoagulation with warfarin. Antibiotics in the form of cefepime. Currently in a -1.2 L balance. Remains on Flomax and Proscar. Objective - Vital Signs Vital signs: Vital Signs Temp 97.6 F 08/20/22 13:03 Pulse 103 H 08/20/22 13:03 Resp 18 08/20/22 13:03 BP 103/60 08/20/22 13:03 Pulse Ox 96 08/20/22 13:03 FiO2 Intake & Output 08/19/22 08/20/22 08/20/22 18:59 06:59 18:59 Intake Total 300 Output Total 550 975 Balance -250 -975 Intake: IV 300 0.9 250 Cefepime 1 gm In Sodium 50 Chloride 0.9% 50 ml @ 12. 5 mls/hr IVPB Q12HR [facility] Rx#:[id number] Output: Urine 550 975 Other: Voiding Method Indwelling Catheter Indwelling Catheter - Exam GENERAL EXAM: Alert, weak, pleasant 82-year-old male patient, on room air, comfortable in no apparent distress. HEAD: Normocephalic. EYES: Normal reaction of pupils, equal size. NOSE: Clear with pink turbinates. THROAT: No erythema or exudates. NECK: No masses, no JVD. CHEST: No chest wall deformity. LUNGS: Equal air entry with no crackles, wheeze, rhonchi or dullness. CVS: S1 and S2 normal with audible harsh murmur, regular rhythm. ABDOMEN: No hepatosplenomegaly, normal bowel sounds, no guarding or rigidity. SPINE: No scoliosis or deformity SKIN: No rashes CENTRAL NERVOUS SYSTEM: No focal deficits, tone is normal in all 4 extremities. EXTREMITIES: There is no peripheral edema. No clubbing, no cyanosis. Peripheral pulses are intact. - Labs CBC & Chem 7: 08/20/22 05:40 08/20/22 05:40 Labs: Abnormal Lab Results - Last 24 Hours (Table) 08/20/22 08/20/22 08/20/22 Range/Units 05:40 05:40 05:40 RBC 2.66 L (4.30-5.90) m/uL Hgb 8.1 L (13.0-17.5) gm/dL Hct 24.4 L (39.0-53.0) % RDW 18.4 H (11.5-15.5) % Plt Count 117 L (150-450) k/uL Lymphocytes # 0.5 L (1.0-4.8) k/uL PT 18.4 H (9.0-12.0) sec INR 1.9 H (<1.2) Sodium 135 L (137-145) mmol/L Chloride 111 H (98-107) mmol/L BUN 33 H (9-20) mg/dL Creatinine 2.22 H (0.66-1.25) mg/dL Calcium 7.8 L (8.4-10.2) mg/dL Microbiology - Last 24 Hours (Table) 08/16/22 10:15 Blood Culture - Preliminary Blood No Growth after 96 hours 08/16/22 10:30 Blood Culture - Preliminary Blood No Growth after 96 hours Assessment and Plan Assessment: Acute UTI with secondary sepsis secondary to Klebsiella oxytoca in the urine. Currently on IV cefepime. Vancomycin has been discontinued. Acute hypotension, requiring fluid resuscitation, likely secondary underlying dehydration/sepsis, currently off norepinephrine Acute leukocytosis secondary to above, recovered Acute kidney injury and the creatinine continues to improve, producing adequate amount of urine output and Lopez catheter is in place. Started on Flomax and Proscar. Acute lactic acidosis secondary to above, recovered Acute Coumadin toxicity with an INR above 10, recovered and the Coumadin toxicity is reversed, current INR 1.9 Acute on chronic anemia with a hemoglobin of 6.7, received 2 units of packed RBCs, current hemoglobin 8.1 Chronic into fibrillation with RVR at the time of admission, improving Valvular heart disease with a probably a combination of mitral regurgitation and aortic stenosis/regurgitation. The patient has a harsh cardiac murmur BPH Hyperlipidemia Hypertension Generalized weakness and syncope secondary to above-mentioned comorbidities. CAT scan of the brain is not showing any acute abnormalities. The patient has diffuse white matter disease changes. No focal neurological deficits, clinically improved Plan: The patient was seen and evaluated Labs and medications reviewed Stable and on room air Remains off pressors Remains on cefepime We will continue to follow I have personally seen and examined the patient, performed the documentation and the assessment and plan as written. Number of minutes spent on the visit: 10.
--- NOTE | 2022-08-20 13:57 | P.PN ---
Subjective This is a pleasant 10 years old male with past medical history of Atrial Fibrillation on Coumadin Hypertension, benign prostatic hypertrophy, Syncope, mitral valve regergitation (waiting for heart cath and STAR with Dr. Seven Downey), Low Hgb- last blood transfusion 01/13/19- received 2 units. Patient follows up with Dr. Alonso, Patient presents because of dizziness and falling down. Currently he is awake alert and oriented, calm. States that he passed out momentarily once earlier today but he feels generally weak and he cannot stand up. Is complaining from dyspnea, he is coughing with little phlegm. He denies chest pain. Patient also was not eating well for the last 3 days. Patient with some urinary symptoms complaining from suprapubic abdominal pain with PE and has been going on for the last 2-3 days. He was not being well also during the same time. No vomiting . He did not have bowel movement for the last 3 days. His complaining of from left leg pain. No headache. Patient is nonsmoker, no alcohol, no illicit drug Patient is tachycardic, febrile, blood pressure is borderline but acceptable. Patient is saturating 98% on room air. Hemoglobin 6.8, WBCs elevated at 17.2. INR more than 10. Lactic acid elevated 13.8, 12.1, 7.9. Troponin negative Creatinine elevated 5.2, glucose 257. Liver enzymes not significantly elevated. Troponin is negative. CT of the brain: No acute process. Chest x-ray: No acute process. Left knee x-ray showing minor degenerative changes with no acute fracture Pelvic x-ray: No acute fracture Patient started on cefepime and IV vancomycin on admission as well as normal fluid and vitamin K 08/17/2022 Patient remains in the ICU, sitting up in bed, he feels generally better, no other new complaint. He is fully awake and oriented with minimal kidney and no chest pain. No abdominal pain. Lopez catheter in a Place. Blood pressure on the low side and he required a small dose of pressors with Josephine lin, currently blood pressure 91/58. WBCs back to normal 5.7, however her hemoglobin went down to 6.7 and he received 1 unit of blood yesterday and looks like he is getting another unit today. He is not on blood thinner. Coumadin was placed on held, his INR down to 1.6. He remains on IV vancomycin pharmacy to dose, cefepime, normal sinus 75 mL/h, culture results are still pending. Urine culture pending and ejection fraction is pending 08/18/2022 Patient is awake and alert, he does not have much symptoms while his aiden embedded, he thinks his breathing is better. No pain. Patient blood pressure still on the low side and still getting normal saline at 75 mL/h however he does not need any more pressors. His creatinine is improving and he has good urine output. Urine culture is growing gram-negative bacilli and he is getting IV vancomycin and cefepime Coumadin remains on hold. Ejection fraction is normal LV function with moderate MR and a R 08/19/2022 Patient remains in the ICU, clinically as well, his breathing quietly he denies any pain. Lopez catheter in place. His blood pressure is stable with no more pressors. Labs also look stable with hemoglobin 7.8, creatinine 2.0 and platelet count 107. Coumadin was restarted and INR 1.8. Also urine culture gram sensitive klebsiella and antibiotics continued with cefepime while discontinuing the vancomycin. Cholestatic for constipation. IV fluids were discontinued. 08/20/2022 Patient is also keep doing well, he is having no dyspnea or chest pain, no other complaint. Yesterday Lopez catheter has to be inserted for urinary retention after it was discontinued earlier. Ultrasound showing no hydronephrosis but there is evidence of hypoechoic 3 cm left kidney lesion, MRI of the left kidney is ordered by urologist without co ntrast, her obedience trainer try to avoid contrast because of low GFR. Creatinine 2.2 on patient is started on normal saline at 50 mL/h. INR 1.9 and remains on Coumadin. Objective - Vital Signs Vital signs: Vital Signs Temp 97.6 F 08/20/22 13:03 Pulse 103 H 08/20/22 13:03 Resp 18 08/20/22 13:03 BP 103/60 08/20/22 13:03 Pulse Ox 96 08/20/22 13:03 FiO2 Intake & Output 08/19/22 08/20/22 08/20/22 18:59 06:59 18:59 Intake Total 300 Output Total 550 975 Balance -250 -975 Intake: IV 300 0.9 250 Cefepime 1 gm In Sodium 50 Chloride 0.9% 50 ml @ 12. 5 mls/hr IVPB Q12HR [facility] Rx#:[id number] Output: Urine 550 975 Other: Voiding Method Indwelling Catheter Indwelling Catheter - Exam -GENERAL: The patient is alert and oriented x3, looks tired but not in distress. not in any acute distress. Generally weak HEENT: Pupils are round and equally reacting to light. EOMI. No scleral icterus. No conjunctival pallor. Normocephalic, atraumatic. No pharyngeal erythema. No thyromegaly. CARDIOVASCULAR: S1 and S2 present. No murmurs, rubs, or gallops. -PULMONARY: Chest is clear to auscultation, no wheezing or crackles. Thickened neck ABDOMEN: Soft, nontender, nondistended, normoactive bowel sounds. No palpable organomegaly. MUSCULOSKELETAL: No joint swelling or deformity. EXTREMITIES: No cyanosis, clubbing, or pedal edema. NEUROLOGICAL: Gross neurological examination did not reveal any focal deficits. SKIN: No rashes. no petechiae. - Labs CBC & Chem 7: 08/20/22 05:40 08/20/22 05:40 Labs: Abnormal Lab Results - Last 24 Hours (Table) 08/20/22 08/20/22 08/20/22 Range/Units 05:40 05:40 05:40 RBC 2.66 L (4.30-5.90) m/uL Hgb 8.1 L (13.0-17.5) gm/dL Hct 24.4 L (39.0-53.0) % RDW 18.4 H (11.5-15.5) % Plt Count 117 L (150-450) k/uL Lymphocytes # 0.5 L (1.0-4.8) k/uL PT 18.4 H (9.0-12.0) sec INR 1.9 H (<1.2) Sodium 135 L (137-145) mmol/L Chloride 111 H (98-107) mmol/L BUN 33 H (9-20) mg/dL Creatinine 2.22 H (0.66-1.25) mg/dL Calcium 7.8 L (8.4-10.2) mg/dL Microbiology - Last 24 Hours (Table) 08/16/22 10:15 Blood Culture - Preliminary Blood No Growth after 96 hours 08/16/22 10:30 Blood Culture - Preliminary Blood No Growth after 96 hours Assessment and Plan Assessment: Acute on chronic anemia, status post previous blood transfusion Acute kidney injury Acute urinary tract infection rounded 3.0 cm hypoechoic to an echoic lesion upper pole medial left kidney. A. fib with RVR on Coumadin at home Dehydration Coagulopathy secondary to Coumadin Recurrent syncope, mostly secondary to above elevated lactic acid Hypertension History of benign prostatic hypertrophy History of mitral regurgitation Plan: pulmonary/critical care team consult. Patient can be transferred to general medical floor Continue with antibiotic, Currently on cefepime. Vancomycin discontinued Nephrology consult, monitor input and output and creatinine Resume Coumadin and monitor INR Discontinued IV fluids Labs and medication were reviewed.. Continue same treatment. Continue with s ymptomatic treatment. Resume home medication. Monitor labs and vitals. DVT and GI prophylaxis. Further recommendations as per clinical course of the patient DVT prophylaxis: On Coumadin GI Prophylaxis: Pepcid PT/OT: Home health care versus subacute treatment Prognosis is guarded
--- NOTE | 2022-08-20 17:36 | MR ---
EXAMINATION TYPE: MR abdomen wo con DATE OF EXAM: 08/20/2022 4:52 PM INDICATION: Patient age:Male; 82 years old; Reason for study: right adrenal mass; COMPARISON: CT scan abdomen from 12/24/2018. TECHNIQUE: Multiplanar multi-sequence imaging was performed without contrast. IV Contrast: None FINDINGS: Limited exam secondary to motion. LOWER CHEST: Trace bilateral pleural effusions. ABDOMEN Liver: Unremarkable. Gallbladder and Bile ducts: Unremarkable. Pancreas: Unremarkable. Spleen: Unremarkable. Adrenal glands: Left adrenal gland high T2 signal cyst measuring 2.5 cm, previously up to 2.2 cm in 2 019. The right adrenal gland is unremarkable. No evidence of right adrenal gland mass. Kidneys: Bilateral high T2 low T1 signal cysts. Stomach and Bowel: Unremarkable as visualized. Peritoneum: No evidence of pneumoperitoneum, free fluid, or adenopathy. Vasculature: Unremarkable. No aortic aneurysm. Musculoskeletal: The osseous structures appear intact. Abdominal wall: Unremarkable. IMPRESSION: 1. Motion limited exam. There is no evidence for right adrenal gland mass. The right adrenal gland a ppears similar to 2019 CT. It is in close proximity to the superior pole of the right kidney. 2. Left adrenal gland cyst is present which is minimally larger from 2019. 3. Bilateral simple appearing renal cysts. 4. Trace bilateral pleural effusions.
[2022-08-20] MEDS ORDERED: WARFARIN 1 MG TAB PO ONE ×2 (18:00→22:15)
[2022-08-20 18:24] LABS: INR 1.8 (<1.2); Prothrombin Time 17.8 sec (9.0-12.0)
[2022-08-20] MEDS: TAMSULOSIN 0.4 MG CAP.ER.24H PO SCH (20:39)
[2022-08-20] MEDS: CEFEPIME 1 GM in SODIUM CHLORIDE 0.9% 50 ML IVPB SCH (20:39)
[2022-08-21] MEDS: guaiFENesin-DM 600/30MG 1 EACH TAB.ER.12H PO PRN (05:34)
[2022-08-21] MEDS: MIDODRINE 5 MG TAB PO SCH ×3 (05:35→17:08)
[2022-08-21] MEDS: SODIUM CHLORIDE 0.9% 1,000 ML IV SCH ×3 (07:50→20:33)
[2022-08-21 09:06] LABS: Anion Gap 8.3 mmol/L (10.00-18.00); BUN/Creat Ratio 12.8 Ratio (12.00-20.00); Blood Urea Nitrogen 26.5 mg/dL (9.0-27.0); Calcium 8.2 mg/dL (8.7-10.3); Carbon Dioxide 20.2 mmol/L (20.0-27.5); Magnesium 1.7 mg/dL (1.5-2.4); Non-African American GFR(CKD) 29.4 (60.0-200.0); Potassium 3.9 mmol/L (3.5-5.5)
[2022-08-21 09:12] LABS: INR 1.78 (0.90-1.11); Prothrombin Time 19.7 sec (9.9-11.9)
[2022-08-21] MEDS: PANTOPRAZOLE 40 MG/10 ML VIAL IV SCH (10:20)
[2022-08-21] MEDS: FINASTERIDE 5 MG TAB PO SCH (10:21)
[2022-08-21] MEDS: METOPROLOL TARTRATE 12.5 MG TAB PO SCH ×2 (10:21→20:34)
[2022-08-21] MEDS: CEFEPIME 1 GM in SODIUM CHLORIDE 0.9% 50 ML IVPB SCH (10:21)
[2022-08-21] MEDS: DOCUSATE 100 MG CAP PO SCH ×2 (10:21→20:33)
--- NOTE | 2022-08-21 11:05 | P.PN ---
Subjective No acute overnight events, MRI was reviewed which showed no acute process, was only significant for left adrenal cyst which has not changed in size s ignificantly. Objective - Vital Signs Vital signs: Vital Signs Temp 97.8 F 08/21/22 07:55 Pulse 86 08/21/22 07:55 Resp 16 08/21/22 07:55 BP 114/74 08/21/22 07:55 Pulse Ox 98 08/21/22 07:55 FiO2 Intake & Output 08/20/22 08/21/22 08/21/22 18:59 06:59 18:59 Intake Total 200 Output Total 1100 1500 Balance -900 -1500 Intake: Intake, IV Titration 200 Amount Cefepime 1 gm In Sodium 50 Chloride 0.9% 50 ml @ 12. 5 mls/hr IVPB Q12HR [facility] Rx#:[id number] Sodium Chloride 0.9% 1, 150 000 ml @ 50 mls/hr IV . Q20H [facility] Rx#:[id number] Output: Urine 1100 1500 Other: Voiding Method Indwelling Catheter - Labs CBC & Chem 7: 08/20/22 05:40 08/21/22 06:08 Labs: Abnormal Lab Results - Last 24 Hours (Table) 08/20/22 08/21/22 08/21/22 Range/Units 17:15 06:08 06:08 PT 17.8 H 19.7 H (9.0-12.0) sec INR 1.8 H 1.78 H (<1.2) Anion Gap 8.30 L (10.00-18.00) mmol/L Creatinine 2.1 H (0.6-1.5) mg/dL Est GFR (CKD-EPI)AfAm 34.0 L (60.0-200.0) Est GFR (CKD-EPI)NonAf 29.4 L (60.0-200.0) Calcium 8.2 L (8.7-10.3) mg/dL Microbiology - Last 24 Hours (Table) 08/16/22 10:15 Blood Culture - Preliminary Blood No Growth after 96 hours 08/16/22 10:30 Blood Culture - Preliminary Blood No Growth after 96 hours Assessment and Plan Assessment: 82-year-old male with urinary retention, currently on Flomax and Proscar. Evidence of a left renal mass on ultrasound, an MRI no evidence of a renal mass only was significant for left adrenal cyst which has minimally changed in size (1) Urinary retention Current Visit: Yes Status: Acute Code(s): R33.9 - RETENTION OF URINE, UNSPECIFIED SNOMED Code(s): 355333381 Plan: - Continue Proscar - Continue Flomax - Keep Lopez catheter in place until renal function improves, if kidney function improves at time of discharge recommend removing the Lopez prior to discharge and checking a postvoid residual -If patient is able to void and is not in retention at time of discharge can follow-up on as-needed basis with urology
--- NOTE | 2022-08-21 11:59 | P.PN ---
Subjective Progress Note Date: 08/21/22 This is a very pleasant 82-year-old male patient, presenting to the emergency department with generalized weakness and episodes of syncope. He states that he passed out at home for a brief period of time. No seizure activity. No focal neurological deficit. The patient noted a drop in urine output. In same thing was having dysuria. He was having diffuse body aches. No chest pain. He presented emergency department and he was found to be nature fibrillation with rapid ventricular response. Heart rate was in the 150 range. He was also tachypneic and hypotensive with a BP of 81/58. His WBC count was at 17.2 with a hemoglobin of 6.8 and a platelet count of 318. Sodium is at 134 with a bicarb level of 7 and a potassium level of 5.3. BUN is at 60 with a creatinine of 5.2 and the glucose is 257. He was toxic on his INR with a PT of 1730 and INR of more than 10 and a PEEP of 82. UA was abnormal consistent with UTI, multiple clumps of white cells. His initial lactic acid level was significantly elevated. Initially his lactic acid level came at 13.8 and subsequently dropped onto 7. He was resuscitated with IV fluids. He was given immediately 2 L of IV fluid and currently he is receiving a unit of packed RBC for hemoglobin of 6.8. Lopez catheter has not been inserted. Influenza is negative. Covid 19 is negative. RSV is negative. There was some nonspecific white matter changes and chronic ischemic changes. Pelvic x-ray is negative. Noted the patient was given a combination of cefepime and vancomycin. He was given 10 mg of vitamin K. He was given a total of 2.5 L of normal saline and now NS is currently running at 130 mL an hour. Urine output is not. The patient doesn't have a Lopez catheter. He has history of prostate enlargement. He is currently on room air oxygen. His cardiac rhythm has improved. He is less tachycardic although he remained nature fibrillation. He has a harsh cardiac murmur suggestive of aortic stenosis. On 08/17/2022, the patient is doing much better. He is awake and alert and communicating and answering questions appropriately. Overnight, the patient was resuscitated aggressively with IV fluids. The patient was given a total of 3.5 L and the patient was maintained on a bicarb infusion running at the rate of 1 25 mL an hour. Urine operas adequate in the order of 70 mL an hour. Urine output is extremely cloudy a Lopez catheter was inserted. Cultures are still pending for now. He remains on a combination of cefepime and vancomycin. Ultrasound the kidneys showed no evidence of hydronephrosis. Renal function continues to improve and the BUN is at 15 hours a creatinine of 3.7. His WBC count is down to 5.7. There was a drop in hemoglobin down to 6.7 suspecting a mild GI bleed as the patient was Coumadin toxic at the time of admission. He'll be given a unit of packed RBC. He was given vitamin K yesterday and INR is down to 1.6 with a PT of 15.9. His cardiac rhythm remained nature fibrillation. Echocardiogram is pending for now. He is less tachycardic compared to yesterday. Overnight, he became hypotensive and he was started on low-dose norepinephrine running at 0.04 mcg/kg/m. No chest pain. No shortness of breath. 08/18/2022, the patient is awake and alert. He was taken off pressors earlier t his morning at around 1:30 AM. Currently is on IV fluids in the form of normal saline at the rate of 75 mL an hour. BP is 88/60. Adequate urine output. Renal function continues to improve. Creatinine is down to 2.82. Urine cultures positive for gram-negative bacillus. Meanwhile, his echocardiogram showed normal LV function, moderate MR, moderate aortic regurgitation and his cardiac rhythm is stillin atrial fibrillation with a controlled rate. meanwhile, the patient is afebrile. The blood work from today shows a WBC count of 5 which is dropped significantly. Hemoglobin stable at 7.4 and the patient is to the units of packed RBC, platelet count is 108, slightly lower and the BUN is at 49 with a creatinine of 2.8 and sodium is at 136 with a potassium level of 3.5 times is 110. The patient's most recent INR from yesterday was down to 1.6 and the patient remains off anticoagulation. Vancomycin level today is at 17.2. As mentioned, is off pressors. No evidence of any GI bleeding. Lopez catheter in place. Thousand dyspnea is improving. 08/19/2022, the patient remains off pressors. He is on normal saline at 75 mL an hour. Urine culture came back positive for Klebsiella. The patient remains on IV cefepime and vancomycin was discontinued. He does have valvular regurgitation including mitral valve and aortic valve regurgitation. Of these preserved. Afebrile. Creatinine continues to improve and currently down to 2.07. Sodium is at 136 with a potassium level of 4.3. Bicarb is at 20. The RBC count is down to 5.5 with a hemoglobin of 7.8. Platelet counts are stable at 108. No other new complaints otherwise for now. He was seen by urology. Lopez catheter still in place. He was started on a combination of Flomax and Proscar. He is tolerating his diet. The patient is seen today 08/20/2022 in follow-up on the regular medical floor. He is currently resting comfortably in bed. Awake and alert in no acute distress. He is maintaining good O2 saturations in the 90s on room air. He's been afebrile. Hemodynamically stable. Urine culture positive for Klebsiella oxytoca. Blood cultures reveal no growth. He is status post 2 units of packed blood cells this admission. Current hemoglobin 8.1. White count 5.9. Platelets 117. INR 1.9. Sodium 135. Potassium 4.1. Bicarb 25. BUN 33. Creatinine 2.22. He remains on anticoagulation with warfarin. Antibiotics in the form of cefepime. Currently in a -1.2 L balance. Remains on Flomax and Proscar. The patient is seen today 08/21/2022 in follow-up on the regular medical floor. He is resting quite comfortably in bed. Awake and alert in no acute distress. Maintaining O2 saturations in the 90s on room air. Afebrile. Hemodynamically stable. MRI of the abdomen revealed no evidence of right adrenal gland mass. The right adrenal gland appears similar to 2019 CT. Left adrenal gland cyst is present which is minimally larger from 2019. Bilateral simple appearing renal cysts. Trace bilateral pleural effusions. Urine culture positive for Klebsiella oxytoca. Blood cultures revealed no growth. INR 1.78. Sodium 138. Potassium 3.9. BUN 26. Creatinine 2.1. Glucose 93. He remains on cefepime. Continued on Flomax and Proscar. Anti-coagulated with warfarin. Objective - Vital Signs Vital signs: Vital Signs Temp 97.8 F 08/21/22 07:55 Pulse 86 08/21/22 07:55 Resp 16 08/21/22 07:55 BP 114/74 08/21/22 07:55 Pulse Ox 98 08/21/22 07:55 FiO2 Intake & Output 08/20/22 08/21/22 08/21/22 18:59 06:59 18:59 Intake Total 200 Output Total 1100 1500 Balance -900 -1500 Intake: Intake, IV Titration 200 Amount Cefepime 1 gm In Sodium 50 Chloride 0.9% 50 ml @ 12. 5 mls/hr IVPB Q12HR [facility] Rx#:[id number] Sodium Chloride 0.9% 1, 150 000 ml @ 50 mls/hr IV . Q20H [facility] Rx#:[id number] Output: Urine 1100 1500 Other: Voiding Method Indwelling Catheter - Exam GENERAL EXAM: Alert, 82-year-old male patient, on room air, comfortable in no apparent distress. HEAD: Normocephalic. EYES: Normal reaction of pupils, equal size. NOSE: Clear with pink turbinates. THROAT: No erythema or exudates. NECK: No masses, no JVD. CHEST: No chest wall deformity. LUNGS: Equal air entry with no crackles, wheeze, rhonchi or dullness. CVS: S1 and S2 normal with audible harsh murmur, regular rhythm. ABDOMEN: No hepatosplenomegaly, normal bowel sounds, no guarding or rigidity. SPINE: No scoliosis or deformity SKIN: No rashes CENTRAL NERVOUS SYSTEM: No focal deficits, tone is normal in all 4 extremities. EXTREMITIES: There is no peripheral edema. No clubbing, no cyanosis. Peripheral pulses are intact. - Labs CBC & Chem 7: 08/20/22 05:40 08/21/22 06:08 Labs: Abnormal Lab Results - Last 24 Hours (Table) 08/20/22 08/21/22 08/21/22 Range/Units 17:15 06:08 06:08 PT 17.8 H 19.7 H (9.0-12.0) sec INR 1.8 H 1.78 H (<1.2) Anion Gap 8.30 L (10.00-18.00) mmol/L Creatinine 2.1 H (0.6-1.5) mg/dL Est GFR (CKD-EPI)AfAm 34.0 L (60.0-200.0) Est GFR (CKD-EPI)NonAf 29.4 L (60.0-200.0) Calcium 8.2 L (8.7-10.3) mg/dL Microbiology - Last 24 Hours (Table) 08/16/22 10:15 Blood Culture - Preliminary Blood No Growth after 96 hours 08/16/22 10:30 Blood Culture - Preliminary Blood No Growth after 96 hours Assessment and Plan Assessment: Acute UTI with secondary sepsis secondary to Klebsiella oxytoca. Currently on IV cefepime. Vancomycin has been discontinued. Acute hypotension, requiring fluid resuscitation, likely secondary underlying dehydration/sepsis, currently off norepinephrine Acute leukocytosis secondary to above, recovered Acute kidney injury and the creatinine continues to improve, producing adequate amount of urine output and Lopez catheter is in place. Started on Flomax and Proscar. Acute lactic acidosis secondary to above, recovered Acute Coumadin toxicity with an INR above 10, recovered and the Coumadin toxicity is reversed, current INR 1.78 Acute on chronic anemia with a hemoglobin of 6.7, received 2 units of packed RBCs, current hemoglobin 8.1 Chronic into fibrillation with RVR at the time of admission, improving, anticoa gulated with warfarin Valvular heart disease with a probably a combination of mitral regurgitation and aortic stenosis/regurgitation. The patient has a harsh cardiac murmur BPH Hyperlipidemia Hypertension Generalized weakness and syncope secondary to above-mentioned comorbidities. CAT scan of the brain is not showing any acute abnormalities. The patient has diffuse white matter disease changes. No focal neurological deficits, clinically improved Plan: The patient was seen and evaluated Awake, alert and oriented Labs and medications reviewed Stable and on room air Remains off pressors Remains on cefepime Home once cleared by urology We will continue to follow I have personally seen and examined the patient, performed the documentation and the assessment and plan as written. Number of minutes spent on the visit: 10.
--- NOTE | 2022-08-21 15:03 | P.PN ---
Subjective Progress Note Date: 08/21/22 Follow-up for acute kidney injury. Renal function stable. Urine output of 2.6 L. Objective - Vital Signs Vital signs: Vital Signs Temp 97.8 F 08/21/22 07:55 Pulse 86 08/21/22 07:55 Resp 16 08/21/22 07:55 BP 114/74 08/21/22 07:55 Pulse Ox 98 08/21/22 07:55 FiO2 Intake & Output 08/20/22 08/21/22 08/21/22 18:59 06:59 18:59 Intake Total 200 Output Total 1100 1500 600 Balance -900 -1500 -600 Intake: Intake, IV Titration 200 Amount Cefepime 1 gm In Sodium 50 Chloride 0.9% 50 ml @ 12. 5 mls/hr IVPB Q12HR [facility] Rx#:[id number] Sodium Chloride 0.9% 1, 150 000 ml @ 50 mls/hr IV . Q20H [facility] Rx#:[id number] Output: Urine 1100 1500 600 Other: Voiding Method Indwelling Catheter Indwelling Catheter - Exam No Acute distress S1-S2 heard Lungs clear No edema - Labs CBC & Chem 7: 08/20/22 05:40 08/21/22 06:08 Labs: Abnormal Lab Results - Last 24 Hours (Table) 08/20/22 08/21/22 08/21/22 Range/Units 17:15 06:08 06:08 PT 17.8 H 19.7 H (9.0-12.0) sec INR 1.8 H 1.78 H (<1.2) Anion Gap 8.30 L (10.00-18.00) mmol/L Creatinine 2.1 H (0.6-1.5) mg/dL Est GFR (CKD-EPI)AfAm 34.0 L (60.0-200.0) Est GFR (CKD-EPI)NonAf 29.4 L (60.0-200.0) Calcium 8.2 L (8.7-10.3) mg/dL Microbiology - Last 24 Hours (Table) 08/16/22 10:15 Blood Culture - Preliminary Blood No Growth after 120 hours 08/16/22 10:30 Blood Culture - Preliminary Blood No Growth after 120 hours Assessment and Plan Assessment: #1 acute kidney injury secondary to hemodynamic ATN. Peak creatinine of 5.29 MG per DL. -Baseline creatinine 1.0-1.1 MG per DL from 2019. #2 metabolic acidosis secondary to acute kidney injury improved. #3 anemia multifactorial. Status post PRBC #4 septic shock secondary to Klebsiella UTI currently resolved off vasopressors. Plan: #1 renal function stable. #2 encourage by mouth intake #3 avoid nephrotoxic agents and hypotensive episodes. #4 supportive care
--- NOTE | 2022-08-21 15:44 | P.PN ---
Subjective This is a pleasant 10 years old male with past medical history of Atrial Fibrillation on Coumadin Hypertension, benign prostatic hypertrophy, Syncope, mitral valve regergitation (waiting for heart cath and STAR with Dr. Seven Downey), Low Hgb- last blood transfusion 01/13/19- received 2 units. Patient follows up with Dr. Alonso, Patient presents because of dizziness and falling down. Currently he is awake alert and oriented, calm. States that he passed out momentarily once earlier today but he feels generally weak and he cannot stand up. Is complaining from dyspnea, he is coughing with little phlegm. He denies chest pain. Patient also was not eating well for the last 3 days. Patient with some urinary symptoms complaining from suprapubic abdominal pain with PE and has been going on for the last 2-3 days. He was not being well also during the same time. No vomiting . He did not have bowel movement for the last 3 days. His complaining of from left leg pain. No headache. Patient is nonsmoker, no alcohol, no illicit drug Patient is tachycardic, febrile, blood pressure is borderline but acceptable. Patient is saturating 98% on room air. Hemoglobin 6.8, WBCs elevated at 17.2. INR more than 10. Lactic acid elevated 13.8, 12.1, 7.9. Troponin negative Creatinine elevated 5.2, glucose 257. Liver enzymes not significantly elevated. Troponin is negative. CT of the brain: No acute process. Chest x-ray: No acute process. Left knee x-ray showing minor degenerative changes with no acute fracture Pelvic x-ray: No acute fracture Patient started on cefepime and IV vancomycin on admission as well as normal fluid and vitamin K 08/17/2022 Patient remains in the ICU, sitting up in bed, he feels generally better, no other new complaint. He is fully awake and oriented with minimal kidney and no chest pain. No abdominal pain. Lopez catheter in a Place. Blood pressure on the low side and he required a small dose of pressors with Josephine lin, currently blood pressure 91/58. WBCs back to normal 5.7, however her hemoglobin went down to 6.7 and he received 1 unit of blood yesterday and looks like he is getting another unit today. He is not on blood thinner. Coumadin was placed on held, his INR down to 1.6. He remains on IV vancomycin pharmacy to dose, cefepime, normal sinus 75 mL/h, culture results are still pending. Urine culture pending and ejection fraction is pending 08/18/2022 Patient is awake and alert, he does not have much symptoms while his aiden embedded, he thinks his breathing is better. No pain. Patient blood pressure still on the low side and still getting normal saline at 75 mL/h however he does not need any more pressors. His creatinine is improving and he has good urine output. Urine culture is growing gram-negative bacilli and he is getting IV vancomycin and cefepime Coumadin remains on hold. Ejection fraction is normal LV function with moderate MR and a R 08/19/2022 Patient remains in the ICU, clinically as well, his breathing quietly he denies any pain. Lopez catheter in place. His blood pressure is stable with no more pressors. Labs also look stable with hemoglobin 7.8, creatinine 2.0 and platelet count 107. Coumadin was restarted and INR 1.8. Also urine culture gram sensitive klebsiella and antibiotics continued with cefepime while discontinuing the vancomycin. Cholestatic for constipation. IV fluids were discontinued. 08/20/2022 Patient is also keep doing well, he is having no dyspnea or chest pain, no other complaint. Yesterday Lopez catheter has to be inserted for urinary retention after it was discontinued earlier. Ultrasound showing no hydronephrosis but there is evidence of hypoechoic 3 cm left kidney lesion, MRI of the left kidney is ordered by urologist without co ntrast, her arranging funeral director try to avoid contrast because of low GFR. Creatinine 2.2 on patient is started on normal saline at 50 mL/h. INR 1.9 and remains on Coumadin. 08/21/2022 patient is clinically improving His main complaint was constipation Lopez catheter still in a Place MRI of the abdomen showing no significant lesion of the left kidney or adrenal gland as per discussion with urologist will review the MRI Urine culture is growing Klebsiella which is sensitive, currently he is on cefepime. INR 1.7 His getting Coumadin 2 mg today. Creatinine improving 2.1 with baseline 1-1.14 urologist Objective - Vital Signs Vital signs: Vital Signs Temp 97.8 F 08/21/22 07:55 Pulse 86 08/21/22 07:55 Resp 16 08/21/22 07:55 BP 114/74 08/21/22 07:55 Pulse Ox 98 08/21/22 07:55 FiO2 Intake & Output 08/20/22 08/21/22 08/21/22 18:59 06:59 18:59 Intake Total 200 Output Total 1100 1500 Balance -900 -1500 Intake: Intake, IV Titration 200 Amount Cefepime 1 gm In Sodium 50 Chloride 0.9% 50 ml @ 12. 5 mls/hr IVPB Q12HR [facility] Rx#:[id number] Sodium Chloride 0.9% 1, 150 000 ml @ 50 mls/hr IV . Q20H [facility] Rx#:[id number] Output: Urine 1100 1500 Other: Voiding Method Indwelling Catheter - Exam -GENERAL: The patient is alert and oriented x3, looks tired but not in distress. not in any acute distress. Generally weak HEENT: Pupils are round and equally reacting to light. EOMI. No scleral icterus. No conjunctival pallor. Normocephalic, atraumatic. No pharyngeal erythema. No thyromegaly. CARDIOVASCULAR: S1 and S2 present. No murmurs, rubs, or gallops. -PULMONARY: Chest is clear to auscultation, no wheezing or crackles. Thickened neck ABDOMEN: Soft, nontender, nondistended, normoactive bowel sounds. No palpable organomegaly. MUSCULOSKELETAL: No joint swelling or deformity. EXTREMITIES: No cyanosis, clubbing, or pedal edema. NEUROLOGICAL: Gross neurological examination did not reveal any focal deficits. SKIN: No rashes. no petechiae. - Labs CBC & Chem 7: 08/20/22 05:40 08/21/22 06:08 Labs: Abnormal Lab Results - Last 24 Hours (Table) 08/20/22 08/21/22 08/21/22 Range/Units 17:15 06:08 06:08 PT 17.8 H 19.7 H (9.0-12.0) sec INR 1.8 H 1.78 H (<1.2) Anion Gap 8.30 L (10.00-18.00) mmol/L Creatinine 2.1 H (0.6-1.5) mg/dL Est GFR (CKD-EPI)AfAm 34.0 L (60.0-200.0) Est GFR (CKD-EPI)NonAf 29.4 L (60.0-200.0) Calcium 8.2 L (8.7-10.3) mg/dL Microbiology - Last 24 Hours (Table) 08/16/22 10:15 Blood Culture - Preliminary Blood No Growth after 96 hours 08/16/22 10:30 Blood Culture - Preliminary Blood No Growth after 96 hours Assessment and Plan Assessment: Acute on chronic anemia, status post previous blood transfusion Acute kidney injury Acute urinary tract infection rounded 3.0 cm hypoechoic to an echoic lesion upper pole medial left kidney. A. fib with RVR on Coumadin at home Dehydration Coagulopathy secondary to Coumadin Recurrent syncope, mostly secondary to above elevated lactic acid Hypertension History of benign prostatic hypertrophy History of mitral regurgitation Plan: pulmonary/critical care team consult. Patient can be transferred to general medical floor Continue with antibiotic, Currently on cefepime. Vancomycin discontinued Nephrology consult, monitor input and output and creatinine Resume Coumadin and monitor INR Discontinued IV fluids Labs and medication were reviewed.. Continue same treatment. Continue with symptomatic treatment. Resume home medication. Monitor labs and vitals. DVT and GI prophylaxis. Further recommendations as per clinical course of the patient DVT prophylaxis: On Coumadin GI Prophylaxis: Pepcid PT/OT: Home health care versus subacute treatment Prognosis is guarded
[2022-08-21] MEDS ORDERED: WARFARIN 2 MG TAB PO ONE (18:00)
[2022-08-21] MEDS: TAMSULOSIN 0.4 MG CAP.ER.24H PO SCH (20:33)
[2022-08-21] MEDS: CEFEPIME 2 GM in SODIUM CHLORIDE 0.9% 100 ML IVPB SCH (20:33)
[2022-08-22] MEDS: MIDODRINE 5 MG TAB PO SCH ×3 (05:55→17:46)
[2022-08-22] MEDS: PANTOPRAZOLE 40 MG/10 ML VIAL IV SCH (08:03)
[2022-08-22] MEDS: CEFEPIME 2 GM in SODIUM CHLORIDE 0.9% 100 ML IVPB SCH ×2 (08:03→21:42)
[2022-08-22] MEDS: METOPROLOL TARTRATE 12.5 MG TAB PO SCH ×2 (08:03→21:42)
[2022-08-22] MEDS: FINASTERIDE 5 MG TAB PO SCH (08:04)
[2022-08-22] MEDS: DOCUSATE 100 MG CAP PO SCH ×2 (08:04→21:42)
[2022-08-22] MEDS: ACETAMINOPHEN TAB 500 MG TAB PO PRN (09:37)
[2022-08-22 10:45] LABS: African American GFR (CKD) 33.1 (60.0-200.0); Anion Gap 8.6 mmol/L (10.00-18.00); BUN/Creat Ratio 11.51 Ratio (12.00-20.00); Blood Urea Nitrogen 24.4 mg/dL (9.0-27.0); Calcium 8.1 mg/dL (8.7-10.3); Carbon Dioxide 18.4 mmol/L (20.0-27.5); Non-African American GFR(CKD) 28.5 (60.0-200.0); Potassium 3.8 mmol/L (3.5-5.5)
--- NOTE | 2022-08-22 10:58 | P.PN ---
Subjective Progress Note Date: 08/22/22 This is a very pleasant 82-year-old male patient, presenting to the emergency department with generalized weakness and episodes of syncope. He states that he passed out at home for a brief period of time. No seizure activity. No focal neurological deficit. The patient noted a drop in urine output. In same thing was having dysuria. He was having diffuse body aches. No chest pain. He presented emergency department and he was found to be nature fibrillation with rapid ventricular response. Heart rate was in the 150 range. He was also tachypneic and hypotensive with a BP of 81/58. His WBC count was at 17.2 with a hemoglobin of 6.8 and a platelet count of 318. Sodium is at 134 with a bicarb level of 7 and a potassium level of 5.3. BUN is at 60 with a creatinine of 5.2 and the glucose is 257. He was toxic on his INR with a PT of 1730 and INR of more than 10 and a PEEP of 82. UA was abnormal consistent with UTI, multiple clumps of white cells. His initial lactic acid level was significantly elevated. Initially his lactic acid level came at 13.8 and subsequently dropped onto 7. He was resuscitated with IV fluids. He was given immediately 2 L of IV fluid and currently he is receiving a unit of packed RBC for hemoglobin of 6.8. Lopez catheter has not been inserted. Influenza is negative. Covid 19 is negative. RSV is negative. There was some nonspecific white matter changes and chronic ischemic changes. Pelvic x-ray is negative. Noted the patient was given a combination of cefepime and vancomycin. He was given 10 mg of vitamin K. He was given a total of 2.5 L of normal saline and now NS is currently running at 130 mL an hour. Urine output is not. The patient doesn't have a Lopez catheter. He has history of prostate enlargement. He is currently on room air oxygen. His cardiac rhythm has improved. He is less tachycardic although he remained nature fibrillation. He has a harsh cardiac murmur suggestive of aortic stenosis. On 08/17/2022, the patient is doing much better. He is awake and alert and communicating and answering questions appropriately. Overnight, the patient was resuscitated aggressively with IV fluids. The patient was given a total of 3.5 L and the patient was maintained on a bicarb infusion running at the rate of 1 25 mL an hour. Urine operas adequate in the order of 70 mL an hour. Urine output is extremely cloudy a Lopez catheter was inserted. Cultures are still pending for now. He remains on a combination of cefepime and vancomycin. Ultrasound the kidneys showed no evidence of hydronephrosis. Renal function continues to improve and the BUN is at 15 hours a creatinine of 3.7. His WBC count is down to 5.7. There was a drop in hemoglobin down to 6.7 suspecting a mild GI bleed as the patient was Coumadin toxic at the time of admission. He'll be given a unit of packed RBC. He was given vitamin K yesterday and INR is down to 1.6 with a PT of 15.9. His cardiac rhythm remained nature fibrillation. Echocardiogram is pending for now. He is less tachycardic compared to yesterday. Overnight, he became hypotensive and he was started on low-dose norepinephrine running at 0.04 mcg/kg/m. No chest pain. No shortness of breath. 08/18/2022, the patient is awake and alert. He was taken off pressors earlier t his morning at around 1:30 AM. Currently is on IV fluids in the form of normal saline at the rate of 75 mL an hour. BP is 88/60. Adequate urine output. Renal function continues to improve. Creatinine is down to 2.82. Urine cultures positive for gram-negative bacillus. Meanwhile, his echocardiogram showed normal LV function, moderate MR, moderate aortic regurgitation and his cardiac rhythm is stillin atrial fibrillation with a controlled rate. meanwhile, the patient is afebrile. The blood work from today shows a WBC count of 5 which is dropped significantly. Hemoglobin stable at 7.4 and the patient is to the units of packed RBC, platelet count is 108, slightly lower and the BUN is at 49 with a creatinine of 2.8 and sodium is at 136 with a potassium level of 3.5 times is 110. The patient's most recent INR from yesterday was down to 1.6 and the patient remains off anticoagulation. Vancomycin level today is at 17.2. As mentioned, is off pressors. No evidence of any GI bleeding. Lopez catheter in place. Thousand dyspnea is improving. 08/19/2022, the patient remains off pressors. He is on normal saline at 75 mL an hour. Urine culture came back positive for Klebsiella. The patient remains on IV cefepime and vancomycin was discontinued. He does have valvular regurgitation including mitral valve and aortic valve regurgitation. Of these preserved. Afebrile. Creatinine continues to improve and currently down to 2.07. Sodium is at 136 with a potassium level of 4.3. Bicarb is at 20. The RBC count is down to 5.5 with a hemoglobin of 7.8. Platelet counts are stable at 108. No other new complaints otherwise for now. He was seen by urology. Lopez catheter still in place. He was started on a combination of Flomax and Proscar. He is tolerating his diet. The patient is seen today 08/20/2022 in follow-up on the regular medical floor. He is currently resting comfortably in bed. Awake and alert in no acute distress. He is maintaining good O2 saturations in the 90s on room air. He's been afebrile. Hemodynamically stable. Urine culture positive for Klebsiella oxytoca. Blood cultures reveal no growth. He is status post 2 units of packed blood cells this admission. Current hemoglobin 8.1. White count 5.9. Platelets 117. INR 1.9. Sodium 135. Potassium 4.1. Bicarb 25. BUN 33. Creatinine 2.22. He remains on anticoagulation with warfarin. Antibiotics in the form of cefepime. Currently in a -1.2 L balance. Remains on Flomax and Proscar. The patient is seen today 08/21/2022 in follow-up on the regular medical floor. He is resting quite comfortably in bed. Awake and alert in no acute distress. Maintaining O2 saturations in the 90s on room air. Afebrile. Hemodynamically stable. MRI of the abdomen revealed no evidence of right adrenal gland mass. The right adrenal gland appears similar to 2019 CT. Left adrenal gland cyst is present which is minimally larger from 2019. Bilateral simple appearing renal cysts. Trace bilateral pleural effusions. Urine culture positive for Klebsiella oxytoca. Blood cultures revealed no growth. INR 1.78. Sodium 138. Potassium 3.9. BUN 26. Creatinine 2.1. Glucose 93. He remains on cefepime. Continued on Flomax and Proscar. Anti-coagulated with warfarin. The patient is seen today 08/22/2022 in follow-up on the regular medical floor. He is in bed. Awake and alert in no acute distres maintaining good O2 saturations in the high 90s on room air. Afebrile. Hemodynamically stable. He is status post 2 units of packed red blood cells this admission. Current hemoglobin 8.1 urine culture was positive for Klebsiella oxytoca. Blood cultures revealed no growth. Sodium 138. Potassium 3.8. Bicarb 18. BUN 24. Creatinine 2.1. GFR 28. Nephrology is following. He remains on cefepime. Anticoagulated with warfarin. Continued on Flomax and Proscar. Urine output adequate. -1400 ML's. Lopez remains in place Objective - Vital Signs Vital signs: Vital Signs Temp 97.7 F 08/22/22 07:00 Pulse 78 08/22/22 08:00 Resp 17 08/22/22 08:00 BP 110/70 08/22/22 07:00 Pulse Ox 98 08/22/22 07:00 FiO2 Intake & Output 08/21/22 08/22/22 08/22/22 18:59 06:59 18:59 Output Total 600 1400 Balance -600 -1400 Output: Urine 600 1400 Other: Voiding Method Indwelling Catheter Indwelling Catheter # Voids 1 - Exam GENERAL EXAM: Alert, pleasant 82-year-old male patient, on room air, comfortable in no apparent distress. HEAD: Normocephalic. EYES: Normal reaction of pupils, equal size. NOSE: Clear with pink turbinates. THROAT: No erythema or exudates. NECK: No masses, no JVD. CHEST: No chest wall deformity. LUNGS: Equal air entry with no crackles, wheeze, rhonchi or dullness. CVS: S1 and S2 normal with audible harsh murmur, regular rhythm. ABDOMEN: No hepatosplenomegaly, normal bowel sounds, no guarding or rigidity. SPINE: No scoliosis or deformity SKIN: No rashes CENTRAL NERVOUS SYSTEM: No focal deficits, tone is normal in all 4 extremities. EXTREMITIES: There is no peripheral edema. No clubbing, no cyanosis. Peripheral pulses are intact. - Labs CBC & Chem 7: 08/20/22 05:40 08/22/22 06:34 Labs: Abnormal Lab Results - Last 24 Hours (Table) 08/22/22 Range/Units 06:34 Chloride 111 H (96-109) mmol/L Carbon Dioxide 18.4 L (20.0-27.5) mmol/L Anion Gap 8.60 L (10.00-18.00) mmol/L Creatinine 2.1 H (0.6-1.5) mg/dL Est GFR (CKD-EPI)AfAm 33.1 L (60.0-200.0) Est GFR (CKD-EPI)NonAf 28.5 L (60.0-200.0) BUN/Creatinine Ratio 11.51 L (12.00-20.00) Ratio Calcium 8.1 L (8.7-10.3) mg/dL Microbiology - Last 24 Hours (Table) 08/16/22 10:15 Blood Culture - Preliminary Blood No Growth after 120 hours 08/16/22 10:30 Blood Culture - Preliminary Blood No Growth after 120 hours Assessment and Plan Assessment: Acute UTI with secondary sepsis secondary to Klebsiella oxytoca. Currently on IV cefepime. Vancomycin has been discontinued. Acute hypotension, requiring fluid resuscitation, likely secondary underlying dehydration/sepsis, currently off norepinephrine Acute leukocytosis secondary to above, recovered Acute kidney injury and the creatinine continues to improve, producing adequate amount of urine output and Lopez catheter is in place. Started on Flomax and Proscar. Acute lactic acidosis secondary to above, recovered Acute Coumadin toxicity with an INR above 10, recovered and the Coumadin toxicity is reversed, current INR 1.78 Acute on chronic anemia with a hemoglobin of 6.7, received 2 units of packed RBCs, current hemoglobin 8.1 Chronic into fibrillation with RVR at the time of admission, improving, anticoagulated with warfarin Valvular heart disease with a probably a combination of mitral regurgitation and aortic stenosis/regurgitation. The patient has a harsh cardiac murmur BPH Hyperlipidemia Hypertension Generalized weakness and syncope secondary to above-mentioned comorbidities. CAT scan of the brain is not showing any acute abnormalities. The patient has diffuse white matter disease changes. No focal neurological deficits, clinically improved Plan: The patient was seen and evaluated Awake, alert and oriented Labs and medications reviewed Stable and on room air Remains on cefepime Home once cleared by nephrology/urology I have personally seen and examined the patient, performed the documentation and the assessment and plan as written. Number of minutes spent on the visit: 10.
[2022-08-22 11:37] LABS: INR 1.89 (0.90-1.11); Prothrombin Time 20.8 sec (9.9-11.9)
--- NOTE | 2022-08-22 12:27 | P.CRDCN ---
History of Present Illness Consult date: 08/22/22 Requesting physician: Bernardo Ramirez Reason for Consult (text): afib and pauses Chief complaint: weakness, syncope History of present illness: This is a pleasant 82-year-old gentleman who is followed in the past with Dr. Paige. Was admitted on 08/16/2022 with complaints of weakness and syncope. On admission he was found to be septic with Klebsiella UTI. He has history of chronic atrial fibrillation and was in atrial fibrillation with rapid ventricular response on admission. He has a history of mitral regurgitation in the past, atrial fibrillation for which she's been anticoagulated on warfarin, anemia, hypertension. We were asked to see the patient in consultation secondary to A. saeed with pauses. Patient has been having atrial fibrillation with slow ventricular response at night with pauses mostly around 2 seconds with one +3.3 seconds last night and 4.3 seconds yesterday morning. Patient was sleeping and these were asymptomatic. Patient did have an echocardiogram this admission which showed a normal LV systolic function with severe aortic stenosis, moderate aortic insufficiency, and moderate mitral regurgitation. Last echo in 2019 showed only mild aortic stenosis. The patient remains anemic but improved since admission his INR on admission was greater than 10 and case management has been consulted to check the co-pay for Eliquis. He is currently on metoprolol tartrate 12.5 mg by mouth twice a day for rate control. Upon examination patient is tachycardic with a heart rate around 110-120. He just recently received his metoprolol. Blood pressure has been stable. Upon examination he is resting comfortably in bed. He is overall feeling quite a bit better since admission. His breathing has improved with only mild dyspnea on exertion. He's had no dizziness, lightheadedness, syncope or near syncope. He denies any complaints of chest discomfort. He's had no orthopnea or PND. Denies any lower extremity edema. He denies any melena, hematochezia, hematu alfred, or hematemesis. He did undergo small Subtle endoscopy in 2019 which did show some areas of scattered bleeding in the stomach and proximal small bowel that was not seen on EGD and could represent AVM versus nonhealing ulcerations in the area of previous biopsy and recommended Protonix twice a day and close monitoring of H&H as well as close follow-up with GI. He is currently on Protonix 40 mg IV daily but does not appear that he has been on Protonix at home. Past Medical History Past Medical History: Hypertension, Syncope Additional Past Medical History / Comment(s): tinnitus, HX fx right ankle (09/2018), skin cancer, hx of syncope episodes., mitral valve regergitation (waiting for heart cath and STAR with Dr. Seven Downey), Low Hgb- last blood transfusion 01/13/19- received 2 units. History of Any Multi-Drug Resistant Organisms: None Reported Past Surgical History: No Surgical Hx Reported Additional Past Surgical History / Comment(s): EGD, COLONOSCOPY Past Anesthesia/Blood Transfusion Reactions: No Reported Reaction Additional Past Anesthesia/Blood Transfusion Reaction / Comment(s): pt. has n ever had surgery Past Psychological History: No Psychological Hx Reported Smoking Status: Never smoker Past Alcohol Use History: None Reported, Rare Past Drug Use History: None Reported - Past Family History Brother(s) Family Medical History: AICD/Pacemaker Medications and Allergies Home Medications Medication Instructions Recorded Confirmed Type Fenofibrate [Lofibra] 160 mg PO DAILY 08/16/22 08/16/22 History Finasteride [Proscar] 5 mg PO DAILY 08/16/22 08/16/22 History Metoprolol Tartrate [Lopressor] 12.5 mg PO BID 08/16/22 08/16/22 History Midodrine HCl [ProAmantine] 2.5 mg PO BID 08/16/22 08/16/22 History Tamsulosin HCl [Flomax] 0.4 mg PO HS 08/16/22 08/16/22 History Apixaban [Eliquis] 5 mg PO BID #60 tab 08/20/22 Rx Allergies Allergy/AdvReac Type Severity Reaction Status Date / Time No Known Allergies Allergy Verified 08/16/22 09:08 Physical Exam Vitals: Vital Signs Temp Pulse Resp BP Pulse Ox 08/22/22 08:00 78 17 08/22/22 07:00 97.7 F 78 17 110/70 98 08/22/22 01:27 98.1 F 85 16 113/68 99 08/21/22 19:55 97.5 F L 88 14 119/72 98 08/21/22 14:00 97.5 F L 78 18 107/65 98 Intake and Output 08/21/22 08/22/22 08/22/22 22:59 06:59 14:59 Output Total 1400 Balance -1400 Output: Urine 1400 Other: Voiding Method Indwelling Catheter # Voids 1 PHYSICAL EXAMINATION: This is a 82-year-old male in no apparent distress at the time of my examination. HEENT: Head is atraumatic, normocephalic. Pupils are equal, round. Sclerae anicteric. Conjunctivae are clear. Mucous membranes of the mouth are moist. Neck is supple. There is no elevated jugular venous pressure. No carotid bruit is heard. CHEST EXAMINATION: Clear to auscultation bilaterally. No wheezes rales or rhonchi. Respirations even and nonlabored. HEART EXAMINATION: Heart irregular rate and rhythm, with a harsh systolic murmur consistent with severe aortic stenosis and holosystolic murmur at the apex. ABDOMEN: Soft, nontender. Bowel sounds are heard. No organomegaly noted. EXTREMITIES: 2+ peripheral pulses with no evidence of peripheral edema and no calf tenderness noted. NEUROLOGIC EXAMINATION: Patient is awake, alert and oriented x3. He is a poor historian and admits to decreased comprehension regarding medical issues and recommendations. Results 08/20/22 05:40 08/21/22 06:08 Current Medications Generic Name Dose Route Start Last Admin Trade Name Freq PRN Reason Stop Dose Admin Acetaminophen 500 mg 08/22/22 09:09 08/22/22 09:37 Acetaminophen Tab 500 Mg Tab PO 500 mg Q6HR PRN Administration Headache Benzocaine/Menthol 1 each 08/19/22 08:50 Benzocaine/Menthol Lozeng 1 Each Lozenge MUCOUS MEM Q4HR PRN Cough Darbepoetin Rocco 40 mcg 08/20/22 13:00 08/20/22 13:43 Darbepoetin Rocco 40 Mcg/0.4 Ml Syringe SQ 40 mcg Q7D ROSALES Administration Docusate Sodium 100 mg 08/19/22 09:00 08/22/22 08:04 Docusate 100 Mg Cap PO 100 mg BID ROSALES Administration Finasteride 5 mg 08/17/22 09:00 08/22/22 08:04 Finasteride 5 Mg Tab PO 5 mg DAILY ROSALES Administration Guaifenesin/Dextromethorphan 1 each 08/19/22 08:51 08/21/22 05:34 Guaifenesin-Dm 600/30mg 1 Each Tab.Er.12h PO 1 each HS PRN Administration Cough Sodium Chloride 1,000 mls @ 50 mls/hr 08/20/22 12:15 08/21/22 20:33 Saline 0.9% IV 50 mls/hr .Q20H ROSALES Administration Cefepime HCl 2 gm/ Sodium 100 mls @ 25 mls/hr 08/21/22 21:00 08/22/22 08:03 Chloride IVPB 25 mls/hr Q12HR ROSALES Administration Metoprolol Tartrate 12.5 mg 08/16/22 21:00 08/22/22 08:03 Metoprolol Tartrate 12.5 Mg Tab PO 12.5 mg BID ROSALES Administration Midodrine 5 mg 08/18/22 17:30 08/22/22 05:55 Midodrine 5 Mg Tab PO 5 mg AC-TID ROSALES Administration Miscellaneous Information 0 each 08/19/22 08:55 Warfarin Per Pharmacy MISCELLANE DIRECTED PRN PER PROTOCOL Naloxone HCl 0.2 mg 08/16/22 11:30 Naloxone 0.4 Mg/Ml 1 Ml Vial IV Q2M PRN Opioid Reversal Pantoprazole Sodium 40 mg 08/17/22 09:00 08/22/22 08:03 Pantoprazole 40 Mg/10 Ml Vial IV 40 mg DAILY ROSALES Administration Tamsulosin HCl 0.4 mg 08/16/22 21:00 08/21/22 20:33 Tamsulosin 0.4 Mg Cap.Er.24h PO 0.4 mg HS ROSALES Administration Intake and Output 08/21/22 08/22/22 08/22/22 22:59 06:59 14:59 Output Total 1400 Balance -1400 Output: Urine 1400 Other: Voiding Method Indwelling Catheter # Voids 1 08/20/22 05:40 08/21/22 06:08 EKG Interpretations (text) Atrial fibrillation with rapid ventricular response and PVCs Assessment and Plan Assessment: #1 UTI with sepsis #2 acute on chronic anemia, improved, has been recommended twice a day PPI in the past but was not on this at home #3 acute kidney injury #4 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 Due to the infection and underlying anemia we will defer further intervention and workup at this time to be done as an outpatient. Patient will require further evaluation of the tachybradycardia syndrome as an outpatient with an event monitor and will also require further workup for aortic stenosis. Patient will obviously need to stabilize in regards to the infection and anemia. We will continue to follow the patient during this admission and provide further recommendations accordingly. GENER[employer] ENGINEERING TECHNOLOGIST note has been reviewed, I agree with a documented findings and plan of care. Patient was seen and examined.
--- NOTE | 2022-08-22 12:40 | P.PN ---
Subjective This is a pleasant 10 years old male with past medical history of Atrial Fibrillation on Coumadin Hypertension, benign prostatic hypertrophy, Syncope, mitral valve regergitation (waiting for heart cath and STAR with Dr. Seven Downey), Low Hgb- last blood transfusion 01/13/19- received 2 units. Patient follows up with Dr. Alonso, Patient presents because of dizziness and falling down. Currently he is awake alert and oriented, calm. States that he passed out momentarily once earlier today but he feels generally weak and he cannot stand up. Is complaining from dyspnea, he is coughing with little phlegm. He denies chest pain. Patient also was not eating well for the last 3 days. Patient with some urinary symptoms complaining from suprapubic abdominal pain with PE and has been going on for the last 2-3 days. He was not being well also during the same time. No vomiting . He did not have bowel movement for the last 3 days. His complaining of from left leg pain. No headache. Patient is nonsmoker, no alcohol, no illicit drug Patient is tachycardic, febrile, blood pressure is borderline but acceptable. Patient is saturating 98% on room air. Hemoglobin 6.8, WBCs elevated at 17.2. INR more than 10. Lactic acid elevated 13.8, 12.1, 7.9. Troponin negative Creatinine elevated 5.2, glucose 257. Liver enzymes not significantly elevated. Troponin is negative. CT of the brain: No acute process. Chest x-ray: No acute process. Left knee x-ray showing minor degenerative changes with no acute fracture Pelvic x-ray: No acute fracture Patient started on cefepime and IV vancomycin on admission as well as normal fluid and vitamin K 08/17/2022 Patient remains in the ICU, sitting up in bed, he feels generally better, no other new complaint. He is fully awake and oriented with minimal kidney and no chest pain. No abdominal pain. Lopez catheter in a Place. Blood pressure on the low side and he required a small dose of pressors with Josephine lin, currently blood pressure 91/58. WBCs back to normal 5.7, however her hemoglobin went down to 6.7 and he received 1 unit of blood yesterday and looks like he is getting another unit today. He is not on blood thinner. Coumadin was placed on held, his INR down to 1.6. He remains on IV vancomycin pharmacy to dose, cefepime, normal sinus 75 mL/h, culture results are still pending. Urine culture pending and ejection fraction is pending 08/18/2022 Patient is awake and alert, he does not have much symptoms while his aiden embedded, he thinks his breathing is better. No pain. Patient blood pressure still on the low side and still getting normal saline at 75 mL/h however he does not need any more pressors. His creatinine is improving and he has good urine output. Urine culture is growing gram-negative bacilli and he is getting IV vancomycin and cefepime Coumadin remains on hold. Ejection fraction is normal LV function with moderate MR and a R 08/19/2022 Patient remains in the ICU, clinically as well, his breathing quietly he denies any pain. Lopez catheter in place. His blood pressure is stable with no more pressors. Labs also look stable with hemoglobin 7.8, creatinine 2.0 and platelet count 107. Coumadin was restarted and INR 1.8. Also urine culture gram sensitive klebsiella and antibiotics continued with cefepime while discontinuing the vancomycin. Cholestatic for constipation. IV fluids were discontinued. 08/20/2022 Patient is also keep doing well, he is having no dyspnea or chest pain, no other complaint. Yesterday Lopez catheter has to be inserted for urinary retention after it was discontinued earlier. Ultrasound showing no hydronephrosis but there is evidence of hypoechoic 3 cm left kidney lesion, MRI of the left kidney is ordered by urologist without co ntrast, her bartender try to avoid contrast because of low GFR. Creatinine 2.2 on patient is started on normal saline at 50 mL/h. INR 1.9 and remains on Coumadin. 08/21/2022 patient is clinically improving His main complaint was constipation Lopez catheter still in a Place MRI of the abdomen showing no significant lesion of the left kidney or adrenal gland as per discussion with urologist will review the MRI Urine culture is growing Klebsiella which is sensitive, currently he is on cefepime. INR 1.7 His getting Coumadin 2 mg today. Creatinine improving 2.1 with baseline 1-1.14 urologist 08/22/2022 Patient does not have much symptoms of his urinary tract, urology already evaluated the patient and MRI reviewed with them, no suspicious lesion of the left kidney or adrenal gland to suggest malignancy. as per recommendation with going to discontinue Lopez catheter today and check a bladder scan and patient is agreeable. Other than that creatinine is stable at 2.1. INR 1.8 and we are going to give 3 mg of Coumadin tonight Other vitals are stable. Cardiology input is appreciated and the recommended workup as an outpatient with possible event monitor and further testing This patient is slightly better, patient declines further medication Objective - Vital Signs Vital signs: Vital Signs Temp 97.7 F 08/22/22 07:00 Pulse 78 08/22/22 08:00 Resp 17 08/22/22 08:00 BP 110/70 08/22/22 07:00 Pulse Ox 98 08/22/22 07:00 FiO2 Intake & Output 08/21/22 08/22/22 08/22/22 18:59 06:59 18:59 Output Total 600 1400 Balance -600 -1400 Output: Urine 600 1400 Other: Voiding Method Indwelling Catheter Indwelling Catheter # Voids 1 - Exam -GENERAL: The patient is alert and oriented x3, looks tired but not in distress. not in any acute distress. Generally weak HEENT: Pupils are round and equally reacting to light. EOMI. No scleral icterus. No conjunctival pallor. Normocephalic, atraumatic. No pharyngeal erythema. No thyromegaly. CARDIOVASCULAR: S1 and S2 present. No murmurs, rubs, or gallops. -PULMONARY: Chest is clear to auscultation, no wheezing or crackles. Thickened neck ABDOMEN: Soft, nontender, nondistended, normoactive bowel sounds. No palpable organomegaly. MUSCULOSKELETAL: No joint swelling or deformity. EXTREMITIES: No cyanosis, clubbing, or pedal edema. NEUROLOGICAL: Gross neurological examination did not reveal any focal deficits. SKIN: No rashes. no petechiae. - Labs CBC & Chem 7: 08/20/22 05:40 08/22/22 06:34 Labs: Abnormal Lab Results - Last 24 Hours (Table) 08/22/22 08/22/22 Range/Units 06:34 06:34 PT 20.8 H (9.9-11.9) sec INR 1.89 H (0.90-1.11) Chloride 111 H (96-109) mmol/L Carbon Dioxide 18.4 L (20.0-27.5) mmol/L Anion Gap 8.60 L (10.00-18.00) mmol/L Creatinine 2.1 H (0.6-1.5) mg/dL Est GFR (CKD-EPI)AfAm 33.1 L (60.0-200.0) Est GFR (CKD-EPI)NonAf 28.5 L (60.0-200.0) BUN/Creatinine Ratio 11.51 L (12.00-20.00) Ratio Calcium 8.1 L (8.7-10.3) mg/dL Microbiology - Last 24 Hours (Table) 08/16/22 10:15 Blood Culture - Preliminary Blood No Growth after 120 hours 08/16/22 10:30 Blood Culture - Preliminary Blood No Growth after 120 hours Assessment and Plan Assessment: Acute on chronic anemia, status post previous blood transfusion Acute kidney injury Acute urinary tract infection rounded 3.0 cm hypoechoic to an echoic lesion upper pole medial left kidney. A. fib with RVR on Coumadin at home Dehydration Coagulopathy secondary to Coumadin Recurrent syncope, mostly secondary to above elevated lactic acid Hypertension History of benign prostatic hypertrophy History of mitral regurgitation Plan: pulmonary/critical care team consult. Patient can be transferred to general medical floor Continue with antibiotic, Currently on cefepime. Vancomycin discontinued Nephrology consult, monitor input and output and creatinine Resume Coumadin and monitor INR Discontinue Lopez catheter Labs and medication were reviewed.. Continue same treatment. Continue with symptomatic treatment. Resume home medication. Monitor labs and vitals. DVT and GI prophylaxis. Further recommendations as per clinical course of the patient DVT prophylaxis: On Coumadin GI Prophylaxis: Pepcid PT/OT: Home health care versus subacute treatment Prognosis is guarded
--- NOTE | 2022-08-22 13:23 | P.PN ---
Subjective Progress Note Date: 08/22/22 Follow-up for acute kidney injury. Renal function stable. Urine output of 2.0 L. Objective - Vital Signs Vital signs: Vital Signs Temp 97.7 F 08/22/22 07:00 Pulse 78 08/22/22 08:00 Resp 17 08/22/22 08:00 BP 116/67 08/22/22 10:00 Pulse Ox 98 08/22/22 07:00 FiO2 Intake & Output 08/21/22 08/22/22 08/22/22 18:59 06:59 18:59 Output Total 600 1400 Balance -600 -1400 Output: Urine 600 1400 Other: Voiding Method Indwelling Catheter Indwelling Catheter # Voids 1 - Exam No Acute distress S1-S2 heard Lungs clear No edema - Labs CBC & Chem 7: 08/20/22 05:40 08/22/22 06:34 Labs: Abnormal Lab Results - Last 24 Hours (Table) 08/22/22 08/22/22 Range/Units 06:34 06:34 PT 20.8 H (9.9-11.9) sec INR 1.89 H (0.90-1.11) Chloride 111 H (96-109) mmol/L Carbon Dioxide 18.4 L (20.0-27.5) mmol/L Anion Gap 8.60 L (10.00-18.00) mmol/L Creatinine 2.1 H (0.6-1.5) mg/dL Est GFR (CKD-EPI)AfAm 33.1 L (60.0-200.0) Est GFR (CKD-EPI)NonAf 28.5 L (60.0-200.0) BUN/Creatinine Ratio 11.51 L (12.00-20.00) Ratio Calcium 8.1 L (8.7-10.3) mg/dL Microbiology - Last 24 Hours (Table) 08/16/22 10:15 Blood Culture - Final Blood No Growth after 144 hours 08/16/22 10:30 Blood Culture - Final Blood No Growth after 144 hours Assessment and Plan Assessment: #1 acute kidney injury secondary to hemodynamic ATN. Peak creatinine of 5.29 MG per DL. -Baseline creatinine 1.0-1.1 MG per DL from 2019. #2 metabolic acidosis secondary to acute kidney injury improved. #3 anemia multifactorial. Status post PRBC #4 septic shock secondary to Klebsiella UTI currently resolved off vasopressors. Plan: #1 renal function stable. #2 encourage by mouth intake #3 avoid nephrotoxic agents and hypotensive episodes. #4 supportive care
[2022-08-22] MEDS ORDERED: WARFARIN 2 MG TAB PO ONE (18:00)
[2022-08-22] MEDS ORDERED: WARFARIN 3 MG TAB PO ONE (18:00)
[2022-08-22] MEDS: TAMSULOSIN 0.4 MG CAP.ER.24H PO SCH (21:42)
[2022-08-23] MEDS: SODIUM CHLORIDE 0.9% 1,000 ML IV SCH (04:38)
[2022-08-23] MEDS: MIDODRINE 5 MG TAB PO SCH ×2 (06:37→15:15)
[2022-08-23 08:17] VITALS: BP 116/67; PULSE 87; RESP 14; TEMP 98
[2022-08-23] MEDS: PANTOPRAZOLE 40 MG/10 ML VIAL IV SCH (09:36)
[2022-08-23 09:55] LABS: Anisocytosis Slight; Basophils % (A) 0 %; Eosinophils # (A) 0.2 k/uL (0-0.7); Eosinophils % (A) 4 %; HCT 26.2 % (39.0-53.0); HGB 8.5 gm/dL (13.0-17.5); Lymphocytes # (A) 0.5 k/uL (1.0-4.8); Lymphocytes % (A) 10 %; MCH 30.3 pg (25.0-35.0); MCHC 32.3 g/dL (31.0-37.0); MCV 93.9 fL (80.0-100.0); Macrocytosis Slight; Mean Platelet Volume 9.5; Monocytes # (A) 0.3 k/uL (0-1.0); Monocytes % (A) 5 %; Neutrophils # (A) 4.1 k/uL (1.3-7.7); Neutrophils % (A) 79 %; Platelet Count 117 k/uL (150-450); RDW 19.1 % (11.5-15.5); WBC 5.1 k/uL (3.8-10.6)
[2022-08-23] MEDS: METOPROLOL TARTRATE 12.5 MG TAB PO SCH (09:58)
[2022-08-23] MEDS: FINASTERIDE 5 MG TAB PO SCH (09:58)
[2022-08-23] MEDS: DOCUSATE 100 MG CAP PO SCH (09:58)
[2022-08-23] MEDS: CEFEPIME 2 GM in SODIUM CHLORIDE 0.9% 100 ML IVPB SCH (09:58)
[2022-08-23 10:01] LABS: African American GFR (CKD) 37 (>60 ml/min/1.73 sqM); Anion Gap 3 mmol/L; Blood Urea Nitrogen 26 mg/dL (9-20); Calcium 7.6 mg/dL (8.4-10.2); Carbon Dioxide 19 mmol/L (22-30); Chloride 115 mmol/L (98-107); Glucose 89 mg/dL (74-99); Non-African American GFR(CKD) 32 (>60 ml/min/1.73 sqM); Potassium 3.7 mmol/L (3.5-5.1); Sodium 137 mmol/L (137-145)
[2022-08-23] MEDS: ACETAMINOPHEN TAB 500 MG TAB PO PRN (10:09)
--- NOTE | 2022-08-23 10:21 | P.PN ---
Subjective Progress Note Date: 08/23/22 HISTORY OF PRESENT ILLNESS: This is a pleasant 82-year-old gentleman who is followed in the past with Dr. Paige. Was admitted on 08/16/2022 with complaints of weakness and syncope. On admission he was found to be septic with Klebsiella UTI. He has history of chronic atrial fibrillation and was in atrial fibrillation with rapid ventricular response on admission. He has a history of mitral regurgitation in the past, atrial fibrillation for which she's been anticoagulated on warfarin, anemia, hypertension. We were asked to see the patient in consultation secondary to Kaitlin tipton with pauses. Patient has been having atrial fibrillation with slow ventricular response at night with pauses mostly around 2 seconds with one +3.3 seconds last night and 4.3 seconds yesterday morning. Patient was sleeping and these were asymptomatic. Patient did have an echocardiogram this admission which showed a normal LV systolic function with severe aortic stenosis, moderate aortic insufficiency, and moderate mitral regurgitation. Last echo in 2019 showed only mild aortic stenosis. The patient remains anemic but improved since admission his INR on admission was greater than 10 and case management has been consulted to check the co-pay for Eliquis. He is currently on metoprolol tartrate 12.5 mg by mouth twice a day for rate control. Upon examination patient is tachycardic with a heart rate around 110-120. He just recently received his metoprolol. Blood pressure has been stable. Upon examination he is resting comfortably in bed. He is overall feeling quite a bit better since admission. His breathing has improved with only mild dyspnea on exertion. He's had no dizziness, lightheadedness, syncope or near syncope. He denies any complaints of chest discomfort. He's had no orthopnea or PND. Denies any lower extremity edema. He denies any melena, hematochezia, hemat uria, or hematemesis. He did undergo small Subtle endoscopy in 2019 which did show some areas of scattered bleeding in the stomach and proximal small bowel that was not seen on EGD and could represent AVM versus nonhealing ulcerations in the area of previous biopsy and recommended Protonix twice a day and close monitoring of H&H as well as close follow-up with GI. He is currently on Protonix 40 mg IV daily but does not appear that he has been on Protonix at home. 08/23/2022 Patient examined this morning at the bedside. Patient denies chest pain or pressure. He denies shortness of breath. He denies dizziness or lightheadedness. He denies palpitations. Telemetry reveals atrial fibrillation with controlled ventricular rates. Patient does have 2-3 second pauses ove rnight. Awaiting INR from this morning. PHYSICAL EXAM: VITAL SIGNS: Reviewed. GENERAL: Well-developed in no acute distress. NECK: Supple. No JVD or thyromegaly LUNGS: Respirations even and unlabored. Lungs essentially clear to auscultation bilaterally. HEART: Regular rate and rhythm. S1 and S2 heard. Systolic murmur noted. EXTREMITIES: Normal range of motion. No clubbing or cyanosis. Peripheral pulses intact. No lower extremity edema ASSESSMENT: UTI with sepsis Acute kidney injury Persistent atrial fibrillation with evidence of tachycardia bradycardia syndrome, asymptomatic Supratherapeutic INR, on Coumadin outpatient Severe aortic stenosis PLAN: Continue current cardiac medications Patient to be switch to Eliquis today instead of Coumadin. His monthly copay is $10.35 Patient will require event monitor at his follow up appointment Outpatient workup for aortic stenosis Patient to follow up outpatient with Dr. Paige Nurse practitioner note has been reviewed by physician. Signing provider agrees with the documented findings, assessment, and plan of care. Objective - Vital Signs Vital signs: Vital Signs Temp 98.0 F 08/23/22 08:00 Pulse 87 08/23/22 08:00 Resp 14 08/23/22 08:00 BP 116/67 08/23/22 08:00 Pulse Ox 100 08/23/22 08:00 FiO2 Intake & Output 08/22/22 08/23/22 08/23/22 18:59 06:59 18:59 Output Total 950 Balance -950 Output: Urine 950 Other: Voiding Method Indwelling Catheter Indwelling Catheter # Bowel Movements 1 1 - Labs CBC & Chem 7: 08/20/22 05:40 08/22/22 06:34 Labs: Abnormal Lab Results - Last 24 Hours (Table) 08/22/22 08/22/22 Range/Units 06:34 06:34 PT 20.8 H (9.9-11.9) sec INR 1.89 H (0.90-1.11) Chloride 111 H (96-109) mmol/L Carbon Dioxide 18.4 L (20.0-27.5) mmol/L Anion Gap 8.60 L (10.00-18.00) mmol/L Creatinine 2.1 H (0.6-1.5) mg/dL Est GFR (CKD-EPI)AfAm 33.1 L (60.0-200.0) Est GFR (CKD-EPI)NonAf 28.5 L (60.0-200.0) BUN/Creatinine Ratio 11.51 L (12.00-20.00) Ratio Calcium 8.1 L (8.7-10.3) mg/dL Microbiology - Last 24 Hours (Table) 08/16/22 10:15 Blood Culture - Final Blood No Growth after 144 hours 08/16/22 10:30 Blood Culture - Final Blood No Growth after 144 hours
--- NOTE | 2022-08-23 11:25 | P.PN ---
Progress Note - Text Progress Note Date: 08/23/22 The patient failed his voiding trial and a Lopez catheter had to be reinserted. When medically cleared, the patient will be discharged home with a Lopez catheter. Patient will then need to follow up in our office with Dr. Whaley in 1 week for Lopez catheter removal and voiding trial. Impression and plan of care have been directed as dictated by the signing physician. Jazmine Collins nurse practitioner acting as scribe for signing physician. Jazmine Collins [facility] [id number] Email: [email or web address] I have personally seen and examined the patient, reviewed the documentation and agree with the assessment and plan as written. Danny Hernandez MD
--- NOTE | 2022-08-23 11:48 | P.PN ---
Subjective Progress Note Date: 08/23/22 Principal diagnosis: UTI, urosepsis, Coumadin toxicity This is a very pleasant 82-year-old male patient, presenting to the emergency department with generalized weakness and episodes of syncope. He states that he passed out at home for a brief period of time. No seizure activity. No focal neurological deficit. The patient noted a drop in urine output. In same thing was having dysuria. He was having diffuse body aches. No chest pain. He presented emergency department and he was found to be nature fibrillation with rapid ventricular response. Heart rate was in the 150 range. He was also tachypneic and hypotensive with a BP of 81/58. His WBC count was at 17.2 with a hemoglobin of 6.8 and a platelet count of 318. Sodium is at 134 with a bicarb level of 7 and a potassium level of 5.3. BUN is at 60 with a creatinine of 5.2 and the glucose is 257. He was toxic on his INR with a PT of 1730 and INR of more than 10 and a PEEP of 82. UA was abnormal consistent with UTI, multiple clumps of white cells. His initial lactic acid level was significantly elevated. Initially his lactic acid level came at 13.8 and subsequently dropped onto 7. He was resuscitated with IV fluids. He was given immediately 2 L of IV fluid and currently he is receiving a unit of packed RBC for hemoglobin of 6.8. Lopez catheter has not been inserted. Influenza is negative. Covid 19 is negative. RSV is negative. There was some nonspecific white matter changes and chronic ischemic changes. Pelvic x-ray is negative. Noted the patient was given a combination of cefepime and vancomycin. He was given 10 mg of vitamin K. He was given a total of 2.5 L of normal saline and now NS is currently running at 130 mL an hour. Urine output is not. The patient doesn't have a Fol ey catheter. He has history of prostate enlargement. He is currently on room air oxygen. His cardiac rhythm has improved. He is less tachycardic although he remained nature fibrillation. He has a harsh cardiac murmur suggestive of aortic stenosis. On 08/17/2022, the patient is doing much better. He is awake and alert and communicating and answering questions appropriately. Overnight, the patient was resuscitated aggressively with IV fluids. The patient was given a total of 3.5 L and the patient was maintained on a bicarb infusion running at the rate of 1 25 mL an hour. Urine operas adequate in the order of 70 mL an hour. Urine output is extremely cloudy a Lopez catheter was inserted. Cultures are still pending for now. He remains on a combination of cefepime and vancomycin. U ltrasound the kidneys showed no evidence of hydronephrosis. Renal function continues to improve and the BUN is at 15 hours a creatinine of 3.7. His WBC count is down to 5.7. There was a drop in hemoglobin down to 6.7 suspecting a mild GI bleed as the patient was Coumadin toxic at the time of admission. He'll be given a unit of packed RBC. He was given vitamin K yesterday and INR is down to 1.6 with a PT of 15.9. His cardiac rhythm remained nature fibrillation. Echocardiogram is pending for now. He is less tachycardic compared to yesterday. Overnight, he became hypotensive and he was started on low-dose norepinephrine running at 0.04 mcg/kg/m. No chest pain. No shortness of breath. 08/18/2022, the patient is awake and alert. He was taken off pressors earlier this morning at around 1:30 AM. Currently is on IV fluids in the form of normal saline at the rate of 75 mL an hour. BP is 88/60. Adequate urine output. Renal function continues to improve. Creatinine is down to 2.82. Urine cultures positive for gram-negative bacillus. Meanwhile, his echocardiogram showed normal LV function, moderate MR, moderate aortic regurgitation and his cardiac rhythm is stillin atrial fibrillation with a controlled rate. meanwhile, the patient is afebrile. The blood work from today shows a WBC count of 5 which is dropped significantly. Hemoglobin stable at 7.4 and the patient is to the units of packed RBC, platelet count is 108, slightly lower and the BUN is at 49 with a creatinine of 2.8 and sodium is at 136 with a potassium level of 3.5 times is 110. The patient's most recent INR from yesterday was down to 1.6 and the patient remains off anticoagulation. Vancomycin level today is at 17.2. As mentioned, is off pressors. No evidence of any GI bleeding. Lopez catheter in place. Thousand dyspnea is improving. 08/19/2022, the patient remains off pressors. He is on normal saline at 75 mL an hour. Urine culture came back positive for Klebsiella. The patient remains on IV cefepime and vancomycin was discontinued. He does have valvular regurgitation including mitral valve and aortic valve regurgitation. Of these preserved. Afebrile. Creatinine continues to improve and currently down to 2.07. Sodium is at 136 with a potassium level of 4.3. Bicarb is at 20. The RBC count is down to 5.5 with a hemoglobin of 7.8. Platelet counts are stable at 108. No other new complaints otherwise for now. He was seen by urology. Lopez catheter still in place. He was started on a combination of Flomax and Proscar. He is tolerating his diet. The patient is seen today 08/20/2022 in follow-up on the regular medical floor. He is currently resting comfortably in bed. Awake and alert in no acute distress. He is maintaining good O2 saturations in the 90s on room air. He's been afebrile. Hemodynamically stable. Urine culture positive for Klebsiella oxytoca. Blood cultures reveal no growth. He is status post 2 units of packed blood cells this admission. Current hemoglobin 8.1. White count 5.9. Platelets 117. INR 1.9. Sodium 135. Potassium 4.1. Bicarb 25. BUN 33. Creatinine 2.22. He remains on anticoagulation with warfarin. Antibiotics in the form of cefepime. Currently in a -1.2 L balance. Remains on Flomax and Proscar. The patient is seen today 08/21/2022 in follow-up on the regular medical floor. He is resting quite comfortably in bed. Awake and alert in no acute distress. Maintaining O2 saturations in the 90s on room air. Afebrile. Hemodynamically stable. MRI of the abdomen revealed no evidence of right adrenal gland mass. The right adrenal gland appears similar to 2019 CT. Left adrenal gland cyst is present which is minimally larger from 2019. Bilateral simple appearing renal cysts. Trace bilateral pleural effusions. Urine culture positive for Klebsiella oxytoca. Blood cultures revealed no growth. INR 1.78. Sodium 138. Potassium 3.9. BUN 26. Creatinine 2.1. Glucose 93. He remains on cefepime. Continued on Flomax and Proscar. Anti-coagulated with warfarin. The patient is seen today 08/22/2022 in follow-up on the regular medical floor. He is in bed. Awake and alert in no acute distres maintaining good O2 saturations in the high 90s on room air. Afebrile. Hemodynamically stable. He is status post 2 units of packed red blood cells this admission. Current hemoglobin 8.1 urine culture was positive for Klebsiella oxytoca. Blood cultures revealed no growth. Sodium 138. Potassium 3.8. Bicarb 18. BUN 24. Creatinine 2.1. GFR 28. Nephrology is following. He remains on cefepime. Anticoagulated with warfarin. Continued on Flomax and Proscar. Urine output adequate. -1400 ML's. Lopez remains in place Seeing this patient today 08/23/2022 in follow-up on the general medical floor. He is currently laying in bed, on room air, in no acute distress. Patient denies any pulmonary complaints. No new chest x-ray to review today. He did have his urinary catheter reinserted due to some urinary retention. He continues to receive cefepime for a positive Klebsiella oxytoca urinary tract infection. He remains afebrile. Patient's creatinine continues to trend down and is 1.95 today, BUN 26. Normal saline is infusing at 50 mL per hour. The rest of the patient's BMP from today shows sodium of 137, potassium 3.7, chloride 115, serum CO2 19, glucose 89. Patient's CBC from today is stable with a WC count of 5.1, hemoglobin 8.5, hematocrit 26.2, platelets 117,000. Patient's INR yesterday was 1.89. Vital signs are stable. Objective - Vital Signs Vital signs: Vital Signs Temp 98.0 F 08/23/22 08:00 Pulse 87 08/23/22 08:00 Resp 14 08/23/22 08:00 BP 116/67 08/23/22 08:00 Pulse Ox 100 08/23/22 08:00 FiO2 Intake & Output 08/22/22 08/23/22 08/23/22 18:59 06:59 18:59 Output Total 950 Balance -950 Output: Urine 950 Other: Voiding Method Indwelling Catheter Indwelling Catheter Indwelling Catheter # Bowel Movements 1 1 - Exam GENERAL EXAM: Alert, 82-year-old male, comfortable in no apparent d istress. HEAD: Normocephalic and atraumatic EYES: Normal reaction of pupils, equal size. NOSE: Clear with pink turbinates. THROAT: No erythema or exudates. NECK: No masses, no JVD. CHEST: No chest wall deformity. LUNGS: Equal air entry with no crackles, wheeze, rhonchi or dullness. No conversational dyspnea or accessory muscle use.. CVS: S1 and S2 normal with harsh systolic murmur, regular rhythm. No extra heart sounds ABDOMEN: No hepatosplenomegaly, active bowel sounds, no guarding or rigidity. SPINE: No scoliosis or deformity SKIN: No rashes CENTRAL NERVOUS SYSTEM: No focal deficits, tone is normal in all 4 extremities. EXTREMITIES: There is no peripheral edema, clubbing, or cyanosis. Peripheral pulses are intact. - Labs CBC & Chem 7: 08/23/22 05:54 08/23/22 05:54 Labs: Abnormal Lab Results - Last 24 Hours (Table) 08/22/22 08/23/22 08/23/22 Range/Units 06:34 05:54 05:54 RBC 2.80 L (4.30-5.90) m/uL Hgb 8.5 L (13.0-17.5) gm/dL Hct 26.2 L (39.0-53.0) % RDW 19.1 H (11.5-15.5) % Plt Count 117 L (150-450) k/uL Lymphocytes # 0.5 L (1.0-4.8) k/uL PT 20.8 H (9.9-11.9) sec INR 1.89 H (0.90-1.11) Chloride 115 H (98-107) mmol/L Carbon Dioxide 19 L (22-30) mmol/L BUN 26 H (9-20) mg/dL Creatinine 1.95 H (0.66-1.25) mg/dL Calcium 7.6 L (8.4-10.2) mg/dL Microbiology - Last 24 Hours (Table) 08/16/22 10:15 Blood Culture - Final Blood No Growth after 144 hours 08/16/22 10:30 Blood Culture - Final Blood No Growth after 144 hours Assessment and Plan Assessment: Acute UTI with secondary sepsis secondary to Klebsiella oxytoca. Currently on IV cefepime. Vancomycin has been discontinued. Acute hypotension, requiring fluid resuscitation, likely secondary underlying dehydration/sepsis, currently off norepinephrine. Resolved Acute leukocytosis secondary to above, recovered Acute kidney injury and the creatinine continues to improve, producing adequate amount of urine output and the Lopez catheter had to be reinserted due to persistent retention. Continue on Flomax and Proscar. Acute lactic acidosis secondary to above, recovered Acute Coumadin toxicity with an INR above 10, recovered and the Coumadin toxicity is reversed, current INR 1.78 Acute on chronic anemia with a hemoglobin of 6.7, received 2 units of packed RBCs, current hemoglobin 8.5 g/dL Chronic into fibrillation with RVR at the time of admission. Currently rate controlled. Valvular heart disease with a probably a combination of mitral regurgitation and aortic stenosis/regurgitation. The patient has a harsh cardiac murmur BPH Hyperlipidemia Hypertension Generalized weakness and syncope secondary to above-mentioned comorbidities. CAT scan of the brain is not showing any acute abnormalities. The patient has diffuse white matter disease changes. No focal neurological deficits, clinically improved Plan: The patient's medications, labs reviewed Continues on IV cefepime for positive Klebsiella oxytoca UTI urology is following for persistent urinary retention, currently has Lopez catheter in place On room air From a pulmonary standpoint, patient is cleared for discharge I have personally seen and examined the patient, performed the documentation and the assessment and plan as written. Number of minutes spent on the visit:10 Time with Patient: Less than 30
[2022-08-23 11:57] LABS: INR 1.74 (0.90-1.11); Prothrombin Time 19.3 sec (9.9-11.9)
--- NOTE | 2022-08-23 12:07 | P.PN ---
Subjective Patient is seen for follow-up for acute kidney injury. Renal function has been improving. Creatinine improved to about 1.9 from 5.2 at peak. Good urine output No significant complaints today Objective - Vital Signs Vital signs: Vital Signs Temp 98.0 F 08/23/22 08:00 Pulse 87 08/23/22 08:00 Resp 14 08/23/22 08:00 BP 116/67 08/23/22 08:00 Pulse Ox 100 08/23/22 08:00 FiO2 Intake & Output 08/22/22 08/23/22 08/23/22 18:59 06:59 18:59 Output Total 950 Balance -950 Output: Urine 950 Other: Voiding Method Indwelling Catheter Indwelling Catheter Indwelling Catheter # Bowel Movements 1 1 - Exam Awake, comfortable, no acute distress Examination of the heart S1 and S2 Examination of the lungs bilateral breath sounds are heard Abdomen is soft nontender Examination lower extremities shows no significant edema. - Labs CBC & Chem 7: 08/23/22 05:54 08/23/22 05:54 Labs: Abnormal Lab Results - Last 24 Hours (Table) 08/23/22 08/23/22 08/23/22 Range/Units 05:54 05:54 05:54 RBC 2.80 L (4.30-5.90) m/uL Hgb 8.5 L (13.0-17.5) gm/dL Hct 26.2 L (39.0-53.0) % RDW 19.1 H (11.5-15.5) % Plt Count 117 L (150-450) k/uL Lymphocytes # 0.5 L (1.0-4.8) k/uL PT 19.3 H (9.9-11.9) sec INR 1.74 H (0.90-1.11) Chloride 115 H (98-107) mmol/L Carbon Dioxide 19 L (22-30) mmol/L BUN 26 H (9-20) mg/dL Creatinine 1.95 H (0.66-1.25) mg/dL Calcium 7.6 L (8.4-10.2) mg/dL Microbiology - Last 24 Hours (Table) 08/16/22 10:15 Blood Culture - Final Blood No Growth after 144 hours 08/16/22 10:30 Blood Culture - Final Blood No Growth after 144 hours Assessment and Plan Assessment: 1. Acute kidney injury secondary to hemodynamic ATN. Renal function improved with creatinine down to 1.9 from peak of 5.29. Previous creatinine 1.0-1.1 from 2019 2. Metabolic acidosis associated with acute kidney injury currently improved 3. Septic shock from Klebsiella UTI currently improved 4. Anemia, multifactorial status post packed RBCs. Plan: Continue to encourage increased oral intake Avoid nephrotoxic agents
[2022-08-23 14:11] VITALS: BMI 25.3
[2022-08-23] MEDS ORDERED: WARFARIN 5 MG TAB PO ONE (18:00)
--- NOTE | 2022-08-24 06:13 | P.DS ---
Providers Date of admission: 08/16/22 11:30 Attending physician: Bernardo Ramirez Consults: 08/16/22 11:30 Consult Physician Stat Consulting Provider: Minnie Hager Consult Reason/Comments: UTI, sepsis, lactic acidosis Do you want consulting provider notified?: Already Contacted Consult Physician Urgent Consulting Provider: Jean Saez Consult Reason/Comments: ARF, uti Do you want consulting provider notified?: Yes 08/18/22 08:37 Consult Physician Stat Consulting Provider: Danny Hernandez Consult Reason/Comments: urinary retention Do you want consulting provider notified?: Yes 08/21/22 20:07 Consult Physician Routine Consulting Provider: Maco Sanchez Consult Reason/Comments: afib and pauses Do you want consulting provider notified?: Yes, Notify in am Primary care physician: Jn Alonso [facility] Course: Diagnoses: Acute on chronic anemia, status post blood transfusion, hemoglobin improved upon discharge Acute kidney injury, significantly improved Acute urinary tract infection, improved Acute regurgitation status post Lopez catheter rounded 3.0 cm hypoechoic to an echoic lesion upper pole medial left kidney. MRI of the abdomen was unremarkable for significant mass or progressive mass growth, patient Will follow up outpatient with urologist Kaitlin tipton with RVR on Coumadin at home, switch to Eliquis upon discharge Dehydration Coagulopathy secondary to Coumadin Recurrent syncope, mostly secondary to above elevated lactic acid Hypertension History of benign prostatic hypertrophy History of mitral regurgitation Hospital course: This is a pleasant 82 years old male with past medical history of Atrial Fibrillation on Coumadin Hypertension, benign prostatic hypertrophy, Syncope, mitral valve regergitation (waiting for heart cath and STAR with Dr. Seven Downey), Low Hgb- last blood transfusion 01/13/19- received 2 units. Patient follows up with Dr. Alonso, Patient presents because of dizziness and falling down. Associated with syncope found to have multiple medical problems including UTI, DMITRI, acute anemia, A. fib and RVR with coagulopathy secondary to Coumadin. Patient has been evaluated by several consultants including pulmonary, nephrology, urology and cardiology services Patient was treated with IV hydration, blood transfusion, antibiotic received cefepime and on admission. It seems 1 dose of vancomycin, his creatinine on admission was 5.2 improved significantly upon discharge to 1.9, hemoglobin was 6.8 on admission went up to 8.5 upon discharge. Blood pressure was stable. Because of the fibular with Coumadin therapy, anticoagulation was switched to Eliquis, prescription was provided for the patient and he is agreeable with the copy of about $11.00. Risks benefits explained for him. Patient had Lopez catheter upon discharge because he failed voiding trial. Patient will be discharged on short course of antibiotic, Prilosec as well as blood thinner Eliquis Patient today he is back to his baseline, he is fully awake and oriented, he denies any other abnormality, no chest pain or dyspnea, no new neurological or GI symptoms, no diarrhea or abdominal pain he tolerates diet. No fever. She was cleared for discharge by all consultants including urologist, cat tender, manager of enterprise and venture capital analyst. Problems and management plan were discussed with the patient and he verbalized understanding and acceptance Patient was found stable and can be discharged home in guarded prognosis however he needs follow-up as an outpatient. Patient was instructed to follow up with PCP Dr. Alonso within one week and patient agrees Patient was instructed to follow up with venture capital analyst Dr. Sanchez in one week, he agrees with appointment with Dr. Whaley on 09/[address] Nadja Luevano on 09/[address] Hager on 09/13 Physical exam Gen: patient is a AAOx3, no distress CVS: S1-S2, RRR, no murmur Lungs: B/L CTA, no wheezing -Abdomen: soft, no distention, no tenderness, positive bowel sounds. Lopez catheter in place Extremity: no leg edema or induration Time spent more than 35 minutes Patient Condition at Discharge: Serious Plan - Discharge Summary Discharge Rx Participant: No New Discharge Prescriptions: New Apixaban [Eliquis] 5 mg PO BID #60 tab cefUROXime axetiL [Cefuroxime] 500 mg PO BID 5 Days #10 tab Omeprazole [PriLOSEC] 20 mg PO AC-BRKFST 30 Days #30 cap Continue Midodrine HCl [ProAmantine] 2.5 mg PO BID Fenofibrate [Lofibra] 160 mg PO DAILY Finasteride [Proscar] 5 mg PO DAILY Tamsulosin HCl [Flomax] 0.4 mg PO HS Metoprolol Tartrate [Lopressor] 12.5 mg PO BID Discharge Medication List Fenofibrate [Lofibra] 160 mg PO DAILY 08/16/22 [History] Finasteride [Proscar] 5 mg PO DAILY 08/16/22 [History] Metoprolol Tartrate [Lopressor] 12.5 mg PO BID 08/16/22 [History] Midodrine HCl [ProAmantine] 2.5 mg PO BID 08/16/22 [History] Tamsulosin HCl [Flomax] 0.4 mg PO HS 08/16/22 [History] Apixaban [Eliquis] 5 mg PO BID #60 tab 08/20/22 [Rx] Omeprazole [PriLOSEC] 20 mg PO AC-BRKFST 30 Days #30 cap 08/23/22 [Rx] cefUROXime axetiL [Cefuroxime] 500 mg PO BID 5 Days #10 tab 08/23/22 [Rx] Follow up Appointment(s)/Referral(s): Maco Sanchez MD [STAFF PHYSICIAN] - 1 Week (venture capital analyst, you will need event monitor and work you for your valve disease (aortic steosis)) [facility] [NON-STAFF] - As Needed Kirill Whaley MD [STAFF PHYSICIAN] - 09/06/22 9:20 am (New patient please arrive 15 min. early to appointment with insurence card and ID.) Jn Alonso DO [Primary Care Provider] - 08/27/22 10:30 am Jean Saez DO [STAFF PHYSICIAN] - 09/20/22 2:00 pm Minnie Hager MD [STAFF PHYSICIAN] - 09/13/22 2:15 pm Patient Instructions/Handouts: Urinary Tract Infection in Men (DC), Lopez Catheter Placement and Care (DC), Urinary Leg Bag (GEN) Activity/Diet/Wound Care/Special Instructions: heart healthy diet activity is restricted till you see your doctor stop the Coumadin and start taking eliquis this evening Discharge Disposition: HOME WITH HOME HEALTH SERVICES
== END 2022-08-23 15:27 | disposition home health service (06) | DRG 811 ==
LOC: EC 07:56 → 2SICU 11:30 → 4SSUR 08-19 23:35
PROVIDERS: ADMIT Hospitalist; ATTEND Hospitalist
PROC: 30233N1 Transfusion of Nonautologous Red Blood Cells into Peripheral Vein, Percutaneous Approach (ICD-10-PCS; principal; 2022-08-16)
PROC: 3E033XZ Introduction of Vasopressor into Peripheral Vein, Percutaneous Approach (ICD-10-PCS; 2022-08-17)
DX: D62 Acute posthemorrhagic anemia (principal); N17.0 Acute kidney failure with tubular necrosis; N39.0 Urinary tract infection, site not specified; D68.8 Other specified coagulation defects; E87.20 Acidosis, unspecified; I48.19 Other persistent atrial fibrillation; I49.5 Sick sinus syndrome; I95.9 Hypotension, unspecified; E27.9 Disorder of adrenal gland, unspecified; Z20.822 Contact with and (suspected) exposure to COVID-19; T45.515A Adverse effect of anticoagulants, initial encounter; E86.0 Dehydration; B96.1 Klebsiella pneumoniae [K. pneumoniae] as the cause of diseases classified elsewhere; I10 Essential (primary) hypertension; E78.5 Hyperlipidemia, unspecified; I08.0 Rheumatic disorders of both mitral and aortic valves; N28.9 Disorder of kidney and ureter, unspecified; N40.1 Benign prostatic hyperplasia with lower urinary tract symptoms; R33.8 Other retention of urine; R39.11 Hesitancy of micturition; R39.14 Feeling of incomplete bladder emptying; R35.0 Frequency of micturition; R39.15 Urgency of urination; K59.00 Constipation, unspecified; N28.1 Cyst of kidney, acquired; H93.19 Tinnitus, unspecified ear; M79.605 Pain in left leg; R90.82 White matter disease, unspecified; R29.6 Repeated falls; Z79.899 Other long term (current) drug therapy; Z85.828 Personal history of other malignant neoplasm of skin; Z87.891 Personal history of nicotine dependence
CPT/HCPCS: 36415; 36430; 70450; 71046; 72170; 74181; 76770; 80048; 80053; 80202; 81001; 82272; 82533; 83605; 83735; 84484; 85025; 85027; 85610; 85730; 86850; 86900; 86901; 86920; 87040; 87077; 87086; 87186; 87636; 93005; 93306; 96361; 96365; 96366; 96367; 96368; 99291

== ENCOUNTER 2023-02-23 09:34 | Day surgery (SDC) | payer MEDICARE, SELFPAY ==
[2023-02-17 15:34] VITALS: BMI 24.1
[~2023-02-23 09:34] MED LIST changes: +ALPRAZolam 0.25 MG TAB PO PRN; +ALPRAZolam 0.5 MG TAB PO PRN; +ASPIRIN 325 MG TAB PO ONE; +ATORVASTATIN 80 MG TAB PO ONE; +HEPARIN SODIUM,PORCINE (1 ML) 2,500 UNIT in SODIUM CHLORIDE 0.9% 250 ML IRRIGATION PRN; +HEPARIN SODIUM,PORCINE 10,000 UNIT in SODIUM CHLORIDE 0.9% 1,000 ML IRRIGATION PRN; +NITROGLYCERIN SL TABS 0.4 MG TAB SUBLINGUAL PRN; -SIMETHICONE 40 MG/0.6 ML DROPS 2,000 MG/30 ML BOTTLE PO ONE; +SODIUM CHLORIDE 0.9% 1,000 ML in EMPTY BAG 1 BAG IV SCH
[2023-02-23 10:24] VITALS: RESP 18; TEMP 97.8
[2023-02-23 10:43] LABS: Basophils % (A) 0 %; Eosinophils # (A) 0.2 k/uL (0-0.7); Eosinophils % (A) 4 %; HCT 41.9 % (39.0-53.0); HGB 13.7 gm/dL (13.0-17.5); Lymphocytes # (A) 0.6 k/uL (1.0-4.8); Lymphocytes % (A) 12 %; MCH 30.5 pg (25.0-35.0); MCHC 32.8 g/dL (31.0-37.0); MCV 92.9 fL (80.0-100.0); Mean Platelet Volume 8.4; Monocytes # (A) 0.3 k/uL (0-1.0); Monocytes % (A) 6 %; Neutrophils # (A) 4.1 k/uL (1.3-7.7); Neutrophils % (A) 76 %; RBC 4.51 m/uL (4.30-5.90); RDW 14.6 % (11.5-15.5); WBC 5.4 k/uL (3.8-10.6)
[2023-02-23 10:45] LABS: African American GFR (CKD) 32 (>60 ml/min/1.73 sqM); Anion Gap 16 mmol/L; Blood Urea Nitrogen 30 mg/dL (9-20); Calcium 9.2 mg/dL (8.4-10.2); Carbon Dioxide 20 mmol/L (22-30); Chloride 106 mmol/L (98-107); Glucose 117 mg/dL (74-99); Non-African American GFR(CKD) 27 (>60 ml/min/1.73 sqM); Potassium 4.1 mmol/L (3.5-5.1); Sodium 142 mmol/L (137-145)
[2023-02-23 11:40] LABS: Platelet Count 94 k/uL (150-450)
[2023-02-23] MEDS ORDERED: HEPARIN SODIUM 1,000 UN/ML (10ML VL) ONE (12:37)
[2023-02-23] MEDS ORDERED: VERAPAMIL 2.5 MG/ML 2 ML AMP ONE (12:37)
[2023-02-23] MEDS ORDERED: MIDAZOLAM 2 MG/2 ML VIAL IVP ONE (13:30)
[2023-02-23] MEDS ORDERED: LIDOCAINE 1% INJ 10MG/ML (20 ML MDV) SQ ONE (13:32)
[2023-02-23] MEDS ORDERED: VERAPAMIL SYRINGE (5 MG/10 ML) INTRAARTER ONE (13:33)
[2023-02-23] MEDS ORDERED: HEPARIN SODIUM 1,000 UN/ML (10ML VL) IV ONE (13:37)
[2023-02-23] MEDS ORDERED: IOPAMIDOL-370 100ML BTL INJ ONE (13:44)
[2023-02-23] MEDS ORDERED: RX INFO: IV CONTRAST WAS GIVEN 1 EACH MISC MISCELLANE PRN (13:45)
[2023-02-23] MEDS ORDERED: SODIUM CHLORIDE 0.9% 1,000 ML IV SCH (13:45)
--- NOTE | 2023-02-23 13:49 | P.PCN ---
Date of Procedure: 02/23/23 Operative Findings: CARDIAC CATHETERIZATION PERFORMING PHYSICIAN: Kody Paige MD, RPVI PROCEDURE PERFORMED: 1. Selective right and left coronary angiogram 2. Left heart catheterization 3. Ultrasound-guided access of the right radial artery INDICATION: Shortness of breath in this 82-year-old gentleman who underwent myocardial perfusion imaging stress is shrunken anterior skin COMPLICATION: None APPROACH: Right radial artery LEVEL OF SEDATION: Moderate with a sedation length of 11 minutes PROCEDURE DESCRIPTION: After obtaining an informed consent, the patient was brought to cardiac civil laboratory technician. Local anesthesia was performed using lidocaine subcutaneously. The right radial artery was cannulated using Seldinger technique, the guidewire passed easily, following that we advanced a 5-[place] sheath dilator assembly, the wire and dilator were removed and sheath was flushed. Following that, 2 mg of verapamil along with 3000 unit heparin were given. Selective right and left coronary angiogram using a 6-[place] JR4 and JL 3.5 cat heters. Following that we did left heart catheterization using 6-[place] pigtail catheter. The procedure was completed there was no complication. SELECTIVE CORONARY ANGIOGRAM: The right coronary artery: Medium caliber vessel nondominant vessel appears to be angiographically normal Left main: Angiographically normal. Bifurcates into LCx and LAD The left circumflex: Large caliber vessel a dominant vessel. Its angiographically normal. Approximately gives rises into an OM1 which appears to be angiographically normal and distally bifurcates into PDA and PLV branches both appeared to be angiographically normal The left anterior descending artery: Is angiographically normal. Gives rises into a large diagonal branch which appears to be angiographically normal HEMODYNAMICS: The LVEDP was 11 mmHg with no significant gradient across aortic valve CONCLUSION: 1. Normal coronary angiogram 2. Normal left-sided filling pressure POSTPROCEDURE MANAGEMENT: Medical treatment
[2023-02-23 16:06] VITALS: BP 113/63; PULSE 86
== END 2023-02-23 16:24 | disposition home or self-care (01) ==
LOC: CATHCVL 09:34
PROVIDERS: ATTEND Internal Medicine Interventional Cardiology
DX: I08.0 Rheumatic disorders of both mitral and aortic valves (principal); I48.21 Permanent atrial fibrillation; F17.210 Nicotine dependence, cigarettes, uncomplicated; Z79.899 Other long term (current) drug therapy; Z95.0 Presence of cardiac pacemaker; Z79.01 Long term (current) use of anticoagulants
CPT/HCPCS: 93458; 76937; 80048; 85025; 83036; C1769; C1894; J2250; J2001; J1644; Q9967

== ENCOUNTER → 2023-05-25 | Outpatient (CLI) | payer MEDICARE, SELFPAY ==
--- NOTE | 2023-05-25 09:39 | XR ---
EXAM TYPE: LUMBAR SPINE X RAY SERIES COMPARISON: NONE HISTORY: Pain TECHNIQUE: 3 views are submitted. FINDINGS: Alignment is anatomic. The pedicles are intact. The transverse processes are intact. There is no s pondylolisthesis. Multilevel hypertrophic and degenerative disc disease with moderate to severe marie ges seen at levels L3-S1. Advanced facet arthropathy L4-5 and L5-S1. Foraminal impingement suspected. Diffuse osteopenia. IMPRESSION: 1. Diffuse osteopenia with multilevel moderate to severe degenerative disc disease involving the mid and lower lumbar spine. Multilevel foraminal encroachment.
== END | disposition home or self-care (01) ==
LOC: RADXRMAIN 09:02
PROVIDERS: ATTEND Family Medicine
DX: M51.36 Other intervertebral disc degeneration, lumbar region (principal); M85.88 Other specified disorders of bone density and structure, other site
CPT/HCPCS: 72100

== ENCOUNTER → 2023-11-16 | Outpatient (CLI) | payer MEDICARE, OTHER ==
--- NOTE | 2023-11-16 14:03 | US ---
EXAMINATION TYPE: US arterial LE single level DATE OF EXAM: 11/16/2023 1:38 PM CLINICAL INDICATION: Male, 83 years old with history of R09.89 OTHER SPECIFIED SYMPTOMS AND SIGNS INV OLVING THE CIRC; Pain, edema, numbness bilateral legs for 2 years, getting worse, worse on the left. Aching bilateral feet History of: Smoker: previous Hypertension: yes Diabetic: no Hyperlipidemia: no TIA/CVA: no Previous Vascular Surgery: yes, pacemaker [place]: no Vascular Ulcers: no Claudication: no Gangrene: no Doppler Waveforms: Right: Multiphasic Left: Multiphasic Right Brachial Pressure: 133 Left Brachial Pressure: 135 Ankle-Brachial Indices: Right: 1.23 Left: 1.15 (Vessel hardening > 1.4; Normal 0.9 - 1.4, Moderate 0.7 - 0.9, Severe 0.5-0.7) IMPRESSION: 1. Normal JOSE bilaterally.
== END | disposition home or self-care (01) ==
LOC: RADUSWWP 13:01
PROVIDERS: ATTEND Family Medicine
DX: R09.89 Other specified symptoms and signs involving the circulatory and respiratory systems (principal); M79.605 Pain in left leg; M79.604 Pain in right leg; R20.0 Anesthesia of skin
CPT/HCPCS: 93922